=== PATIENT | female | born 1955 | race Caucasian/White ===

== ENCOUNTER 2021-04-04 10:57 | Outpatient (CLI) | payer OTHER, SELFPAY ==
--- NOTE | 2021-04-04 11:07 | XRR_ITS ---
PROCEDURE INFORMATION: Exam: XR Chest Exam date and time: 04/04/2021 11:07 AM Age: 65 years old Clinical indication: Cough and dyspnea; Additional info: Cough/dyspnea TECHNIQUE: Imaging protocol: XR of the chest. Views: Frontal and lateral upright, 2 views. COMPARISON: No relevant prior studies available. FINDINGS: Lungs: Severe profusion of nodular densities throughout the bilateral lungs, largest approximately 15 mm. The pulmonary vasculature is obscured by increased lung attenuation. Pleural spaces: No pleural effusion. No pneumothorax. Heart/Mediastinum: The heart is normal in size and contour. Bones/joints: No destructive bony process identified. XR/XR chest 2V* [id number] IMPRESSION: Extensive bilateral pulmonary nodules, consider metastatic neoplastic and infectious etiologies.
== END 2021-04-04 10:58 | disposition home or self-care (01) ==
PROVIDERS: PCP Nurse Practitioner Family; Visit Provider Nurse Practitioner Family
DX: Z00.00 Encounter for general adult medical examination without abnormal findings (principal); R05 Cough; R06.00 Dyspnea, unspecified
CPT/HCPCS: 71046; 80053; 80061; 82607; 83036; 84443

== ENCOUNTER 2021-04-21 09:51 | Outpatient (CLI) | payer OTHER, SELFPAY ==
[2021-04-21] MEDS: iohexol 300 mg/mL 50 mL Btl PO (10:05)
--- NOTE | 2021-04-21 11:30 | CT_ITS ---
WS: [id number] Exam: CT chest abd pel w con* Date/Time of Exam: 04/21/2021 10:00 AM Reason For Exam: R93.89 - Abnormal findings on diagnostic imaging of other... DLP: 2093.[address] scans at [facility] use at least one of these dose optimization techniques: automat ed exposure control; mA and/or kV adjustment per patient size (includes targeted exams where dose is matched to clinical indication); or iterative reconstruction. CT scan of the chest with IV contrast. There are multiple nodular densities and small masses identified throughout both lungs. The lungs are fully inflated. No pleural or pericardial effusion seen. The airway is patent. No mediastinal or hil ar lymphadenopathy. 2.5 cm low-attenuation lesion in the left thyroid lobe which may represent a adam oid cyst. No significant axillary or subpectoral lymphadenopathy. No destructive bone lesions are see n. The chest wall is intact. No destructive bone lesions. CT/CT chest abd pel w con* IMPRESSION: 1. Multiple soft tissue nodules and small masses identified throughout both dell gs. Lung metastasis or less likely infectious etiology might be considered. 2. No significant lymphadenopathy in the chest. CT scan of the abdomen and pelvis with IV contrast. The liver, spleen and gallbladder appear normal. The abdominal aorta is normal in caliber. Normal adrenal glands and kidneys. The portal vein and IVC are cuellar nt. The stomach is unremarkable. There is altered contour and attenuation in th e body the pancreas that may represent a pancreatic mass. There is mild retrope ritoneal lymphadenopathy. The largest left paracaval lymph node measures sligh tly over 1 cm at greatest short axis dimension. Small bowel loops are not dilat ed. There is sigmoid diverticulosis. No sign of acute diverticulitis. No sign o f acute appendix. No mass or adenopathy in the pelvis. No free air in the abdom en or pelvis. Intact urinary bladder. The uterus is unremarkable in appearance. No destructive bone lesions are seen. Tiny fat filled periumbilical hernia. IMPRESSION: 1. Altered contour and attenuation in the body the pancreas that may represent a pancreatic mass. 2. Mild retroperitoneal lymphadenopathy. The largest node measures slightly ove r a centimeter greatest short axis dimension and is seen along the left pericav al region. 3. Sigmoid diverticulosis. Other minor findings as above. IMPRESSION: 1. Abdominal MRI with and without contrast could be helpful for further workup if thought to be clinically indicated.
[2021-04-21] MEDS: iohexol 300 mg/mL 100 mL Btl IV (11:39)
== END 2021-04-21 09:52 | disposition home or self-care (01) ==
PROVIDERS: PCP Nurse Practitioner Family; Visit Provider Nurse Practitioner Family
DX: R93.89 Abnormal findings on diagnostic imaging of other specified body structures (principal); R06.02 Shortness of breath; R91.8 Other nonspecific abnormal finding of lung field; R59.1 Generalized enlarged lymph nodes; K57.30 Diverticulosis of large intestine without perforation or abscess without bleeding
CPT/HCPCS: 71260; 74177; Q9967

== ENCOUNTER 2021-04-26 09:01 | Day surgery (SDC) | payer OTHER, SELFPAY ==
[2021-04-25 07:53] VITALS: BMI 23.9
[2021-04-26] VITALS (8 sets, daily range): BP systolic 110–145; BP diastolic 66–96; PULSE 87–129; RESP 16–20; TEMP 36.6; O2SAT 92–100
[2021-04-26] MEDS: sodium chloride 0.9% 1,000 ML 30 ML IV (09:39)
[2021-04-26 09:59] LABS: INR 1.11 (0.8-1.2)
--- NOTE | 2021-04-26 10:00 | CT_ITS ---
WS: [id number] CT-GUIDED BIOPSY LEFT LUNG MASS. HISTORY: R91.8 - Other nonspecific abnormal finding of lung field, extensive bilateral pulmonary nodu les and masses of unknown etiology. DLP: 556.[address] scans at [facility] use at least one of these dose optimization techniques: automat ed exposure control; mA and/or kV adjustment per patient size (includes targeted exams where dose is matched to clinical indication); or iterative reconstruction. Prior imaging studies are reviewed. History and physical are reviewed. Procedure, risks and complicat ions were explained to the patient. Consent is obtained. Under fluoroscopy mass in the posterior RIGHT lower lobe is targeted. Skin is cleansed with ChloraPre p and anesthetized with 1% buffered lidocaine. Under conscious sedation 20-gauge Temno needle is inse rted into the mass. Coaxial needle is used for the biopsy. Multiple cores are obtained. Probably 6 co res are obtained. 4 cores are placed in formalin and 2 additional cores are sent for culture and sens itivity and for fungal evaluation. No complications are encountered. No pneumothorax or hemorrhage identified. Patient will be observed for 2 hours post procedure. Chest radiograph will be obtained in [address]/CT biopsy lung [id number] IMPRESSION: 1. Uncomplicated core needle biopsy of the LEFT lower lobe pulmonary mass. No complications are encountered. 2. Specimen is placed within formalin and also sent for culture and sensitivit y and gram stains.
[2021-04-26] MEDS: fentaNYL 50 mcg/mL INJ 2mL 25 MCG IVP ×2 (10:41→10:58)
[2021-04-26] MEDS: midazolam 1 mg/mL INJ 2 mL IVP (10:42)
--- NOTE | 2021-04-26 12:34 | XR_ITS ---
WS: [id number] PORTABLE CHEST HISTORY: post lung biopsy COMPARISON: 04/04/2021 No complications status post LEFT lung biopsy. No pneumothorax or pulmonary hematoma. Very slightly g reater density at the site of the biopsy may represent a small amount of bleeding at the site. The extensive pulmonary nodules are again identified. No pleural effusion or pneumothorax. Cardiac size: Normal. Mediastinum/Aorta: Normal mediastinum. No osseous abnormality seen. XR/XR chest 1V portable [id number] IMPRESSION: No complications status post LEFT lung biopsy.
== END 2021-04-26 13:12 | disposition home or self-care (01) ==
PROVIDERS: Radiology Diagnostic Radiology; PCP Nurse Practitioner Family; Visit Provider Nurse Practitioner Family
DX: C34.92 Malignant neoplasm of unspecified part of left bronchus or lung (principal)
CPT/HCPCS: 32408; 36415; 71045; 85610; 87070; 87102; 87176; 87205; 87206; 88307; 96361; 96374; 96375; J2250; J3010; J7030

== ENCOUNTER 2021-05-05 09:14 | Outpatient (CLI) | payer OTHER, SELFPAY ==
--- NOTE | 2021-05-05 17:44 | ONC CON_ITS ---
Dr. Luna New Patient Note Patient: Charlotte Mukherjee Unit #: [id number]: 1955 Dicatated By: Johnny Luna M.D.Date of Visit: May 05, 2021 Onc MED New Patient/Consult Referring Physician: DAGO WANG N.P. History of Present Illness: Ms. Charlotte Mukherjee, is a 65-year-old female who developed progressive dry cough since December 2020 and later on started having left posterior lateral chest wall pain as per patient he was sharp, sometimes stabbing so she started taking ibuprofen which helped some as per patient she also going through some grief as she lost her son in car accident in December 2020, patient was evaluated by her PMD on April 04, 2021 at that time patient was reassured as far as the cough is concerned, patient was scheduled for mammogram screening as well as colonoscopy and chest x-ray was ordered which showed multiple lung nodules no other abnormalities,, CT scan of chest abdomen pelvis was ordered and done on April 21, 2021 which showed multiple soft tissue nodules and small masses identified throughout both lungs. No significant lymphadenopathy in the chest. CT scan of abdomen shows altered contour and attenuation in the body of pancreas, that may represent pancreatic mass. Mild retroperitoneal lymphadenopathy. The largest node measures slightly over centimeter. Sigmoid diverticulosis., Patient was referred to interventional radiologist so on April 26, [address]-guided biopsy of left lung mass and pathology confirmed adenocarcinoma with mucinous features further immunohistochemistry is pending Patient came to clinic, complaining of progressive weakness and lightheadedness no double vision but sometimes blurred vision persistent nausea and dry heaving but no vomiting, as per patient she is having hard time keeping anything down and not drinking or eating enough, she has lost about 40 pounds in the last few months as per patient she used to weigh 296 pounds and now down to 155 also complaining of persistent bothersome dry cough. Denies any hemoptysis or hematemesis, denies any dysphagia, denies any hematemesis, denies any melena or hematochezia, denies any abdominal pain, denies any headaches, denies any sinus problem, denies any jaundice, patient is complaining of progressive left posterior lateral chest pain not being controlled with ibuprofen but sometimes with Ultram. Patient has history of right oophorectomy for cyst about 40 years ago Patient has history of chronic smoking for 15 to 20 years but quit about 30 years ago, patient denies any fever chills but dry oral mucosa due to dehydration due to poor hydration due to persistent dry heaves and nausea and off-and-on vomiting.Denies any new bony pains, denies any night sweats, denies any vaginal bleeding, denies any breast mass, as per patient she never had colonoscopy or mammogram but it was scheduled but canceled because of abnormal chest x-ray Past Medical History: Ms. Mukherjee's medical history consists of depression. Past Surgical History: There is no documented surgical history. Medications: Naprosyn 1 Tablet (of 500 mg) Oral b.i.d., Ondansetron HCl 1 Tablet (of 4 mg) Oral PRN, traMADol HCl 1 Tablet (of 50 mg) Oral t.i.d. PRN Allergies: Codeine Sulfate Social History: Ms. Mukherjee is . Family History: There is no documented family history. Review Of Symptoms: Review of Systems is not available for this patient. Vital Signs: Performed on May 05, 2021 09:45: 0, 23.49, 1.79 sq.m, 67 in, 94 % (LOW), 115 /min (HIGH), 18 /min, 125/81 mm(hg), 97.8 F (LOW), and 150 lbs (HIGH). Performance Status: 1 - No physically strenuous activity, but ambulatory and able to carry out light or sedentary work (e.g. office work, light house work). (ECOG) Physical Examination: ENMT - .No mouth sores, no thrush but dry oral mucosa no cervical lymphadenopathy, Respiratory - Lungs are clear to auscultation, Cardiovascular - Regular rate and rhythm of heart, Abdomen - Soft, bowel sounds present, Extremities - No visible edema. Lab/Imaging: Most recent lab results are not available for this patient. Impression: Adenocarcinoma with mucinous features per CT-guided left lung mass biopsy done on April 26, 2021 CT scan of chest abdomen pelvis done on April 21, 2021 shows multiple soft tissue nodules and small masses identified throughout both lungs,. No significant lymphadenopathy in the chest. Altered contour and attenuation in the body of pancreas may represent pancreatic mass. Mild retroperitoneal lymphadenopathy. Largest node measures slightly over centimeter in greatest short axis dimension and is seen along the left pericaval region. Sigmoid diverticulosis Left posterior lateral chest wall pain etiology unclear could be musculoskeletal or metastatic disease Dehydration/poor oral intake due to nausea/dry heaves/off and on vomiting etiology could be multifactorial including brain mets versus NSAID induced gastritis or peptic ulcer disease or gastric outlet obstruction due to pancreatic mass Dry cough, etiology unclear could be due to postnasal drip or bronchial irritation due to pulmonary pathology Plan: Discussed with patient regarding her abnormal CT scan of chest abdomen pelvis as well as CT-guided lung biopsy which confirmed adenocarcinoma with mucinous features but special immunohistochemistry is pending to identify the primary versus metastatic disease, Clinically, patient is in moderate to severe distress due to persistent nausea/dry heaves and off-and-on vomiting and dehydration/poor nutrition, at this point we will admit her to hospital, consider CT scan of the head to rule out brain mets and if negative, consider EGD to rule out peptic ulcer disease or NSAID induced gastritis, hydration, nutrition consult. Also consider pulmonary consult to evaluate persistent dry cough, may benefit from bronchoscopy,We will also consider CT PET scan to assess the disease status, we will also consider tumor markers CEA, CA 19???9, CA-125, CA 15.3/CA 27.29, if elevated may help identifying the primary, immunohistochemistry remained inconclusive, may consider cancer type ID and also consider molecular profiling to identify targetable therapeutic mutations and including PD-L1 status Patient return to clinic after being discharged from the hospital for further planning a discussion Signed By: Johnny Luna M.D. <<Signature on File>>
== END 2021-05-05 09:15 | disposition home or self-care (01) ==
LOC: ONCMED 09:17
PROVIDERS: PCP Nurse Practitioner Family; Visit Provider Internal Medicine Hematology & Oncology
DX: C34.92 Malignant neoplasm of unspecified part of left bronchus or lung (principal); E86.0 Dehydration; R05 Cough; Z79.899 Other long term (current) drug therapy; Z87.891 Personal history of nicotine dependence
CPT/HCPCS: 99205

== ENCOUNTER 2021-05-05 10:43 | Emergency (ER) | payer OTHER, MEDICARE, SELFPAY ==
[2021-05-05 11:01] VITALS: BP 115/76; PULSE 112; RESP 15; TEMP 36.6; O2SAT 91; BMI 23.5
--- NOTE | 2021-05-05 11:15 | CT_ITS ---
WS: [id number] CTA OF THE CHEST WITH PULMONARY EMBOLISM PROTOCOL TECHNIQUE: High-resolution contrast enhanced CTA of the chest with coronal and sagittal reformatted i kendal with pulmonary embolism protocol. MIP images are also reviewed. CLINICAL INFORMATION: rule out pe COMPARISON: None. DLP: 564.[address] scans at [facility] use at least one of these dose optimization techniques: automated e xposure control; mA and/or kV adjustment per patient size (includes targeted exams where dose is matc hed to clinical indication); or iterative reconstruction. FINDINGS: Proximal main pulmonary arteries are normal. Normal segmental and subsegmental pulmonary arteries. No evidence for pulmonary embolus. Innumerable bilateral pulmonary nodules throughout both lungs. This is similar in appearance to the p rior examination April 21, 2020. pulmonary lesions appear slightly progressed today with slightly mo re confluence peripherally in the lung bases. Some lesions demonstrate cavitation unchanged from pre vious. Differential considerations are unchanged and include metastatic disease versus atypical infec tious etiologies such as fungal disease Nodular left thyroid unchanged. No axillary lymphadenopathy. Slightly prominent hilar lymph nodes unc hanged from previous. Adrenal glands are normal. CT/CT angio chest PE protcl [id number] IMPRESSION: 1. No evidence of pulmonary embolus. 2. Innumerable bilateral diffuse pulmonary nodules some with cavitations suspi cious for metastatic disease. Less likely additional considerations include aty pical infections such as fungal disease. Overall disease is slightly progressed compared to April 21, 2021 3. Prominent bilateral hilar lymph nodes unchanged. 4. Nodular left thyroid gland is unchanged. 5. No other significant interval changes.
--- NOTE | 2021-05-05 11:15 | XR_ITS ---
WS: [id number] Portable AP upright chest, 05/05/2021 Clinical Data: dyspnea Comparison: Portable chest, 04/26/2021. Findings: There are innumerable nodules throughout both lungs unchanged. The heart size remains the same. The aortic arch is tortuous. No pneumothorax is seen. XR/XR chest 1V portable [id number] Impression: Innumerable nodules throughout both lungs unchanged and again this could repres ent infection, metastatic disease or even a primary tumor.
--- NOTE | 2021-05-05 11:15 | CT_ITS ---
WS: [id number] CT HEAD TECHNIQUE: Noncontrast CT of the head obtained from the skullbase to the vertex. CLINICAL INFORMATION: rule out mass per dr asher COMPARISON: None. DLP: 841.[address] scans at [facility] use at least one of these dose optimization techniques: automated e xposure control; mA and/or kV adjustment per patient size (includes targeted exams where dose is matc hed to clinical indication); or iterative reconstruction. FINDINGS: No evidence of intracranial hemorrhage. Calcified lesion left frontal lobe likely represents meningio ma measuring 10 mm. Small amount of surrounding low-attenuation change. No significant mass effect or midline shift. Small amount of underlying calvarial remodeling. Dystrophic calcification along the falx. No evidence of intracranial hemorrhage. Mild small vessel ch anges with mild parenchymal volume loss. Normal posterior fossa. Paranasal sinuses and mastoid air ce lls are well aerated. CT/CT head wo con* [id number] IMPRESSION: 1. Calcified left frontal lesion measuring 10 mm most likely represent small c alcified meningioma. Small amount of surrounding low attenuation change. No sig nificant mass effect or midline shift. This can be followed up with MRI on an e lective basis. 2. No evidence of intracranial hemorrhage. 3. Mild small vessel changes with mild parenchymal volume loss. 4. No other significant findings.
--- NOTE | 2021-05-05 11:15 | ECG_ITS ---
[facility] Test Date: 2021-05-05 Pat Name: Charlotte Mukherjee Department: Room: Gender: Female Chief Radiologic Technologist: : 1955 Requested By: Mushtaq Balderrama Order Number: [id number] Maranda MD: Nima Womack M.D. Measurements Intervals Chromo Rate: 86 P: 27 NJ: 122 QRS: 45 QRSD: 94 T: 42 QT: 374 QTc: 448 Interpretive Statements SINUS RHYTHM No previous ECG available for comparison Electronically Signed On 05-05-2021 20:09:17 CDT by Nima Womack M.D. [id number]
--- NOTE | 2021-05-05 11:18 | ED_ITS ---
HPI - General Adult General: Chief complaint: Nausea/Vomiting/Diarrhea Stated complaint: Nausea Time Seen by Provider: 05/05/21 11:06 History of Present Illness: HPI narrative: Patient is a 65-year-old female with recent diagnosis of lung CA who presents the emergency room with request of Dr. Luna for concerns of dehydration and hypoxemia. Patient tells me that she has had decreased p.o. intake since her diagnosis of cancer. Patient has had decreased appetite, nausea and vomiting. In addition, patient also reports an ongoing cough x2 weeks. In addition, patient was noted to be hypoxemic to the 90% in the oncology office. Denies any fever/chills, chest pain, shortness of breath. Patient has no exertional shortness breath or pleuritic chest pain. Patient denies diarrhea, melena/hematochezia, complaints. Or other issues. Patient is awaiting further testing before chemotherapy/radiation treatment. Onset: chronic Duration: ongoing Location:home Severity:moderate Review of Systems Narrative: Constitutional: No fever, no chills. HEENT: No vision changes CV: No chest pain, no palpitations PULM: +cough, no dyspnea. GI: +abdominal pain, +N/+V/-D. +decreased PO intake : No dysuria MSKEL: No muscle pain SKIN: No new rashes, no lesions. NEURO: No headache, no focal weakness. HEME: No visible bruises PSYCH: Normal mood [facility] Female Reproductive History: Date of last menstrual period: 11/18/20 Physical Exam Narrative: EXAM NARRATIVE: Head: Atraumatic Eyes: PERRL, conjunctiva without injection ENT: Mucous mebrane moist NECK: Supple, ROM intact LUNGS: LCTAB CV: Sinus tachycardia, 2+ radial pulses b/; ABDOMEN: Soft, +mild midepigastric tenderness to palpation. NO guarding rebound, guarding, rigidity. No CVA tenderness to percussion. Neg Mobley/Neg McBurney's point tenderness, no suprabupic tenderness to palpation. EXTREMITY: Normal ROM, no calf tenderness to palpation SKIN: No rash or erythema NEURO: Awake and alert, no focal motor deficits PSYCH: Normal mood and affect Course Vital Signs: Vital signs: Vital Signs Temperature 97.8 F 05/05/21 11:01 Pulse Rate 91 05/05/21 16:11 Respiratory Rate 18 05/05/21 16:11 Blood Pressure 164/76 05/05/21 13:10 Pulse Oximetry 90 05/05/21 16:11 MDM - General Adult MDM Narrative: Medical decision making narrative: Patient is a 65-year-old female with history of lung carcinoma who presents the emergency room for concerns of dehydration, and hypoxemia. On arrival, patient is satting at 90% on room air and is noted to be tachycardic to 112. Patient appears to be dry on exam and has mild epigastric tenderness to palpation. Lungs exam within normal limit. Given concerns from Dr. Luna, will work patient up for dehydration, including imaging of the head and CTA chest for rule out PE/cancer delineation. Intervention: zofran, GI cocktail, IVF EKG showing regular sinus rhythm at HT of [96]. Normal axis. No ST elevations/depressions to suggest coronary occlusion. Normal DE, QRS, QT intervals. On reassessment at 12:30am Covid is negative. Tachycardia improved with IVF. Patient received IVF, GI cocktail with symptomatic improvement. CT brain and CTA chest showed no signs of PE, no metastatic spread. Patient is noted to have a calcified meningioma in the brain. She has diffuse pulmonary disease requiring oxygen. Patient is on 3 L nasal cannula with significant O2 improvement to greater than 95%. HR improved with IVF and obbservation. She has no signs of increased work of breathing. I have offered patient admission however, patient declined this time. Patient tolerated p.o. in the emergency room. I have discussed the risk of leaving today which include respiratory distress, dehydration, and possible . Patient verbalized understanding of these risk and/to leave today. Patient electively return to follow-up with pulmonology and GI provider outpatient for further evaluation of nausea and vomiting. I have arranged these followup for patient. In addition, I have arranged oxygen tanks for patient at home. Patient tolerated p.o. in the emergency room. Patient is able to ambulate without difficulty. No signs of dehydration current time. No suspicion for acute sepsis. Disposition: Discharge. Given patient follow-up with pulmonology and GI for further evaluation of her symptoms. Patient is can go home today with oxygen. Patient will need O2 eval at home. Given is given strict return precautions for any signs of respiratory distress, dehydration, abdominal pain, and or any new or concerning complaints. Lab Data: Labs: Lab Results 05/05/21 05/05/21 05/05/21 Range/Units 11:31 11:31 11:31 WBC 11.2 H (4.0-10.0) 10^3/ uL RBC 4.74 (4.1-5.3) 10^6/u L Hgb 14.1 (11.5-15.3) g/dL Hct 42.8 (37.0-47.0) % MCV 90.3 (81-99) fl MCH 29.7 (28.0-34.0) pg MCHC 32.9 (30.0-36.0) g/dL RDW 12.6 (12.1-15.1) % Plt Count 437 H (130-400) 10^3/c mm MPV 10.4 (7.4-10.4) fL Neut % (Auto) 76.9 % Lymph % (Auto) 14.2 % Mccreary % (Auto) 6.6 % Eos % (Auto) 1.1 % Baso % (Auto) 0.6 % Neut # (Auto) 8.64 H (1.8-7.7) 10^3/u L Lymph # (Auto) 1.6 (0.8-4.8) 10^3/u L Mccreary # (Auto) 0.7 (0.2-0.9) 10^3/u L Eos # (Auto) 0.1 (0.0-0.8) 10^3/u L Baso # (Auto) 0.1 (0.0-0.1) 10^3/u L Nucleated RBC % (a uto) 0 % Nucleated RBCs # 0.0 /100WBC PT 14.40 (12.1-14.9) SECO NDS INR 1.09 (0.8-1.2) APTT 33.0 (23.9-36.7) SECO NDS Sodium 139 (136-145) mmol/L Potassium 4.1 (3.5-5.1) mmol/L Chloride 96 L (98-107) mmol/L Carbon Dioxide 30 H (22-29) mmol/L Anion Gap 17.1 (5-19) BUN 9 (8-23) mg/dL Creatinine 0.5 (0.5-0.9) mg/dL GFR Calculation 123.1 (90-130) mL/min Glucose 108 (65-115) mg/dL Calculated Osmolal ity 287 (285-295) mOsm/k g Lactate (0.5-2.2) mmol/L Calcium 9.4 (8.5-10.5) mg/dL Total Bilirubin 0.3 (0.15-1.2) mg/dL AST 17 (0-32) U/L ALT 14 (0-33) U/L Alkaline Phosphata se 91 (35-105) IU/L Troponin T Gen 5 n g/L (0-10) ng/L Total Protein 7.5 (6.6-8.7) g/dL Albumin 4.3 (3.5-5.2) g/dL Globulin 3.2 (1.3-4.6) g/dL Lipase 42 (13-60) U/L Nasal/Oral COVID-1 9 PCR SARS-CoV-2 Ag (Rap id) (Negative) 05/05/21 05/05/21 05/05/21 Range/Units 11:31 11:31 11:31 WBC (4.0-10.0) 10^3/ uL RBC (4.1-5.3) 10^6/u L Hgb (11.5-15.3) g/dL Hct (37.0-47.0) % MCV (81-99) fl MCH (28.0-34.0) pg MCHC (30.0-36.0) g/dL RDW (12.1-15.1) % Plt Count (130-400) 10^3/c mm MPV (7.4-10.4) fL Neut % (Auto) % Lymph % (Auto) % Mccreary % (Auto) % Eos % (Auto) % Baso % (Auto) % Neut # (Auto) (1.8-7.7) 10^3/u L Lymph # (Auto) (0.8-4.8) 10^3/u L Mccreary # (Auto) (0.2-0.9) 10^3/u L Eos # (Auto) (0.0-0.8) 10^3/u L Baso # (Auto) (0.0-0.1) 10^3/u L Nucleated RBC % (a uto) % Nucleated RBCs # /100WBC PT (12.1-14.9) SECO NDS INR (0.8-1.2) APTT (23.9-36.7) SECO NDS Sodium (136-145) mmol/L Potassium (3.5-5.1) mmol/L Chloride (98-107) mmol/L Carbon Dioxide (22-29) mmol/L Anion Gap (5-19) BUN (8-23) mg/dL Creatinine (0.5-0.9) mg/dL GFR Calculation (90-130) mL/min Glucose (65-115) mg/dL Calculated Osmolal ity (285-295) mOsm/k g Lactate 1.5 (0.5-2.2) mmol/L Calcium (8.5-10.5) mg/dL Total Bilirubin (0.15-1.2) mg/dL AST (0-32) U/L ALT (0-33) U/L Alkaline Phosphata se (35-105) IU/L Troponin T Gen 5 n g/L 6 (0-10) ng/L Total Protein (6.6-8.7) g/dL Albumin (3.5-5.2) g/dL Globulin (1.3-4.6) g/dL Lipase (13-60) U/L Nasal/Oral COVID-1 9 PCR Not detected SARS-CoV-2 Ag (Rap id) (Negative) 05/05/21 Range/Units 11:31 WBC (4.0-10.0) 10^3/ uL RBC (4.1-5.3) 10^6/u L Hgb (11.5-15.3) g/dL Hct (37.0-47.0) % MCV (81-99) fl MCH (28.0-34.0) pg MCHC (30.0-36.0) g/dL RDW (12.1-15.1) % Plt Count (130-400) 10^3/c mm MPV (7.4-10.4) fL Neut % (Auto) % Lymph % (Auto) % Mccreary % (Auto) % Eos % (Auto) % Baso % (Auto) % Neut # (Auto) (1.8-7.7) 10^3/u L Lymph # (Auto) (0.8-4.8) 10^3/u L Mccreary # (Auto) (0.2-0.9) 10^3/u L Eos # (Auto) (0.0-0.8) 10^3/u L Baso # (Auto) (0.0-0.1) 10^3/u L Nucleated RBC % (a uto) % Nucleated RBCs # /100WBC PT (12.1-14.9) SECO NDS INR (0.8-1.2) APTT (23.9-36.7) SECO NDS Sodium (136-145) mmol/L Potassium (3.5-5.1) mmol/L Chloride (98-107) mmol/L Carbon Dioxide (22-29) mmol/L Anion Gap (5-19) BUN (8-23) mg/dL Creatinine (0.5-0.9) mg/dL GFR Calculation (90-130) mL/min Glucose (65-115) mg/dL Calculated Osmolal ity (285-295) mOsm/k g Lactate (0.5-2.2) mmol/L Calcium (8.5-10.5) mg/dL Total Bilirubin (0.15-1.2) mg/dL AST (0-32) U/L ALT (0-33) U/L Alkaline Phosphata se (35-105) IU/L Troponin T Gen 5 n g/L (0-10) ng/L Total Protein (6.6-8.7) g/dL Albumin (3.5-5.2) g/dL Globulin (1.3-4.6) g/dL Lipase (13-60) U/L Nasal/Oral COVID-1 9 PCR SARS-CoV-2 Ag (Rap id) Negative (Negative) Imaging Data^: Other Imaging: Radiologist's impression: [address] [address]WApj ReportSigned Patient: Charlotte Mukherjee #: [id number]: 3Acct#:[id number]/Sex: 65 / FADM Date: 05/05/21Loc: ERRoom/Bed:Attending Dr: Ordering Provider/Ordering MD: Mushtaq Balderrama MD Date of Service: 05/05/21 Procedure(s): XR chest 1V portable [id number] Accession Number(s): [id number] Report Number: [id number] WS: [id number] Portable AP upright chest, 05/05/2021 Clinical Data: dyspnea Comparison: Portable chest, 04/26/2021. Findings: There are innumerable nodules throughout both lungs unchanged. The he art size remains the same. The aortic arch is tortuous. No pneumothorax is seen. XR/XR chest 1V portable [id number] Impression: Innumerable nodules throughout both lungs unchanged and again this could represent infection, metastatic disease or even a primary tumor. Dictated By:Karley Raymundo MDSigned By:Karley Raymundo MDSigned Date/Time:05/05/21 1210DD/ [address] [address]VP Scan ReportSigned Patient: Charlotte Mukherjee #: [id number]: 1955cct#:[id number]/Sex: 65 / FADM Date: 05/05/21Loc: [facility] m/Bed:Attending Dr: Ordering Provider/Ordering MD: Mushtaq Balderrama MD Date of Service: 05/05/21 Procedure(s): CT head wo con* [id number] Accession Number(s): [id number] Report Number: [id number] WS: [id number] CT HEAD TECHNIQUE: Noncontrast CT of the head obtained from the skullbase to the vertex. CLINICAL INFORMATION: rule out mass per dr luna COMPARISON: None. DLP: 841.[address] scans at [facility] use at least one of these dose optimization techniques: automated exposure control; mA and/or kV adjustment per patient size (includes targeted exams where dose is matched to clinical indication); or iterative reconstruction. FINDINGS: No evidence of intracranial hemorrhage. Calcified lesion left frontal lobe likely represents meningioma measuring 10 mm. Small amount of surrounding low- attenuation change. No significant mass effect or midline shift. Small amount of underlying calvarial remodeling. Dystrophic calcification along the falx. No evidence of intracranial hemorrhage. Mild small vessel changes with mild parenchymal volume loss. Normal posterior fossa. Paranasal sinuses and mastoid air cells are well aerated. CT/CT head wo con* 12723 IMPRESSION: 1. Calcified left frontal lesion measuring 10 mm most likely represent small calcified meningioma. Small amount of surrounding low attenuation change. No significant mass effect or midline shift. This can be followed up with MRI on an elective basis. 2. No evidence of intracranial hemorrhage. 3. Mild small vessel changes with mild parenchymal volume loss. 4. No other significant findings. Dictated By:Reed Daugherty MDSigned By:Reed Daugherty MDSigned Date/Time:05/05/21 1319DD/ 1308 [facility] [place], [place] [address]EB Scan ReportSigned Patient: Charlotte Mukherjee #: [id number]: 1955cct#:[id number]/Sex: 65 / FADM Date: 05/05/21Loc: ERRoom/Bed:Attending Dr: Ordering Provider/Ordering MD: Mushtaq Balderrama MD Date of Service: 05/05/21 Procedure(s): CT angio chest PE protcl [id number] Accession Number(s): [id number] Report Number: [id number] WS: [id number] CTA OF THE CHEST WITH PULMONARY EMBOLISM PROTOCOL TECHNIQUE: High-resolution contrast enhanced CTA of the chest with coronal and sagittal reformatted images with pulmonary embolism protocol. MIP images are also reviewed. CLINICAL INFORMATION: rule out pe COMPARISON: None. DLP: 564.[address] [facility] use at least one of these dose optimization techniques: automated exposure control; mA and/or kV adjustment per patient size (includes targeted exams where dose is matched to clinical indication); or iterative reconstruction. FINDINGS: Proximal main pulmonary arteries are normal. Normal segmental and subsegmental pulmonary arteries. No evidence for pulmonary embolus. Innumerable bilateral pulmonary nodules throughout both lungs. This is similar in appearance to the prior examination April 21, 2020. pulmonary lesions appear slightly progressed today with slightly more confluence peripherally in the lung bases. Some lesions demonstrate cavitation unchanged from previous. Differential considerations are unchanged and include metastatic disease versus atypical infectious etiologies such as fungal disease Nodular left thyroid unchanged. No axillary lymphadenopathy. Slightly prominent hilar lymph nodes unchanged from previous. Adrenal glands are normal. CT/CT angio chest PE protcl [id number] IMPRESSION: 1. No evidence of pulmonary embolus. 2. Innumerable bilateral diffuse pulmonary nodules some with cavitations suspicious for metastatic disease. Less likely additional considerations include atypical infections such as fungal disease. Overall disease is slightly progressed compared to April 21, 2021 3. Prominent bilateral hilar lymph nodes unchanged. 4. Nodular left thyroid gland is unchanged. 5. No other significant interval changes. Dictated By:Reed Daugherty MDSigned By:Reed Daugherty MDSigned Date/Time:05/05/21 1333DD/ 1319 Discharge Plan Discharge Patient Disposition: Home Clinical Impression: Abdominal pain, Hypoxemia, Decrease in appetite, Nausea & vomiting Condition: Stable Prescriptions: New Maalox Advanced 1,000-60 mg tablet,chewable 1 tab PO TID PRN (Reason: dyspepsia) 30 Days Qty: 90 RF: 0 Pepcid 20 mg tablet 20 mg PO BID PRN (Reason: dyspepsia) 42 Days Qty: 84 RF: 0 Zofran 4 mg tablet 4 mg PO Q8H PRN (Reason: nausea and vomiting) 5 Days Qty: 15 RF: 0 No Action budesonide-formoterol [Symbicort] 80-4.5 mcg/actuation HFA aerosol inhaler 2 puff inhalation BID Qty: 10.2 RF: 0 Discharge Orders: Discharge ED (Routine); Ordered 05/05/21 Ordered By: Mushtaq Balderrama Other Ambulatory Orders: DME: Oxygen (Order) Location: None Selected Ordered By: Mushtaq Balderrama Referrals: Shirlene Ryder APRN [Primary Care Provider] - Discharge Diet: Advance as tolerated Discharge Activity: Resume usual activity Patient Instructions: Nausea and Vomiting - Oncology, Abdominal Pain (ED) Activity Restrictions/Additional Instructions: Please follow-up with Dr. Luna for further evaluation of your symptoms. Or tenderness managed will call you in the next few days for follow-up with pulmonology and GI. Come back to the emergency room if your symptom worsens, or if you have any new or concerning complaints. We will send you home with home oxygen. Coding Level of Care Code ED Machine Icer for Erick Pierre
[2021-05-05 11:34] VITALS: O2SAT 97
[2021-05-05] MEDS: sodium chloride 0.9% 1,000 ML 999 ML IV (11:45)
[2021-05-05] MEDS: ondansetron 2 mg/ML SDV 2 mL 4 MG IVP (11:45)
[2021-05-05] MEDS: famotidine 20 mg/2 mL INJ IVP (11:45)
[2021-05-05 11:46] LABS: Basophils # 0.1 10^3/uL (0.0-0.1); Basophils % 0.6 %; Eosinophils # 0.1 10^3/uL (0.0-0.8); Eosinophils % 1.1 %; Hematocrit 42.8 % (37.0-47.0); Hemoglobin 14.1 g/dL (11.5-15.3); Lymphocytes # 1.6 10^3/uL (0.8-4.8); Lymphocytes % 14.2 %; Mean Corpuscular HGB Conc 32.9 g/dL (30.0-36.0); Mean Corpuscular Hemoglobin 29.7 pg (28.0-34.0); Mean Corpuscular Volume 90.3 fl (81-99); Mean Platelet Volume 10.4 fL (7.4-10.4); Monocytes # 0.7 10^3/uL (0.2-0.9); Monocytes % 6.6 %; Neutrophils # 8.64 10^3/uL (1.8-7.7); Neutrophils % 76.9 %; Nucleated Red Blood Cells % 0 %; Platelet Count 437 10^3/cmm (130-400); Red Blood Count 4.74 10^6/uL (4.1-5.3); Red Cell Distribution Width 12.6 % (12.1-15.1); White Blood Count 11.2 10^3/uL (4.0-10.0)
[2021-05-05 11:59] LABS: INR 1.09 (0.8-1.2)
[2021-05-05 12:04] LABS: Lactate (Lactic Acid level) 1.5 mmol/L (0.5-2.2)
[2021-05-05 12:05] LABS: Alanine Aminotransferase 14 U/L (0-33); Albumin Level 4.3 g/dL (3.5-5.2); Alkaline Phosphatase 91 IU/L (35-105); Anion Gap 17.1 (5-19); Aspartate Amino Transferase 17 U/L (0-32); Blood Urea Nitrogen 9 mg/dL (8-23); Calcium 9.4 mg/dL (8.5-10.5); Carbon Dioxide 30 mmol/L (22-29); Chloride 96 mmol/L (98-107); Globulin 3.2 g/dL (1.3-4.6); Glomerular Filtration Rate 123.1 mL/min (90-130); Glucose 108 mg/dL (65-115); Lipase 42 U/L (13-60); Osmolality Calculated 287 mOsm/kg (285-295); Potassium 4.1 mmol/L (3.5-5.1); Sodium 139 mmol/L (136-145); Total Bilirubin 0.3 mg/dL (0.15-1.2); Total Protein 7.5 g/dL (6.6-8.7)
[2021-05-05 12:06] LABS: Troponin T (5th) Once 6 ng/L (0-10)
[2021-05-05 12:08] LABS: SARS Covid-2 Antigen Negative (Negative)
[2021-05-05] MEDS: lidocaine 2% viscous 15 ML, aluminum-mag hydrox-simethicon 30 ML, sucralfate oral liq 1 GM PO (12:32)
[2021-05-05] MEDS: iohexol 350 mg/mL 100 mL Btl IV (12:49)
[2021-05-05 13:10] VITALS: BP 164/76; PULSE 88; RESP 20; O2SAT 100
[2021-05-05 15:02] VITALS: O2SAT 88; O2SAT 94
[2021-05-05 16:11] VITALS: PULSE 91; RESP 18; O2SAT 90
--- NOTE | 2021-05-06 10:11 | DCPLANNER ---
Addendum entered by Eliane Barnes 09/15/21 16:40: Patient had a follow up appointment scheduled with Jennifer Ryder - this appointment was cancelled. Patient had a follow up appointment scheduled with heart care with Dr. Solitario - patient did attend appointment. Addendum entered by Eliane Barnes 05/06/21 12:10: manager data center also had message to schedule a follow up appointment for patient with pulmology. manager data center called [facility], spoke with Toyin, gave clinic patients information. manager data center called patient and gave patient the appointment information. Original Note: manager data center had message to schedule a follow up appointment for patient with GI provider. manager data center called the office of Dr. Krause. manager data center spoke with Tasha, gave clinic patients information. A follow up appointment was scheduled for Sunday, May 09, 2021 at 10:00 with Gia Ryder. Clinic will call patient with appointment information.
[2021-05-06 14:57] LABS: Coronavirus Test Green County Not Detected
--- NOTE | 2021-05-06 16:38 | PC.NURSE ---
pt already aware of negative covid results
== END 2021-05-05 16:13 | disposition home or self-care (01) ==
PROVIDERS: Emergency Provider Emergency Medicine; PCP Nurse Practitioner Family
DX: R11.2 Nausea with vomiting, unspecified (principal); R10.9 Unspecified abdominal pain; R09.02 Hypoxemia; R63.0 Anorexia; Z20.822 Contact with and (suspected) exposure to COVID-19
CPT/HCPCS: 70450; 71045; 71275; 80053; 83605; 83690; 84484; 85025; 85610; 85730; 87426; 87635; 93005; 96361; 96374; 96375; 99284; J2405; J3490; J7030; Q9967

== ENCOUNTER 2021-05-11 05:59 | Outpatient (CLI) | payer OTHER, SELFPAY ==
[2021-05-11] MEDS: sodium chloride 0.9% 500 ML 999 ML IV (11:15)
[2021-05-11] MEDS: ondansetron 2 mg/ML SDV 2 mL 8 MG IV (11:15)
[2021-05-11 11:29] LABS: Basophils # 0.1 10^3/uL (0.0-0.1); Basophils % 0.4 %; Eosinophils # 0.2 10^3/uL (0.0-0.8); Eosinophils % 1.1 %; Hematocrit 42.3 % (37.0-47.0); Lymphocytes # 2.1 10^3/uL (0.8-4.8); Lymphocytes % 15.6 %; Mean Corpuscular HGB Conc 33.1 g/dL (30.0-36.0); Mean Corpuscular Hemoglobin 30.1 pg (28.0-34.0); Mean Platelet Volume 11.4 fL (7.4-10.4); Monocytes % 7.7 %; Neutrophils # 10.12 10^3/uL (1.8-7.7); Neutrophils % 74.6 %; Nucleated Red Blood Cells % 0 %; Platelet Count 310 10^3/cmm (130-400); Red Blood Count 4.65 10^6/uL (4.1-5.3); Red Cell Distribution Width 12.9 % (12.1-15.1); White Blood Count 13.6 10^3/uL (4.0-10.0)
[2021-05-11 11:57] LABS: Slide Review Slide Review Perform
[2021-05-11 13:32] LABS: Carcinoembryonic Antigen 1.4 ng/mL (0.0-4.7)
[2021-05-11 13:42] LABS: Amylase 37 U/L (28-100); Lipase 33 U/L (13-60)
[2021-05-11 16:04] LABS: Alanine Aminotransferase 13 U/L (0-33); Albumin Level 3.9 g/dL (3.5-5.2); Alkaline Phosphatase 82 IU/L (35-105); Anion Gap 16.4 (5-19); Aspartate Amino Transferase 17 U/L (0-32); Blood Urea Nitrogen 15 mg/dL (8-23); CA 125 56.1 U/mL (0-35); CA 15-3 28.4 U/mL (0-25); Cancer Antigen 19 9 379.1 U/mL (0-35); Carbon Dioxide 28 mmol/L (22-29); Chloride 96 mmol/L (98-107); Globulin 3.3 g/dL (1.3-4.6); Glomerular Filtration Rate 99.7 mL/min (90-130); Glucose 94 mg/dL (65-115); Osmolality Calculated 283 mOsm/kg (285-295); Potassium 4.4 mmol/L (3.5-5.1); Sodium 136 mmol/L (136-145); Total Bilirubin 0.3 mg/dL (0.15-1.2); Total Protein 7.2 g/dL (6.6-8.7)
--- NOTE | 2021-05-12 16:04 | ONC FU_ITS ---
Dr. Luna follow up note Patient: Charlotte Mukherjee Unit #: [id number]: [id number] Dicatated By: Johnny Luna M.D.Date of Visit:May 11, 2021 Onc Med Follow-up/Prog Note History of Present Illness: Ms. Charlotte Mukherjee, is a 65-year-old female who developed progressive dry cough since December 2020 and later on started having left posterior lateral chest wall pain as per patient he was sharp, sometimes stabbing so she started taking ibuprofen which helped some as per patient she also going through some grief as she lost her son in car accident in December 2020, patient was evaluated by her PMD on April 04, 2021 at that time patient was reassured as far as the cough is concerned, patient was scheduled for mammogram screening as well as colonoscopy and chest x-ray was ordered which showed multiple lung nodules no other abnormalities,, CT scan of chest abdomen pelvis was ordered and done on April 21, 2021 which showed multiple soft tissue nodules and small masses identified throughout both lungs. No significant lymphadenopathy in the chest. CT scan of abdomen shows altered contour and attenuation in the body of pancreas, that may represent pancreatic mass. Mild retroperitoneal lymphadenopathy. The largest node measures slightly over centimeter. Sigmoid diverticulosis., Patient was referred to interventional radiologist so on April 26, [address]-guided biopsy of left lung mass and pathology confirmed adenocarcinoma with mucinous features further immunohistochemistry is pending Patient came to clinic, complaining of progressive weakness and lightheadedness no double vision but sometimes blurred vision persistent nausea and dry heaving but no vomiting, as per patient she is having hard time keeping anything down and not drinking or eating enough, she has lost about 40 pounds in the last few months as per patient she used to weigh 296 pounds and now down to 155 also complaining of persistent bothersome dry cough. Denies any hemoptysis or hematemesis, denies any dysphagia, denies any hematemesis, denies any melena or hematochezia, denies any abdominal pain, denies any headaches, denies any sinus problem, denies any jaundice, patient is complaining of progressive left posterior lateral chest pain not being controlled with ibuprofen but sometimes with Ultram. Patient has history of right oophorectomy for cyst about 40 years ago Patient has history of chronic smoking for 15 to 20 years but quit about 30 years ago, patient denies any fever chills but dry oral mucosa due to dehydration due to poor hydration due to persistent dry heaves and nausea and off-and-on vomiting.Denies any new bony pains, denies any night sweats, denies any vaginal bleeding, denies any breast mass, as per patient she never had colonoscopy or mammogram but it was scheduled but canceled because of abnormal chest x-ray CT scan of the head done on 05/05/2021 showed calcified left frontal lesion measuring 10 mm most likely represent small calcified meningioma no other abnormality seen Came for follow-up, denies any specific complaint except persistent off and on epigastric pain associated with nausea and sometimes vomiting but no hemoptysis or hematemesis, no heartburn or indigestion, as per patient Phenergan will make her sleepy and Zofran 4 mg is not adequate also complaining of dehydration as she has not been able to keep anything down., During recent hospitalization, her CT scan of head shows no evidence of brain mets, patient responded very well to IV hydration and antiemetics but no EGD or bronchoscopy was considered during recent hospitalization as patient symptom improved as well as her cough also improved, patient was scheduled to see pulmonology as an outpatient but patient not aware of gastroenterology appointment.. Otherwise denies any fever chills denies any headaches or blurred vision denies any jaundice denies any dysuria or hematuria Medications: Naprosyn 1 Tablet (of 500 mg) Oral b.i.d., Ondansetron HCl 1 Tablet (of 4 mg) Oral PRN, traMADol HCl 1 Tablet (of 50 mg) Oral t.i.d. PRN Allergies: Codeine Sulfate Review of Systems: Review of Systems is not available for this patient. Vital Signs: Performed on May 11, 2021 13:20 Height - 67.00 in Weight - 152.4 lbs (HIGH) BSA - 1.80 sq.m BMI - 23.87 Temperature - 98.2 F (LOW) Pulse - 126 /min (HIGH) Respiration - 20 /min BP - 103/70 mm(hg) O2 Sat - 93 % (LOW) Pain - 0 Fatigue - 8 Performance Status: 2 - Ambulatory/capable of all self-care, unable to perform any work activities. Up and about more than 50% of waking hours. (ECOG) Physical Examination: ENMT - No mouth sores, no thrush but dry oral mucosa, no jaundice, Respiratory - Lungs are clear to auscultation, Cardiovascular - Regular rate and rhythm of heart, Abdomen - Soft, bowel sounds present,Mild discomfort on deep palpation in epigastric area but no rebound tenderness no mass palpable Extremities - no Visible edema. Lab/Imaging: Most recent lab results are not available for this patient. Impression: Adenocarcinoma with mucinous features per CT-guided left lung mass biopsy done on April 26, 2021 CT scan of chest abdomen pelvis done on April 21, 2021 shows multiple soft tissue nodules and small masses identified throughout both lungs,. No significant lymphadenopathy in the chest. Altered contour and attenuation in the body of pancreas may represent pancreatic mass. Mild retroperitoneal lymphadenopathy. Largest node measures slightly over centimeter in greatest short axis dimension and is seen along the left pericaval region. Sigmoid diverticulosis Left posterior lateral chest wall pain etiology unclear could be musculoskeletal or metastatic disease Dehydration/poor oral intake due to nausea/dry heaves/off and on vomiting etiology could be multifactorial including brain mets versus NSAID induced gastritis or peptic ulcer disease or gastric outlet obstruction due to pancreatic mass Dry cough, etiology unclear could be due to postnasal drip or bronchial irritation due to pulmonary pathology Plan: Discussed with patient regarding her disease status, case was discussed with pathology and immunohistochemical studies confirmed metastatic adenocarcinoma most likely pancreatic/biliary is the primary, at this point we will proceed with tumor marker CA 19???9 somewhat specific for pancreatic, CEA, CA-125, CA 15.3, CA 27-29 and also request molecular profiling, PD-L1, cancer type ID tissue As far as epigastric pain is concerned, etiology unclear could be due to peptic ulcer disease or pancreatic malignancy or gallbladder pathology, will consider referring her to surgery for evaluationAnd Port-A-Cath placement in the meantime ,will obtain ultrasound right upper quadrant., Amylase lipase to rule out pancreatitis Because of persistent nausea and poor oral intake, consider normal saline 500 cc now and then as needed basis and also try Compazine and Zofran 8 mg every 8 hours as needed, patient was advised to avoid Phenergan and she will return to clinic in 1 week with CBC CMP Signed By: Johnny Luna M.D. <<Signature on File>>
[2021-05-14 01:47] LABS: CA 27.29 42 U/mL (<38)
== END 2021-05-11 06:00 | disposition home or self-care (01) ==
LOC: ONCMED 06:00
PROVIDERS: PCP Nurse Practitioner Family; Visit Provider Internal Medicine Hematology & Oncology
DX: C34.92 Malignant neoplasm of unspecified part of left bronchus or lung (principal); E86.0 Dehydration; K86.9 Disease of pancreas, unspecified; R07.89 Other chest pain; R05 Cough; R11.0 Nausea; Z79.899 Other long term (current) drug therapy
CPT/HCPCS: 80053; 82150; 82378; 83690; 85025; 86300; 86301; 86304; 96361; 96374; 96375; 99215; J1100; J2405; J7040

== ENCOUNTER 2021-05-12 09:25 | Outpatient (CLI) | payer OTHER, SELFPAY ==
[2021-05-12] MEDS: sodium chloride 0.9% 500 ML 999 ML IV (11:30)
[2021-05-12] MEDS: ondansetron 2 mg/ML SDV 2 mL 8 MG IV (12:00)
== END 2021-05-12 09:26 | disposition home or self-care (01) ==
LOC: ONCMED 09:26
PROVIDERS: PCP Nurse Practitioner Family; Visit Provider Internal Medicine Hematology & Oncology
DX: C25.0 Malignant neoplasm of head of pancreas (principal); C78.02 Secondary malignant neoplasm of left lung; C77.8 Secondary and unspecified malignant neoplasm of lymph nodes of multiple regions; E86.0 Dehydration; Z79.899 Other long term (current) drug therapy
CPT/HCPCS: 96360; 96374; 96375; J1100; J2405; J7040

== ENCOUNTER 2021-05-16 10:56 | Outpatient (CLI) | payer OTHER, MEDICARE, SELFPAY ==
--- NOTE | 2021-05-16 10:59 | US_ITS ---
WS: [id number] ULTRASOUND ABDOMEN CLINICAL INFORMATION: RUQ PAIN COMPARISON: None. FINDINGS: Liver Size: Normal. Craniocaudal length: 14.6 cm. Echogenicity: Normal. Surface nodularity: None. Mass (size and location): None. Bile ducts Intrahepatic ducts: Normal. Common bile duct diameter: 0.7 cm. Gallbladder Cholelithiasis Gallstones: Present Gallbladder sludge: None. Gallbladder wall thickening: None. Pericholecystic fluid: None. Sonographic Mobley sign: Absent. Pancreas Hypoechoic enlarged pancreatic body and tail corresponds to the findings on the April 21, 2021 CT ab domen pelvis. Differential considerations include pancreatitis versus neoplasm. Recommend interval fo llow-up with CT abdomen pelvis. Spleen Splenomegaly: None. Craniocaudal length: 10.5 cm. Right kidney: Normal. Hydronephrosis: None. Size: 10.3 cm x 5.8 cm x 3.9 cm Left kidney: Normal. Hydronephrosis: None. Size: 11.1 cm x 5.4 cm x 5.5 cm. Abdominal aorta and IVC Visualized portions are normal. Ascites: None. US/US abdomen complete* [id number] IMPRESSION: 1. Normal liver. 2. Cholelithiasis. No gallbladder wall thickening or pericholecystic fluid. 3. Common bile duct 6.6 mm upper limits of normal. 4. Both kidneys are normal. 5. Hypoechoic enlarged pancreatic body and tail corresponds to the findings on the April 21, 2021 CT abdomen pelvis. Differential considerations include cazares creatitis versus neoplasm. Recommend interval follow-up with CT abdomen pelvis.
== END 2021-05-16 10:57 | disposition home or self-care (01) ==
LOC: RAD 10:58
PROVIDERS: PCP Nurse Practitioner Family; Visit Provider Internal Medicine Hematology & Oncology
DX: R10.11 Right upper quadrant pain (principal); K80.20 Calculus of gallbladder without cholecystitis without obstruction
CPT/HCPCS: 76700

== ENCOUNTER 2021-05-24 12:21 | Outpatient (CLI) | payer OTHER, MEDICARE, SELFPAY ==
[2021-05-24] MEDS: sodium chloride 0.9% 500 ML 999 ML IV (13:30)
[2021-05-24] MEDS: ondansetron 2 mg/ML SDV 2 mL 8 MG IV (13:30)
== END 2021-05-24 12:22 | disposition home or self-care (01) ==
LOC: ONCMED 12:25
PROVIDERS: PCP Nurse Practitioner Family; Visit Provider Internal Medicine Hematology & Oncology
DX: C25.8 Malignant neoplasm of overlapping sites of pancreas (principal); C77.8 Secondary and unspecified malignant neoplasm of lymph nodes of multiple regions
CPT/HCPCS: 96361; 96365; 96375; J1100; J2405; J7040

== ENCOUNTER 2021-06-06 06:19 | Outpatient (RCR) | payer MEDICARE, SELFPAY ==
[2021-05-27] MEDS: sodium chloride 0.9% 500 ML 999 ML IV (08:45)
[2021-05-27] MEDS: ondansetron 2 mg/ML SDV 2 mL 8 MG IV (09:00)
[2021-05-27 10:14] LABS: Basophils % 0.3 %; Eosinophils # 0.3 10^3/uL (0.0-0.8); Eosinophils % 2.2 %; Hematocrit 37.2 % (37.0-47.0); Hemoglobin 12.1 g/dL (11.5-15.3); Lymphocytes # 1.5 10^3/uL (0.8-4.8); Lymphocytes % 12.7 %; Mean Corpuscular HGB Conc 32.5 g/dL (30.0-36.0); Mean Corpuscular Hemoglobin 29.7 pg (28.0-34.0); Mean Corpuscular Volume 91.4 fl (81-99); Mean Platelet Volume 10.8 fL (7.4-10.4); Monocytes % 8.4 %; Neutrophils # 9.16 10^3/uL (1.8-7.7); Neutrophils % 75.9 %; Nucleated Red Blood Cells % 0 %; Platelet Count 220 10^3/cmm (130-400); Red Blood Count 4.07 10^6/uL (4.1-5.3); Red Cell Distribution Width 12.8 % (12.1-15.1); White Blood Count 12.1 10^3/uL (4.0-10.0)
[2021-05-30] MEDS: sodium chloride 0.9% 250 ML 75 ML IV (14:21)
[2021-05-30] MEDS: famotidine 20 mg/2 mL INJ IVP (14:21)
[2021-05-30] MEDS: sodium chloride 0.9% 250 ML IV (14:21)
[2021-05-30] MEDS: diphenhydrAMINE 50 mg/mL SDV 1mL 25 MG IV (14:23)
[2021-05-30] MEDS: palonosetron 0.25 mg/5 mL SDV IV (14:28)
[2021-05-30 15:06] LABS: Alanine Aminotransferase 14 U/L (0-33); Albumin Level 3.6 g/dL (3.5-5.2); Alkaline Phosphatase 74 IU/L (35-105); Anion Gap 10.7 (5-19); Aspartate Amino Transferase 16 U/L (0-32); Blood Urea Nitrogen 16 mg/dL (8-23); Calcium 9.4 mg/dL (8.5-10.5); Carbon Dioxide 33 mmol/L (22-29); Chloride 95 mmol/L (98-107); Globulin 3.3 g/dL (1.3-4.6); Glomerular Filtration Rate 159.2 mL/min (90-130); Glucose 103 mg/dL (65-115); Osmolality Calculated 281 mOsm/kg (285-295); Potassium 3.7 mmol/L (3.5-5.1); Sodium 135 mmol/L (136-145); Total Bilirubin 0.3 mg/dL (0.15-1.2); Total Protein 6.9 g/dL (6.6-8.7)
--- NOTE | 2021-05-30 17:07 | ONC FU_ITS ---
Dr. Luna follow up note Patient: Charlotte Wynn Unit #: [id number]: [id number] Dicatated By: Johnny Luna M.D.Date of Visit:May 30, 2021 Onc Med Follow-up/Prog Note History of Present Illness: Ms. Charlotte Mukherjee, is a 65-year-old female who developed progressive dry cough since December 2020 and later on started having left posterior lateral chest wall pain as per patient he was sharp, sometimes stabbing so she started taking ibuprofen which helped some as per patient she also going through some grief as she lost her son in car accident in December 2020, patient was evaluated by her PMD on April 04, 2021 at that time patient was reassured as far as the cough is concerned, patient was scheduled for mammogram screening as well as colonoscopy and chest x-ray was ordered which showed multiple lung nodules no other abnormalities,, CT scan of chest abdomen pelvis was ordered and done on April 21, 2021 which showed multiple soft tissue nodules and small masses identified throughout both lungs. No significant lymphadenopathy in the chest. CT scan of abdomen shows altered contour and attenuation in the body of pancreas, that may represent pancreatic mass. Mild retroperitoneal lymphadenopathy. The largest node measures slightly over centimeter. Sigmoid diverticulosis., Patient was referred to interventional radiologist so on April 26, [address]-guided biopsy of left lung mass and pathology confirmed adenocarcinoma with mucinous features further immunohistochemistry is pending Patient came to clinic, complaining of progressive weakness and lightheadedness no double vision but sometimes blurred vision persistent nausea and dry heaving but no vomiting, as per patient she is having hard time keeping anything down and not drinking or eating enough, she has lost about 40 pounds in the last few months as per patient she used to weigh 296 pounds and now down to 155 also complaining of persistent bothersome dry cough. Denies any hemoptysis or hematemesis, denies any dysphagia, denies any hematemesis, denies any melena or hematochezia, denies any abdominal pain, denies any headaches, denies any sinus problem, denies any jaundice, patient is complaining of progressive left posterior lateral chest pain not being controlled with ibuprofen but sometimes with Ultram. Patient has history of right oophorectomy for cyst about 40 years ago Patient has history of chronic smoking for 15 to 20 years but quit about 30 years ago, patient denies any fever chills but dry oral mucosa due to dehydration due to poor hydration due to persistent dry heaves and nausea and off-and-on vomiting.Denies any new bony pains, denies any night sweats, denies any vaginal bleeding, denies any breast mass, as per patient she never had colonoscopy or mammogram but it was scheduled but canceled because of abnormal chest x-ray CT scan of the head done on 05/05/2021 showed calcified left frontal lesion measuring 10 mm most likely represent small calcified meningioma no other abnormality seen CT PET scan showed 3.2 x 5.3 cm pancreatic body mass with SUV of 6.9, subcentimeter peripancreatic lymph node, are FDG positive, gastric hepatic lymph node is FDG positive, bilateral retroperitoneal lymphadenopathy with mild FDG uptake, left cervical level 4 lymph node with SUV of 3.4, innumerable FDG positive bilateral pulmonary nodules consistent with metastatic disease, Came for follow-up, denies any specific complaint except persistent epigastric/mid back pain not being controlled with tramadol, requesting stronger pain medication now. Mild nausea but no vomiting, no jaundice, no diarrhea or constipation, no melena or hematochezia, no hemoptysis hematemesis but generalized weakness and fatigue her tumor marker CA 19???9 was 379, Medications: Naprosyn 1 Tablet (of 500 mg) Oral b.i.d., Ondansetron HCl 1 Tablet (of 4 mg) Oral PRN, traMADol HCl 1 Tablet (of 50 mg) Oral t.i.d. PRN Allergies: Codeine Sulfate Review of Systems: Review of Systems is not available for this patient. Vital Signs: Vitals are not available for this patient. Performance Status: 1 - No physically strenuous activity, but ambulatory and able to carry out light or sedentary work (e.g. office work, light house work). (ECOG) Physical Examination: ENMT - No mouth sores, no thrush, no jaundice, Respiratory - Lungs are clear to auscultation, Cardiovascular - Regular rate and rhythm of heart, Abdomen - Soft, bowel sounds present, Extremities - No visible edema. Lab/Imaging: Test performed on May 27, 2021 09:55 BUN 12 mg/dL Glucose 113 mg/dL Calcium 8.8 mg/dL Globulin 2.9 g/dL Bilirubin, Total 0.2 mg/dL Alkaline Phosphatase 66 IU/L WBC 12.1 10 3/uL RBC 4.07 10 6/uL HGB 12.1 g/dL HCT 37.2 % MCV 91.4 fl MCH 29.7 pg MCHC 32.5 g/dL RDW 12.8 % Platelet Count 220 10 3/cmm MPV 10.8 fL Neutrophils 9.16 10 3/uL Lymphocytes 1.5 10 3/uL Monocytes 1.0 10 3/uL Eosinophils 0.3 10 3/uL Basophils 0.0 10 3/uL Neutrophil % 75.9 % Lymphocyte % 12.7 % Monocyte % 8.4 % Eosinophil % 2.2 % Basophils % 0.3 % NRBC % 0 % Impression: Metastatic Adenocarcinoma with mucinous features per CT-guided left lung mass biopsy done on April 26, 2021, Most likely pancreatic as CT PET scan showed 3.2 x 5.3 cm pancreatic body mass with extensive intra-abdominal lymphadenopathy and left cervical level 4 lymphadenopathy and innumerable bilateral pulmonary nodules FDG positive and tumor marker CA 19???9 was 379, Clinically stage IV pancreatic cancer CT scan of chest abdomen pelvis done on April 21, 2021 shows multiple soft tissue nodules and small masses identified throughout both lungs,. No significant lymphadenopathy in the chest. Altered contour and attenuation in the body of pancreas may represent pancreatic mass. Mild retroperitoneal lymphadenopathy. Largest node measures slightly over centimeter in greatest short axis dimension and is seen along the left pericaval region. Sigmoid diverticulosis Left posterior lateral chest wall pain etiology unclear could be musculoskeletal or metastatic disease Dehydration/poor oral intake due to nausea/dry heaves/off and on vomiting etiology could be multifactorial including brain mets versus NSAID induced gastritis or peptic ulcer disease or gastric outlet obstruction due to pancreatic mass Dry cough, etiology unclear could be due to postnasal drip or bronchial irritation due to pulmonary pathology Plan: Discussed with patient and her regarding her labs white blood count 12 hemoglobin 12.1 hematocrit 37.2 platelets 220,000 and CMP within normal limits and CT PET scan finding along with her tumor marker CA 19???9 which is elevated at 379 Clinically, patient is mild to moderate distress due to epigastric/mid back pain probably due to pancreatic cancer, earlier pain was controlled with the tramadol but now patient requesting stronger pain medication, will prescribe her Percocet she will take 1 to 2 tablets 4 to 6-hour as needed in the meantime, Based on her CT PET scan finding which shows FDG positive pancreatic body mass with extensive intra-abdominal lymphadenopathy and bilateral FDG positive pulmonary nodules and left cervical lymphadenopathy, her tumor marker CA 19???9 which is somewhat specific of pancreatic is also elevated, as per discussion with pathology diagnosis with metastatic pancreatic cancer was concluded so we will start her on palliative chemotherapy with weekly gemcitabine/Abraxane, day 1, 8 and if tolerated day 15 and repeat every 28 days, all the side effect possible benefits associated with chemotherapy including but not limited to nausea vomiting, hair loss, bone marrow suppression, peripheral neuropathy, were mentioned again, patient already undergone chemo teaching, now ready to proceed with her first cycle of palliative chemotherapy with Abraxane/gemcitabine. And then she will return to clinic in 1 week with CBC CMP Signed By: Johnny Luna M.D. <<Signature on File>>
[2021-06-03] MEDS: sodium chloride 0.9% 500 ML 999 ML IV (10:15)
[2021-06-03] MEDS: ondansetron 2 mg/ML SDV 2 mL 8 MG IV (10:20)
[2021-06-03 10:39] LABS: Basophils # 0.1 10^3/uL (0.0-0.1); Basophils % 0.5 %; Eosinophils # 0.8 10^3/uL (0.0-0.8); Eosinophils % 7.4 %; Hematocrit 37.8 % (37.0-47.0); Hemoglobin 12.5 g/dL (11.5-15.3); Lymphocytes # 1.5 10^3/uL (0.8-4.8); Lymphocytes % 15.1 %; Mean Corpuscular HGB Conc 33.1 g/dL (30.0-36.0); Mean Corpuscular Hemoglobin 29.6 pg (28.0-34.0); Mean Corpuscular Volume 89.4 fl (81-99); Mean Platelet Volume 10.6 fL (7.4-10.4); Monocytes # 0.1 10^3/uL (0.2-0.9); Monocytes % 0.9 %; Neutrophils # 7.73 10^3/uL (1.8-7.7); Neutrophils % 75.7 %; Nucleated Red Blood Cells % 0 %; Platelet Count 238 10^3/cmm (130-400); Red Blood Count 4.23 10^6/uL (4.1-5.3); Red Cell Distribution Width 12.8 % (12.1-15.1); White Blood Count 10.2 10^3/uL (4.0-10.0)
[2021-06-03 11:10] LABS: Alanine Aminotransferase 36 U/L (0-33); Albumin Level 3.4 g/dL (3.5-5.2); Alkaline Phosphatase 69 IU/L (35-105); Anion Gap 12.3 (5-19); Aspartate Amino Transferase 34 U/L (0-32); Blood Urea Nitrogen 12 mg/dL (8-23); Calcium 8.8 mg/dL (8.5-10.5); Carbon Dioxide 29 mmol/L (22-29); Chloride 96 mmol/L (98-107); Globulin 2.8 g/dL (1.3-4.6); Glomerular Filtration Rate 221.9 mL/min (90-130); Glucose 111 mg/dL (65-115); Osmolality Calculated 278 mOsm/kg (285-295); Potassium 3.3 mmol/L (3.5-5.1); Sodium 134 mmol/L (136-145); Total Bilirubin 0.7 mg/dL (0.15-1.2); Total Protein 6.2 g/dL (6.6-8.7)
[2021-06-03 11:42] LABS: Magnesium 1.7 mg/dL (1.7-2.3)
[2021-06-06] MEDS: sodium chloride 0.9% 500 ML 999 ML IV (10:10)
[2021-06-06 10:40] LABS: Basophils % 0.5 %; Eosinophils # 0.6 10^3/uL (0.0-0.8); Eosinophils % 6.6 %; Hematocrit 38.9 % (37.0-47.0); Hemoglobin 12.8 g/dL (11.5-15.3); Lymphocytes # 1.7 10^3/uL (0.8-4.8); Lymphocytes % 20.1 %; Mean Corpuscular HGB Conc 32.9 g/dL (30.0-36.0); Mean Corpuscular Hemoglobin 29.9 pg (28.0-34.0); Mean Corpuscular Volume 90.9 fl (81-99); Monocytes # 0.4 10^3/uL (0.2-0.9); Monocytes % 4.4 %; Neutrophils # 5.86 10^3/uL (1.8-7.7); Neutrophils % 68.1 %; Nucleated Red Blood Cells % 0 %; Platelet Count 189 10^3/cmm (130-400); Red Blood Count 4.28 10^6/uL (4.1-5.3); White Blood Count 8.6 10^3/uL (4.0-10.0)
[2021-06-06 11:15] LABS: Alanine Aminotransferase 39 U/L (0-33); Albumin Level 3.6 g/dL (3.5-5.2); Alkaline Phosphatase 74 IU/L (35-105); Anion Gap 14.4 (5-19); Aspartate Amino Transferase 31 U/L (0-32); Blood Urea Nitrogen 15 mg/dL (8-23); Calcium 9.2 mg/dL (8.5-10.5); Carbon Dioxide 30 mmol/L (22-29); Chloride 92 mmol/L (98-107); Glomerular Filtration Rate 159.2 mL/min (90-130); Glucose 97 mg/dL (65-115); Osmolality Calculated 277 mOsm/kg (285-295); Potassium 3.4 mmol/L (3.5-5.1); Sodium 133 mmol/L (136-145); Total Bilirubin 0.6 mg/dL (0.15-1.2); Total Protein 6.6 g/dL (6.6-8.7)
[2021-06-06] MEDS: sodium chloride 0.9% 250 ML 75 ML IV (12:00)
[2021-06-06] MEDS: famotidine 20 mg/2 mL INJ IVP (12:00)
[2021-06-06] MEDS: palonosetron 0.25 mg/5 mL SDV IV (12:02)
--- NOTE | 2021-06-08 18:39 | ONC FU_ITS ---
Dr. Luna follow up note Patient: Charlotte Wynn Unit #: [id number]: 1955 Dicatated By: Johnny Luna M.D.Date of Visit:Jun 06, 2021 Onc Med Follow-up/Prog Note History of Present Illness: Ms. Charlotte Mukherjee, is a 65-year-old female who developed progressive dry cough since December 2020 and later on started having left posterior lateral chest wall pain as per patient he was sharp, sometimes stabbing so she started taking ibuprofen which helped some as per patient she also going through some grief as she lost her son in car accident in December 2020, patient was evaluated by her PMD on April 04, 2021 at that time patient was reassured as far as the cough is concerned, patient was scheduled for mammogram screening as well as colonoscopy and chest x-ray was ordered which showed multiple lung nodules no other abnormalities,, CT scan of chest abdomen pelvis was ordered and done on April 21, 2021 which showed multiple soft tissue nodules and small masses identified throughout both lungs. No significant lymphadenopathy in the chest. CT scan of abdomen shows altered contour and attenuation in the body of pancreas, that may represent pancreatic mass. Mild retroperitoneal lymphadenopathy. The largest node measures slightly over centimeter. Sigmoid diverticulosis., Patient was referred to interventional radiologist so on April 26, [address]-guided biopsy of left lung mass and pathology confirmed adenocarcinoma with mucinous features further immunohistochemistry is pending Patient came to clinic, complaining of progressive weakness and lightheadedness no double vision but sometimes blurred vision persistent nausea and dry heaving but no vomiting, as per patient she is having hard time keeping anything down and not drinking or eating enough, she has lost about 40 pounds in the last few months as per patient she used to weigh 296 pounds and now down to 155 also complaining of persistent bothersome dry cough. Denies any hemoptysis or hematemesis, denies any dysphagia, denies any hematemesis, denies any melena or hematochezia, denies any abdominal pain, denies any headaches, denies any sinus problem, denies any jaundice, patient is complaining of progressive left posterior lateral chest pain not being controlled with ibuprofen but sometimes with Ultram. Patient has history of right oophorectomy for cyst about 40 years ago Patient has history of chronic smoking for 15 to 20 years but quit about 30 years ago, patient denies any fever chills but dry oral mucosa due to dehydration due to poor hydration due to persistent dry heaves and nausea and off-and-on vomiting.Denies any new bony pains, denies any night sweats, denies any vaginal bleeding, denies any breast mass, as per patient she never had colonoscopy or mammogram but it was scheduled but canceled because of abnormal chest x-ray CT scan of the head done on 05/05/2021 showed calcified left frontal lesion measuring 10 mm most likely represent small calcified meningioma no other abnormality seen CT PET scan showed 3.2 x 5.3 cm pancreatic body mass with SUV of 6.9, subcentimeter peripancreatic lymph node, are FDG positive, gastric hepatic lymph node is FDG positive, bilateral retroperitoneal lymphadenopathy with mild FDG uptake, left cervical level 4 lymph node with SUV of 3.4, innumerable FDG positive bilateral pulmonary nodules consistent with metastatic disease, Started on palliative chemotherapy with weekly Abraxane/gemcitabine on 05/30/2021 Came for follow-up, still complaining of persistent nausea, off and on vomiting and off and on epigastric pain, patient had abdominal sonogram done on 05/16/2021 which showed gallstones, and a mass in body and tail of pancreas, no other acute findings. Patient was referred to gastroenterology, has seen Dr. Mcmahon, EGD/colonoscopy was scheduled but as per patient could not tolerate bowel prep so they canceled the procedure. Patient was started on palliative chemotherapy with Abraxane/gemcitabine on 05/30/2021, tolerated reasonably well Medications: LORazepam 0.5 - 1 Tablet (of 1 mg) Oral t.i.d. PRN, Metoclopramide HCl 1 Tablet (of 5 mg) Oral q 6 hours PRN, Naprosyn 1 Tablet (of 500 mg) Oral b.i.d., Ondansetron HCl 1 Tablet (of 4 mg) Oral PRN, oxyCODONE-Acetaminophen 1 - 2 Tablet (of 5-325 mg) Oral q 4 to 6 hours PRN, Potassium Chloride Brigitte ER 1 Tablet (of 20 meq) Tablet, controlled release Oral b.i.d., Prochlorperazine Maleate 1 Tablet (of 10 mg) Oral t.i.d. PRN, traMADol HCl 1 Tablet (of 50 mg) Oral t.i.d. PRN Allergies: Codeine Sulfate Review of Systems: Review of Systems is not available for this patient. Vital Signs: Performed on Jun 06, 2021 08:48 Height - 67.00 in Weight - 145.8 lbs (LOW) BSA - 1.77 sq.m BMI - 22.84 Temperature - 97.7 F (LOW) Pulse - 116 /min (HIGH) Respiration - 18 /min BP - 102/70 mm(hg) O2 Sat - 94 % (LOW) Pain - 3 Fatigue - 5 Performance Status: 2 - Ambulatory/capable of all self-care, unable to perform any work activities. Up and about more than 50% of waking hours. (ECOG) Physical Examination: ENMT - Sinuses are nontender. No oral exudates, ulcers, masses, thrush or mucositis. Oropharynx clear. Tongue normal, Respiratory - Poor air entry otherwise clear, Cardiovascular - Regular rate and rhythm of heart, Abdomen - Soft, bowel sounds present, Extremities - No visible edema. Lab/Imaging: Test performed on May 27, 2021 09:55 BUN 12 mg/dL Glucose 113 mg/dL Calcium 8.8 mg/dL Globulin 2.9 g/dL Bilirubin, Total 0.2 mg/dL Alkaline Phosphatase 66 IU/L WBC 12.1 10 3/uL RBC 4.07 10 6/uL HGB 12.1 g/dL HCT 37.2 % MCV 91.4 fl MCH 29.7 pg MCHC 32.5 g/dL RDW 12.8 % Platelet Count 220 10 3/cmm MPV 10.8 fL Neutrophils 9.16 10 3/uL Lymphocytes 1.5 10 3/uL Monocytes 1.0 10 3/uL Eosinophils 0.3 10 3/uL Basophils 0.0 10 3/uL Neutrophil % 75.9 % Lymphocyte % 12.7 % Monocyte % 8.4 % Eosinophil % 2.2 % Basophils % 0.3 % NRBC % 0 % Impression: Metastatic Adenocarcinoma with mucinous features per CT-guided left lung mass biopsy done on April 26, 2021, Most likely pancreatic as CT PET scan showed 3.2 x 5.3 cm pancreatic body mass with extensive intra-abdominal lymphadenopathy and left cervical level 4 lymphadenopathy and innumerable bilateral pulmonary nodules FDG positive and tumor marker CA 19???9 was 379, Clinically stage IV pancreatic cancer CT scan of chest abdomen pelvis done on April 21, 2021 shows multiple soft tissue nodules and small masses identified throughout both lungs,. No significant lymphadenopathy in the chest. Altered contour and attenuation in the body of pancreas may represent pancreatic mass. Mild retroperitoneal lymphadenopathy. Largest node measures slightly over centimeter in greatest short axis dimension and is seen along the left pericaval region. Sigmoid diverticulosis Left posterior lateral chest wall pain etiology unclear could be musculoskeletal or metastatic disease Dehydration/poor oral intake due to nausea/dry heaves/off and on vomiting etiology could be multifactorial including brain mets versus NSAID induced gastritis or peptic ulcer disease or gastric outlet obstruction due to pancreatic mass Dry cough, etiology unclear could be due to postnasal drip or bronchial irritation due to pulmonary pathology Plan: Discussed with patient regarding her labs from 06/03/2021 showed white blood count 10.2 hemoglobin 12.5 hematocrit 37.8 platelets 238 CMP within normal limit except potassium 3.3 and ALT 36, AST 34 compared to previously Clinically, patient is doing reasonably well but with persistent nausea and off-and-on abdominal pain and vomiting etiology remains unclear could be due to gastritis or peptic ulcer disease, or gallbladder pathology as recently done abdominal sonogram shows gallstones. Or gallbladder hypokinesia. Other possibility could be gastric outlet obstruction but less likely as tumor is in the body and tail area. We will request Dr. Mcmahon to evaluate her with a EGD and regarding gallbladder etiology. In the meantime we will proceed with hydration and repeat her CBC CMP today and supplement potassium and if repeat CBC CMP is reasonable, will proceed with day 8 chemotherapy with Abraxane and gemcitabine and then she will return to clinic in 1 week with CBC CMP if blood counts reasonable and then will consider day 15, Abraxane/gemcitabine otherwise have her come back following week with CBC CMP if reasonable to start cycle number 2-day 1 with Abraxane/gemcitabine. Signed By: Johnny Luna M.D. <<Signature on File>>
== END 2021-06-07 07:30 | disposition home or self-care (01) ==
LOC: ONCMED 06:19
PROVIDERS: Internal Medicine Medical Oncology; PCP Nurse Practitioner Family; Visit Provider Internal Medicine Hematology & Oncology
DX: Z51.11 Encounter for antineoplastic chemotherapy (principal); C25.0 Malignant neoplasm of head of pancreas; C77.8 Secondary and unspecified malignant neoplasm of lymph nodes of multiple regions; C78.01 Secondary malignant neoplasm of right lung; C78.02 Secondary malignant neoplasm of left lung; C79.31 Secondary malignant neoplasm of brain; E86.0 Dehydration; K31.1 Adult hypertrophic pyloric stenosis; Z87.11 Personal history of peptic ulcer disease; Z79.1 Long term (current) use of non-steroidal anti-inflammatories (NSAID); Z79.899 Other long term (current) drug therapy
CPT/HCPCS: 80053; 83735; 85025; 96360; 96361; 96365; 96366; 96367; 96374; 96375; 96376; 96413; 96417; 99215; J1100; J1200; J2405; J2469; J3480; J3490; J7040; J7050; J9201; J9264

== ENCOUNTER 2021-06-07 07:58 | Day surgery (SDC) | payer MEDICARE, SELFPAY ==
[2021-06-06 15:44] VITALS: BMI 22.7
[2021-06-07 08:22] VITALS: BP 100/58; PULSE 95; RESP 20; TEMP 36.5; O2SAT 95
[2021-06-07] MEDS: sodium chloride 0.9% 1,000 ML 30 ML IV (08:33)
--- NOTE | 2021-06-07 08:47 | ANES.PREANE2 ---
Pre-Anesthetic Assessment Pre-Anesthetic Assessment: Height/Weight: Height 1.7 m Weight 65.771 kg Temp Pulse Resp BP Pulse Ox 97.7 F 95 20 H 100/58 95 06/07/21 08:22 06/07/21 08:22 06/07/21 08:22 06/07/21 08:22 06/07/21 08:22 Preop Diagnosis: Abdominal pain Proposed Procedure: Operation Date: 06/07/21 09:30 Proposed Procedures p EGD 32145 R10.13(Not Applicable) - Michael Mcmahon MD Familial anesthetic complications: None Was Beta Arie taken within 24 hours: N/A Was Clonidine taken within 24 hours: N/A Last intake: > 8 hrs Social: Social History: No alcohol and No tobacco Exam: Pre-Anes Outpt Exam: alert, oriented x 3, clear to auscultation bilaterally and regular rate & rhythm Airway: Cervical ROM: WNL MP: 2 Dentition: Full Pulmonary: Pulmonary: Cough (nonproductive) Comments: LUng mets (3 L NC) GI: Comments: pancreatic cancer stage IV Anesthetic Plan: ASA status: 4 Anesthesia: MAC Risk of > 500 ml blood loss (7ml/kg in children): No Meds/Allergies Current Medications: Current Medications Generic Name Dose Route Start Last Admin Trade Name Freq PRN Reason Stop Dose Admin Sodium Chloride 1,000 mls @ 30 ml s/hr 06/07/21 08:15 06/07/21 08:33 Sodium Chloride 0.9% IV 30 mls/hr .Q24H DUSTIN Administration PFSH Anesthesia PFSH: Social History Smoking and tobacco status: former smoker Quit status (tobacco): has quit using tobacco Year quit tobacco: 1990 Former quit date comment: 0.5ppd x 10 years Female Reproductive History: Date of last menstrual period: 11/18/20 Data Anesthesia Cardiac Studies: No Data to Display
--- NOTE | 2021-06-07 09:34 | W.PM.OPSUD ---
Surgery/Procedure H&P Update DATE OF PROCEDURE: June 07, 2021 DATE H&P PERFORMED: 05/12/21 H&P UPDATE INFORMATION: I have reviewed H&P completed within last 30 days, I have examined patient prior to procedure and Changes to prior documentation as noted here CHANGES TO PREVIOUS DOCUMENTATION: Patient could not tolerate colon prep. As I was approached yesterday by Dr. Luna to go ahead with the EGD and likely the patient would benefit as well from port placement at some point. PREOP DIAGNOSIS: Abdominal pain PRIMARY INDICATION FOR PROCEDURE: The same PLANNED PROCEDURE: Operation Date: 06/07/21 09:30 Proposed Procedures p EGD 06899 R10.13(Not Applicable) - Michael Mcmahon MD
[2021-06-07 10:01] VITALS: BP 107/59; PULSE 77; RESP 16; TEMP 36.4; O2SAT 91
[2021-06-07 10:12] VITALS: BP 129/65; PULSE 82; RESP 18; O2SAT 92
[2021-06-08 06:29] LABS: H. Pylori / CLO Test Negative
== END 2021-06-07 10:55 | disposition home or self-care (01) ==
PROVIDERS: PCP Internal Medicine Hematology & Oncology; Visit Provider Surgery
PROC: 0DJ08ZZ Inspection of Upper Intestinal Tract, Via Natural or Artificial Opening Endoscopic (ICD-10-PCS; CPT 43235; principal; 2021-06-07 09:30)
DX: R10.13 Epigastric pain (principal); K21.00 Gastro-esophageal reflux disease with esophagitis, without bleeding; K29.70 Gastritis, unspecified, without bleeding; Z85.07 Personal history of malignant neoplasm of pancreas; Z87.891 Personal history of nicotine dependence
CPT/HCPCS: 43239; 87077; 96360; 96361; J2704; J7030

== ENCOUNTER 2021-06-24 06:13 | Outpatient (RCR) | payer MEDICARE, SELFPAY ==
[2021-06-13 09:52] LABS: Eosinophils # 0.2 10^3/uL (0.0-0.8); Eosinophils % 3.6 %; Hematocrit 34.9 % (37.0-47.0); Hemoglobin 11.5 g/dL (11.5-15.3); Lymphocytes # 0.8 10^3/uL (0.8-4.8); Lymphocytes % 19.8 %; Mean Corpuscular Hemoglobin 29.1 pg (28.0-34.0); Mean Corpuscular Volume 88.4 fl (81-99); Mean Platelet Volume 10.3 fL (7.4-10.4); Monocytes # 0.2 10^3/uL (0.2-0.9); Monocytes % 5.3 %; Neutrophils # 2.93 10^3/uL (1.8-7.7); Neutrophils % 70.8 %; Nucleated Red Blood Cells % 0 %; Platelet Count 127 10^3/cmm (130-400); Red Blood Count 3.95 10^6/uL (4.1-5.3); Red Cell Distribution Width 12.6 % (12.1-15.1); White Blood Count 4.1 10^3/uL (4.0-10.0)
[2021-06-13 10:16] LABS: Alanine Aminotransferase 47 U/L (0-33); Albumin Level 3.2 g/dL (3.5-5.2); Alkaline Phosphatase 72 IU/L (35-105); Anion Gap 15.4 (5-19); Aspartate Amino Transferase 36 U/L (0-32); Blood Urea Nitrogen 12 mg/dL (8-23); Carbon Dioxide 28 mmol/L (22-29); Chloride 91 mmol/L (98-107); Globulin 3.5 g/dL (1.3-4.6); Glomerular Filtration Rate 123.1 mL/min (90-130); Glucose 94 mg/dL (65-115); Osmolality Calculated 272 mOsm/kg (285-295); Potassium 3.4 mmol/L (3.5-5.1); Sodium 131 mmol/L (136-145); Total Bilirubin 0.6 mg/dL (0.15-1.2); Total Protein 6.7 g/dL (6.6-8.7)
[2021-06-13] MEDS: famotidine 20 mg/2 mL INJ IVP (10:45)
[2021-06-13] MEDS: sodium chloride 0.9% 250 ML 75 ML IV (10:45)
[2021-06-13] MEDS: palonosetron 0.25 mg/5 mL SDV IV (10:50)
[2021-06-20] MEDS: sodium chloride 0.9% 500 ML 999 ML IV (11:04)
[2021-06-20 11:13] LABS: Basophils % 0.4 %; Eosinophils % 0.2 %; Hematocrit 34.6 % (37.0-47.0); Hemoglobin 11.6 g/dL (11.5-15.3); Lymphocytes # 0.6 10^3/uL (0.8-4.8); Lymphocytes % 10.5 %; Mean Corpuscular HGB Conc 33.5 g/dL (30.0-36.0); Mean Corpuscular Hemoglobin 29.5 pg (28.0-34.0); Mean Platelet Volume 10.5 fL (7.4-10.4); Monocytes # 0.4 10^3/uL (0.2-0.9); Monocytes % 7.4 %; Neutrophils # 4.39 10^3/uL (1.8-7.7); Neutrophils % 79.2 %; Nucleated Red Blood Cells % 0 %; Platelet Count 171 10^3/cmm (130-400); Red Blood Count 3.93 10^6/uL (4.1-5.3); Red Cell Distribution Width 12.8 % (12.1-15.1); White Blood Count 5.5 10^3/uL (4.0-10.0)
[2021-06-20 11:45] LABS: Alanine Aminotransferase 46 U/L (0-33); Albumin Level 3.2 g/dL (3.5-5.2); Alkaline Phosphatase 126 IU/L (35-105); Anion Gap 17.6 (5-19); Aspartate Amino Transferase 31 U/L (0-32); Blood Urea Nitrogen 10 mg/dL (8-23); CA 125 80.8 U/mL (0-35); CA 15-3 45.4 U/mL (0-25); Calcium 8.6 mg/dL (8.5-10.5); Cancer Antigen 19 9 450.2 U/mL (0-35); Carbon Dioxide 30 mmol/L (22-29); Chloride 86 mmol/L (98-107); Globulin 3.2 g/dL (1.3-4.6); Glomerular Filtration Rate 159.2 mL/min (90-130); Glucose 115 mg/dL (65-115); Osmolality Calculated 270 mOsm/kg (285-295); Potassium 3.6 mmol/L (3.5-5.1); Sodium 130 mmol/L (136-145); Total Bilirubin 0.8 mg/dL (0.15-1.2); Total Protein 6.4 g/dL (6.6-8.7)
[2021-06-20] MEDS: sodium chloride 0.9% 1,000 ML 999 ML IV (13:05)
[2021-06-20] MEDS: ondansetron 2 mg/ML SDV 2 mL 8 MG IV (13:05)
[2021-06-20] MEDS: pantoprazole 40 mg SDV IV (13:07)
[2021-06-21] MEDS: sodium chloride 0.9% 500 ML 999 ML IV (10:10)
[2021-06-21] MEDS: ondansetron 2 mg/ML SDV 2 mL 8 MG IV (10:30)
[2021-06-21] MEDS: pantoprazole 40 mg SDV IV (10:40)
[2021-06-22] MEDS: ondansetron 2 mg/ML SDV 2 mL 8 MG IV (08:26)
[2021-06-22] MEDS: sodium chloride 0.9% 500 ML 999 ML IV (08:36)
[2021-06-22 22:33] LABS: CA 27.29 94 U/mL (<38)
[2021-06-24] MEDS: ondansetron 2 mg/ML SDV 2 mL 8 MG IV (08:20)
[2021-06-24] MEDS: sodium chloride 0.9% 500 ML 999 ML IV (08:43)
--- NOTE | 2021-07-02 12:00 | ONC FU_ITS ---
[facility] Patient Note Patient: Charlotte Wynn Unit #: [id number]: 1955 Dictated By: Triny CrnaeDate of Visit: Jun 20, 2021 Onc MED Follow-Up/Prog Note Chief Complaint: Lung cancer History of Present Illness: Ms. Mukherjee is a 65-year-old female who developed progressive dry cough since December 2020. She also started having sharp, intermittent stabbing, left posterior lateral chest wall pain. She states at that time the ibuprofen did help with the pain. She did not seek further evaluation she was going through significant grieving as she had lost her son in a car accident in December 2020. She fell I did see her PCP on April 04, 2021. She was having persistent cough for which a chest x-ray was ordered. She also was due for screening mammography and colonoscopy. Her chest x-ray did show multiple lung nodules but no other abnormalities. A CT of the chest abdomen pelvis was then obtained on April 21, 2021 which showed multiple soft tissue nodules and small masses identified throughout both lungs. There was no significant lymphadenopathy in the chest. The CT of the abdomen shows altered contour and attenuation in the body of the pancreas, that may represent pancreatic mass . There was mild retroperitoneal lymphadenopathy with the largest node measuring slightly over 1 cm. Sigmoid diverticulosis was noted. Ms. Carlos then had CT-guided biopsy of the left lung on April 26, 2021 and this pathology confirmed adenocarcinoma with mucinous features. CT scan of the head done on 05/05/2021 showed calcified left frontal lesion measuring 10 mm most likely represent small calcified with no other abnormality seen. PET/CT scan on 05/21/2021 showed 3.2 x 5.3 cm pancreatic body mass with SUV of 6.9, subcentimeter peripancreatic lymph node, are FDG positive, gastric hepatic lymph node is FDG positive, bilateral retroperitoneal lymphadenopathy with mild FDG uptake, left cervical level 4 lymph node with SUV of 3.4, innumerable FDG positive bilateral pulmonary nodules consistent with metastatic disease. Ms Carlos came in to see Dr Luna and was still having problems with persistent nausea, intermittent vomiting and epigastric pain. She was sent for abdominal sonogram on 05/16/2021 which showed gallstones, and a mass in body and tail of pancreas but no other acute findings. She was referred to gastroenterology- Dr. Mcmahon. An EGD/colonoscopy was scheduled but as per , she could not tolerate bowel prep so they canceled the procedure. Did undergo EGD per Dr. Mcmahon on 06/07/2021 and in the lower 3rd esophagus reflux esophagitis was present there was no bleeding associated with esophagitis and at the gastroesophageal junction in the free lower area moderate's stripped gastritis was also seen. Is found to be erythematous and erosive but no mucosal bleeding. The duodenum was examined with no abnormalities reported. She has not yet had colonoscopy as she could not tolerate the prep. Ms Carlos was started on palliative chemotherapy with Abraxane/gemcitabine on 05/30/2021. She was able to complete cycle 1 with day 1, 8 and 15 treatment. She tolerated her first cycle reasonably well. Ms Carlos is hre today for followup. She is due for cyce 2 day 1. Overall she reports she is tolerating it relatively well. She states that she has had Marinol for about 3 days and thinks maybe is helping some but has not noticed a dramatic effect yet. She will also utilizing Ativan 0.5 mg as needed as needed anxiety or severe nausea. She denies any other concerns today. She states overall the nausea is better and the epigastric pain has subsided as well. Her acute vomiting has also improved. She denies any neuropathy type symptoms. She completed cycle 1 day 15 on Jun 13, 2021. She may continue continue to have supportive care weekly as needed for antiemetics, hydration she has no other concerns. She does have a rash her upper body, arms and back. She describes it as itchy and it presented after her treatment last week. She does have a scattered, flat red rash on her arms slightly on her upper chest and neck a few scattered lesions on her face. These are nondraining nonvesicular. She states her not particularly itchy but they did develop after her last treatment. She does recall that she took her steroid premedication today. Her ECOG is 1. Past Medical History: Past Surgical History: Covid vaccine #2 moderna in 2020 Covid vaccine #1 moderna in 2020 Allergies: Codeine Sulfate Medications: LORazepam 0.5 - 1 Tablet (of 1 mg) Oral t.i.d. PRN Metoclopramide HCl 1 Tablet (of 5 mg) Oral q 6 hours PRN Naprosyn 1 Tablet (of 500 mg) Oral b.i.d. Ondansetron HCl 1 Tablet (of 4 mg) Oral PRN oxyCODONE-Acetaminophen 1 - 2 Tablet (of 5-325 mg) Oral q 4 to 6 hours PRN Potassium Chloride Brigitte ER 1 Tablet (of 20 meq) Tablet, controlled release Oral b.i.d. Prochlorperazine Maleate 1 Tablet (of 10 mg) Oral t.i.d. PRN traMADol HCl 1 Tablet (of 50 mg) Oral t.i.d. PRN Family History: Social History: Ms. Pura Mukherjee is . Ms. Pura Mukherjee has never smoked. She has no history of drinking. Review Of Symptoms: <See Above> Vital Signs: Performed on Jun 20, 2021 12:11 Height - 67.00 in Weight - 135.4 lbs (LOW) BSA - 1.71 sq.m BMI - 21.21 Temperature - 96.6 F (LOW) Pulse - 132 /min (HIGH) Respiration - 20 /min BP - 96/64 mm(hg) O2 Sat - 91 % (LOW) Pain - 6 Fatigue - 9,1 - No physically strenuous activity, but ambulatory and able to carry out light or sedentary work (e.g. office work, light house work). (ECOG) Physical Examination: Constitutional Alert, oriented, no acute distress. Skin pink, warm and dry. Head Normocephalic; atraumatic. Eyes Conjunctivae and sclerae are clear and without icterus. Pupils are reactive and equal. ENMT No oral exudates, ulcers, masses, thrush or mucositis. Oropharynx clear. Tongue normal. Neck Supple without masses or thyromegaly. No jugular venous distension. Hematologic/Lymphatic No petechiae or purpura. No tender or palpable lymph nodes in the cervical or supraclavicular areas. Respiratory Lungs are clear to auscultation without rhonchi or wheezing. Cardiovascular Regular rate and rhythm of heart without murmurs,clicks, gallops or rubs. Abdomen Non-tender, non-distended, no masses or ascites. Good bowel sounds noted in all quads. No guarding or rebound tenderness. No pulsatile masses. Back/Spine Non-tender to palpation. Extremities No visible deformities, no cyanosis, clubbing or edema. Musculoskeletal No tenderness or swelling, normal range of motion without obvious weakness. Integumentary No rashes or lesions. Neurologic No sensory or motor deficits, normal cerebellar function, normal gait. Psychiatric Alert and oriented times three. Coherent speech. Verbalizes understanding of our discussions today. Laboratory:Test performed on Jun 20, 2021 10:25 Sodium 130 mmol/L Potassium 3.6 mmol/L Chloride 86 mmol/L CO2 30 mmol/L Anion Gap 17.6 BUN 10 mg/dL Creatinine 0.4 mg/dL Cr Clearance (Est) 132.32 mL/min eGFR 159.2 mL/min Glucose 115 mg/dL Osmolality - Calculated 270 mOsm/kg Calcium 8.6 mg/dL Protein, Total 6.4 g/dL Albumin 3.2 g/dL Globulin 3.2 g/dL Bilirubin, Total 0.8 mg/dL ALT (SGPT) 46 U/L AST (SGOT) 31 U/L Alkaline Phosphatase 126 IU/L WBC 5.5 10 3/uL RBC 3.93 10 6/uL HGB 11.6 g/dL HCT 34.6 % MCV 88.0 fl MCH 29.5 pg MCHC 33.5 g/dL RDW 12.8 % Platelet Count 171 10 3/cmm MPV 10.5 fL Neutrophils 4.39 10 3/uL Lymphocytes 0.6 10 3/uL Monocytes 0.4 10 3/uL Eosinophils 0.0 10 3/uL Basophils 0.0 10 3/uL Neutrophil % 79.2 % Lymphocyte % 10.5 % Monocyte % 7.4 % Eosinophil % 0.2 % Basophils % 0.4 % NRBC % 0 % CA 15-3 45.4 U/mL CA 19-9 450.2 U/mL CA 27.29 94 U/mL CA-125 80.8 U/mL Impression: Metastatic Adenocarcinoma with mucinous features per CT-guided left lung mass biopsy done on April 26, 2021, Most likely pancreatic as CT PET scan showed 3.2 x 5.3 cm pancreatic body mass with extensive intra-abdominal lymphadenopathy and left cervical level 4 lymphadenopathy and innumerable bilateral pulmonary nodules FDG positive and tumor marker CA 19???9 was 379, Clinically stage IV pancreatic cancer CT scan of chest abdomen pelvis done on April 21, 2021 shows multiple soft tissue nodules and small masses identified throughout both lungs,. No significant lymphadenopathy in the chest. Altered contour and attenuation in the body of pancreas may represent pancreatic mass. Mild retroperitoneal lymphadenopathy. Largest node measures slightly over centimeter in greatest short axis dimension and is seen along the left pericaval region. Sigmoid diverticulosis Left posterior lateral chest wall pain etiology unclear could be musculoskeletal or metastatic disease Dehydration/poor oral intake due to nausea/dry heaves/off and on vomiting etiology could be multifactorial including brain mets versus NSAID induced gastritis or peptic ulcer disease or gastric outlet obstruction due to pancreatic mass Dry cough, etiology unclear could be due to postnasal drip or bronchial irritation due to pulmonary pathology Plan/Problems Addressed at this Visit: 1. Metastatic adenocarcinoma with mucinous features for CT-guided left lung biopsy on April 16, 2021. So this is most likely pancreatic primary she does have a 3.2 x 5.3 cm pancreatic body mass with extensive intra-abdominal lymphadenopathy, left cervical level 4 and innumerable bilateral pulmonary nodules FDG positive and abnormal CA 19-9. She is currently undergoing palliative chemotherapy with Abraxane and gemcitabine. She is completed 1 full cycle today. A. HOLD PLANNED cycle 2 Abraxane gemcitabine today due to development of a rash on her arms and upper chest area. B. MEDROLDOSE Pack for rash and supportive care with antiemetics and hydration today. C. Today's labs reviewed in detail and discussed with the patient and a copy was given to her. WBC 5.5, hemoglobin 11.6, platelets 271,000 ANC is 4400. Potassium 3.6 creatinine 0.4 random glucose is 115 and her ALT is improved at 46 AST is 31 alk phos is improved at 126. Her CA 15-3 is 45.4, CA 19-9 is 450.2 and her CA-125 is 80.8. D. We will refill her lorazepam at 0.5 mg 1 or 2 tablets every 6-8 hours as needed severe nausea or anxiety. She request this refill go to [facility]. E. She will proceed with Marinol and was reinstructed/encouraged that it may take a week or so for her to see a big difference with the Marinol as far as appetite however nausea is already seems to be improved. F. We will plan to see her back in 1 week with repeat CBC CMP. G. Mrs. Pura Mukherjee has been instructed to contact us in interim should questions or problems arise. Signed By: Triny Crane-, AOCNP Johnny Luna MD <<Signature on File>>
== END 2021-06-26 23:59 | disposition home or self-care (01) ==
LOC: ONCMED 06:13
PROVIDERS: PCP Internal Medicine Hematology & Oncology; Visit Provider Nurse Practitioner
DX: Z51.11 Encounter for antineoplastic chemotherapy (principal); C34.02 Malignant neoplasm of left main bronchus; C78.89 Secondary malignant neoplasm of other digestive organs; C77.8 Secondary and unspecified malignant neoplasm of lymph nodes of multiple regions; C78.01 Secondary malignant neoplasm of right lung; K57.30 Diverticulosis of large intestine without perforation or abscess without bleeding; E86.0 Dehydration; R05.1 Acute cough; R97.8 Other abnormal tumor markers; Z79.899 Other long term (current) drug therapy
CPT/HCPCS: 80053; 85025; 86300; 86301; 86304; 96361; 96365; 96367; 96375; 96413; 96417; 99214; C9113; J1100; J2405; J2469; J3490; J7030; J7040; J7050; J9201; J9264

== ENCOUNTER 2021-07-04 06:12 | Outpatient (RCR) | payer MEDICARE, SELFPAY ==
[2021-06-27] MEDS: ondansetron 2 mg/ML SDV 2 mL 8 MG IV (09:07)
[2021-06-27] MEDS: sodium chloride 0.9% 250 ML 999 ML IV (09:10)
[2021-06-27] MEDS: sodium chloride 0.9% 500 ML 999 ML IV (09:10)
[2021-06-27 09:24] LABS: Alanine Aminotransferase 47 U/L (0-33); Albumin Level 3.1 g/dL (3.5-5.2); Alkaline Phosphatase 85 IU/L (35-105); Blood Urea Nitrogen 15 mg/dL (8-23); Calcium 8.6 mg/dL (8.5-10.5); Carbon Dioxide 30 mmol/L (22-29); Chloride 95 mmol/L (98-107); Globulin 2.8 g/dL (1.3-4.6); Glomerular Filtration Rate 158.7 mL/min (90-130); Glucose 100 mg/dL (65-115); Osmolality Calculated 281 mOsm/kg (285-295); Sodium 135 mmol/L (136-145); Total Bilirubin 0.4 mg/dL (0.15-1.2); Total Protein 5.9 g/dL (6.6-8.7)
[2021-06-27 09:30] LABS: Anion Gap 13.9 (5-19); Aspartate Amino Transferase 27 U/L (0-32); Potassium 3.9 mmol/L (3.5-5.1)
[2021-06-27 10:00] LABS: Basophils % 0.3 %; Eosinophils # 0.1 10^3/uL (0.0-0.8); Eosinophils % 0.3 %; Hematocrit 37.8 % (37.0-47.0); Hemoglobin 12.3 g/dL (11.5-15.3); Lymphocytes # 1.6 10^3/uL (0.8-4.8); Lymphocytes % 10.3 %; Mean Corpuscular HGB Conc 32.5 g/dL (30.0-36.0); Mean Corpuscular Hemoglobin 30.1 pg (28.0-34.0); Mean Corpuscular Volume 92.4 fl (81-99); Mean Platelet Volume 9.7 fL (7.4-10.4); Monocytes # 2.4 10^3/uL (0.2-0.9); Monocytes % 15.7 %; Neutrophils # 8.83 10^3/uL (1.8-7.7); Neutrophils % 56.8 %; Nucleated Red Blood Cells % 0 %; Platelet Count 607 10^3/cmm (130-400); Red Blood Count 4.09 10^6/uL (4.1-5.3); Red Cell Distribution Width 15.8 % (12.1-15.1); Slide Review Slide Review Perform; White Blood Count 15.5 10^3/uL (4.0-10.0)
[2021-06-27] MEDS: famotidine 20 mg/2 mL INJ IVP (10:40)
[2021-06-27] MEDS: palonosetron 0.25 mg/5 mL SDV IV (10:42)
[2021-06-28] MEDS: ondansetron 2 mg/ML SDV 2 mL 8 MG IV (11:15)
[2021-06-28] MEDS: sodium chloride 0.9% 500 ML 999 ML IV (11:15)
[2021-06-29] MEDS: sodium chloride 0.9% 500 ML 999 ML IV (10:35)
[2021-06-29] MEDS: ondansetron 2 mg/ML SDV 2 mL 8 MG IV (10:45)
[2021-06-29 14:16] LABS: Coronavirus Test Green County Not Detected
[2021-07-04] MEDS: sodium chloride 0.9% 500 ML 999 ML IV (08:38)
[2021-07-04] MEDS: ondansetron 2 mg/ML SDV 2 mL 8 MG IVP (08:39)
[2021-07-04 08:44] LABS: Basophils # 0.1 10^3/uL (0.0-0.1); Basophils % 0.5 %; Eosinophils % 0.1 %; Hematocrit 33.4 % (37.0-47.0); Hemoglobin 10.9 g/dL (11.5-15.3); Lymphocytes % 7.1 %; Mean Corpuscular HGB Conc 32.6 g/dL (30.0-36.0); Mean Corpuscular Hemoglobin 29.7 pg (28.0-34.0); Mean Platelet Volume 10.9 fL (7.4-10.4); Monocytes # 0.8 10^3/uL (0.2-0.9); Monocytes % 5.9 %; Neutrophils # 11.51 10^3/uL (1.8-7.7); Nucleated Red Blood Cells % 0 %; Platelet Count 290 10^3/cmm (130-400); Red Blood Count 3.67 10^6/uL (4.1-5.3); Red Cell Distribution Width 15.2 % (12.1-15.1); White Blood Count 14.2 10^3/uL (4.0-10.0)
[2021-07-04 08:50] LABS: Neutrophils % 86.3 %
[2021-07-04 09:03] LABS: Alanine Aminotransferase 44 U/L (0-33); Alkaline Phosphatase 114 IU/L (35-105); Anion Gap 17.4 (5-19); Aspartate Amino Transferase 30 U/L (0-32); Blood Urea Nitrogen 10 mg/dL (8-23); Calcium 8.6 mg/dL (8.5-10.5); Carbon Dioxide 28 mmol/L (22-29); Chloride 90 mmol/L (98-107); Globulin 3.2 g/dL (1.3-4.6); Glomerular Filtration Rate 353.2 mL/min (90-130); Glucose 82 mg/dL (65-115); Osmolality Calculated 272 mOsm/kg (285-295); Potassium 3.4 mmol/L (3.5-5.1); Sodium 132 mmol/L (136-145); Total Bilirubin 0.6 mg/dL (0.15-1.2); Total Protein 6.2 g/dL (6.6-8.7)
--- NOTE | 2021-07-04 10:27 | ONC FU_ITS ---
Dr. Luna follow up note Patient: Charlotte Wynn Unit #: [id number]: 1955 Dicatated By: Johnny Luna M.D.Date of Visit:Jul 04, 2021 Onc Med Follow-up/Prog Note History of Present Illness: Ms. Mukherjee is a 66-year-old female who developed progressive dry cough since December 2020. She also started having sharp, intermittent stabbing, left posterior lateral chest wall pain. She states at that time the ibuprofen did help with the pain. She did not seek further evaluation she was going through significant grieving as she had lost her son in a car accident in December 2020. She fell I did see her PCP on April 04, 2021. She was having persistent cough for which a chest x-ray was ordered. She also was due for screening mammography and colonoscopy. Her chest x-ray did show multiple lung nodules but no other abnormalities. A CT of the chest abdomen pelvis was then obtained on April 21, 2021 which showed multiple soft tissue nodules and small masses identified throughout both lungs. There was no significant lymphadenopathy in the chest. The CT of the abdomen shows altered contour and attenuation in the body of the pancreas, that may represent pancreatic mass . There was mild retroperitoneal lymphadenopathy with the largest node measuring slightly over 1 cm. Sigmoid diverticulosis was noted. Ms. Carlos then had CT-guided biopsy of the left lung on April 26, 2021 and this pathology confirmed adenocarcinoma with mucinous features. CT scan of the head done on 05/05/2021 showed calcified left frontal lesion measuring 10 mm most likely represent small calcified with no other abnormality seen. PET/CT scan on 05/21/2021 showed 3.2 x 5.3 cm pancreatic body mass with SUV of 6.9, subcentimeter peripancreatic lymph node, are FDG positive, gastric hepatic lymph node is FDG positive, bilateral retroperitoneal lymphadenopathy with mild FDG uptake, left cervical level 4 lymph node with SUV of 3.4, innumerable FDG positive bilateral pulmonary nodules consistent with metastatic disease. Ms Carlos came in to see Dr Luna and was still having problems with persistent nausea, intermittent vomiting and epigastric pain. She was sent for abdominal sonogram on 05/16/2021 which showed gallstones, and a mass in body and tail of pancreas but no other acute findings. She was referred to gastroenterology- Dr. Mcmahon. An EGD/colonoscopy was scheduled but as per , she could not tolerate bowel prep so they canceled the procedure. Did undergo EGD per Dr. Mcmahon on 06/07/2021 and in the lower 3rd esophagus reflux esophagitis was present there was no bleeding associated with esophagitis and at the gastroesophageal junction in the free lower area moderate's stripped gastritis was also seen. Is found to be erythematous and erosive but no mucosal bleeding. The duodenum was examined with no abnormalities reported. She has not yet had colonoscopy as she could not tolerate the prep. Ms Carlos was started on palliative chemotherapy with Abraxane/gemcitabine on 05/30/2021. She was able to complete cycle 1 with day 1, 8 and 15 treatment. Came for follow-up, complaining of poor appetite, patient tried Marinol but did not like it and does not want to continue. Denies any fever chills denies any vomiting and nausea is better now denies any abdominal pain, mild diarrhea which is under control with Imodium. Patient is also on potassium supplements. Complaining of generalized weakness and fatigue, as per patient hydration on as needed works well for her. Tolerating palliative therapy with Abraxane/gemcitabine reasonably well Medications: LORazepam 0.5 - 1 Tablet (of 1 mg) Oral t.i.d. PRN, Metoclopramide HCl 1 Tablet (of 5 mg) Oral q 6 hours PRN, Naprosyn 1 Tablet (of 500 mg) Oral b.i.d., Ondansetron HCl 1 Tablet (of 4 mg) Oral PRN, oxyCODONE-Acetaminophen 1 - 2 Tablet (of 5-325 mg) Oral q 4 to 6 hours PRN, Potassium Chloride Brigitte ER 1 Tablet (of 20 meq) Tablet, controlled release Oral b.i.d., Prochlorperazine Maleate 1 Tablet (of 10 mg) Oral t.i.d. PRN, traMADol HCl 1 Tablet (of 50 mg) Oral t.i.d. PRN Allergies: Codeine Sulfate Review of Systems: Review of Systems is not available for this patient. Vital Signs: Vitals are not available for this patient. Performance Status: 2 - Ambulatory/capable of all self-care, unable to perform any work activities. Up and about more than 50% of waking hours. (ECOG) Physical Examination: ENMT - No mouth sores, no thrush, no jaundice, Respiratory - Lungs are clear to auscultation, Cardiovascular - Regular rate and rhythm of heart, Abdomen - Soft, bowel sounds present, Extremities - No visible edema. Lab/Imaging: Test performed on Jun 20, 2021 10:25 Sodium 130 mmol/L Potassium 3.6 mmol/L Chloride 86 mmol/L CO2 30 mmol/L Anion Gap 17.6 BUN 10 mg/dL Creatinine 0.4 mg/dL Cr Clearance (Est) 132.32 mL/min eGFR 159.2 mL/min Glucose 115 mg/dL Osmolality - Calculated 270 mOsm/kg Calcium 8.6 mg/dL Protein, Total 6.4 g/dL Albumin 3.2 g/dL Globulin 3.2 g/dL Bilirubin, Total 0.8 mg/dL ALT (SGPT) 46 U/L AST (SGOT) 31 U/L Alkaline Phosphatase 126 IU/L WBC 5.5 10 3/uL RBC 3.93 10 6/uL HGB 11.6 g/dL HCT 34.6 % MCV 88.0 fl MCH 29.5 pg MCHC 33.5 g/dL RDW 12.8 % Platelet Count 171 10 3/cmm MPV 10.5 fL Neutrophils 4.39 10 3/uL Lymphocytes 0.6 10 3/uL Monocytes 0.4 10 3/uL Eosinophils 0.0 10 3/uL Basophils 0.0 10 3/uL Neutrophil % 79.2 % Lymphocyte % 10.5 % Monocyte % 7.4 % Eosinophil % 0.2 % Basophils % 0.4 % NRBC % 0 % CA 15-3 45.4 U/mL CA 19-9 450.2 U/mL CA 27.29 94 U/mL CA-125 80.8 U/mL Impression: Metastatic Adenocarcinoma with mucinous features per CT-guided left lung mass biopsy done on April 26, 2021, Most likely pancreatic as CT PET scan showed 3.2 x 5.3 cm pancreatic body mass with extensive intra-abdominal lymphadenopathy and left cervical level 4 lymphadenopathy and innumerable bilateral pulmonary nodules FDG positive and tumor marker CA 19???9 was 379, Clinically stage IV pancreatic cancer CT scan of chest abdomen pelvis done on April 21, 2021 shows multiple soft tissue nodules and small masses identified throughout both lungs,. No significant lymphadenopathy in the chest. Altered contour and attenuation in the body of pancreas may represent pancreatic mass. Mild retroperitoneal lymphadenopathy. Largest node measures slightly over centimeter in greatest short axis dimension and is seen along the left pericaval region. Sigmoid diverticulosis Left posterior lateral chest wall pain etiology unclear could be musculoskeletal or metastatic disease Dehydration/poor oral intake due to nausea/dry heaves/off and on vomiting etiology could be multifactorial including brain mets versus NSAID induced gastritis or peptic ulcer disease or gastric outlet obstruction due to pancreatic mass Dry cough, etiology unclear could be due to postnasal drip or bronchial irritation due to pulmonary pathology Plan: Discussed with patient regarding her labs white blood count 14.2 hemoglobin 10.9 compared to 12.3 previously hematocrit 33.4 platelets 290,000 CMP within normal limit except potassium 3.4, sodium 132 and ALT 44 compared to 47 previously, alk phos 114 compared to 85 previously Clinically, patient is doing reasonably well, tolerating palliative therapy with Abraxane/gemcitabine well, will proceed with day 8 Abraxane/gemcitabine today and then she will return to clinic in 2 weeks with CBC CMP and if reasonable, for next cycle As far as poor appetite is concerned, could be multifactorial, patient did not like Marinol, so we will try low-dose steroids prednisone 5 mg p.o. daily, and monitor. As far as mild hypokalemia is concerned, probably due to off-and-on diarrhea, patient on potassium supplement we will asked her to take additional dose tonight and tomorrow and then continue with same and will monitor her potassium level Patient return to clinic in 2 weeks with CBC CMP and if reasonable to resume cycle #3. As patient is tolerating day 1 and 8 schedule better Signed By: Johnny Luna M.D. <<Signature on File>>
[2021-07-04] MEDS: sodium chloride 0.9% 250 ML 75 ML IV (10:46)
[2021-07-04] MEDS: famotidine 20 mg/2 mL INJ IVP (10:46)
[2021-07-04] MEDS: palonosetron 0.25 mg/5 mL SDV IV (10:48)
[2021-07-04] MEDS: cyanocobalamin 1,000 mcg/mL SDV 1000 MCG SUBCUT (11:04)
== END 2021-07-05 06:00 | disposition home or self-care (01) ==
LOC: ONCMED 06:12
PROVIDERS: PCP Nurse Practitioner Family; Visit Provider Internal Medicine Hematology & Oncology
DX: Z51.11 Encounter for antineoplastic chemotherapy (principal); C34.02 Malignant neoplasm of left main bronchus; C77.0 Secondary and unspecified malignant neoplasm of lymph nodes of head, face and neck; C78.01 Secondary malignant neoplasm of right lung; C78.02 Secondary malignant neoplasm of left lung; K57.30 Diverticulosis of large intestine without perforation or abscess without bleeding; E86.0 Dehydration; R05.1 Acute cough; Z79.899 Other long term (current) drug therapy
CPT/HCPCS: 80053; 85025; 87635; 96361; 96367; 96372; 96374; 96375; 96413; 96417; 99215; J1100; J2405; J2469; J3420; J3490; J7040; J7050; J9201; J9264

== ENCOUNTER 2021-07-05 11:13 | Day surgery (SDC) | payer MEDICARE, SELFPAY ==
--- NOTE | 2021-06-20 08:47 | SUR.PREOP ---
0837 spoke with pt's and stated that pt is not going to have surgery tomorrow and pt is too sick and did not get covid test,call placed to dr cody's office and spoke with bernarda and informed her of this and verbalized understanding,stated she would call pt and ask if they wanted to reschedule for another day
[2021-07-04 13:55] VITALS: BMI 20.8
[2021-07-05] VITALS (8 sets, daily range): BP systolic 90–105; BP diastolic 50–62; PULSE 77–89; RESP 16–18; TEMP 36.1–36.9; O2SAT 92–100
--- NOTE | 2021-07-05 | SCC_ITS ---
Procedure Done: 1. Placement of right subclavian vein PowerPort 14.6 seconds of fluoroscopic guidance, for a cumulative dose of 2.17 mGy, was provided to Dr. Mcmahon by the radiology department. C-arm images of the chest were saved for the patient's permanent record. [facility]
--- NOTE | 2021-07-05 11:42 | W.PM.OPSFHP ---
Same Day Surgery H&P Indication for Procedure/HPI DATE OF PROCEDURE: July 05, 2021 CHIEF COMPLAINT/INDICATIONFOR SURGICAL PROCEDURE: Epigastric pain PREOP DIAGNOSIS: Abdominal pain PLANNED PROCEDRUE: Operation Date: 06/21/21 16:15 Proposed Procedures p Portacath Placement 99955 c78.00(Not Applicable) - Michael Mcmahon MD Operation Date: 07/05/21 12:35 Proposed Procedures p Portacath Placement 08855 C25.9 C78.00(Not Applicable) - Michael Mcmahon MD 05/11/2021 This is a pleasant 65 years old female patient has been diagnosed with adenocarcinoma based on lung biopsy pending work-up to identify primary versus metastatic disease. Also there is a concern of a pancreatic mass concerning for malignancy. Patient complains of epigastric abdominal pain whenever she eats which is associated with nausea but no vomiting. Still have her gallbladder and the concern that the patient may have an underlying peptic ulcer disease or otherwise. CT scan chest abdomen and pelvis shows below 1. Multiple soft tissue nodules and small masses identified throughout both lungs. Lung metastasis or less likely infectious etiology might be considered. 2. No significant lymphadenopathy in the chest. CT scan of the abdomen and pelvis with IV contrast. The liver, spleen and gallbladder appear normal. The abdominal aorta is normal in caliber. Normal adrenal glands and kidneys. The portal vein and IVC are patent. The stomach is unremarkable. There is altered contour and attenuation in the body the pancreas that may represent a pancreatic mass. There is mild retroperitoneal lymphadenopathy. The largest left paracaval lymph node measures slightly over 1 cm at greatest short axis dimension. Small bowel loops are not dilated. There is sigmoid diverticulosis. No sign of acute diverticulitis. No sign of acute appendix. No mass or adenopathy in the pelvis. No free air in the abdomen or pelvis. Intact urinary bladder. The uterus is unremarkable in appearance. No destructive bone lesions are seen. Tiny fat filled periumbilical hernia. IMPRESSION: 1. Altered contour and attenuation in the body the pancreas that may represent a pancreatic mass. 2. Mild retroperitoneal lymphadenopathy. The largest node measures slightly over a centimeter greatest short axis dimension and is seen along the left pericaval region. 3. Sigmoid diverticulosis. Other minor findings as above. IMPRESSION: 1. Abdominal MRI with and without contrast could be helpful for further workup if thought to be clinically indicated. Patient reports that the pain is not referred to the back. Interim history 07/05/2021. Patient is coming today for Port-A-Cath placement ROS All systems have been reviewed negative except as all systems or per problem list Medications/Allergies* Home Medications Medication Instructions Recorded Confirmed Type lorazepam 0.5 mg tablet 0.5 mg PO BID PRN 05/24/21 07/04/21 History metoclopramide HCl 5 mg tablet 5 mg PO DAILY 05/24/21 07/04/21 History prednisolone 5 mg tablet 5 mg PO QAM 05/24/21 07/04/21 History oxycodone-acetaminophen 2 tab PO TID PRN 06/07/21 07/04/21 History Allergies/Adverse Reactions Allergy/AdvReac Type Severity Reaction Status Date / Time codeine Allergy Mild rash Verified 07/05/21 11:47 Pertinent History/Comorbid Conditions* Social History Smoking and tobacco status: former smoker Quit status (tobacco): has quit using tobacco Year quit tobacco: 1990 Former quit date comment: 0.5ppd x 10 years Pertinent Exam Findings alert, oriented x 3, clear to auscultation bilaterally, regular rate & rhythm and procedure specific exam findings (Palpable epigastric mass) Recommendations Surgery/Procedure today (Port-A-Cath placement) Other Plans: Plan of care; After thorough history physical examination and reviewing the chart and reviweing the images iwth my personal intrepretation.I counseled the patient for Port-A-Cath placement, indications, risks including pneumothorax that may require Chest tube(s) placement and potential injury of major vascular structures that may require Thoractomy, benefits,indications and alternatives were all discussed with the patient, patient understands and is interested to proceed. Rationale was carefully and clearly discussed with the patient.Appropriate informed consent have been reviewed and signed. Coding Level of Care Code Acute Control Room Operator for Erick Pierre
--- NOTE | 2021-07-05 12:15 | SC_ITS ---
WS: [id number] C-ARM RADIOGRAPHS CHEST; 2 IMAGES HISTORY: Powerport Placement COMPARISON: None available. Intraoperative imaging during power port placement. Tip of the distal catheter is in the mid SVC. SC/C-arm FL for CVA [id number] IMPRESSION: Intraoperative imaging during power port placement.
[2021-07-05] MEDS: sodium chloride 0.9% 1,000 ML 30 ML IV (12:18)
--- NOTE | 2021-07-05 12:21 | ANES.PREANE2 ---
Pre-Anesthetic Assessment Pre-Anesthetic Assessment: Height/Weight: Height 1.7 m Weight 60.328 kg Temp Pulse Resp BP Pulse Ox 98.5 F 89 16 105/62 96 07/05/21 11:20 07/05/21 11:20 07/05/21 11:20 07/05/21 11:20 07/05/21 11:20 Preop Diagnosis: Lung cancer Proposed Procedure: Operation Date: 06/21/21 16:15 Proposed Procedures p Portacath Placement 22446 c78.00(Not Applicable) - Michael Mcmahon MD Operation Date: 07/05/21 12:35 Proposed Procedures p Portacath Placement 79204 C25.9 C78.00(Not Applicable) - Michael Mcmahon MD Was Beta Arie taken within 24 hours: N/A Was Clonidine taken within 24 hours: N/A Last intake: Intake Last Liquid Date 07/04/21 Last Liquid Time 19:00 Last Solid Date 07/04/21 Last Solid Time 18:00 Social: Social History: No alcohol and No tobacco Exam: Pre-Anes Outpt Exam: alert, oriented x 3, clear to auscultation bilaterally and regular rate & rhythm Airway: Submandibular: WNL Cervical ROM: WNL MP: 2 History/ROS: No significant complaints Pulmonary: Comments: Lung CA mets from pancreatic CA GI: GI: GERD Neuropsych: Neuropsych: Depression Anesthetic Plan: ASA status: 3 Anesthesia: Anesthesia Evaluation, General and MAC Risk of > 500 ml blood loss (7ml/kg in children): No PFSH Anesthesia PFSH: Social History Smoking and tobacco status: former smoker Quit status (tobacco): has quit using tobacco Year quit tobacco: 1990 Former quit date comment: 0.5ppd x 10 years Female Reproductive History: Date of last menstrual period: 11/18/20 Data Anesthesia Cardiac Studies: No Data to Display
[2021-07-05] MEDS: lidocaine 2% INJ 20 mL INJECTION (13:16)
[2021-07-05] MEDS: heparin, porcine 1,000 unit/mL INJ 10 mL 10000 UNIT INJECTION (13:16)
--- NOTE | 2021-07-05 13:26 | P.OP_ITS ---
Operative Report Date of procedure: July 05, 2021 Pre-op Diagnosis: Lung cancer Post-op diagnosis: same Procedure Done: 1. Placement of right subclavian vein PowerPort 2. Fluoroscopic guidance and interpretation for placement of catheter Implants: Right subclavian vein PowerPort Surgeon: Michael Mcmahon Bone Char Kiln Operator: mold maintenance technicianalberta Salazar Circulating nurse Myesha Anesthesia: MAC (Jose Chatterjee) Estimated blood loss (mL): 5 Condition: stable Disposition: same day Procedure: Patient was identified in the holding area and taken to the operative room and placed in supine position IV propofol was given by the anesthesia provider ,both arms were tucked,Time-out was done verifying the patient's name/date of /planned procedure and destination after the procedure, all were in agreement. SCDs confirmed to be functioning, preoperative antibiotics administered per protocol, and beta jose protocol was confirmed, appropriate positioning of the patient was done by me. Medications were reviewed to assess for anticoagulant usage. Risks and benefits and prevention of central line associated blood stream infection (CLABSI) were discussed with the patient/CPOA, and a consent was obtained. Monitors were in place and monitored throughout the procedure. All necessary supplies were available prior to start. Hand hygiene was completed prior to starting. Maximum barrier technique was utilized including a sterile gown, sterile gloves with a hat and mask. Site was was prepped with [chlorhexidine] and a full body drape was placed. 5 mL of 2% lidocaine was injected into the skin with a 25 gauge needle. Prep& drape was done under the usual sterile technique,lidocaine 2% was injected at the site of the stick,started by right subclavian stick that retrieved veno us blood was obtained from the first stick, a guidewire was then threaded and under the guidance of fluoroscopy position was confirmed to be in the IVC and my interpretation, there was no PVC changes, at that point the guidewire was secured to the drapes with a hemostat and the needle was taken out, attention was then deviated towards creation of a pocket for the port were lidocaine 2% was injected using an 15 blade knife skin incision was created dissection using the Bovie to create a pocket for the Port-A-Cath to be accommodated, hemostasis was secured, after the port being appropriately flushed it was inserted into the pocket and a tunneler was used to accommodate the catheter of the PowerPort to be delivered through the incision first created at the site of the stick, at that point under fluoroscopy an estimated length was measured for the catheter and was cut at the designed level, followed by that a dilator with the sheath introduced onto the guidewire the dilator and the wire were retrieved and the catheter of the port was introduced via the sheath where it was peeled off and the catheter maintained to be in the SVC that was confirmed with fluoroscopy, and the fluoroscopy interpretation was done by me throughout the entire procedure. The port was kept in place, 3-0 Vicryl deep subdermal interrupted sutures, skin was then closed by 4-0 Monocryl as subcuticular closure. The port was appropriately flushed with heparin and venous blood was withdrawn without difficulty The stick site was closed by 4-0 Monocryl and Dermabond was used followed by dressing. Patient tolerated the procedure well was taken to the recovery area Count was correct at the end of the procedure I was present for the whole entire procedure Position of the catheter was checked with a postoperative chest x-ray and it was in good position without evidence of pneumothorax
--- NOTE | 2021-07-05 13:29 | XRR_ITS ---
PROCEDURE INFORMATION: Exam: XR Chest Exam date and time: 07/05/2021 1:29 PM Age: 66 years old Clinical indication: Condition or disease; Other: Post op power port placement; Patient HX: Post op right subclavian vein power port placed; Additional info: Status post right subclavian vein powerport placed TECHNIQUE: Imaging protocol: XR of the chest. Views: 1 view. COMPARISON: CR XR chest 1V portable [id number] 05/05/2021 11:59 AM FINDINGS: Tubes, catheters and devices: A right central line extends into the SVC. Lungs: There is diffuse bilateral interstitial densities which appear to be honeycomb and reticular. Left lower lobe parenchymal densities seen which may reflect pneumonia. Comparison to prior examination prior examination showed diffuse nodular densities with a different appearance than the current findings. Pleural spaces: Unremarkable. No pleural effusion. No pneumothorax. Heart/Mediastinum: Unremarkable. No cardiomegaly. Bones/joints: Unremarkable. XR/XR chest 1V portable [id number] IMPRESSION: 1. Diffuse interstitial densities are present in both lungs. 2. Left lower lobe parenchymal density possible pneumonia 3. Right central line is in the SVC Radiation Dose CTDIVOL = (mGy): DLP = (mGy-cm)
--- NOTE | 2021-07-05 14:04 | ANE.PACU2 ---
Inpatient post-anesthesia follow up: Airway intact: Yes Vital signs: Temperature 97.4 F Pulse Rate 77 Respiratory Rate 18 Blood Pressure 101/54 Pulse Oximetry 98 Oxygen Delivery Me thod Nasal Cannula Oxygen Flow Rate 3 Fraction of Inspir ed Oxygen Hydration adequate: Yes Nausea and vomiting: No Pain level: 1 Mental status: Baseline
== END 2021-07-05 14:40 | disposition home or self-care (01) ==
PROVIDERS: PCP Nurse Practitioner Family; Visit Provider Surgery
PROC: (CPT 36571; principal; 2021-07-05 12:35)
DX: R10.13 Epigastric pain (principal); C34.92 Malignant neoplasm of unspecified part of left bronchus or lung; C34.91 Malignant neoplasm of unspecified part of right bronchus or lung; Z88.5 Allergy status to narcotic agent; Z87.891 Personal history of nicotine dependence
CPT/HCPCS: 36571; 71045; 76000; 77001; C1788; J0690; J1644; J2704; J7030

== ENCOUNTER 2021-07-20 06:34 | Outpatient (RCR) | payer MEDICARE, SELFPAY ==
[2021-07-08] MEDS: sodium chloride 0.9% 500 ML 999 ML IV (09:34)
[2021-07-08] MEDS: ondansetron 2 mg/ML SDV 2 mL 8 MG IVP (09:36)
[2021-07-12] MEDS: ondansetron 2 mg/ML SDV 2 mL 8 MG IVP (13:10)
[2021-07-12] MEDS: sodium chloride 0.9% 500 ML 900 ML IV (13:15)
[2021-07-14] MEDS: ondansetron 2 mg/ML SDV 2 mL 8 MG IVP (12:55)
[2021-07-14] MEDS: sodium chloride 0.9% 500 ML 999 ML IV ×2 (12:55→13:55)
[2021-07-18 09:27] LABS: Hematocrit 31.5 % (37.0-47.0); Hemoglobin 10.4 g/dL (11.5-15.3); Mean Corpuscular Hemoglobin 29.8 pg (28.0-34.0); Mean Corpuscular Volume 90.3 fl (81-99); Mean Platelet Volume 9.7 fL (7.4-10.4); Platelet Count 517 10^3/cmm (130-400); Red Blood Count 3.49 10^6/uL (4.1-5.3); Red Cell Distribution Width 16.8 % (12.1-15.1); White Blood Count 8.7 10^3/uL (4.0-10.0)
[2021-07-18 10:01] LABS: Alanine Aminotransferase 38 U/L (0-33); Albumin Level 2.6 g/dL (3.5-5.2); Alkaline Phosphatase 111 IU/L (35-105); Anion Gap 12.3 (5-19); Aspartate Amino Transferase 26 U/L (0-32); Blood Urea Nitrogen 9 mg/dL (8-23); Calcium 7.8 mg/dL (8.5-10.5); Carbon Dioxide 33 mmol/L (22-29); Chloride 92 mmol/L (98-107); Globulin 2.9 g/dL (1.3-4.6); Glomerular Filtration Rate 353.2 mL/min (90-130); Glucose 97 mg/dL (65-115); Osmolality Calculated 277 mOsm/kg (285-295); Potassium 3.3 mmol/L (3.5-5.1); Sodium 134 mmol/L (136-145); Total Bilirubin 0.7 mg/dL (0.15-1.2); Total Protein 5.5 g/dL (6.6-8.7)
[2021-07-18 10:40] LABS: Slide Review Slide Review Perform
[2021-07-18 10:42] LABS: Absolute Eosinophils 0.2 10^3/cmm (0.0-0.7); Absolute Segmented Neutrophil 5.1 10/cmm (1.6-7.1); Band Neutrophils Absolute 0.5 10^3/cmm (0.0-1.2); Eosinophils 3 %; Lymphocytes 18 %; Lymphocytes Absolute 1.6 10^3/cmm (1.2-3.4); Monocytes Absolute 0.5 10^3/cmm (0.1-0.6); Segmented Neutrophils 59 %; Total Cells Counted 100 (0-100)
[2021-07-18 10:43] LABS: Absolute Neutrophil 5.7 10^3/cmm (1.4-6.5); Anisocytosis 1+; Platelet Estimate Increased (Normal); Poikilocytosis 1+; Toxic Granulation 2+
[2021-07-18] MEDS: famotidine 20 mg/2 mL INJ IVP (11:10)
[2021-07-18] MEDS: sodium chloride 0.9% 250 ML 75 ML IV (11:10)
[2021-07-18] MEDS: sodium chloride 0.9% 500 ML 75 ML IV (11:10)
[2021-07-18] MEDS: palonosetron 0.25 mg/5 mL SDV IV (11:43)
[2021-07-20] MEDS: ondansetron 2 mg/ML SDV 2 mL 8 MG IVP (10:00)
[2021-07-20] MEDS: sodium chloride 0.9% 500 ML 999 ML IV (10:02)
--- NOTE | 2021-07-20 16:50 | ONC FU_ITS ---
Dr. Luna follow up note Patient: Charlotte Wynn Unit #: [id number]: 1955 Dicatated By: Johnny Luna M.D.Date of Visit:Jul 18, 2021 Onc Med Follow-up/Prog Note History of Present Illness: Ms. Mukherjee is a 66-year-old female who developed progressive dry cough since December 2020. She also started having sharp, intermittent stabbing, left posterior lateral chest wall pain. She states at that time the ibuprofen did help with the pain. She did not seek further evaluation she was going through significant grieving as she had lost her son in a car accident in December 2020. She fell I did see her PCP on April 04, 2021. She was having persistent cough for which a chest x-ray was ordered. She also was due for screening mammography and colonoscopy. Her chest x-ray did show multiple lung nodules but no other abnormalities. A CT of the chest abdomen pelvis was then obtained on April 21, 2021 which showed multiple soft tissue nodules and small masses identified throughout both lungs. There was no significant lymphadenopathy in the chest. The CT of the abdomen shows altered contour and attenuation in the body of the pancreas, that may represent pancreatic mass . There was mild retroperitoneal lymphadenopathy with the largest node measuring slightly over 1 cm. Sigmoid diverticulosis was noted. Ms. Carlos then had CT-guided biopsy of the left lung on April 26, 2021 and this pathology confirmed adenocarcinoma with mucinous features. CT scan of the head done on 05/05/2021 showed calcified left frontal lesion measuring 10 mm most likely represent small calcified with no other abnormality seen. PET/CT scan on 05/21/2021 showed 3.2 x 5.3 cm pancreatic body mass with SUV of 6.9, subcentimeter peripancreatic lymph node, are FDG positive, gastric hepatic lymph node is FDG positive, bilateral retroperitoneal lymphadenopathy with mild FDG uptake, left cervical level 4 lymph node with SUV of 3.4, innumerable FDG positive bilateral pulmonary nodules consistent with metastatic disease. Ms Carlos came in to see Dr Luna and was still having problems with persistent nausea, intermittent vomiting and epigastric pain. She was sent for abdominal sonogram on 05/16/2021 which showed gallstones, and a mass in body and tail of pancreas but no other acute findings. She was referred to gastroenterology- Dr. Mcmahon. An EGD/colonoscopy was scheduled but as per , she could not tolerate bowel prep so they canceled the procedure. Did undergo EGD per Dr. Mcmahon on 06/07/2021 and in the lower 3rd esophagus reflux esophagitis was present there was no bleeding associated with esophagitis and at the gastroesophageal junction in the free lower area moderate's stripped gastritis was also seen. Is found to be erythematous and erosive but no mucosal bleeding. The duodenum was examined with no abnormalities reported. She has not yet had colonoscopy as she could not tolerate the prep. Ms Carlos was started on palliative chemotherapy with Abraxane/gemcitabine on 05/30/2021. She was able to complete cycle 1 with day 1, 8 and 15 treatment. , Later on switched to day 1 and day 8 only as patient could not tolerate day 15 schedule. Came for follow-up, denies any specific complaints, no fever chills, no nausea or vomiting, no diarrhea or constipation, abdominal pain has improved significantly since she is on chemotherapy, overall patient is feeling well tolerating orally well, nausea has improved in fact resolved. Tolerating systemic therapy with Abraxane/gemcitabine well otherwise Medications: LORazepam 0.5 - 1 Tablet (of 1 mg) Oral t.i.d. PRN, Metoclopramide HCl 1 Tablet (of 5 mg) Oral q 6 hours PRN, Naprosyn 1 Tablet (of 500 mg) Oral b.i.d., Ondansetron HCl 1 Tablet (of 4 mg) Oral PRN, oxyCODONE-Acetaminophen 1 - 2 Tablet (of 5-325 mg) Oral q 4 to 6 hours PRN, Potassium Chloride Brigitte ER 1 Tablet (of 20 meq) Tablet, controlled release Oral b.i.d., Prochlorperazine Maleate 1 Tablet (of 10 mg) Oral t.i.d. PRN, traMADol HCl 1 Tablet (of 50 mg) Oral t.i.d. PRN Allergies: Codeine Sulfate Review of Systems: Review of Systems is not available for this patient. Vital Signs: Performed on Jul 18, 2021 13:45 Height - 67.00 in Temperature - 97.8 F (LOW) Pulse - 88 /min Respiration - 18 /min BP - 107/45 mm(hg) O2 Sat - 92 % (LOW) Pain - 0 Fatigue - 5 Performed on Jul 18, 2021 13:13 Height - 67.00 in Weight - 127.6 lbs (LOW) BSA - 1.67 sq.m BMI - 19.99 Temperature - 99.0 F (HIGH) Pulse - 109 /min (HIGH) Respiration - 20 /min BP - 94/58 mm(hg) O2 Sat - 92 % (LOW) Pain - 0 Fatigue - 5 Performance Status: 1 - No physically strenuous activity, but ambulatory and able to carry out light or sedentary work (e.g. office work, light house work). (ECOG) Physical Examination: ENMT - No mouth sores, no thrush, no jaundice, Respiratory - Lungs are clear to auscultation, Cardiovascular - Regular rate and rhythm of heart, Abdomen - Soft, bowel sounds present, Extremities - Trace edema bilaterally. Lab/Imaging: Test performed on Jun 20, 2021 10:25 Sodium 130 mmol/L Potassium 3.6 mmol/L Chloride 86 mmol/L CO2 30 mmol/L Anion Gap 17.6 BUN 10 mg/dL Creatinine 0.4 mg/dL Cr Clearance (Est) 132.32 mL/min eGFR 159.2 mL/min Glucose 115 mg/dL Osmolality - Calculated 270 mOsm/kg Calcium 8.6 mg/dL Protein, Total 6.4 g/dL Albumin 3.2 g/dL Globulin 3.2 g/dL Bilirubin, Total 0.8 mg/dL ALT (SGPT) 46 U/L AST (SGOT) 31 U/L Alkaline Phosphatase 126 IU/L WBC 5.5 10 3/uL RBC 3.93 10 6/uL HGB 11.6 g/dL HCT 34.6 % MCV 88.0 fl MCH 29.5 pg MCHC 33.5 g/dL RDW 12.8 % Platelet Count 171 10 3/cmm MPV 10.5 fL Neutrophils 4.39 10 3/uL Lymphocytes 0.6 10 3/uL Monocytes 0.4 10 3/uL Eosinophils 0.0 10 3/uL Basophils 0.0 10 3/uL Neutrophil % 79.2 % Lymphocyte % 10.5 % Monocyte % 7.4 % Eosinophil % 0.2 % Basophils % 0.4 % NRBC % 0 % CA 15-3 45.4 U/mL CA 19-9 450.2 U/mL CA 27.29 94 U/mL CA-125 80.8 U/mL Impression: Metastatic Adenocarcinoma with mucinous features per CT-guided left lung mass biopsy done on April 26, 2021, Most likely pancreatic as CT PET scan showed 3.2 x 5.3 cm pancreatic body mass with extensive intra-abdominal lymphadenopathy and left cervical level 4 lymphadenopathy and innumerable bilateral pulmonary nodules FDG positive and tumor marker CA 19???9 was 379, Clinically stage IV pancreatic cancer CT scan of chest abdomen pelvis done on April 21, 2021 shows multiple soft tissue nodules and small masses identified throughout both lungs,. No significant lymphadenopathy in the chest. Altered contour and attenuation in the body of pancreas may represent pancreatic mass. Mild retroperitoneal lymphadenopathy. Largest node measures slightly over centimeter in greatest short axis dimension and is seen along the left pericaval region. Sigmoid diverticulosis Left posterior lateral chest wall pain etiology unclear could be musculoskeletal or metastatic disease Dehydration/poor oral intake due to nausea/dry heaves/off and on vomiting etiology could be multifactorial including brain mets versus NSAID induced gastritis or peptic ulcer disease or gastric outlet obstruction due to pancreatic mass Dry cough, etiology unclear could be due to postnasal drip or bronchial irritation due to pulmonary pathology Plan: Discussed with patient regarding her labs white blood count 8.7 hemoglobin 10.4 hematocrit 31.5 platelets 517,000 CMP within normal limit except potassium 3.3 and ALT 38 compared to 44 previously Clinically, patient is doing reasonably well, overall palliative care is improving her quality of life, tolerating palliative chemotherapy with Abraxane/gemcitabine well, will proceed with next cycle #3 day 1 today and then she will return to clinic in 1 week with CBC CMP if blood count looks reasonable for day 8 therapy with Abraxane/gemcitabine. As far as mild hypokalemia is concerned, patient is on potassium supplement on daily basis, will ask her to take KCl 20 mEq p.o. twice daily for 1 week and then over follow her potassium levels. And plan is to do CT PET scan after 4 cycles to assess disease response but overall patient is feeling better her quality of life is improving. Signed By: Johnny Luna M.D. <<Signature on File>>
== END 2021-07-26 23:59 | disposition home or self-care (01) ==
LOC: ONCMED 06:34
PROVIDERS: PCP Nurse Practitioner Family; Visit Provider Internal Medicine Hematology & Oncology
DX: Z51.11 Encounter for antineoplastic chemotherapy (principal); C34.02 Malignant neoplasm of left main bronchus; R59.0 Localized enlarged lymph nodes; R91.1 Solitary pulmonary nodule; K57.30 Diverticulosis of large intestine without perforation or abscess without bleeding; E86.0 Dehydration; R05.9 Cough, unspecified; Z79.899 Other long term (current) drug therapy
CPT/HCPCS: 80053; 85007; 85025; 96361; 96367; 96374; 96375; 96413; 96417; 99215; J1100; J2405; J2469; J3490; J7040; J7050; J9201; J9264

== ENCOUNTER 2021-08-17 06:24 | Outpatient (RCR) | payer MEDICARE, SELFPAY ==
[2021-07-27 11:32] LABS: Basophils % 0.6 %; Eosinophils # 0.2 10^3/uL (0.0-0.8); Eosinophils % 2.1 %; Hematocrit 27.9 % (37.0-47.0); Hemoglobin 9.1 g/dL (11.5-15.3); Lymphocytes % 28.3 %; Mean Corpuscular HGB Conc 32.6 g/dL (30.0-36.0); Mean Corpuscular Hemoglobin 29.5 pg (28.0-34.0); Mean Corpuscular Volume 90.6 fl (81-99); Mean Platelet Volume 9.9 fL (7.4-10.4); Monocytes # 0.5 10^3/uL (0.2-0.9); Monocytes % 7.6 %; Nucleated Red Blood Cells % 0 %; Platelet Count 165 10^3/cmm (130-400); Red Blood Count 3.08 10^6/uL (4.1-5.3); Red Cell Distribution Width 17.4 % (12.1-15.1)
[2021-07-27 11:56] LABS: Alanine Aminotransferase 45 U/L (0-33); Albumin Level 3.1 g/dL (3.5-5.2); Alkaline Phosphatase 77 IU/L (35-105); Anion Gap 14.2 (5-19); Aspartate Amino Transferase 31 U/L (0-32); Blood Urea Nitrogen 12 mg/dL (8-23); Calcium 7.7 mg/dL (8.5-10.5); Carbon Dioxide 26 mmol/L (22-29); Chloride 99 mmol/L (98-107); Globulin 1.7 g/dL (1.3-4.6); Glomerular Filtration Rate 353.2 mL/min (90-130); Glucose 91 mg/dL (65-115); Osmolality Calculated 279 mOsm/kg (285-295); Potassium 4.2 mmol/L (3.5-5.1); Sodium 135 mmol/L (136-145); Total Bilirubin 0.4 mg/dL (0.15-1.2); Total Protein 4.8 g/dL (6.6-8.7)
--- NOTE | 2021-08-01 17:28 | ONC FU_ITS ---
Dr. Luna follow up note Patient: Charlotte Wynn Unit #: [id number]: 1955 Dicatated By: Johnny Luna M.D.Date of Visit:Jul 27, 2021 Onc Med Follow-up/Prog Note History of Present Illness: Ms. Mukherjee is a 66-year-old female who developed progressive dry cough since December 2020. She also started having sharp, intermittent stabbing, left posterior lateral chest wall pain. She states at that time the ibuprofen did help with the pain. She did not seek further evaluation she was going through significant grieving as she had lost her son in a car accident in December 2020. She fell I did see her PCP on April 04, 2021. She was having persistent cough for which a chest x-ray was ordered. She also was due for screening mammography and colonoscopy. Her chest x-ray did show multiple lung nodules but no other abnormalities. A CT of the chest abdomen pelvis was then obtained on April 21, 2021 which showed multiple soft tissue nodules and small masses identified throughout both lungs. There was no significant lymphadenopathy in the chest. The CT of the abdomen shows altered contour and attenuation in the body of the pancreas, that may represent pancreatic mass . There was mild retroperitoneal lymphadenopathy with the largest node measuring slightly over 1 cm. Sigmoid diverticulosis was noted. Ms. Carlos then had CT-guided biopsy of the left lung on April 26, 2021 and this pathology confirmed adenocarcinoma with mucinous features. CT scan of the head done on 05/05/2021 showed calcified left frontal lesion measuring 10 mm most likely represent small calcified with no other abnormality seen. PET/CT scan on 05/21/2021 showed 3.2 x 5.3 cm pancreatic body mass with SUV of 6.9, subcentimeter peripancreatic lymph node, are FDG positive, gastric hepatic lymph node is FDG positive, bilateral retroperitoneal lymphadenopathy with mild FDG uptake, left cervical level 4 lymph node with SUV of 3.4, innumerable FDG positive bilateral pulmonary nodules consistent with metastatic disease. Ms Carlos came in to see Dr Luna and was still having problems with persistent nausea, intermittent vomiting and epigastric pain. She was sent for abdominal sonogram on 05/16/2021 which showed gallstones, and a mass in body and tail of pancreas but no other acute findings. She was referred to gastroenterology- Dr. Mcmahon. An EGD/colonoscopy was scheduled but as per , she could not tolerate bowel prep so they canceled the procedure. Did undergo EGD per Dr. Mcmahon on 06/07/2021 and in the lower 3rd esophagus reflux esophagitis was present there was no bleeding associated with esophagitis and at the gastroesophageal junction in the free lower area moderate's stripped gastritis was also seen. Is found to be erythematous and erosive but no mucosal bleeding. The duodenum was examined with no abnormalities reported. She has not yet had colonoscopy as she could not tolerate the prep. Ms Carlos was started on palliative chemotherapy with Abraxane/gemcitabine on 05/30/2021. She was able to complete cycle 1 with day 1, 8 and 15 treatment. , Later on switched to day 1 and day 8 only as patient could not tolerate day 15 schedule. Came for follow-up, denies any specific complaints, except mild anxiety otherwise no fever chills, no nausea or vomiting, no diarrhea constipation, no mouth sores, no peripheral neuropathy, no abdominal pain, no jaundice, tolerating palliative therapy with Abraxane/gemcitabine well Medications: LORazepam 0.5 - 1 Tablet (of 1 mg) Oral t.i.d. PRN, Metoclopramide HCl 1 Tablet (of 5 mg) Oral q 6 hours PRN, Naprosyn 1 Tablet (of 500 mg) Oral b.i.d., Ondansetron HCl 1 Tablet (of 4 mg) Oral PRN, oxyCODONE-Acetaminophen 1 - 2 Tablet (of 5-325 mg) Oral q 4 to 6 hours PRN, Potassium Chloride Brigitte ER 1 Tablet (of 20 meq) Tablet, controlled release Oral b.i.d., Prochlorperazine Maleate 1 Tablet (of 10 mg) Oral t.i.d. PRN, traMADol HCl 1 Tablet (of 50 mg) Oral t.i.d. PRN Allergies: Codeine Sulfate Review of Systems: Review of Systems is not available for this patient. Vital Signs: Performed on Jul 27, 2021 13:02 Height - 67.00 in Weight - 125.6 lbs (LOW) BSA - 1.66 sq.m BMI - 19.67 Temperature - 99.9 F (HIGH) Pulse - 108 /min (HIGH) Respiration - 20 /min BP - 87/56 mm(hg) (LOW) O2 Sat - 95 % (LOW) Pain - 0 Fatigue - 4 Performance Status: 1 - No physically strenuous activity, but ambulatory and able to carry out light or sedentary work (e.g. office work, light house work). (ECOG) Physical Examination: ENMT - No mouth sores, no thrush, no jaundice, Respiratory - Lungs are clear to auscultation, Cardiovascular - Regular rate and rhythm of heart, Abdomen - Soft, bowel sounds present, Extremities - No visible edema. Lab/Imaging: Test performed on Jun 20, 2021 10:25 Sodium 130 mmol/L Potassium 3.6 mmol/L Chloride 86 mmol/L CO2 30 mmol/L Anion Gap 17.6 BUN 10 mg/dL Creatinine 0.4 mg/dL Cr Clearance (Est) 132.32 mL/min eGFR 159.2 mL/min Glucose 115 mg/dL Osmolality - Calculated 270 mOsm/kg Calcium 8.6 mg/dL Protein, Total 6.4 g/dL Albumin 3.2 g/dL Globulin 3.2 g/dL Bilirubin, Total 0.8 mg/dL ALT (SGPT) 46 U/L AST (SGOT) 31 U/L Alkaline Phosphatase 126 IU/L WBC 5.5 10 3/uL RBC 3.93 10 6/uL HGB 11.6 g/dL HCT 34.6 % MCV 88.0 fl MCH 29.5 pg MCHC 33.5 g/dL RDW 12.8 % Platelet Count 171 10 3/cmm MPV 10.5 fL Neutrophils 4.39 10 3/uL Lymphocytes 0.6 10 3/uL Monocytes 0.4 10 3/uL Eosinophils 0.0 10 3/uL Basophils 0.0 10 3/uL Neutrophil % 79.2 % Lymphocyte % 10.5 % Monocyte % 7.4 % Eosinophil % 0.2 % Basophils % 0.4 % NRBC % 0 % CA 15-3 45.4 U/mL CA 19-9 450.2 U/mL CA 27.29 94 U/mL CA-125 80.8 U/mL Impression: Metastatic Adenocarcinoma with mucinous features per CT-guided left lung mass biopsy done on April 26, 2021, Most likely pancreatic as CT PET scan showed 3.2 x 5.3 cm pancreatic body mass with extensive intra-abdominal lymphadenopathy and left cervical level 4 lymphadenopathy and innumerable bilateral pulmonary nodules FDG positive and tumor marker CA 19???9 was 379, Clinically stage IV pancreatic cancer CT scan of chest abdomen pelvis done on April 21, 2021 shows multiple soft tissue nodules and small masses identified throughout both lungs,. No significant lymphadenopathy in the chest. Altered contour and attenuation in the body of pancreas may represent pancreatic mass. Mild retroperitoneal lymphadenopathy. Largest node measures slightly over centimeter in greatest short axis dimension and is seen along the left pericaval region. Sigmoid diverticulosis Left posterior lateral chest wall pain etiology unclear could be musculoskeletal or metastatic disease Dehydration/poor oral intake due to nausea/dry heaves/off and on vomiting etiology could be multifactorial including brain mets versus NSAID induced gastritis or peptic ulcer disease or gastric outlet obstruction due to pancreatic mass Dry cough, etiology unclear could be due to postnasal drip or bronchial irritation due to pulmonary pathology Plan: Discussed with patient regarding her labs white blood count 7 hemoglobin 9.1 hematocrit 27.9 platelets 165,000 CMP within normal limits except sodium 135 Clinically, patient doing well with excellent palliation with Abraxane/gemcitabine, at this point we will proceed with cycle #3 day 8 and then she will return to clinic in 2 weeks with CBC CMP if reasonable to start next cycle with Abraxane/gemcitabine As far as mild anxiety is concerned, will try Ativan 0.5 mg every 8 hour on as-needed basis. Signed By: Johnny Luna M.D. <<Signature on File>>
[2021-08-10 08:43] LABS: Basophils % 0.3 %; Eosinophils # 0.2 10^3/uL (0.0-0.8); Eosinophils % 2.2 %; Hematocrit 29.1 % (37.0-47.0); Lymphocytes # 2.1 10^3/uL (0.8-4.8); Lymphocytes % 26.2 %; Mean Corpuscular HGB Conc 30.9 g/dL (30.0-36.0); Mean Corpuscular Hemoglobin 29.1 pg (28.0-34.0); Mean Corpuscular Volume 94.2 fl (81-99); Monocytes # 0.8 10^3/uL (0.2-0.9); Monocytes % 10.5 %; Neutrophils # 4.68 10^3/uL (1.8-7.7); Neutrophils % 59.2 %; Nucleated Red Blood Cells % 0 %; Platelet Count 483 10^3/cmm (130-400); Red Blood Count 3.09 10^6/uL (4.1-5.3); Red Cell Distribution Width 18.5 % (12.1-15.1); White Blood Count 7.9 10^3/uL (4.0-10.0)
[2021-08-10 08:58] LABS: Alanine Aminotransferase 25 U/L (0-33); Albumin Level 3.3 g/dL (3.5-5.2); Alkaline Phosphatase 76 IU/L (35-105); Anion Gap 18.5 (5-19); Aspartate Amino Transferase 24 U/L (0-32); Blood Urea Nitrogen 13 mg/dL (8-23); Calcium 8.4 mg/dL (8.5-10.5); Carbon Dioxide 24 mmol/L (22-29); Chloride 101 mmol/L (98-107); Globulin 2.4 g/dL (1.3-4.6); Glomerular Filtration Rate 353.2 mL/min (90-130); Glucose 122 mg/dL (65-115); Osmolality Calculated 289 mOsm/kg (285-295); Potassium 4.5 mmol/L (3.5-5.1); Sodium 139 mmol/L (136-145); Total Bilirubin 0.4 mg/dL (0.15-1.2); Total Protein 5.7 g/dL (6.6-8.7)
--- NOTE | 2021-08-10 11:04 | ONC FU_ITS ---
Dr. Luna follow up note Patient: Charlotte Wynn Unit #: [id number]: 1955 Dicatated By: Johnny Luna M.D.Date of Visit:Aug 10, 2021 Onc Med Follow-up/Prog Note History of Present Illness: Ms. Mukherjee is a 66-year-old female who developed progressive dry cough since December 2020. She also started having sharp, intermittent stabbing, left posterior lateral chest wall pain. She states at that time the ibuprofen did help with the pain. She did not seek further evaluation she was going through significant grieving as she had lost her son in a car accident in December 2020. She fell I did see her PCP on April 04, 2021. She was having persistent cough for which a chest x-ray was ordered. She also was due for screening mammography and colonoscopy. Her chest x-ray did show multiple lung nodules but no other abnormalities. A CT of the chest abdomen pelvis was then obtained on April 21, 2021 which showed multiple soft tissue nodules and small masses identified throughout both lungs. There was no significant lymphadenopathy in the chest. The CT of the abdomen shows altered contour and attenuation in the body of the pancreas, that may represent pancreatic mass . There was mild retroperitoneal lymphadenopathy with the largest node measuring slightly over 1 cm. Sigmoid diverticulosis was noted. Ms. Carlos then had CT-guided biopsy of the left lung on April 26, 2021 and this pathology confirmed adenocarcinoma with mucinous features. CT scan of the head done on 05/05/2021 showed calcified left frontal lesion measuring 10 mm most likely represent small calcified with no other abnormality seen. PET/CT scan on 05/21/2021 showed 3.2 x 5.3 cm pancreatic body mass with SUV of 6.9, subcentimeter peripancreatic lymph node, are FDG positive, gastric hepatic lymph node is FDG positive, bilateral retroperitoneal lymphadenopathy with mild FDG uptake, left cervical level 4 lymph node with SUV of 3.4, innumerable FDG positive bilateral pulmonary nodules consistent with metastatic disease. Ms Carlos came in to see Dr Luna and was still having problems with persistent nausea, intermittent vomiting and epigastric pain. She was sent for abdominal sonogram on 05/16/2021 which showed gallstones, and a mass in body and tail of pancreas but no other acute findings. She was referred to gastroenterology- Dr. Mcmahon. An EGD/colonoscopy was scheduled but as per , she could not tolerate bowel prep so they canceled the procedure. Did undergo EGD per Dr. Mcmahon on 06/07/2021 and in the lower 3rd esophagus reflux esophagitis was present there was no bleeding associated with esophagitis and at the gastroesophageal junction in the free lower area moderate's stripped gastritis was also seen. Is found to be erythematous and erosive but no mucosal bleeding. The duodenum was examined with no abnormalities reported. She has not yet had colonoscopy as she could not tolerate the prep. Ms Carlos was started on palliative chemotherapy with Abraxane/gemcitabine on 05/30/2021. She was able to complete cycle 1 with day 1, 8 and 15 treatment. , Later on switched to day 1 and day 8 only as patient could not tolerate day 15 schedule. Came for follow-up, denies any specific complaint except off and on dysuria but no fever chills, no abdominal pain, no epigastric pain, no nausea or vomiting, no diarrhea or constipation, no mouth sores, no peripheral neuropathy, tolerating systemic therapy with Abraxane/gemcitabine well Medications: LORazepam 0.5 - 1 Tablet (of 1 mg) Oral t.i.d. PRN, Metoclopramide HCl 1 Tablet (of 5 mg) Oral q 6 hours PRN, Naprosyn 1 Tablet (of 500 mg) Oral b.i.d., Ondansetron HCl 1 Tablet (of 4 mg) Oral PRN, oxyCODONE-Acetaminophen 1 - 2 Tablet (of 5-325 mg) Oral q 4 to 6 hours PRN, Potassium Chloride Brigitte ER 1 Tablet (of 20 meq) Tablet, controlled release Oral b.i.d., Prochlorperazine Maleate 1 Tablet (of 10 mg) Oral t.i.d. PRN, traMADol HCl 1 Tablet (of 50 mg) Oral t.i.d. PRN Allergies: Codeine Sulfate Review of Systems: Review of Systems is not available for this patient. Vital Signs: Vitals are not available for this patient. Performance Status: 0 - Fully active, able to carry on all predisease activities without restrictions. (ECOG) Physical Examination: ENMT - No mouth sores, no thrush, no jaundice, Respiratory - Lungs are clear to auscultation, Cardiovascular - Regular rate and rhythm of heart, Abdomen - Soft, bowel sounds present, Extremities - Trace edema bilaterally. Lab/Imaging: Test performed on Jun 20, 2021 10:25 Sodium 130 mmol/L Potassium 3.6 mmol/L Chloride 86 mmol/L CO2 30 mmol/L Anion Gap 17.6 BUN 10 mg/dL Creatinine 0.4 mg/dL Cr Clearance (Est) 132.32 mL/min eGFR 159.2 mL/min Glucose 115 mg/dL Osmolality - Calculated 270 mOsm/kg Calcium 8.6 mg/dL Protein, Total 6.4 g/dL Albumin 3.2 g/dL Globulin 3.2 g/dL Bilirubin, Total 0.8 mg/dL ALT (SGPT) 46 U/L AST (SGOT) 31 U/L Alkaline Phosphatase 126 IU/L WBC 5.5 10 3/uL RBC 3.93 10 6/uL HGB 11.6 g/dL HCT 34.6 % MCV 88.0 fl MCH 29.5 pg MCHC 33.5 g/dL RDW 12.8 % Platelet Count 171 10 3/cmm MPV 10.5 fL Neutrophils 4.39 10 3/uL Lymphocytes 0.6 10 3/uL Monocytes 0.4 10 3/uL Eosinophils 0.0 10 3/uL Basophils 0.0 10 3/uL Neutrophil % 79.2 % Lymphocyte % 10.5 % Monocyte % 7.4 % Eosinophil % 0.2 % Basophils % 0.4 % NRBC % 0 % CA 15-3 45.4 U/mL CA 19-9 450.2 U/mL CA 27.29 94 U/mL CA-125 80.8 U/mL Impression: Metastatic Adenocarcinoma with mucinous features per CT-guided left lung mass biopsy done on April 26, 2021, Most likely pancreatic as CT PET scan showed 3.2 x 5.3 cm pancreatic body mass with extensive intra-abdominal lymphadenopathy and left cervical level 4 lymphadenopathy and innumerable bilateral pulmonary nodules FDG positive and tumor marker CA 19???9 was 379, Clinically stage IV pancreatic cancer CT scan of chest abdomen pelvis done on April 21, 2021 shows multiple soft tissue nodules and small masses identified throughout both lungs,. No significant lymphadenopathy in the chest. Altered contour and attenuation in the body of pancreas may represent pancreatic mass. Mild retroperitoneal lymphadenopathy. Largest node measures slightly over centimeter in greatest short axis dimension and is seen along the left pericaval region. Sigmoid diverticulosis Left posterior lateral chest wall pain etiology unclear could be musculoskeletal or metastatic disease Dehydration/poor oral intake due to nausea/dry heaves/off and on vomiting etiology could be multifactorial including brain mets versus NSAID induced gastritis or peptic ulcer disease or gastric outlet obstruction due to pancreatic mass Dry cough, etiology unclear could be due to postnasal drip or bronchial irritation due to pulmonary pathology Plan: Discussed with patient regarding her labs white blood count 7.9 hemoglobin 9 hematocrit 29.1 platelets 483,000 CMP within normal limit except glucose 122 Clinically, patient doing well with no new signs suggestive of disease progression, her epigastric pain has resolved with palliative therapy, will proceed with next dose of Abraxane/gemcitabine today and then she will return to clinic in 1 week with CBC CMP if reasonable, for day 8 and following that we will consider follow-up CT PET scan to assess disease status As far as dysuria is concerned, could be due to urine tract infection or concentrated urine, will check a urinalysis. Patient was advised to maintain hydration. Signed By: Johnny Luna M.D. <<Signature on File>>
[2021-08-10] MEDS: famotidine 20 mg/2 mL INJ IVP (11:10)
[2021-08-10] MEDS: palonosetron 0.25 mg/5 mL SDV IV (11:10)
[2021-08-10] MEDS: sodium chloride 0.9% 250 ML 75 ML IV (11:10)
[2021-08-10 11:45] LABS: Add Urine Microscopic? YES; Bilirubin Urine 1+ (Negative); Blood Urine 2+ (Negative); Glucose Urine UA Norm (Normal); Ketones Urine 1+ (Negative); Leukocyte Esterase Urine 1+ (Negative); Nitrate Urine Negative (Negative); Protein Urine Neg (Negative); Specific Gravity, Urine 1.025 (1.005-1.030); Urine Appearance Hazy (CLEAR); Urine Color Yellow (Yellow); Urobilinogen Urine 1 mg/dL (Negative); pH Urine 5 (5-7)
[2021-08-10 11:48] LABS: Add Urine Culture? No; Bacteria Urine TRACE /hpf; Mucus Urine 1+ /hpf; RBC Urine 0-4 /hpf (0-2)
[2021-08-17 09:26] LABS: Hematocrit 28.2 % (37.0-47.0); Mean Corpuscular HGB Conc 31.9 g/dL (30.0-36.0); Mean Corpuscular Hemoglobin 29.6 pg (28.0-34.0); Mean Corpuscular Volume 92.8 fl (81-99); Mean Platelet Volume 10.3 fL (7.4-10.4); Platelet Count 328 10^3/cmm (130-400); Red Blood Count 3.04 10^6/uL (4.1-5.3); Red Cell Distribution Width 17.5 % (12.1-15.1); White Blood Count 5.9 10^3/uL (4.0-10.0)
[2021-08-17 09:38] LABS: Alanine Aminotransferase 54 U/L (0-33); Albumin Level 3.5 g/dL (3.5-5.2); Alkaline Phosphatase 94 IU/L (35-105); Anion Gap 16.8 (5-19); Aspartate Amino Transferase 32 U/L (0-32); Blood Urea Nitrogen 10 mg/dL (8-23); Calcium 8.8 mg/dL (8.5-10.5); Carbon Dioxide 24 mmol/L (22-29); Chloride 100 mmol/L (98-107); Glomerular Filtration Rate 221.2 mL/min (90-130); Glucose 95 mg/dL (65-115); Osmolality Calculated 283 mOsm/kg (285-295); Potassium 3.8 mmol/L (3.5-5.1); Sodium 137 mmol/L (136-145); Total Bilirubin 0.3 mg/dL (0.15-1.2); Total Protein 6.5 g/dL (6.6-8.7)
[2021-08-17 09:45] LABS: Slide Review Slide Review Perform
[2021-08-17 09:47] LABS: Absolute Neutrophil 3.7 10^3/cmm (1.4-6.5); Absolute Segmented Neutrophil 3.7 10/cmm (1.6-7.1); Anisocytosis 1+; Band Neutrophils Absolute 0.1 10^3/cmm (0.0-1.2); Eosinophils 0 %; Lymphocytes 23 %; Lymphocytes Absolute 1.4 10^3/cmm (1.2-3.4); Monocytes Absolute 0.3 10^3/cmm (0.1-0.6); Platelet Estimate Normal (Normal); Segmented Neutrophils 62 %; Total Cells Counted 100 (0-100)
[2021-08-17] MEDS: sodium chloride 0.9% 250 ML 75 ML IV (10:48)
[2021-08-17] MEDS: famotidine 20 mg/2 mL INJ IVP (10:48)
[2021-08-17] MEDS: palonosetron 0.25 mg/5 mL SDV IV (10:50)
[2021-08-17 15:18] LABS: Cancer Antigen 19 9 131.8 U/mL (0-35)
--- NOTE | 2021-08-17 16:06 | ONC FU_ITS ---
Dr. Luna follow up note Patient: Charlotte Wynn Unit #: [id number]: 1955 Dicatated By: Johnny Luna M.D.Date of Visit:Aug 17, 2021 Onc Med Follow-up/Prog Note History of Present Illness: Ms. Mukherjee is a 66-year-old female who developed progressive dry cough since December 2020. She also started having sharp, intermittent stabbing, left posterior lateral chest wall pain. She states at that time the ibuprofen did help with the pain. She did not seek further evaluation she was going through significant grieving as she had lost her son in a car accident in December 2020. She fell I did see her PCP on April 04, 2021. She was having persistent cough for which a chest x-ray was ordered. She also was due for screening mammography and colonoscopy. Her chest x-ray did show multiple lung nodules but no other abnormalities. A CT of the chest abdomen pelvis was then obtained on April 21, 2021 which showed multiple soft tissue nodules and small masses identified throughout both lungs. There was no significant lymphadenopathy in the chest. The CT of the abdomen shows altered contour and attenuation in the body of the pancreas, that may represent pancreatic mass . There was mild retroperitoneal lymphadenopathy with the largest node measuring slightly over 1 cm. Sigmoid diverticulosis was noted. Ms. Carlos then had CT-guided biopsy of the left lung on April 26, 2021 and this pathology confirmed adenocarcinoma with mucinous features. CT scan of the head done on 05/05/2021 showed calcified left frontal lesion measuring 10 mm most likely represent small calcified with no other abnormality seen. PET/CT scan on 05/21/2021 showed 3.2 x 5.3 cm pancreatic body mass with SUV of 6.9, subcentimeter peripancreatic lymph node, are FDG positive, gastric hepatic lymph node is FDG positive, bilateral retroperitoneal lymphadenopathy with mild FDG uptake, left cervical level 4 lymph node with SUV of 3.4, innumerable FDG positive bilateral pulmonary nodules consistent with metastatic disease. Ms Carlos came in to see Dr Luna and was still having problems with persistent nausea, intermittent vomiting and epigastric pain. She was sent for abdominal sonogram on 05/16/2021 which showed gallstones, and a mass in body and tail of pancreas but no other acute findings. She was referred to gastroenterology- Dr. Mcmahon. An EGD/colonoscopy was scheduled but as per , she could not tolerate bowel prep so they canceled the procedure. Did undergo EGD per Dr. Mcmahon on 06/07/2021 and in the lower 3rd esophagus reflux esophagitis was present there was no bleeding associated with esophagitis and at the gastroesophageal junction in the free lower area moderate's stripped gastritis was also seen. Is found to be erythematous and erosive but no mucosal bleeding. The duodenum was examined with no abnormalities reported. She has not yet had colonoscopy as she could not tolerate the prep. Ms Carlos was started on palliative chemotherapy with Abraxane/gemcitabine on 05/30/2021. She was able to complete cycle 1 with day 1, 8 and 15 treatment. , Later on switched to day 1 and day 8 only as patient could not tolerate day 15 schedule. Came for follow-up, denies any specific complaints except generalized weakness and fatigue, her dysuria has resolved with oral antibiotics, no fever chills, no nausea or vomiting, no diarrhea or constipation, no abdominal pain, tolerating palliative therapy with Abraxane/gemcitabine well. Denies any melena or hematochezia, denies any jaundice. Medications: LORazepam 0.5 - 1 Tablet (of 1 mg) Oral t.i.d. PRN, Metoclopramide HCl 1 Tablet (of 5 mg) Oral q 6 hours PRN, Naprosyn 1 Tablet (of 500 mg) Oral b.i.d., Ondansetron HCl 1 Tablet (of 4 mg) Oral PRN, oxyCODONE-Acetaminophen 1 - 2 Tablet (of 5-325 mg) Oral q 4 to 6 hours PRN, Prochlorperazine Maleate 1 Tablet (of 10 mg) Oral t.i.d. PRN, traMADol HCl 1 Tablet (of 50 mg) Oral t.i.d. PRN Allergies: Codeine Sulfate Review of Systems: Review of Systems is not available for this patient. Vital Signs: Performed on Aug 17, 2021 11:48 Height - 67.00 in Weight - 119.6 lbs (LOW) BSA - 1.63 sq.m BMI - 18.73 Temperature - 98.8 F Pulse - 117 /min (HIGH) Respiration - 18 /min BP - 88/59 mm(hg) (LOW) O2 Sat - 96 % Pain - 0 Fatigue - 4 Performance Status: 1 - No physically strenuous activity, but ambulatory and able to carry out light or sedentary work (e.g. office work, light house work). (ECOG) Physical Examination: ENMT - No mouth sores, no thrush, no jaundice, Respiratory - Lungs are clear to auscultation, Cardiovascular - Regular rate and rhythm of heart, Abdomen - Soft, bowel sounds present, Extremities - No visible edema. Lab/Imaging: Test performed on Jun 20, 2021 10:25 Sodium 130 mmol/L Potassium 3.6 mmol/L Chloride 86 mmol/L CO2 30 mmol/L Anion Gap 17.6 BUN 10 mg/dL Creatinine 0.4 mg/dL Cr Clearance (Est) 132.32 mL/min eGFR 159.2 mL/min Glucose 115 mg/dL Osmolality - Calculated 270 mOsm/kg Calcium 8.6 mg/dL Protein, Total 6.4 g/dL Albumin 3.2 g/dL Globulin 3.2 g/dL Bilirubin, Total 0.8 mg/dL ALT (SGPT) 46 U/L AST (SGOT) 31 U/L Alkaline Phosphatase 126 IU/L WBC 5.5 10 3/uL RBC 3.93 10 6/uL HGB 11.6 g/dL HCT 34.6 % MCV 88.0 fl MCH 29.5 pg MCHC 33.5 g/dL RDW 12.8 % Platelet Count 171 10 3/cmm MPV 10.5 fL Neutrophils 4.39 10 3/uL Lymphocytes 0.6 10 3/uL Monocytes 0.4 10 3/uL Eosinophils 0.0 10 3/uL Basophils 0.0 10 3/uL Neutrophil % 79.2 % Lymphocyte % 10.5 % Monocyte % 7.4 % Eosinophil % 0.2 % Basophils % 0.4 % NRBC % 0 % CA 15-3 45.4 U/mL CA 19-9 450.2 U/mL CA 27.29 94 U/mL CA-125 80.8 U/mL Impression: Metastatic Adenocarcinoma with mucinous features per CT-guided left lung mass biopsy done on April 26, 2021, Most likely pancreatic as CT PET scan showed 3.2 x 5.3 cm pancreatic body mass with extensive intra-abdominal lymphadenopathy and left cervical level 4 lymphadenopathy and innumerable bilateral pulmonary nodules FDG positive and tumor marker CA 19???9 was 379, Clinically stage IV pancreatic cancer CT scan of chest abdomen pelvis done on April 21, 2021 shows multiple soft tissue nodules and small masses identified throughout both lungs,. No significant lymphadenopathy in the chest. Altered contour and attenuation in the body of pancreas may represent pancreatic mass. Mild retroperitoneal lymphadenopathy. Largest node measures slightly over centimeter in greatest short axis dimension and is seen along the left pericaval region. Sigmoid diverticulosis Left posterior lateral chest wall pain etiology unclear could be musculoskeletal or metastatic disease Dehydration/poor oral intake due to nausea/dry heaves/off and on vomiting etiology could be multifactorial including brain mets versus NSAID induced gastritis or peptic ulcer disease or gastric outlet obstruction due to pancreatic mass Dry cough, etiology unclear could be due to postnasal drip or bronchial irritation due to pulmonary pathology Plan: Discussed with patient regarding her labs white blood count 5.9 hemoglobin 9 g, hematocrit 28.2 platelets 328,000 CMP within normal limits except ALT 54 compared to 25 previously Clinically, patient doing well with no new signs symptom suggestive of disease progression, tolerating palliative therapy with Abraxane/gemcitabine well, will proceed with next dose today and then she will return to clinic in 2 weeks with CBC CMP and follow-up CT PET scan to assess disease status As far as mild/moderate anemia is concerned, her hemoglobin is stable, if there is a worsening, will consider repeating anemia work-up as etiology of her anemia appears multifactorial. Mildly elevated ALT, etiology unclear, will monitor. Signed By: Johnny Luna M.D. <<Signature on File>>
== END 2021-08-26 23:59 | disposition home or self-care (01) ==
LOC: ONCMED 06:24
PROVIDERS: PCP Nurse Practitioner Family; Visit Provider Internal Medicine Hematology & Oncology
DX: Z51.11 Encounter for antineoplastic chemotherapy (principal); C25.1 Malignant neoplasm of body of pancreas; C77.8 Secondary and unspecified malignant neoplasm of lymph nodes of multiple regions; C78.01 Secondary malignant neoplasm of right lung; C78.02 Secondary malignant neoplasm of left lung; K57.30 Diverticulosis of large intestine without perforation or abscess without bleeding; E86.0 Dehydration; R05.8 Other specified cough; R79.89 Other specified abnormal findings of blood chemistry; D64.9 Anemia, unspecified; Z79.899 Other long term (current) drug therapy
CPT/HCPCS: 80053; 81001; 85007; 85025; 86301; 96367; 96372; 96375; 96413; 96417; 99215; J1100; J2469; J3490; J7050; J9201; J9264

== ENCOUNTER 2021-09-20 06:26 | Outpatient (RCR) | payer MEDICARE, SELFPAY ==
[2021-09-06 09:43] LABS: Basophils # 0.1 10^3/uL (0.0-0.1); Basophils % 0.9 %; Eosinophils # 0.3 10^3/uL (0.0-0.8); Eosinophils % 2.7 %; Hematocrit 32.1 % (37.0-47.0); Hemoglobin 9.7 g/dL (11.5-15.3); Lymphocytes # 2.6 10^3/uL (0.8-4.8); Lymphocytes % 28.5 %; Mean Corpuscular HGB Conc 30.2 g/dL (30.0-36.0); Mean Corpuscular Volume 99.4 fl (81-99); Mean Platelet Volume 10.8 fL (7.4-10.4); Monocytes % 10.7 %; Neutrophils # 4.86 10^3/uL (1.8-7.7); Neutrophils % 53.1 %; Nucleated Red Blood Cells % 0 %; Platelet Count 485 10^3/cmm (130-400); Red Blood Count 3.23 10^6/uL (4.1-5.3); Red Cell Distribution Width 18.6 % (12.1-15.1); White Blood Count 9.2 10^3/uL (4.0-10.0)
[2021-09-06 09:49] LABS: Alanine Aminotransferase 14 U/L (0-33); Albumin Level 3.5 g/dL (3.5-5.2); Alkaline Phosphatase 62 IU/L (35-105); Anion Gap 16.2 (5-19); Aspartate Amino Transferase 19 U/L (0-32); Blood Urea Nitrogen 12 mg/dL (8-23); Calcium 9.6 mg/dL (8.5-10.5); Carbon Dioxide 24 mmol/L (22-29); Chloride 103 mmol/L (98-107); Globulin 2.3 g/dL (1.3-4.6); Glomerular Filtration Rate 221.2 mL/min (90-130); Glucose 90 mg/dL (65-115); Osmolality Calculated 287 mOsm/kg (285-295); Potassium 4.2 mmol/L (3.5-5.1); Sodium 139 mmol/L (136-145); Total Bilirubin 0.2 mg/dL (0.15-1.2); Total Protein 5.8 g/dL (6.6-8.7)
--- NOTE | 2021-09-06 17:01 | ONC FU_ITS ---
Dr. Luna follow up note Patient: Charlotte Wynn Unit #: [id number]: 1955 Dicatated By: Johnny Luna M.D.Date of Visit:Sep 06, 2021 Onc Med Follow-up/Prog Note History of Present Illness: Ms. Mukherjee is a 66-year-old female who developed progressive dry cough since December 2020. She also started having sharp, intermittent stabbing, left posterior lateral chest wall pain. She states at that time the ibuprofen did help with the pain. She did not seek further evaluation she was going through significant grieving as she had lost her son in a car accident in December 2020. She fell I did see her PCP on April 04, 2021. She was having persistent cough for which a chest x-ray was ordered. She also was due for screening mammography and colonoscopy. Her chest x-ray did show multiple lung nodules but no other abnormalities. A CT of the chest abdomen pelvis was then obtained on April 21, 2021 which showed multiple soft tissue nodules and small masses identified throughout both lungs. There was no significant lymphadenopathy in the chest. The CT of the abdomen shows altered contour and attenuation in the body of the pancreas, that may represent pancreatic mass . There was mild retroperitoneal lymphadenopathy with the largest node measuring slightly over 1 cm. Sigmoid diverticulosis was noted. Ms. Carlos then had CT-guided biopsy of the left lung on April 26, 2021 and this pathology confirmed adenocarcinoma with mucinous features. CT scan of the head done on 05/05/2021 showed calcified left frontal lesion measuring 10 mm most likely represent small calcified with no other abnormality seen. PET/CT scan on 05/21/2021 showed 3.2 x 5.3 cm pancreatic body mass with SUV of 6.9, subcentimeter peripancreatic lymph node, are FDG positive, gastric hepatic lymph node is FDG positive, bilateral retroperitoneal lymphadenopathy with mild FDG uptake, left cervical level 4 lymph node with SUV of 3.4, innumerable FDG positive bilateral pulmonary nodules consistent with metastatic disease. Ms Carlos came in to see us and was still having problems with persistent nausea, intermittent vomiting and epigastric pain. She was sent for abdominal sonogram on 05/16/2021 which showed gallstones, and a mass in body and tail of pancreas but no other acute findings. She was referred to gastroenterology- Dr. Mcmahon. An EGD/colonoscopy was scheduled but as per , she could not tolerate bowel prep so they canceled the procedure. Did undergo EGD per Dr. Mcmahon on 06/07/2021 and in the lower 3rd esophagus reflux esophagitis was present there was no bleeding associated with esophagitis and at the gastroesophageal junction in the free lower area moderate's stripped gastritis was also seen. Is found to be erythematous and erosive but no mucosal bleeding. The duodenum was examined with no abnormalities reported. She has not yet had colonoscopy as she could not tolerate the prep. Ms Carlos was started on palliative chemotherapy with Abraxane/gemcitabine on 05/30/2021. She was able to complete cycle 1 with day 1, 8 and 15 treatment. , Later on switched to day 1 and day 8 only as patient could not tolerate day 15 schedule. Follow-up CT PET scan done after 4 cycles on August 24, 2021 shows bilateral pleural-based disease, with a nodular soft tissue changes most of these are below 2 cm in diameter with SUV of 4-5 range. Patient has severe interstitial lung disease throughout both lungs. No mediastinal lymphadenopathy, no active disease below diaphragm, thickening of distal esophagus may represent esophagitis. No bony lesion. Came for follow-up, denies any specific complaints, no fever chills, no nausea or vomiting, no diarrhea constipation, no melena or hematochezia, no hemoptysis or hematemesis, no jaundice, no abdominal pain, tolerating systemic therapy with Abraxane/gemcitabine well, appetite is better Medications: LORazepam 0.5 - 1 Tablet (of 1 mg) Oral t.i.d. PRN, Metoclopramide HCl 1 Tablet (of 5 mg) Oral q 6 hours PRN, Naprosyn 1 Tablet (of 500 mg) Oral b.i.d., Ondansetron HCl 1 Tablet (of 4 mg) Oral PRN, oxyCODONE-Acetaminophen 1 - 2 Tablet (of 5-325 mg) Oral q 4 to 6 hours PRN, Prochlorperazine Maleate 1 Tablet (of 10 mg) Oral t.i.d. PRN, traMADol HCl 1 Tablet (of 50 mg) Oral t.i.d. PRN Allergies: Codeine Sulfate Review of Systems: Review of Systems is not available for this patient. Vital Signs: Performed on Sep 06, 2021 12:59 Height - 67.00 in Weight - 125 lbs (HIGH) BSA - 1.66 sq.m BMI - 19.58 Temperature - 98.2 F (LOW) Pulse - 96 /min Respiration - 22 /min BP - 98/63 mm(hg) O2 Sat - 98 % Pain - 0 Fatigue - 4 Performance Status: 1 - No physically strenuous activity, but ambulatory and able to carry out light or sedentary work (e.g. office work, light house work). (ECOG) Physical Examination: ENMT - No mouth sores, no thrush, no jaundice, Respiratory - Lungs are clear to auscultation, Cardiovascular - Regular rate and rhythm of heart, Abdomen - Soft, bowel sounds present, Extremities - No visible edema. Lab/Imaging: Test performed on Jun 20, 2021 10:25 Sodium 130 mmol/L Potassium 3.6 mmol/L Chloride 86 mmol/L CO2 30 mmol/L Anion Gap 17.6 BUN 10 mg/dL Creatinine 0.4 mg/dL Cr Clearance (Est) 132.32 mL/min eGFR 159.2 mL/min Glucose 115 mg/dL Osmolality - Calculated 270 mOsm/kg Calcium 8.6 mg/dL Protein, Total 6.4 g/dL Albumin 3.2 g/dL Globulin 3.2 g/dL Bilirubin, Total 0.8 mg/dL ALT (SGPT) 46 U/L AST (SGOT) 31 U/L Alkaline Phosphatase 126 IU/L WBC 5.5 10 3/uL RBC 3.93 10 6/uL HGB 11.6 g/dL HCT 34.6 % MCV 88.0 fl MCH 29.5 pg MCHC 33.5 g/dL RDW 12.8 % Platelet Count 171 10 3/cmm MPV 10.5 fL Neutrophils 4.39 10 3/uL Lymphocytes 0.6 10 3/uL Monocytes 0.4 10 3/uL Eosinophils 0.0 10 3/uL Basophils 0.0 10 3/uL Neutrophil % 79.2 % Lymphocyte % 10.5 % Monocyte % 7.4 % Eosinophil % 0.2 % Basophils % 0.4 % NRBC % 0 % CA 15-3 45.4 U/mL CA 19-9 450.2 U/mL CA 27.29 94 U/mL CA-125 80.8 U/mL Impression: Metastatic Adenocarcinoma with mucinous features per CT-guided left lung mass biopsy done on April 26, 2021, Most likely pancreatic as CT PET scan showed 3.2 x 5.3 cm pancreatic body mass with extensive intra-abdominal lymphadenopathy and left cervical level 4 lymphadenopathy and innumerable bilateral pulmonary nodules FDG positive and tumor marker CA 19???9 was 379, Clinically stage IV pancreatic cancer CT scan of chest abdomen pelvis done on April 21, 2021 shows multiple soft tissue nodules and small masses identified throughout both lungs,. No significant lymphadenopathy in the chest. Altered contour and attenuation in the body of pancreas may represent pancreatic mass. Mild retroperitoneal lymphadenopathy. Largest node measures slightly over centimeter in greatest short axis dimension and is seen along the left pericaval region. Sigmoid diverticulosis Left posterior lateral chest wall pain etiology unclear could be musculoskeletal or metastatic disease Dehydration/poor oral intake due to nausea/dry heaves/off and on vomiting etiology could be multifactorial including brain mets versus NSAID induced gastritis or peptic ulcer disease or gastric outlet obstruction due to pancreatic mass Dry cough, etiology unclear could be due to postnasal drip or bronchial irritation due to pulmonary pathology Plan: Discussed with patient regarding her labs white blood count 9.2 hemoglobin 9.7 g compared to 9 g previously hematocrit 32.1 platelets 485,000 CMP within normal limits CA 19???9 131.8 compared to 379 at the time of diagnosis Follow-up CT PET scan done on August 24, 2021 showed excellent response, resolution of below diaphragm disease and good response in intrathoracic metastatic disease, Clinically, patient doing well with no new signs symptoms just of disease progression, her follow-up CT PET scan showed excellent response, follow-up tumor marker CA 19???9 continue to go down, overall patient feeling well with excellent quality of life, will continue with current chemo regimen with Abraxane/gemcitabine and repeat CT PET scan after 3-4 cycles to assess the further response. Will proceed with next dose of gemcitabine/Abraxane, if Abraxane available today otherwise gemcitabine alone and then return to clinic in 1 week with CBC CMP if reasonable for next dose of chemotherapy. Signed By: Johnny Luna M.D. <<Signature on File>>
[2021-09-07] MEDS: famotidine 20 mg/2 mL INJ IVP (12:20)
[2021-09-07] MEDS: sodium chloride 0.9% 250 ML 75 ML IV (12:20)
[2021-09-07] MEDS: palonosetron 0.25 mg/5 mL SDV IV (12:23)
[2021-09-13 09:02] LABS: Basophils # 0.1 10^3/uL (0.0-0.1); Basophils % 1.6 %; Eosinophils % 0.8 %; Hematocrit 31.1 % (37.0-47.0); Hemoglobin 9.4 g/dL (11.5-15.3); Lymphocytes # 1.7 10^3/uL (0.8-4.8); Lymphocytes % 33.5 %; Mean Corpuscular HGB Conc 30.2 g/dL (30.0-36.0); Mean Corpuscular Hemoglobin 29.7 pg (28.0-34.0); Mean Corpuscular Volume 98.1 fl (81-99); Mean Platelet Volume 11.1 fL (7.4-10.4); Monocytes # 0.4 10^3/uL (0.2-0.9); Monocytes % 7.1 %; Neutrophils # 2.59 10^3/uL (1.8-7.7); Neutrophils % 51.1 %; Nucleated Red Blood Cells % 0 %; Platelet Count 216 10^3/cmm (130-400); Red Blood Count 3.17 10^6/uL (4.1-5.3); Red Cell Distribution Width 16.9 % (12.1-15.1); White Blood Count 5.1 10^3/uL (4.0-10.0)
[2021-09-13 09:31] LABS: Alanine Aminotransferase 49 U/L (0-33); Albumin Level 3.4 g/dL (3.5-5.2); Alkaline Phosphatase 68 IU/L (35-105); Aspartate Amino Transferase 30 U/L (0-32); Blood Urea Nitrogen 11 mg/dL (8-23); Calcium 8.5 mg/dL (8.5-10.5); Carbon Dioxide 23 mmol/L (22-29); Chloride 103 mmol/L (98-107); Globulin 2.5 g/dL (1.3-4.6); Glomerular Filtration Rate 221.2 mL/min (90-130); Glucose 85 mg/dL (65-115); Osmolality Calculated 283 mOsm/kg (285-295); Sodium 137 mmol/L (136-145); Total Bilirubin 0.3 mg/dL (0.15-1.2); Total Protein 5.9 g/dL (6.6-8.7)
[2021-09-13 09:37] LABS: Slide Review Slide Review Perform
[2021-09-13] MEDS: sodium chloride 0.9% 250 ML 75 ML IV (10:55)
[2021-09-13] MEDS: famotidine 20 mg/2 mL INJ IVP (10:57)
[2021-09-13] MEDS: palonosetron 0.25 mg/5 mL SDV IV (11:00)
--- NOTE | 2021-09-14 14:03 | ONC FU_ITS ---
Dr. Luna follow up note Patient: Charlotte Wynn Unit #: [id number]: 1955 Dicatated By: Johnny Luna M.D.Date of Visit:Sep 13, 2021 Onc Med Follow-up/Prog Note History of Present Illness: Ms. Mukherjee is a 66-year-old female who developed progressive dry cough since December 2020. She also started having sharp, intermittent stabbing, left posterior lateral chest wall pain. She states at that time the ibuprofen did help with the pain. She did not seek further evaluation she was going through significant grieving as she had lost her son in a car accident in December 2020. She fell I did see her PCP on April 04, 2021. She was having persistent cough for which a chest x-ray was ordered. She also was due for screening mammography and colonoscopy. Her chest x-ray did show multiple lung nodules but no other abnormalities. A CT of the chest abdomen pelvis was then obtained on April 21, 2021 which showed multiple soft tissue nodules and small masses identified throughout both lungs. There was no significant lymphadenopathy in the chest. The CT of the abdomen shows altered contour and attenuation in the body of the pancreas, that may represent pancreatic mass . There was mild retroperitoneal lymphadenopathy with the largest node measuring slightly over 1 cm. Sigmoid diverticulosis was noted. Ms. Carlos then had CT-guided biopsy of the left lung on April 26, 2021 and this pathology confirmed adenocarcinoma with mucinous features. CT scan of the head done on 05/05/2021 showed calcified left frontal lesion measuring 10 mm most likely represent small calcified with no other abnormality seen. PET/CT scan on 05/21/2021 showed 3.2 x 5.3 cm pancreatic body mass with SUV of 6.9, subcentimeter peripancreatic lymph node, are FDG positive, gastric hepatic lymph node is FDG positive, bilateral retroperitoneal lymphadenopathy with mild FDG uptake, left cervical level 4 lymph node with SUV of 3.4, innumerable FDG positive bilateral pulmonary nodules consistent with metastatic disease. Ms Carlos came in to see us and was still having problems with persistent nausea, intermittent vomiting and epigastric pain. She was sent for abdominal sonogram on 05/16/2021 which showed gallstones, and a mass in body and tail of pancreas but no other acute findings. She was referred to gastroenterology- Dr. Mcmahon. An EGD/colonoscopy was scheduled but as per , she could not tolerate bowel prep so they canceled the procedure. Did undergo EGD per Dr. Mcmahon on 06/07/2021 and in the lower 3rd esophagus reflux esophagitis was present there was no bleeding associated with esophagitis and at the gastroesophageal junction in the free lower area moderate's stripped gastritis was also seen. Is found to be erythematous and erosive but no mucosal bleeding. The duodenum was examined with no abnormalities reported. She has not yet had colonoscopy as she could not tolerate the prep. Ms Carlos was started on palliative chemotherapy with Abraxane/gemcitabine on 05/30/2021. She was able to complete cycle 1 with day 1, 8 and 15 treatment. , Later on switched to day 1 and day 8 only as patient could not tolerate day 15 schedule. Follow-up CT PET scan done after 4 cycles on August 24, 2021 shows bilateral pleural-based disease, with a nodular soft tissue changes most of these are below 2 cm in diameter with SUV of 4-5 range. Patient has severe interstitial lung disease throughout both lungs. No mediastinal lymphadenopathy, no active disease below diaphragm, thickening of distal esophagus may represent esophagitis. No bony lesion. Came for follow-up, denies any specific complaints, no fever chills, no nausea or vomiting, no diarrhea or constipation, no abdominal pain, no jaundice, no peripheral neuropathy, tolerating palliative therapy with Abraxane/gemcitabine well Medications: LORazepam 0.5 - 1 Tablet (of 1 mg) Oral t.i.d. PRN, Metoclopramide HCl 1 Tablet (of 5 mg) Oral q 6 hours PRN, Naprosyn 1 Tablet (of 500 mg) Oral b.i.d., Ondansetron HCl 1 Tablet (of 4 mg) Oral PRN, oxyCODONE-Acetaminophen 1 - 2 Tablet (of 5-325 mg) Oral q 4 to 6 hours PRN, Prochlorperazine Maleate 1 Tablet (of 10 mg) Oral t.i.d. PRN, traMADol HCl 1 Tablet (of 50 mg) Oral t.i.d. PRN Allergies: Codeine Sulfate Review of Systems: Review of Systems is not available for this patient. Vital Signs: Performed on Sep 13, 2021 09:49 Height - 67.00 in Weight - 126.6 lbs (HIGH) BSA - 1.66 sq.m BMI - 19.83 Temperature - 98.2 F (LOW) Pulse - 100 /min Respiration - 18 /min BP - 107/63 mm(hg) O2 Sat - 96 % Pain - 0 Fatigue - 0 Performance Status: 1 - No physically strenuous activity, but ambulatory and able to carry out light or sedentary work (e.g. office work, light house work). (ECOG) Physical Examination: ENMT - No mouth sores, no thrush, no jaundice, Respiratory - Lungs are clear to auscultation, Cardiovascular - Regular rate and rhythm of heart, Abdomen - Soft, bowel sounds present, Extremities - No visible edema. Lab/Imaging: Test performed on Jun 20, 2021 10:25 Sodium 130 mmol/L Potassium 3.6 mmol/L Chloride 86 mmol/L CO2 30 mmol/L Anion Gap 17.6 BUN 10 mg/dL Creatinine 0.4 mg/dL Cr Clearance (Est) 132.32 mL/min eGFR 159.2 mL/min Glucose 115 mg/dL Osmolality - Calculated 270 mOsm/kg Calcium 8.6 mg/dL Protein, Total 6.4 g/dL Albumin 3.2 g/dL Globulin 3.2 g/dL Bilirubin, Total 0.8 mg/dL ALT (SGPT) 46 U/L AST (SGOT) 31 U/L Alkaline Phosphatase 126 IU/L WBC 5.5 10 3/uL RBC 3.93 10 6/uL HGB 11.6 g/dL HCT 34.6 % MCV 88.0 fl MCH 29.5 pg MCHC 33.5 g/dL RDW 12.8 % Platelet Count 171 10 3/cmm MPV 10.5 fL Neutrophils 4.39 10 3/uL Lymphocytes 0.6 10 3/uL Monocytes 0.4 10 3/uL Eosinophils 0.0 10 3/uL Basophils 0.0 10 3/uL Neutrophil % 79.2 % Lymphocyte % 10.5 % Monocyte % 7.4 % Eosinophil % 0.2 % Basophils % 0.4 % NRBC % 0 % CA 15-3 45.4 U/mL CA 19-9 450.2 U/mL CA 27.29 94 U/mL CA-125 80.8 U/mL Impression: Metastatic Adenocarcinoma with mucinous features per CT-guided left lung mass biopsy done on April 26, 2021, Most likely pancreatic as CT PET scan showed 3.2 x 5.3 cm pancreatic body mass with extensive intra-abdominal lymphadenopathy and left cervical level 4 lymphadenopathy and innumerable bilateral pulmonary nodules FDG positive and tumor marker CA 19???9 was 379, Clinically stage IV pancreatic cancer CT scan of chest abdomen pelvis done on April 21, 2021 shows multiple soft tissue nodules and small masses identified throughout both lungs,. No significant lymphadenopathy in the chest. Altered contour and attenuation in the body of pancreas may represent pancreatic mass. Mild retroperitoneal lymphadenopathy. Largest node measures slightly over centimeter in greatest short axis dimension and is seen along the left pericaval region. Sigmoid diverticulosis Left posterior lateral chest wall pain etiology unclear could be musculoskeletal or metastatic disease Dehydration/poor oral intake due to nausea/dry heaves/off and on vomiting etiology could be multifactorial including brain mets versus NSAID induced gastritis or peptic ulcer disease or gastric outlet obstruction due to pancreatic mass Dry cough, etiology unclear could be due to postnasal drip or bronchial irritation due to pulmonary pathology Plan: Discussed with patient regarding her labs white blood count 5.1 hemoglobin 9.4 hematocrit 31.1 platelets 216,000 ANC 1700 CMP within normal limits except ALT 49 compared to 14 before and 54 prior to that Clinically, patient is doing well with no new signs suggestive of disease progression, tolerating palliative therapy with Abraxane/gemcitabine well, will proceed with next dose today and then she will return to clinic in 1 week with CBC CMP if reasonable, next dose of chemotherapy with Abraxane/gemcitabine Signed By: Jonhny Luna M.D. <<Signature on File>>
[2021-09-20 09:38] LABS: Basophils % 0.7 %; Eosinophils # 0.1 10^3/uL (0.0-0.8); Eosinophils % 1.7 %; Hemoglobin 9.3 g/dL (11.5-15.3); Lymphocytes # 1.3 10^3/uL (0.8-4.8); Lymphocytes % 43.6 %; Mean Corpuscular Hemoglobin 30.1 pg (28.0-34.0); Mean Corpuscular Volume 97.1 fl (81-99); Mean Platelet Volume 9.6 fL (7.4-10.4); Monocytes # 0.1 10^3/uL (0.2-0.9); Monocytes % 4.5 %; Neutrophils # 1.31 10^3/uL (1.8-7.7); Neutrophils % 45.7 %; Nucleated Red Blood Cells % 0 %; Platelet Count 101 10^3/cmm (130-400); Red Blood Count 3.09 10^6/uL (4.1-5.3); Red Cell Distribution Width 17.4 % (12.1-15.1); White Blood Count 2.9 10^3/uL (4.0-10.0)
[2021-09-20 09:57] LABS: Alanine Aminotransferase 97 U/L (0-33); Albumin Level 3.8 g/dL (3.5-5.2); Alkaline Phosphatase 64 IU/L (35-105); Anion Gap 18.1 (5-19); Aspartate Amino Transferase 49 U/L (0-32); Blood Urea Nitrogen 18 mg/dL (8-23); Calcium 9.4 mg/dL (8.5-10.5); Carbon Dioxide 23 mmol/L (22-29); Chloride 101 mmol/L (98-107); Globulin 2.2 g/dL (1.3-4.6); Glomerular Filtration Rate 158.7 mL/min (90-130); Glucose 88 mg/dL (65-115); Osmolality Calculated 287 mOsm/kg (285-295); Potassium 4.1 mmol/L (3.5-5.1); Sodium 138 mmol/L (136-145); Total Bilirubin 0.2 mg/dL (0.15-1.2)
[2021-09-20] MEDS: famotidine 20 mg/2 mL INJ IVP (11:58)
[2021-09-20] MEDS: sodium chloride 0.9% 250 ML 75 ML IV (11:58)
[2021-09-20] MEDS: cyanocobalamin 1,000 mcg/mL SDV 1000 MCG SUBCUT (11:59)
[2021-09-20] MEDS: palonosetron 0.25 mg/5 mL SDV IV (12:00)
== END 2021-09-26 23:59 | disposition home or self-care (01) ==
LOC: ONCMED 06:26
PROVIDERS: Internal Medicine Hematology & Oncology; PCP Nurse Practitioner Family; Visit Provider Nurse Practitioner Family
DX: Z51.11 Encounter for antineoplastic chemotherapy (principal); C25.1 Malignant neoplasm of body of pancreas; C78.02 Secondary malignant neoplasm of left lung; C78.01 Secondary malignant neoplasm of right lung; C77.8 Secondary and unspecified malignant neoplasm of lymph nodes of multiple regions; K57.30 Diverticulosis of large intestine without perforation or abscess without bleeding; E86.0 Dehydration; R05.8 Other specified cough; Z79.899 Other long term (current) drug therapy
CPT/HCPCS: 80053; 85025; 96367; 96372; 96375; 96413; 96417; 99215; J1100; J2469; J3420; J3490; J7050; J9201; J9264

== ENCOUNTER 2021-10-11 06:47 | Outpatient (RCR) | payer MEDICARE, SELFPAY ==
[2021-09-27 10:35] LABS: Basophils % 0.3 %; Eosinophils % 0.6 %; Hemoglobin 9.4 g/dL (11.5-15.3); Lymphocytes # 1.4 10^3/uL (0.8-4.8); Lymphocytes % 43.6 %; Mean Corpuscular HGB Conc 31.3 g/dL (30.0-36.0); Mean Corpuscular Hemoglobin 30.4 pg (28.0-34.0); Mean Corpuscular Volume 97.1 fl (81-99); Mean Platelet Volume 9.3 fL (7.4-10.4); Monocytes # 0.2 10^3/uL (0.2-0.9); Monocytes % 5.4 %; Neutrophils % 47.9 %; Nucleated Red Blood Cells % 0 %; Platelet Count 100 10^3/cmm (130-400); Red Blood Count 3.09 10^6/uL (4.1-5.3); Red Cell Distribution Width 18.4 % (12.1-15.1); White Blood Count 3.1 10^3/uL (4.0-10.0)
[2021-09-27 11:05] LABS: Alanine Aminotransferase 68 U/L (0-33); Albumin Level 3.7 g/dL (3.5-5.2); Alkaline Phosphatase 68 IU/L (35-105); Aspartate Amino Transferase 31 U/L (0-32); Blood Urea Nitrogen 12 mg/dL (8-23); Calcium 9.5 mg/dL (8.5-10.5); Carbon Dioxide 25 mmol/L (22-29); Chloride 102 mmol/L (98-107); Globulin 2.3 g/dL (1.3-4.6); Glomerular Filtration Rate 221.2 mL/min (90-130); Glucose 91 mg/dL (65-115); Osmolality Calculated 285 mOsm/kg (285-295); Sodium 138 mmol/L (136-145); Total Bilirubin 0.3 mg/dL (0.15-1.2)
[2021-10-04 08:35] LABS: Basophils % 0.5 %; Eosinophils # 0.1 10^3/uL (0.0-0.8); Hematocrit 32.1 % (37.0-47.0); Hemoglobin 9.9 g/dL (11.5-15.3); Lymphocytes # 1.2 10^3/uL (0.8-4.8); Mean Corpuscular HGB Conc 30.8 g/dL (30.0-36.0); Mean Corpuscular Hemoglobin 30.2 pg (28.0-34.0); Mean Corpuscular Volume 97.9 fl (81-99); Mean Platelet Volume 10.8 fL (7.4-10.4); Monocytes # 0.6 10^3/uL (0.2-0.9); Monocytes % 13.2 %; Neutrophils # 2.45 10^3/uL (1.8-7.7); Neutrophils % 55.7 %; Nucleated Red Blood Cells % 0 %; Platelet Count 426 10^3/cmm (130-400); Red Blood Count 3.28 10^6/uL (4.1-5.3); White Blood Count 4.4 10^3/uL (4.0-10.0)
[2021-10-04 09:03] LABS: Alanine Aminotransferase 24 U/L (0-33); Albumin Level 3.7 g/dL (3.5-5.2); Alkaline Phosphatase 60 IU/L (35-105); Anion Gap 17.1 (5-19); Aspartate Amino Transferase 25 U/L (0-32); Blood Urea Nitrogen 10 mg/dL (8-23); Calcium 9.3 mg/dL (8.5-10.5); Cancer Antigen 19 9 76.01 U/mL (0-35); Carbon Dioxide 24 mmol/L (22-29); Chloride 103 mmol/L (98-107); Globulin 2.3 g/dL (1.3-4.6); Glomerular Filtration Rate 221.2 mL/min (90-130); Glucose 93 mg/dL (65-115); Osmolality Calculated 289 mOsm/kg (285-295); Potassium 4.1 mmol/L (3.5-5.1); Sodium 140 mmol/L (136-145); Total Bilirubin 0.3 mg/dL (0.15-1.2)
[2021-10-04] MEDS: famotidine 20 mg/2 mL INJ IVP (12:42)
[2021-10-04] MEDS: palonosetron 0.25 mg/5 mL SDV IV (12:45)
[2021-10-04] MEDS: sodium chloride 0.9% 250 ML 75 ML IV (12:45)
[2021-10-11 11:52] LABS: Hematocrit 31.6 % (37.0-47.0); Hemoglobin 9.8 g/dL (11.5-15.3); Mean Corpuscular Volume 96.6 fl (81-99); Mean Platelet Volume 10.8 fL (7.4-10.4); Platelet Count 247 10^3/cmm (130-400); Red Blood Count 3.27 10^6/uL (4.1-5.3); Red Cell Distribution Width 18.6 % (12.1-15.1); White Blood Count 7.1 10^3/uL (4.0-10.0)
[2021-10-11 12:06] LABS: Alanine Aminotransferase 53 U/L (0-33); Albumin Level 3.8 g/dL (3.5-5.2); Alkaline Phosphatase 58 IU/L (35-105); Anion Gap 12.7 (5-19); Aspartate Amino Transferase 34 U/L (0-32); Blood Urea Nitrogen 10 mg/dL (8-23); Calcium 9.2 mg/dL (8.5-10.5); Carbon Dioxide 27 mmol/L (22-29); Chloride 102 mmol/L (98-107); Ferritin 701 ng/mL (15-150); Globulin 2.4 g/dL (1.3-4.6); Glomerular Filtration Rate 221.2 mL/min (90-130); Glucose 82 mg/dL (65-115); Iron 28 ug/dL (37-145); Osmolality Calculated 284 mOsm/kg (285-295); Potassium 3.7 mmol/L (3.5-5.1); Sodium 138 mmol/L (136-145); Total Bilirubin 0.3 mg/dL (0.15-1.2); Total Iron Binding Capacity 199 mcg/dl; Total Protein 6.2 g/dL (6.6-8.7); Unsaturated Iron Binding 171 ug/dL (112-347)
[2021-10-11 13:02] LABS: Slide Review Slide Review Perform
[2021-10-11 13:03] LABS: Absolute Neutrophil 3.3 10^3/cmm (1.4-6.5); Absolute Segmented Neutrophil 3.1 10/cmm (1.6-7.1); Anisocytosis 1+; Band Neutrophils Absolute 0.1 10^3/cmm (0.0-1.2); Eosinophils 0 %; Lymphocytes 32 %; Lymphocytes Absolute 2.3 10^3/cmm (1.2-3.4); Monocytes Absolute 0.4 10^3/cmm (0.1-0.6); Platelet Estimate Normal (Normal); Segmented Neutrophils 44 %; Total Cells Counted 100 (0-100)
[2021-10-11] MEDS: sodium chloride 0.9% 250 ML 75 ML IV (14:00)
[2021-10-11] MEDS: famotidine 20 mg/2 mL INJ IVP (14:00)
[2021-10-11] MEDS: cyanocobalamin 1,000 mcg/mL SDV 1000 MCG SUBCUT (14:00)
[2021-10-11] MEDS: palonosetron 0.25 mg/5 mL SDV IV (14:08)
--- NOTE | 2021-10-12 08:13 | ONC FU_ITS ---
Rneee Naylor Progress Note Patient: Charlotte Wynn Unit #: [id number]: [id number] Dicatated By: Renee Naylor N.P.Date of Visit:Oct 11, 2021 Onc MED Follow-up/Prog Note Chief Complaint: Lung cancer History of Present Illness: Ms. Mukherjee is a 66-year-old female who developed progressive dry cough since December 2020. She also started having sharp, intermittent stabbing, left posterior lateral chest wall pain. She states at that time the ibuprofen did help with the pain. She did not seek further evaluation she was going through significant grieving as she had lost her son in a car accident in December 2020. She fell I did see her PCP on April 04, 2021. She was having persistent cough for which a chest x-ray was ordered. She also was due for screening mammography and colonoscopy. Her chest x-ray did show multiple lung nodules but no other abnormalities. A CT of the chest abdomen pelvis was then obtained on April 21, 2021 which showed multiple soft tissue nodules and small masses identified throughout both lungs. There was no significant lymphadenopathy in the chest. The CT of the abdomen shows altered contour and attenuation in the body of the pancreas, that may represent pancreatic mass . There was mild retroperitoneal lymphadenopathy with the largest node measuring slightly over 1 cm. Sigmoid diverticulosis was noted. Ms. Carlos then had CT-guided biopsy of the left lung on April 26, 2021 and this pathology confirmed adenocarcinoma with mucinous features. CT scan of the head done on 05/05/2021 showed calcified left frontal lesion measuring 10 mm most likely represent small calcified with no other abnormality seen. PET/CT scan on 05/21/2021 showed 3.2 x 5.3 cm pancreatic body mass with SUV of 6.9, subcentimeter peripancreatic lymph node, are FDG positive, gastric hepatic lymph node is FDG positive, bilateral retroperitoneal lymphadenopathy with mild FDG uptake, left cervical level 4 lymph node with SUV of 3.4, innumerable FDG positive bilateral pulmonary nodules consistent with metastatic disease. Ms Carlos came in to see us and was still having problems with persistent nausea, intermittent vomiting and epigastric pain. She was sent for abdominal sonogram on 05/16/2021 which showed gallstones, and a mass in body and tail of pancreas but no other acute findings. She was referred to gastroenterology- Dr. Mcmahon. An EGD/colonoscopy was scheduled but as per , she could not tolerate bowel prep so they canceled the procedure. Did undergo EGD per Dr. Mcmahon on 06/07/2021 and in the lower 3rd esophagus reflux esophagitis was present there was no bleeding associated with esophagitis and at the gastroesophageal junction in the free lower area moderate's stripped gastritis was also seen. Is found to be erythematous and erosive but no mucosal bleeding. The duodenum was examined with no abnormalities reported. She has not yet had colonoscopy as she could not tolerate the prep. Ms Carlos was started on palliative chemotherapy with Abraxane/gemcitabine on 05/30/2021. She was able to complete cycle 1 with day 1, 8 and 15 treatment. , Later on switched to day 1 and day 8 only as patient could not tolerate day 15 schedule. Follow-up CT PET scan done after 4 cycles on August 24, 2021 shows bilateral pleural-based disease, with a nodular soft tissue changes most of these are below 2 cm in diameter with SUV of 4-5 range. Patient has severe interstitial lung disease throughout both lungs. No mediastinal lymphadenopathy, no active disease below diaphragm, thickening of distal esophagus may represent esophagitis. No bony lesion. Patient presents today for follow-up. She states she has been feeling very good. Her energy level continues to increase. Her appetite is good. She denies nausea vomiting, diarrhea, or constipation. She has some shortness of breath with activity but she denies cough or chest pain. No headaches or dizziness. She has been seeing pulmonology for COPD and it was recommended that she start pulmonary rehab. Review Of Symptoms:See above. Past Medical History: There is no documented medical history. Past Surgical History: Covid vaccine #2 moderna in 2020 Covid vaccine #1 moderna in 2020 Allergies: Codeine Sulfate Medications: LORazepam 0.5 - 1 Tablet (of 1 mg) Oral t.i.d. PRN Metoclopramide HCl 1 Tablet (of 5 mg) Oral q 6 hours PRN Naprosyn 1 Tablet (of 500 mg) Oral b.i.d. Ondansetron HCl 1 Tablet (of 4 mg) Oral PRN oxyCODONE-Acetaminophen 1 - 2 Tablet (of 5-325 mg) Oral q 4 to 6 hours PRN Prochlorperazine Maleate 1 Tablet (of 10 mg) Oral t.i.d. PRN traMADol HCl 1 Tablet (of 50 mg) Oral t.i.d. PRN Family History: There is no documented family history. Social History: Ms. Pura Mukherjee is . Ms. Pura Mukherjee has never smoked. She has no history of drinking. Physical Examination: Performed on Oct 11, 2021 13:09: Height - 67.00 in, Weight - 134.4 lbs (HIGH), BSA - 1.71 sq.m, BMI - 21.05, Temperature - 99.2 F (HIGH), Pulse - 104 /min (HIGH), Respiration - 16 /min, BP - 122/74 mm(hg), O2 Sat - 93 % (LOW), Pain - 0, and Fatigue - 3. Performance Status: 1 - No physically strenuous activity, but ambulatory and able to carry out light or sedentary work (e.g. office work, light house work). (ECOG) Constitutional Alert, cooperative, oriented. Mood and affect appropriate. Appears close to chronological age. Well nourished. Well developed. Head Normocephalic; no scars. Hematologic/Lymphatic No petechiae or purpura. No tender or palpable lymph nodes in the cervical, supraclavicular, axillary or inguinal area. Respiratory Lungs are clear to auscultation without rhonchi or wheezing. Cardiovascular Regular rate and rhythm of heart without murmurs, gallops or rubs. Abdomen Non-tender, non-distended, no masses, ascites or hepatosplenomegaly. Good bowel sounds. No guarding or rebound tenderness. Extremities No visible deformities, no cyanosis, clubbing or edema. Pulses 3+ and equal bilaterally. Musculoskeletal No tenderness or swelling, normal range of motion without obvious weakness. Psychiatric Alert and oriented times three. Coherent speech. Verbalizes understanding of our discussions today. Laboratory: Test performed on Oct 11, 2021 11:14 Ferritin 701 ng/mL Iron 28 mcg/dL Sodium 138 mmol/L Iron Binding Capacity (TIBC) 199 mcg/dl Potassium 3.7 mmol/L % Iron Saturation 14.0 % Chloride 102 mmol/L CO2 27 mmol/L UIBC 171 mcg/dL Anion Gap 12.7 BUN 10 mg/dL Creatinine 0.3 mg/dL Cr Clearance (Est) 172.73 mL/min eGFR 221.2 mL/min Glucose 82 mg/dL Osmolality - Calculated 284 mOsm/kg Calcium 9.2 mg/dL Protein, Total 6.2 g/dL Albumin 3.8 g/dL Globulin 2.4 g/dL Bilirubin, Total 0.3 mg/dL ALT (SGPT) 53 U/L AST (SGOT) 34 U/L Alkaline Phosphatase 58 IU/L WBC 7.1 10 3/uL Manual Segs % 44 % Manual Bands % 2.0 % RBC 3.27 10 6/uL HGB 9.8 g/dL Manual Lymphs % 32 % Atypical Lymphs % 0.0 % HCT 31.6 % MCV 96.6 fl Total Cells Counted 100 Manual Monos % 6.0 % MCH 30.0 pg Manual Eos % 0 % MCHC 31.0 g/dL Manual Basos % 0.0 % RDW 18.6 % Metamyelocytes % 3.0 % Platelet Count 247 10 3/cmm MPV 10.8 fL Myelocytes % 13.0 % CBC Slide Review Slide Review Perform Anisocytosis 1+ Platelet Estimate Normal Manual Segs Abs 3.1 10/cmm Manual Bands Abs 0.1 10 3/cmm Manual Neutrophils Abs 3.3 10 3/cmm Manual Lymphocytes Abs 2.3 10 3/cmm Manual Monocytes Abs 0.4 10 3/cmm Manual Eosinophils Abs 0.0 10 3/cmm Manual Basophils Abs 0.0 10 3/cmm Test performed on Oct 04, 2021 08:23 Neutrophils 2.45 10 3/uL Lymphocytes 1.2 10 3/uL Monocytes 0.6 10 3/uL Eosinophils 0.1 10 3/uL Basophils 0.0 10 3/uL Neutrophil % 55.7 % Lymphocyte % 27.0 % Monocyte % 13.2 % Eosinophil % 2.0 % Basophils % 0.5 % NRBC % 0 % CA 19-9 76.01 U/mL Test performed on Jun 20, 2021 10:25 CA 15-3 45.4 U/mL CA 27.29 94 U/mL CA-125 80.8 U/mL Impression: Metastatic Adenocarcinoma with mucinous features per CT-guided left lung mass biopsy done on April 26, 2021, Most likely pancreatic as CT PET scan showed 3.2 x 5.3 cm pancreatic body mass with extensive intra-abdominal lymphadenopathy and left cervical level 4 lymphadenopathy and innumerable bilateral pulmonary nodules FDG positive and tumor marker CA 19???9 was 379, Clinically stage IV pancreatic cancer CT scan of chest abdomen pelvis done on April 21, 2021 shows multiple soft tissue nodules and small masses identified throughout both lungs,. No significant lymphadenopathy in the chest. Altered contour and attenuation in the body of pancreas may represent pancreatic mass. Mild retroperitoneal lymphadenopathy. Largest node measures slightly over centimeter in greatest short axis dimension and is seen along the left pericaval region. Sigmoid diverticulosis Left posterior lateral chest wall pain etiology unclear could be musculoskeletal or metastatic disease Dehydration/poor oral intake due to nausea/dry heaves/off and on vomiting etiology could be multifactorial including brain mets versus NSAID induced gastritis or peptic ulcer disease or gastric outlet obstruction due to pancreatic mass Dry cough, etiology unclear could be due to postnasal drip or bronchial irritation due to pulmonary pathology Plan: Labs were reviewed with patient with WBC is 7.1, hemoglobin 9.8 hematocrit 31.6 platelets 247,000. Iron studies were performed iron saturation 14 ferritin 701, iron 28 and TIBC 199. Patient is feeling well today. We will continue with Abraxane and gemcitabine cycle 6-day 15. Labs indicated that patient has mild iron deficiency anemia. Instructed patient to start oral iron supplements and will recheck iron studies in 1 month. She will return to clinic in 2 week with CBC and CMP. Signed By: Renee Naylor N.P. <<Signature on File>>
== END 2021-10-24 23:59 | disposition home or self-care (01) ==
LOC: ONCMED 06:47
PROVIDERS: PCP Nurse Practitioner Family; Visit Provider Nurse Practitioner Family
DX: Z51.11 Encounter for antineoplastic chemotherapy (principal); C34.02 Malignant neoplasm of left main bronchus; C77.8 Secondary and unspecified malignant neoplasm of lymph nodes of multiple regions; C78.01 Secondary malignant neoplasm of right lung; C79.31 Secondary malignant neoplasm of brain; R97.8 Other abnormal tumor markers; C25.0 Malignant neoplasm of head of pancreas; K57.30 Diverticulosis of large intestine without perforation or abscess without bleeding; E86.0 Dehydration; R05.9 Cough, unspecified; Z79.899 Other long term (current) drug therapy
CPT/HCPCS: 36591; 80053; 82728; 83540; 83550; 85007; 85025; 86301; 96367; 96372; 96375; 96413; 96417; 99214; 99215; J1100; J2469; J3420; J3490; J7050; J9201; J9264

== ENCOUNTER 2021-11-22 06:41 | Outpatient (RCR) | payer MEDICARE, SELFPAY ==
[2021-10-25 09:41] LABS: Basophils % 0.4 %; Eosinophils # 0.2 10^3/uL (0.0-0.8); Eosinophils % 3.3 %; Hematocrit 34.7 % (37.0-47.0); Hemoglobin 10.7 g/dL (11.5-15.3); Lymphocytes # 1.4 10^3/uL (0.8-4.8); Lymphocytes % 26.7 %; Mean Corpuscular HGB Conc 30.8 g/dL (30.0-36.0); Mean Corpuscular Hemoglobin 29.7 pg (28.0-34.0); Mean Corpuscular Volume 96.4 fl (81-99); Mean Platelet Volume 10.9 fL (7.4-10.4); Monocytes # 0.7 10^3/uL (0.2-0.9); Monocytes % 13.8 %; Neutrophils # 2.79 10^3/uL (1.8-7.7); Neutrophils % 54.4 %; Nucleated Red Blood Cells % 0 %; Platelet Count 298 10^3/cmm (130-400); Red Cell Distribution Width 19.9 % (12.1-15.1); White Blood Count 5.1 10^3/uL (4.0-10.0)
[2021-10-25 10:05] LABS: Alanine Aminotransferase 23 U/L (0-33); Albumin Level 3.8 g/dL (3.5-5.2); Alkaline Phosphatase 63 IU/L (35-105); Aspartate Amino Transferase 19 U/L (0-32); Blood Urea Nitrogen 10 mg/dL (8-23); Calcium 9.2 mg/dL (8.5-10.5); Carbon Dioxide 25 mmol/L (22-29); Chloride 106 mmol/L (98-107); Globulin 2.5 g/dL (1.3-4.6); Glomerular Filtration Rate 221.2 mL/min (90-130); Glucose 108 mg/dL (65-115); Osmolality Calculated 290 mOsm/kg (285-295); Sodium 140 mmol/L (136-145); Total Bilirubin 0.3 mg/dL (0.15-1.2); Total Protein 6.3 g/dL (6.6-8.7)
[2021-10-25] MEDS: sodium chloride 0.9% 250 ML 75 ML IV (11:50)
[2021-10-25] MEDS: famotidine 20 mg/2 mL INJ IVP (12:10)
[2021-10-25] MEDS: palonosetron 0.25 mg/5 mL SDV IV (12:12)
--- NOTE | 2021-10-26 17:02 | ONC FU_ITS ---
Dr. Luna follow up note Patient: Charlotte Wynn Unit #: [id number]: [id number] Dicatated By: Johnny Luna M.D.Date of Visit:Oct 25, 2021 Onc Med Follow-up/Prog Note History of Present Illness: Ms. Mukherjee is a 66-year-old female who developed progressive dry cough since December 2020. She also started having sharp, intermittent stabbing, left posterior lateral chest wall pain. She states at that time the ibuprofen did help with the pain. She did not seek further evaluation she was going through significant grieving as she had lost her son in a car accident in December 2020. She fell I did see her PCP on April 04, 2021. She was having persistent cough for which a chest x-ray was ordered. She also was due for screening mammography and colonoscopy. Her chest x-ray did show multiple lung nodules but no other abnormalities. A CT of the chest abdomen pelvis was then obtained on April 21, 2021 which showed multiple soft tissue nodules and small masses identified throughout both lungs. There was no significant lymphadenopathy in the chest. The CT of the abdomen shows altered contour and attenuation in the body of the pancreas, that may represent pancreatic mass . There was mild retroperitoneal lymphadenopathy with the largest node measuring slightly over 1 cm. Sigmoid diverticulosis was noted. Ms. Carlos then had CT-guided biopsy of the left lung on April 26, 2021 and this pathology confirmed adenocarcinoma with mucinous features. CT scan of the head done on 05/05/2021 showed calcified left frontal lesion measuring 10 mm most likely represent small calcified with no other abnormality seen. PET/CT scan on 05/21/2021 showed 3.2 x 5.3 cm pancreatic body mass with SUV of 6.9, subcentimeter peripancreatic lymph node, are FDG positive, gastric hepatic lymph node is FDG positive, bilateral retroperitoneal lymphadenopathy with mild FDG uptake, left cervical level 4 lymph node with SUV of 3.4, innumerable FDG positive bilateral pulmonary nodules consistent with metastatic disease. Ms Carlos came in to see us and was still having problems with persistent nausea, intermittent vomiting and epigastric pain. She was sent for abdominal sonogram on 05/16/2021 which showed gallstones, and a mass in body and tail of pancreas but no other acute findings. She was referred to gastroenterology- Dr. Mcmahon. An EGD/colonoscopy was scheduled but as per , she could not tolerate bowel prep so they canceled the procedure. Did undergo EGD per Dr. Mcmahon on 06/07/2021 and in the lower 3rd esophagus reflux esophagitis was present there was no bleeding associated with esophagitis and at the gastroesophageal junction in the free lower area moderate's stripped gastritis was also seen. Is found to be erythematous and erosive but no mucosal bleeding. The duodenum was examined with no abnormalities reported. She has not yet had colonoscopy as she could not tolerate the prep. Ms Carlos was started on palliative chemotherapy with Abraxane/gemcitabine on 05/30/2021. She was able to complete cycle 1 with day 1, 8 and 15 treatment. , Later on switched to day 1 and day 8 only as patient could not tolerate day 15 schedule. Follow-up CT PET scan done after 4 cycles on August 24, 2021 shows bilateral pleural-based disease, with a nodular soft tissue changes most of these are below 2 cm in diameter with SUV of 4-5 range. Patient has severe interstitial lung disease throughout both lungs. No mediastinal lymphadenopathy, no active disease below diaphragm, thickening of distal esophagus may represent esophagitis. No bony lesion. Came for follow-up, denies any specific complaints, no fever chills, no nausea or vomiting, no diarrhea or constipation, no jaundice, no hemoptysis hematemesis, no abdominal pain or fullness, no back pain,, tolerating oral iron, well, no peripheral numbness, tolerating Abraxane/gemcitabine well otherwise Medications: LORazepam 0.5 - 1 Tablet (of 1 mg) Oral t.i.d. PRN, Metoclopramide HCl 1 Tablet (of 5 mg) Oral q 6 hours PRN, Naprosyn 1 Tablet (of 500 mg) Oral b.i.d., Ondansetron HCl 1 Tablet (of 4 mg) Oral PRN, oxyCODONE-Acetaminophen 1 - 2 Tablet (of 5-325 mg) Oral q 4 to 6 hours PRN, Prochlorperazine Maleate 1 Tablet (of 10 mg) Oral t.i.d. PRN, traMADol HCl 1 Tablet (of 50 mg) Oral t.i.d. PRN Allergies: Codeine Sulfate Review of Systems: Review of Systems is not available for this patient. Vital Signs: Performed on Oct 25, 2021 11:15 Height - 67.00 in Weight - 138.0 lbs (HIGH) BSA - 1.73 sq.m BMI - 21.61 Temperature - 98.7 F Pulse - 99 /min Respiration - 16 /min BP - 106/66 mm(hg) O2 Sat - 95 % (LOW) Pain - 0 Fatigue - 3 Performance Status: 1 - No physically strenuous activity, but ambulatory and able to carry out light or sedentary work (e.g. office work, light house work). (ECOG) Physical Examination: ENMT - No mouth sores, no thrush, no jaundice, Respiratory - Lungs are clear to auscultation, Cardiovascular - Regular rate and rhythm of heart, Abdomen - Soft, bowel sounds present, Extremities - No visible edema. Lab/Imaging: Test performed on Oct 11, 2021 11:14 Ferritin 701 ng/mL Iron 28 mcg/dL Sodium 138 mmol/L Iron Binding Capacity (TIBC) 199 mcg/dl Potassium 3.7 mmol/L % Iron Saturation 14.0 % Chloride 102 mmol/L CO2 27 mmol/L UIBC 171 mcg/dL Anion Gap 12.7 BUN 10 mg/dL Creatinine 0.3 mg/dL Cr Clearance (Est) 172.73 mL/min eGFR 221.2 mL/min Glucose 82 mg/dL Osmolality - Calculated 284 mOsm/kg Calcium 9.2 mg/dL Protein, Total 6.2 g/dL Albumin 3.8 g/dL Globulin 2.4 g/dL Bilirubin, Total 0.3 mg/dL ALT (SGPT) 53 U/L AST (SGOT) 34 U/L Alkaline Phosphatase 58 IU/L WBC 7.1 10 3/uL Manual Segs % 44 % Manual Bands % 2.0 % RBC 3.27 10 6/uL HGB 9.8 g/dL Manual Lymphs % 32 % Atypical Lymphs % 0.0 % HCT 31.6 % MCV 96.6 fl Total Cells Counted 100 Manual Monos % 6.0 % MCH 30.0 pg Manual Eos % 0 % MCHC 31.0 g/dL Manual Basos % 0.0 % RDW 18.6 % Metamyelocytes % 3.0 % Platelet Count 247 10 3/cmm MPV 10.8 fL Myelocytes % 13.0 % CBC Slide Review Slide Review Perform Anisocytosis 1+ Platelet Estimate Normal Manual Segs Abs 3.1 10/cmm Manual Bands Abs 0.1 10 3/cmm Manual Neutrophils Abs 3.3 10 3/cmm Manual Lymphocytes Abs 2.3 10 3/cmm Manual Monocytes Abs 0.4 10 3/cmm Manual Eosinophils Abs 0.0 10 3/cmm Manual Basophils Abs 0.0 10 3/cmm Test performed on Oct 04, 2021 08:23 Neutrophils 2.45 10 3/uL Lymphocytes 1.2 10 3/uL Monocytes 0.6 10 3/uL Eosinophils 0.1 10 3/uL Basophils 0.0 10 3/uL Neutrophil % 55.7 % Lymphocyte % 27.0 % Monocyte % 13.2 % Eosinophil % 2.0 % Basophils % 0.5 % NRBC % 0 % CA 19-9 76.01 U/mL Test performed on Jun 20, 2021 10:25 CA 15-3 45.4 U/mL CA 27.29 94 U/mL CA-125 80.8 U/mL Impression: Metastatic Adenocarcinoma with mucinous features per CT-guided left lung mass biopsy done on April 26, 2021, Most likely pancreatic as CT PET scan showed 3.2 x 5.3 cm pancreatic body mass with extensive intra-abdominal lymphadenopathy and left cervical level 4 lymphadenopathy and innumerable bilateral pulmonary nodules FDG positive and tumor marker CA 19???9 was 379, Clinically stage IV pancreatic cancer CT scan of chest abdomen pelvis done on April 21, 2021 shows multiple soft tissue nodules and small masses identified throughout both lungs,. No significant lymphadenopathy in the chest. Altered contour and attenuation in the body of pancreas may represent pancreatic mass. Mild retroperitoneal lymphadenopathy. Largest node measures slightly over centimeter in greatest short axis dimension and is seen along the left pericaval region. Sigmoid diverticulosis Left posterior lateral chest wall pain etiology unclear could be musculoskeletal or metastatic disease Dehydration/poor oral intake due to nausea/dry heaves/off and on vomiting etiology could be multifactorial including brain mets versus NSAID induced gastritis or peptic ulcer disease or gastric outlet obstruction due to pancreatic mass Dry cough, etiology unclear could be due to postnasal drip or bronchial irritation due to pulmonary pathology Plan: Discussed with patient regarding her labs white blood count 5.1 hemoglobin 10.7 g compared to 9.8 g previously hematocrit 34.7 platelets 298,000 CMP within normal limits Clinically, patient is doing well with no new signs symptoms history of disease progression, tolerating palliative therapy with Abraxane/gemcitabine well, will proceed with next cycle day one with Abraxane/gemcitabine return to clinic in 1 week with CBC CMP, if reasonable, for day eight chemo. As far as anemia is concerned probably multifactorial including iron deficiency, now on oral iron, follow-up CBC shows improvement in her hemoglobin and she is tolerating oral iron well. Signed By: Johnny Luna M.D. <<Signature on File>>
[2021-11-01 11:45] LABS: Basophils # 0.1 10^3/uL (0.0-0.1); Basophils % 1.7 %; Eosinophils # 0.1 10^3/uL (0.0-0.8); Eosinophils % 1.5 %; Hematocrit 33.6 % (37.0-47.0); Hemoglobin 10.5 g/dL (11.5-15.3); Lymphocytes # 1.4 10^3/uL (0.8-4.8); Lymphocytes % 25.8 %; Mean Corpuscular HGB Conc 31.3 g/dL (30.0-36.0); Mean Corpuscular Hemoglobin 30.1 pg (28.0-34.0); Mean Corpuscular Volume 96.3 fl (81-99); Mean Platelet Volume 10.9 fL (7.4-10.4); Monocytes # 0.4 10^3/uL (0.2-0.9); Monocytes % 7.9 %; Neutrophils # 2.73 10^3/uL (1.8-7.7); Nucleated Red Blood Cells % 0 %; Platelet Count 243 10^3/cmm (130-400); Red Blood Count 3.49 10^6/uL (4.1-5.3); Red Cell Distribution Width 19.3 % (12.1-15.1); White Blood Count 5.4 10^3/uL (4.0-10.0)
[2021-11-01 11:55] LABS: Alanine Aminotransferase 29 U/L (0-33); Albumin Level 3.8 g/dL (3.5-5.2); Alkaline Phosphatase 58 IU/L (35-105); Anion Gap 15.6 (5-19); Aspartate Amino Transferase 21 U/L (0-32); Blood Urea Nitrogen 11 mg/dL (8-23); Calcium 9.3 mg/dL (8.5-10.5); Carbon Dioxide 26 mmol/L (22-29); Chloride 100 mmol/L (98-107); Globulin 2.1 g/dL (1.3-4.6); Glomerular Filtration Rate 221.2 mL/min (90-130); Glucose 162 mg/dL (65-115); Osmolality Calculated 289 mOsm/kg (285-295); Potassium 3.6 mmol/L (3.5-5.1); Sodium 138 mmol/L (136-145); Total Bilirubin 0.2 mg/dL (0.15-1.2); Total Protein 5.9 g/dL (6.6-8.7)
[2021-11-01 12:26] LABS: Slide Review Slide Review Perform
[2021-11-01] MEDS: sodium chloride 0.9% 250 ML 75 ML IV (13:30)
[2021-11-01] MEDS: famotidine 20 mg/2 mL INJ IVP (13:33)
[2021-11-01] MEDS: palonosetron 0.25 mg/5 mL SDV IV (13:34)
--- NOTE | 2021-11-02 09:41 | ONC FU_ITS ---
Renee Naylor Progress Note Patient: Charlotte Wynn Unit #: [id number]: 1955 Dicatated By: Renee Naylor N.P.Date of Visit:Nov 01, 2021 Onc MED Follow-up/Prog Note Chief Complaint: Lung cancer History of Present Illness: Ms. Mukherjee is a 66-year-old female who developed progressive dry cough since December 2020. She also started having sharp, intermittent stabbing, left posterior lateral chest wall pain. She states at that time the ibuprofen did help with the pain. She did not seek further evaluation she was going through significant grieving as she had lost her son in a car accident in December 2020. She fell I did see her PCP on April 04, 2021. She was having persistent cough for which a chest x-ray was ordered. She also was due for screening mammography and colonoscopy. Her chest x-ray did show multiple lung nodules but no other abnormalities. A CT of the chest abdomen pelvis was then obtained on April 21, 2021 which showed multiple soft tissue nodules and small masses identified throughout both lungs. There was no significant lymphadenopathy in the chest. The CT of the abdomen shows altered contour and attenuation in the body of the pancreas, that may represent pancreatic mass . There was mild retroperitoneal lymphadenopathy with the largest node measuring slightly over 1 cm. Sigmoid diverticulosis was noted. Ms. Carlos then had CT-guided biopsy of the left lung on April 26, 2021 and this pathology confirmed adenocarcinoma with mucinous features. CT scan of the head done on 05/05/2021 showed calcified left frontal lesion measuring 10 mm most likely represent small calcified with no other abnormality seen. PET/CT scan on 05/21/2021 showed 3.2 x 5.3 cm pancreatic body mass with SUV of 6.9, subcentimeter peripancreatic lymph node, are FDG positive, gastric hepatic lymph node is FDG positive, bilateral retroperitoneal lymphadenopathy with mild FDG uptake, left cervical level 4 lymph node with SUV of 3.4, innumerable FDG positive bilateral pulmonary nodules consistent with metastatic disease. Ms Carlos came in to see us and was still having problems with persistent nausea, intermittent vomiting and epigastric pain. She was sent for abdominal sonogram on 05/16/2021 which showed gallstones, and a mass in body and tail of pancreas but no other acute findings. She was referred to gastroenterology- Dr. Mcmahon. An EGD/colonoscopy was scheduled but as per , she could not tolerate bowel prep so they canceled the procedure. Did undergo EGD per Dr. Mcmahon on 06/07/2021 and in the lower 3rd esophagus reflux esophagitis was present there was no bleeding associated with esophagitis and at the gastroesophageal junction in the free lower area moderate's stripped gastritis was also seen. Is found to be erythematous and erosive but no mucosal bleeding. The duodenum was examined with no abnormalities reported. She has not yet had colonoscopy as she could not tolerate the prep. Ms Carlos was started on palliative chemotherapy with Abraxane/gemcitabine on 05/30/2021. She was able to complete cycle 1 with day 1, 8 and 15 treatment. , Later on switched to day 1 and day 8 only as patient could not tolerate day 15 schedule. Follow-up CT PET scan done after 4 cycles on August 24, 2021 shows bilateral pleural-based disease, with a nodular soft tissue changes most of these are below 2 cm in diameter with SUV of 4-5 range. Patient has severe interstitial lung disease throughout both lungs. No mediastinal lymphadenopathy, no active disease below diaphragm, thickening of distal esophagus may represent esophagitis. No bony lesion. Patient presents today for follow-up. She continues to have fatigue but is able to do a few activities around the house. She does not feel as well today she normally does. Her appetite has been fair. No fever, chills, night sweats. Shortness of breath with activity although that has been improving over the past several weeks. No cough, no chest pain. She denies any GI or problems. No joint or muscle pain. Headaches or dizziness. Review Of Symptoms: see above. Past Medical History: There is no documented medical history. Past Surgical History: Covid vaccine #2 moderna in 2020 Covid vaccine #1 moderna in 2020 Allergies: Codeine Sulfate Medications: LORazepam 0.5 - 1 Tablet (of 1 mg) Oral t.i.d. PRN Metoclopramide HCl 1 Tablet (of 5 mg) Oral q 6 hours PRN Naprosyn 1 Tablet (of 500 mg) Oral b.i.d. Ondansetron HCl 1 Tablet (of 4 mg) Oral PRN oxyCODONE-Acetaminophen 1 - 2 Tablet (of 5-325 mg) Oral q 4 to 6 hours PRN Prochlorperazine Maleate 1 Tablet (of 10 mg) Oral t.i.d. PRN traMADol HCl 1 Tablet (of 50 mg) Oral t.i.d. PRN Family History: There is no documented family history. Social History: Ms. Pura uMkherjee is . Ms. Pura Mukherjee has never smoked. She has no history of drinking. Physical Examination: Performed on Nov 01, 2021 13:11: Height - 67.00 in, Weight - 134.0 lbs (LOW), BSA - 1.71 sq.m, BMI - 20.99, Temperature - 98.8 F, Pulse - 108 /min (HIGH), Respiration - 18 /min, BP - 95/63 mm(hg), O2 Sat - 96 %, Pain - 0, and Fatigue - 5. Performance Status: 1 - No physically strenuous activity, but ambulatory and able to carry out light or sedentary work (e.g. office work, light house work). (ECOG) Constitutional Alert, cooperative, oriented. Mood and affect appropriate. Appears close to chronological age. Well nourished. Well developed. Head Normocephalic; no scars. Eyes Conjunctivae and sclerae are clear and without icterus. Pupils are reactive and equal. Respiratory Lungs are clear to auscultation without rhonchi or wheezing. Cardiovascular Regular rate and rhythm of heart without murmurs, gallops or rubs. Abdomen Non-tender, non-distended, no masses, ascites or hepatosplenomegaly. Good bowel sounds. No guarding or rebound tenderness. Musculoskeletal No tenderness or swelling, normal range of motion without obvious weakness. Psychiatric Alert and oriented times three. Coherent speech. Verbalizes understanding of our discussions today. Laboratory: Test performed on Nov 01, 2021 11:21 Sodium 138 mmol/L Potassium 3.6 mmol/L Chloride 100 mmol/L CO2 26 mmol/L Anion Gap 15.6 BUN 11 mg/dL Creatinine 0.3 mg/dL Cr Clearance (Est) 177.3600 mL/min eGFR 221.2 mL/min Glucose 162 mg/dL Osmolality - Calculated 289 mOsm/kg Calcium 9.3 mg/dL Protein, Total 5.9 g/dL Albumin 3.8 g/dL Globulin 2.1 g/dL Bilirubin, Total 0.2 mg/dL ALT (SGPT) 29 U/L AST (SGOT) 21 U/L Alkaline Phosphatase 58 IU/L WBC 5.4 10 3/uL RBC 3.49 10 6/uL HGB 10.5 g/dL HCT 33.6 % MCV 96.3 fl MCH 30.1 pg MCHC 31.3 g/dL RDW 19.3 % Platelet Count 243 10 3/cmm MPV 10.9 fL Neutrophils 2.73 10 3/uL Lymphocytes 1.4 10 3/uL Monocytes 0.4 10 3/uL Eosinophils 0.1 10 3/uL Basophils 0.1 10 3/uL Neutrophil % 51.0 % Lymphocyte % 25.8 % Monocyte % 7.9 % Eosinophil % 1.5 % Basophils % 1.7 % NRBC % 0 % CBC Slide Review Slide Review Perform SLIDE REVIEW AGREES WITH AUTOMATED RESULTS Test performed on Oct 11, 2021 11:14 Ferritin 701 ng/mL Iron 28 mcg/dL Iron Binding Capacity (TIBC) 199 mcg/dl % Iron Saturation 14.0 % UIBC 171 mcg/dL Manual Segs % 44 % Manual Bands % 2.0 % Manual Lymphs % 32 % Atypical Lymphs % 0.0 % Total Cells Counted 100 Manual Monos % 6.0 % Manual Eos % 0 % Manual Basos % 0.0 % Metamyelocytes % 3.0 % Myelocytes % 13.0 % Anisocytosis 1+ Platelet Estimate Normal Manual Segs Abs 3.1 10/cmm Manual Bands Abs 0.1 10 3/cmm Manual Neutrophils Abs 3.3 10 3/cmm Manual Lymphocytes Abs 2.3 10 3/cmm Manual Monocytes Abs 0.4 10 3/cmm Manual Eosinophils Abs 0.0 10 3/cmm Manual Basophils Abs 0.0 10 3/cmm Test performed on Oct 04, 2021 08:23 CA 19-9 76.01 U/mL Test performed on Jun 20, 2021 10:25 CA 15-3 45.4 U/mL CA 27.29 94 U/mL CA-125 80.8 U/mL Impression: Metastatic Adenocarcinoma with mucinous features per CT-guided left lung mass biopsy done on April 26, 2021, Most likely pancreatic as CT PET scan showed 3.2 x 5.3 cm pancreatic body mass with extensive intra-abdominal lymphadenopathy and left cervical level 4 lymphadenopathy and innumerable bilateral pulmonary nodules FDG positive and tumor marker CA 19???9 was 379, Clinically stage IV pancreatic cancer CT scan of chest abdomen pelvis done on April 21, 2021 shows multiple soft tissue nodules and small masses identified throughout both lungs,. No significant lymphadenopathy in the chest. Altered contour and attenuation in the body of pancreas may represent pancreatic mass. Mild retroperitoneal lymphadenopathy. Largest node measures slightly over centimeter in greatest short axis dimension and is seen along the left pericaval region. Sigmoid diverticulosis Left posterior lateral chest wall pain etiology unclear could be musculoskeletal or metastatic disease Dehydration/poor oral intake due to nausea/dry heaves/off and on vomiting etiology could be multifactorial including brain mets versus NSAID induced gastritis or peptic ulcer disease or gastric outlet obstruction due to pancreatic mass Dry cough, etiology unclear could be due to postnasal drip or bronchial irritation due to pulmonary pathology Plan: Labs were discussed with patient with WBC at 5.4, hemoglobin 10.5, hematocrit 33.6, and platelet count 243,000. Patient is tolerating Abraxane and gemcitabine well. Cycle 7-day 8 today. She will return to clinic in 1 week with CBC and CMP. As far as anemia is concerned probably multifactorial including iron deficiency, now on oral iron. She is tolerating the oral iron well. We will continue to monitor. Signed By: Renee Naylor N.P. <<Signature on File>>
[2021-11-08 10:35] LABS: Basophils % 0.9 %; Eosinophils # 0.1 10^3/uL (0.0-0.8); Eosinophils % 2.2 %; Hematocrit 31.6 % (37.0-47.0); Hemoglobin 9.8 g/dL (11.5-15.3); Lymphocytes # 1.1 10^3/uL (0.8-4.8); Lymphocytes % 48.5 %; Mean Corpuscular Hemoglobin 29.6 pg (28.0-34.0); Mean Corpuscular Volume 95.5 fl (81-99); Monocytes # 0.1 10^3/uL (0.2-0.9); Monocytes % 5.2 %; Neutrophils % 41.9 %; Nucleated Red Blood Cells % 0 %; Platelet Count 102 10^3/cmm (130-400); Red Blood Count 3.31 10^6/uL (4.1-5.3); White Blood Count 2.3 10^3/uL (4.0-10.0)
[2021-11-08 10:51] LABS: Alanine Aminotransferase 29 U/L (0-33); Albumin Level 3.5 g/dL (3.5-5.2); Alkaline Phosphatase 51 IU/L (35-105); Anion Gap 12.9 (5-19); Aspartate Amino Transferase 24 U/L (0-32); Blood Urea Nitrogen 16 mg/dL (8-23); Calcium 8.9 mg/dL (8.5-10.5); Carbon Dioxide 27 mmol/L (22-29); Chloride 103 mmol/L (98-107); Globulin 2.6 g/dL (1.3-4.6); Glomerular Filtration Rate 221.2 mL/min (90-130); Glucose 104 mg/dL (65-115); Osmolality Calculated 289 mOsm/kg (285-295); Potassium 3.9 mmol/L (3.5-5.1); Sodium 139 mmol/L (136-145); Total Bilirubin 0.3 mg/dL (0.15-1.2); Total Protein 6.1 g/dL (6.6-8.7)
[2021-11-08 11:02] LABS: Ferritin 483 ng/mL (15-150); Iron 35 ug/dL (37-145); Percent Saturation 16.6 % (20-50); Total Iron Binding Capacity 210 mcg/dl; Unsaturated Iron Binding 175 ug/dL (112-347)
[2021-11-08 11:25] LABS: Mean Platelet Volume 9.9 fL (7.4-10.4)
[2021-11-08 11:26] LABS: Neutrophils # 0.96 10^3/uL (1.8-7.7)
--- NOTE | 2021-11-08 17:31 | ONC FU_ITS ---
Dr. Luna follow up note Patient: Charlotte Wynn Unit #: [id number]: 1955 Dicatated By: Johnny Luna M.D.Date of Visit:Nov 08, 2021 Onc Med Follow-up/Prog Note History of Present Illness: Ms. Mukherjee is a 66-year-old female who developed progressive dry cough since December 2020. She also started having sharp, intermittent stabbing, left posterior lateral chest wall pain. She states at that time the ibuprofen did help with the pain. She did not seek further evaluation she was going through significant grieving as she had lost her son in a car accident in December 2020. She fell I did see her PCP on April 04, 2021. She was having persistent cough for which a chest x-ray was ordered. She also was due for screening mammography and colonoscopy. Her chest x-ray did show multiple lung nodules but no other abnormalities. A CT of the chest abdomen pelvis was then obtained on April 21, 2021 which showed multiple soft tissue nodules and small masses identified throughout both lungs. There was no significant lymphadenopathy in the chest. The CT of the abdomen shows altered contour and attenuation in the body of the pancreas, that may represent pancreatic mass . There was mild retroperitoneal lymphadenopathy with the largest node measuring slightly over 1 cm. Sigmoid diverticulosis was noted. Ms. Carlos then had CT-guided biopsy of the left lung on April 26, 2021 and this pathology confirmed adenocarcinoma with mucinous features. CT scan of the head done on 05/05/2021 showed calcified left frontal lesion measuring 10 mm most likely represent small calcified with no other abnormality seen. PET/CT scan on 05/21/2021 showed 3.2 x 5.3 cm pancreatic body mass with SUV of 6.9, subcentimeter peripancreatic lymph node, are FDG positive, gastric hepatic lymph node is FDG positive, bilateral retroperitoneal lymphadenopathy with mild FDG uptake, left cervical level 4 lymph node with SUV of 3.4, innumerable FDG positive bilateral pulmonary nodules consistent with metastatic disease. Ms Carlos came in to see us and was still having problems with persistent nausea, intermittent vomiting and epigastric pain. She was sent for abdominal sonogram on 05/16/2021 which showed gallstones, and a mass in body and tail of pancreas but no other acute findings. She was referred to gastroenterology- Dr. Mcmahon. An EGD/colonoscopy was scheduled but as per , she could not tolerate bowel prep so they canceled the procedure. Did undergo EGD per Dr. Mcmahon on 06/07/2021 and in the lower 3rd esophagus reflux esophagitis was present there was no bleeding associated with esophagitis and at the gastroesophageal junction in the free lower area moderate's stripped gastritis was also seen. Is found to be erythematous and erosive but no mucosal bleeding. The duodenum was examined with no abnormalities reported. She has not yet had colonoscopy as she could not tolerate the prep. Ms Carlos was started on palliative chemotherapy with Abraxane/gemcitabine on 05/30/2021. She was able to complete cycle 1 with day 1, 8 and 15 treatment. , Later on switched to day 1 and day 8 only as patient could not tolerate day 15 schedule. Follow-up CT PET scan done after 4 cycles on August 24, 2021 shows bilateral pleural-based disease, with a nodular soft tissue changes most of these are below 2 cm in diameter with SUV of 4-5 range. Patient has severe interstitial lung disease throughout both lungs. No mediastinal lymphadenopathy, no active disease below diaphragm, thickening of distal esophagus may represent esophagitis. No bony lesion. Came for follow-up, history of complaint except progressive peripheral neuropathy involving both hands and feet, no fever chills, no nausea or vomiting, no diarrhea constipation, no jaundice, no abdominal pain, appetite is good tolerating palliative therapy with Abraxane/gemcitabine well otherwise Medications: Combivent Respimat 1 Inhalation (of 20-100 mcg/act) Aerosol, solution Inhalation b.i.d., LORazepam 0.5 - 1 Tablet (of 1 mg) Oral t.i.d. PRN, Metoclopramide HCl 1 Tablet (of 5 mg) Oral q 6 hours PRN, Ondansetron HCl 1 Tablet (of 4 mg) Oral PRN, oxyCODONE-Acetaminophen 1 - 2 Tablet (of 5-325 mg) Oral q 4 to 6 hours PRN, Prochlorperazine Maleate 1 Tablet (of 10 mg) Oral t.i.d. PRN, traMADol HCl 1 Tablet (of 50 mg) Oral t.i.d. PRN Allergies: Codeine Sulfate Review of Systems: Review of Systems is not available for this patient. Vital Signs: Performed on Nov 08, 2021 12:10 Height - 67.00 in Weight - 140.8 lbs (HIGH) BSA - 1.74 sq.m BMI - 22.05 Temperature - 98.6 F Pulse - 90 /min Respiration - 16 /min BP - 103/67 mm(hg) O2 Sat - 95 % (LOW) Pain - 0 Fatigue - 4 Performance Status: 1 - No physically strenuous activity, but ambulatory and able to carry out light or sedentary work (e.g. office work, light house work). (ECOG) Physical Examination: ENMT - No mouth sores, no thrush, no jaundice, Respiratory - Lungs are clear to auscultation, Cardiovascular - Regular rate and rhythm of heart, Abdomen - Soft, bowel sounds present, Extremities - No visible edema. Lab/Imaging: Test performed on Nov 01, 2021 11:21 Sodium 138 mmol/L Potassium 3.6 mmol/L Chloride 100 mmol/L CO2 26 mmol/L Anion Gap 15.6 BUN 11 mg/dL Creatinine 0.3 mg/dL Cr Clearance (Est) 177.3600 mL/min eGFR 221.2 mL/min Glucose 162 mg/dL Osmolality - Calculated 289 mOsm/kg Calcium 9.3 mg/dL Protein, Total 5.9 g/dL Albumin 3.8 g/dL Globulin 2.1 g/dL Bilirubin, Total 0.2 mg/dL ALT (SGPT) 29 U/L AST (SGOT) 21 U/L Alkaline Phosphatase 58 IU/L WBC 5.4 10 3/uL RBC 3.49 10 6/uL HGB 10.5 g/dL HCT 33.6 % MCV 96.3 fl MCH 30.1 pg MCHC 31.3 g/dL RDW 19.3 % Platelet Count 243 10 3/cmm MPV 10.9 fL Neutrophils 2.73 10 3/uL Lymphocytes 1.4 10 3/uL Monocytes 0.4 10 3/uL Eosinophils 0.1 10 3/uL Basophils 0.1 10 3/uL Neutrophil % 51.0 % Lymphocyte % 25.8 % Monocyte % 7.9 % Eosinophil % 1.5 % Basophils % 1.7 % NRBC % 0 % CBC Slide Review Slide Review Perform SLIDE REVIEW AGREES WITH AUTOMATED RESULTS Test performed on Oct 11, 2021 11:14 Ferritin 701 ng/mL Iron 28 mcg/dL Iron Binding Capacity (TIBC) 199 mcg/dl % Iron Saturation 14.0 % UIBC 171 mcg/dL Manual Segs % 44 % Manual Bands % 2.0 % Manual Lymphs % 32 % Atypical Lymphs % 0.0 % Total Cells Counted 100 Manual Monos % 6.0 % Manual Eos % 0 % Manual Basos % 0.0 % Metamyelocytes % 3.0 % Myelocytes % 13.0 % Anisocytosis 1+ Platelet Estimate Normal Manual Segs Abs 3.1 10/cmm Manual Bands Abs 0.1 10 3/cmm Manual Neutrophils Abs 3.3 10 3/cmm Manual Lymphocytes Abs 2.3 10 3/cmm Manual Monocytes Abs 0.4 10 3/cmm Manual Eosinophils Abs 0.0 10 3/cmm Manual Basophils Abs 0.0 10 3/cmm Test performed on Oct 04, 2021 08:23 CA 19-9 76.01 U/mL Test performed on Jun 20, 2021 10:25 CA 15-3 45.4 U/mL CA 27.29 94 U/mL CA-125 80.8 U/mL Impression: Metastatic Adenocarcinoma with mucinous features per CT-guided left lung mass biopsy done on April 26, 2021, Most likely pancreatic as CT PET scan showed 3.2 x 5.3 cm pancreatic body mass with extensive intra-abdominal lymphadenopathy and left cervical level 4 lymphadenopathy and innumerable bilateral pulmonary nodules FDG positive and tumor marker CA 19???9 was 379, Clinically stage IV pancreatic cancer CT scan of chest abdomen pelvis done on April 21, 2021 shows multiple soft tissue nodules and small masses identified throughout both lungs,. No significant lymphadenopathy in the chest. Altered contour and attenuation in the body of pancreas may represent pancreatic mass. Mild retroperitoneal lymphadenopathy. Largest node measures slightly over centimeter in greatest short axis dimension and is seen along the left pericaval region. Sigmoid diverticulosis Left posterior lateral chest wall pain etiology unclear could be musculoskeletal or metastatic disease Dehydration/poor oral intake due to nausea/dry heaves/off and on vomiting etiology could be multifactorial including brain mets versus NSAID induced gastritis or peptic ulcer disease or gastric outlet obstruction due to pancreatic mass Dry cough, etiology unclear could be due to postnasal drip or bronchial irritation due to pulmonary pathology Plan: Discussed with patient regarding her labs white blood count 2.3 hemoglobin 9.8 hematocrit 31.6 platelets 102,000 ANC 960 CMP within normal limits iron studies shows persistently low iron saturation and iron and further drop in her ferritin although normal range, patient is on oral iron Clinically, patient is doing reasonably well, denies any signs symptom suggestive of disease progression her lab work-up shows improving tumor marker CA 19???9 today 39.70 compared to 76.01 on October 04, 2021 and 371 at the time of diagnosis Her follow-up CBC shows progressive pancytopenia probably due to palliative chemotherapy, she is also having progressive neuropathy but can still unbutton her button her shirt., Due to progressive leukopenia/neutropenia and thrombocytopenia, will hold her day 15 chemotherapy today and she will return to clinic in 1 week with CBC CMP, if it shows resolution, then will consider next cycle with a day 1 Abraxane/gemcitabine, it appears, she will be able to handle day 1 and day 8 and repeat every 21 days cycle. Patient has mildly progressive peripheral neuropathy, she was advised to try vitamin B6 and hand and feet massage, if there is any further worsening, we may consider discontinue Abraxane, in the meantime we will consider follow-up CT PET scan to assess disease status, if it shows localized disease, will discuss with radiation regarding role of SBRT, if possible. As far as iron deficiency anemia is concerned, she no oral iron, tolerating reasonably well but her follow-up CBC and iron studies shows no improvement in iron stores as well as hemoglobin, which could be due to malabsorption or chronic blood loss, at this point we will discontinue oral iron and try Injectafer 750 mg IV x1, and follow CBC. Signed By: Johnny Luna M.D. <<Signature on File>>
[2021-11-15] MEDS: ferric carboxy (IVPB) 750 MG in sodium chloride 0.9% (100 ml) 100 ML 460 MG IV (09:45)
[2021-11-15 10:06] LABS: Basophils % 0.5 %; Eosinophils # 0.2 10^3/uL (0.0-0.8); Eosinophils % 3.8 %; Hematocrit 33.6 % (37.0-47.0); Hemoglobin 10.6 g/dL (11.5-15.3); Lymphocytes # 1.4 10^3/uL (0.8-4.8); Lymphocytes % 30.4 %; Mean Corpuscular HGB Conc 31.5 g/dL (30.0-36.0); Mean Corpuscular Hemoglobin 30.1 pg (28.0-34.0); Mean Corpuscular Volume 95.5 fl (81-99); Mean Platelet Volume 11.7 fL (7.4-10.4); Monocytes # 0.7 10^3/uL (0.2-0.9); Monocytes % 14.9 %; Neutrophils # 2.18 10^3/uL (1.8-7.7); Nucleated Red Blood Cells % 0 %; Platelet Count 331 10^3/cmm (130-400); Red Blood Count 3.52 10^6/uL (4.1-5.3); Red Cell Distribution Width 19.3 % (12.1-15.1); White Blood Count 4.4 10^3/uL (4.0-10.0)
[2021-11-15 10:18] LABS: Alanine Aminotransferase 16 U/L (0-33); Albumin Level 3.5 g/dL (3.5-5.2); Alkaline Phosphatase 55 IU/L (35-105); Aspartate Amino Transferase 18 U/L (0-32); Blood Urea Nitrogen 12 mg/dL (8-23); Calcium 9.2 mg/dL (8.5-10.5); Carbon Dioxide 24 mmol/L (22-29); Chloride 104 mmol/L (98-107); Globulin 2.8 g/dL (1.3-4.6); Glomerular Filtration Rate 221.2 mL/min (90-130); Glucose 96 mg/dL (65-115); Osmolality Calculated 288 mOsm/kg (285-295); Sodium 139 mmol/L (136-145); Total Bilirubin 0.3 mg/dL (0.15-1.2); Total Protein 6.3 g/dL (6.6-8.7)
[2021-11-15] MEDS: famotidine 20 mg/2 mL INJ IVP (11:55)
[2021-11-15] MEDS: palonosetron 0.25 mg/5 mL SDV IV (11:55)
[2021-11-15] MEDS: sodium chloride 0.9% 250 ML 75 ML IV (11:55)
--- NOTE | 2021-11-15 20:31 | ONC FU_ITS ---
Renee Naylor Progress Note Patient: Charlotte Wynn Unit #: [id number]: 1955 Dicatated By: Renee Naylor N.P.Date of Visit:Nov 15, 2021 Onc MED Follow-up/Prog Note Chief Complaint: Lung cancer History of Present Illness: Ms. Mukherjee is a 66-year-old female who developed progressive dry cough since December 2020. She also started having sharp, intermittent stabbing, left posterior lateral chest wall pain. She states at that time the ibuprofen did help with the pain. She did not seek further evaluation she was going through significant grieving as she had lost her son in a car accident in December 2020. She fell I did see her PCP on April 04, 2021. She was having persistent cough for which a chest x-ray was ordered. She also was due for screening mammography and colonoscopy. Her chest x-ray did show multiple lung nodules but no other abnormalities. A CT of the chest abdomen pelvis was then obtained on April 21, 2021 which showed multiple soft tissue nodules and small masses identified throughout both lungs. There was no significant lymphadenopathy in the chest. The CT of the abdomen shows altered contour and attenuation in the body of the pancreas, that may represent pancreatic mass . There was mild retroperitoneal lymphadenopathy with the largest node measuring slightly over 1 cm. Sigmoid diverticulosis was noted. Ms. Carlos then had CT-guided biopsy of the left lung on April 26, 2021 and this pathology confirmed adenocarcinoma with mucinous features. CT scan of the head done on 05/05/2021 showed calcified left frontal lesion measuring 10 mm most likely represent small calcified with no other abnormality seen. PET/CT scan on 05/21/2021 showed 3.2 x 5.3 cm pancreatic body mass with SUV of 6.9, subcentimeter peripancreatic lymph node, are FDG positive, gastric hepatic lymph node is FDG positive, bilateral retroperitoneal lymphadenopathy with mild FDG uptake, left cervical level 4 lymph node with SUV of 3.4, innumerable FDG positive bilateral pulmonary nodules consistent with metastatic disease. Ms Carlos came in to see us and was still having problems with persistent nausea, intermittent vomiting and epigastric pain. She was sent for abdominal sonogram on 05/16/2021 which showed gallstones, and a mass in body and tail of pancreas but no other acute findings. She was referred to gastroenterology- Dr. Mcmahon. An EGD/colonoscopy was scheduled but as per , she could not tolerate bowel prep so they canceled the procedure. Did undergo EGD per Dr. Mcmahon on 06/07/2021 and in the lower 3rd esophagus reflux esophagitis was present there was no bleeding associated with esophagitis and at the gastroesophageal junction in the free lower area moderate's stripped gastritis was also seen. Is found to be erythematous and erosive but no mucosal bleeding. The duodenum was examined with no abnormalities reported. She has not yet had colonoscopy as she could not tolerate the prep. Ms Carlos was started on palliative chemotherapy with Abraxane/gemcitabine on 05/30/2021. She was able to complete cycle 1 with day 1, 8 and 15 treatment. , Later on switched to day 1 and day 8 only as patient could not tolerate day 15 schedule. Follow-up CT PET scan done after 4 cycles on August 24, 2021 shows bilateral pleural-based disease, with a nodular soft tissue changes most of these are below 2 cm in diameter with SUV of 4-5 range. Patient has severe interstitial lung disease throughout both lungs. No mediastinal lymphadenopathy, no active disease below diaphragm, thickening of distal esophagus may represent esophagitis. No bony lesion. Patient presents today for follow-up. She states that she is feeling good. She actually went shopping with her grandkids last weekend and did well. She denies fever, chills, night sweats. She has a good appetite. She still has mild shortness of breath with exertion. No cough or chest pain. No GI or problems. No joint pain. She continues to have peripheral neuropathy in her hands and feet. Review Of Symptoms: See above. Past Medical History: There is no documented medical history. Past Surgical History: Covid vaccine #2 moderna in 2020 Covid vaccine #1 moderna in 2020 Allergies: Codeine Sulfate Medications: Combivent Respimat 1 Inhalation (of 20-100 mcg/act) Aerosol, solution Inhalation b.i.d. LORazepam 0.5 - 1 Tablet (of 1 mg) Oral t.i.d. PRN Mucinex 1 Tablet Tablet SR 12 HR Oral daily PRN Vitamin B6 1 Tablet Oral daily Family History: There is no documented family history. Social History: Ms. Pura Mukherjee is . Ms. Pura Mukherjee has never smoked. She has no history of drinking. Physical Examination: Performed on Nov 15, 2021 10:58: Height - 67.00 in, Weight - 143.8 lbs (HIGH), BSA - 1.76 sq.m, BMI - 22.52, Temperature - 98.7 F, Pulse - 113 /min (HIGH), Respiration - 18 /min, BP - 139/72 mm(hg), O2 Sat - 92 % (LOW), Pain - 0, and Fatigue - 3. Performance Status: 1 - No physically strenuous activity, but ambulatory and able to carry out light or sedentary work (e.g. office work, light house work). (ECOG) Constitutional Alert, cooperative, oriented. Mood and affect appropriate. Appears close to chronological age. Well nourished. Well developed. Head Normocephalic; no scars. Eyes Conjunctivae and sclerae are clear and without icterus. Pupils are reactive and equal. Respiratory Lungs are clear to auscultation without rhonchi or wheezing. Cardiovascular Regular rate and rhythm of heart without murmurs, gallops or rubs. Abdomen Non-tender, non-distended, no masses, ascites or hepatosplenomegaly. Good bowel sounds. No guarding or rebound tenderness. Extremities No visible deformities, no cyanosis, clubbing or edema. Pulses 3+ and equal bilaterally. Musculoskeletal No tenderness or swelling, normal range of motion without obvious weakness. Psychiatric Alert and oriented times three. Coherent speech. Verbalizes understanding of our discussions today. Laboratory: Test performed on Nov 15, 2021 09:50 Sodium 139 mmol/L Potassium 4.0 mmol/L Chloride 104 mmol/L CO2 24 mmol/L Anion Gap 15.0 BUN 12 mg/dL Creatinine 0.3 mg/dL Cr Clearance (Est) 177.3600 mL/min eGFR 221.2 mL/min Glucose 96 mg/dL Osmolality - Calculated 288 mOsm/kg Calcium 9.2 mg/dL Protein, Total 6.3 g/dL Albumin 3.5 g/dL Globulin 2.8 g/dL Bilirubin, Total 0.3 mg/dL ALT (SGPT) 16 U/L AST (SGOT) 18 U/L Alkaline Phosphatase 55 IU/L WBC 4.4 10 3/uL RBC 3.52 10 6/uL HGB 10.6 g/dL HCT 33.6 % MCV 95.5 fl MCH 30.1 pg MCHC 31.5 g/dL RDW 19.3 % Platelet Count 331 10 3/cmm MPV 11.7 fL Neutrophils 2.18 10 3/uL Lymphocytes 1.4 10 3/uL Monocytes 0.7 10 3/uL Eosinophils 0.2 10 3/uL Basophils 0.0 10 3/uL Neutrophil % 49.0 % Lymphocyte % 30.4 % Monocyte % 14.9 % Eosinophil % 3.8 % Basophils % 0.5 % NRBC % 0 % Test performed on Nov 01, 2021 11:21 CBC Slide Review Slide Review Perform SLIDE REVIEW AGREES WITH AUTOMATED RESULTS Test performed on Oct 11, 2021 11:14 Ferritin 701 ng/mL Iron 28 mcg/dL Iron Binding Capacity (TIBC) 199 mcg/dl % Iron Saturation 14.0 % UIBC 171 mcg/dL Manual Segs % 44 % Manual Bands % 2.0 % Manual Lymphs % 32 % Atypical Lymphs % 0.0 % Total Cells Counted 100 Manual Monos % 6.0 % Manual Eos % 0 % Manual Basos % 0.0 % Metamyelocytes % 3.0 % Myelocytes % 13.0 % Anisocytosis 1+ Platelet Estimate Normal Manual Segs Abs 3.1 10/cmm Manual Bands Abs 0.1 10 3/cmm Manual Neutrophils Abs 3.3 10 3/cmm Manual Lymphocytes Abs 2.3 10 3/cmm Manual Monocytes Abs 0.4 10 3/cmm Manual Eosinophils Abs 0.0 10 3/cmm Manual Basophils Abs 0.0 10 3/cmm Test performed on Oct 04, 2021 08:23 CA 19-9 76.01 U/mL Test performed on Jun 20, 2021 10:25 CA 15-3 45.4 U/mL CA 27.29 94 U/mL CA-125 80.8 U/mL Impression: Metastatic Adenocarcinoma with mucinous features per CT-guided left lung mass biopsy done on April 26, 2021, Most likely pancreatic as CT PET scan showed 3.2 x 5.3 cm pancreatic body mass with extensive intra-abdominal lymphadenopathy and left cervical level 4 lymphadenopathy and innumerable bilateral pulmonary nodules FDG positive and tumor marker CA 19???9 was 379, Clinically stage IV pancreatic cancer CT scan of chest abdomen pelvis done on April 21, 2021 shows multiple soft tissue nodules and small masses identified throughout both lungs,. No significant lymphadenopathy in the chest. Altered contour and attenuation in the body of pancreas may represent pancreatic mass. Mild retroperitoneal lymphadenopathy. Largest node measures slightly over centimeter in greatest short axis dimension and is seen along the left pericaval region. Sigmoid diverticulosis Left posterior lateral chest wall pain etiology unclear could be musculoskeletal or metastatic disease Dehydration/poor oral intake due to nausea/dry heaves/off and on vomiting etiology could be multifactorial including brain mets versus NSAID induced gastritis or peptic ulcer disease or gastric outlet obstruction due to pancreatic mass Dry cough, etiology unclear could be due to postnasal drip or bronchial irritation due to pulmonary pathology Plan: Labs were discussed with patient. WBC 4.4, hemoglobin 10.6, hematocrit 33.6, platelets 331,000. CMP is stable. Patient is doing well on current treatment with Abraxane and gemcitabine. She continues to have some peripheral neuropathy but it is stable. And not becoming any worse. We will continue with day 1 and day 8 on a 21-day cycle. She is scheduled for PET scan. It was delayed last week but hopefully will be performed this week. If it shows localized disease, will discuss with radiation regarding role of SBRT, if possible. As far as iron deficiency anemia is concerned, she no oral iron, tolerating reasonably well but her follow-up CBC and iron studies shows no improvement in iron stores as well as hemoglobin, which could be due to malabsorption or chronic blood loss, at this point we will discontinue oral iron and try Injectafer 750 mg IV x1, which she will be getting today and follow CBC. She will receive cycle 8-day 1 today and return to the clinic in 1 week with CBC, CMP. Signed By: Renee Naylor N.P. <<Signature on File>>
[2021-11-22 08:28] LABS: Hematocrit 34.9 % (37.0-47.0); Hemoglobin 10.9 g/dL (11.5-15.3); Mean Corpuscular HGB Conc 31.2 g/dL (30.0-36.0); Mean Corpuscular Hemoglobin 29.5 pg (28.0-34.0); Mean Corpuscular Volume 94.6 fl (81-99); Mean Platelet Volume 10.3 fL (7.4-10.4); Platelet Count 243 10^3/cmm (130-400); Red Blood Count 3.69 10^6/uL (4.1-5.3); Red Cell Distribution Width 18.8 % (12.1-15.1); White Blood Count 6.5 10^3/uL (4.0-10.0)
[2021-11-22 08:44] LABS: Slide Review Slide Review Perform
[2021-11-22 08:45] LABS: Alanine Aminotransferase 34 U/L (0-33); Albumin Level 3.7 g/dL (3.5-5.2); Alkaline Phosphatase 65 IU/L (35-105); Anion Gap 14.6 (5-19); Aspartate Amino Transferase 26 U/L (0-32); Blood Urea Nitrogen 13 mg/dL (8-23); Calcium 9.3 mg/dL (8.5-10.5); Carbon Dioxide 24 mmol/L (22-29); Chloride 103 mmol/L (98-107); Globulin 2.8 g/dL (1.3-4.6); Glomerular Filtration Rate 158.7 mL/min (90-130); Glucose 122 mg/dL (65-115); Osmolality Calculated 287 mOsm/kg (285-295); Potassium 3.6 mmol/L (3.5-5.1); Sodium 138 mmol/L (136-145); Total Bilirubin 0.2 mg/dL (0.15-1.2); Total Protein 6.5 g/dL (6.6-8.7)
[2021-11-22 08:49] LABS: Absolute Neutrophil 2.9 10^3/cmm (1.4-6.5); Absolute Segmented Neutrophil 2.7 10/cmm (1.6-7.1); Anisocytosis 2+; Band Neutrophils Absolute 0.2 10^3/cmm (0.0-1.2); Basophils Absolute 0.1 10^3/cmm (0.0-0.2); Eosinophils 1 %; Lymphocytes 34 %; Lymphocytes Absolute 2.5 10^3/cmm (1.2-3.4); Monocytes Absolute 0.5 10^3/cmm (0.1-0.6); Ovalocytes 1+; Platelet Estimate Normal (Normal); Poikilocytosis 1+; Segmented Neutrophils 41 %; Total Cells Counted 100 (0-100)
--- NOTE | 2021-11-22 09:13 | ONC FU_ITS ---
Renee Naylor Progress Note Patient: Charlotte Wynn Unit #: [id number]: 1955 Dicatated By: Renee Naylor N.P.Date of Visit:Nov 22, 2021 Onc MED Follow-up/Prog Note Chief Complaint: Lung cancer History of Present Illness: Ms. Mukherjee is a 66-year-old female who developed progressive dry cough since December 2020. She also started having sharp, intermittent stabbing, left posterior lateral chest wall pain. She states at that time the ibuprofen did help with the pain. She did not seek further evaluation she was going through significant grieving as she had lost her son in a car accident in December 2020. She fell I did see her PCP on April 04, 2021. She was having persistent cough for which a chest x-ray was ordered. She also was due for screening mammography and colonoscopy. Her chest x-ray did show multiple lung nodules but no other abnormalities. A CT of the chest abdomen pelvis was then obtained on April 21, 2021 which showed multiple soft tissue nodules and small masses identified throughout both lungs. There was no significant lymphadenopathy in the chest. The CT of the abdomen shows altered contour and attenuation in the body of the pancreas, that may represent pancreatic mass . There was mild retroperitoneal lymphadenopathy with the largest node measuring slightly over 1 cm. Sigmoid diverticulosis was noted. Ms. Carlos then had CT-guided biopsy of the left lung on April 26, 2021 and this pathology confirmed adenocarcinoma with mucinous features. CT scan of the head done on 05/05/2021 showed calcified left frontal lesion measuring 10 mm most likely represent small calcified with no other abnormality seen. PET/CT scan on 05/21/2021 showed 3.2 x 5.3 cm pancreatic body mass with SUV of 6.9, subcentimeter peripancreatic lymph node, are FDG positive, gastric hepatic lymph node is FDG positive, bilateral retroperitoneal lymphadenopathy with mild FDG uptake, left cervical level 4 lymph node with SUV of 3.4, innumerable FDG positive bilateral pulmonary nodules consistent with metastatic disease. Ms Carlos came in to see us and was still having problems with persistent nausea, intermittent vomiting and epigastric pain. She was sent for abdominal sonogram on 05/16/2021 which showed gallstones, and a mass in body and tail of pancreas but no other acute findings. She was referred to gastroenterology- Dr. Mcmahon. An EGD/colonoscopy was scheduled but as per , she could not tolerate bowel prep so they canceled the procedure. Did undergo EGD per Dr. Mcmahon on 06/07/2021 and in the lower 3rd esophagus reflux esophagitis was present there was no bleeding associated with esophagitis and at the gastroesophageal junction in the free lower area moderate's stripped gastritis was also seen. Is found to be erythematous and erosive but no mucosal bleeding. The duodenum was examined with no abnormalities reported. She has not yet had colonoscopy as she could not tolerate the prep. Ms Carlos was started on palliative chemotherapy with Abraxane/gemcitabine on 05/30/2021. She was able to complete cycle 1 with day 1, 8 and 15 treatment. , Later on switched to day 1 and day 8 only as patient could not tolerate day 15 schedule. Follow-up CT PET scan done after 4 cycles on August 24, 2021 shows bilateral pleural-based disease, with a nodular soft tissue changes most of these are below 2 cm in diameter with SUV of 4-5 range. Patient has severe interstitial lung disease throughout both lungs. No mediastinal lymphadenopathy, no active disease below diaphragm, thickening of distal esophagus may represent esophagitis. No bony lesion. She here from patient presents today for follow-up. She states she is feeling really good. Her appetite has been good. She denies fever, chills, night sweats. No sinus drainage or sore throat. Her shortness of breath on exertion has improved. She denies any GI or problems. No joint pain or muscle pain. No headaches or dizziness. She does have a maculopapular rash on her left upper arm and forearm that itches. It started after her last treatment of Abraxane gemcitabine but she had also received Injectafer that day. Review Of Symptoms:see above. Past Medical History: There is no documented medical history. Past Surgical History: Covid vaccine #2 moderna in 2020 Covid vaccine #1 moderna in 2020 Allergies: Codeine Sulfate Medications: Combivent Respimat 1 Inhalation (of 20-100 mcg/act) Aerosol, solution Inhalation b.i.d. LORazepam 0.5 - 1 Tablet (of 1 mg) Oral t.i.d. PRN Mucinex 1 Tablet Tablet SR 12 HR Oral daily PRN Vitamin B6 1 Tablet Oral daily Family History: There is no documented family history. Social History: Ms. Pura Mukherjee is . Ms. Pura Mukherjee has never smoked. She has no history of drinking. Physical Examination: Performed on Nov 22, 2021 08:37: Height - 67.00 in, Weight - 142.6 lbs (LOW), BSA - 1.75 sq.m, BMI - 22.33, Temperature - 98.0 F (LOW), Pulse - 109 /min (HIGH), Respiration - 17 /min, BP - 104/64 mm(hg), O2 Sat - 96 %, Pain - 0, and Fatigue - 0. Performance Status: 1 - No physically strenuous activity, but ambulatory and able to carry out light or sedentary work (e.g. office work, light house work). (ECOG) Constitutional Alert, cooperative, oriented. Mood and affect appropriate. Appears close to chronological age. Well nourished. Well developed. Head Normocephalic; no scars. Eyes Conjunctivae and sclerae are clear and without icterus. Pupils are reactive and equal. Respiratory Lungs are clear to auscultation without rhonchi or wheezing. Cardiovascular Regular rate and rhythm of heart without murmurs, gallops or rubs. Abdomen Non-tender, non-distended, no masses, ascites or hepatosplenomegaly. Good bowel sounds. No guarding or rebound tenderness. Musculoskeletal No tenderness or swelling, normal range of motion without obvious weakness. Psychiatric Alert and oriented times three. Coherent speech. Verbalizes understanding of our discussions today. Laboratory: Test performed on Nov 22, 2021 08:15 Sodium 138 mmol/L Potassium 3.6 mmol/L Chloride 103 mmol/L CO2 24 mmol/L Anion Gap 14.6 BUN 13 mg/dL Creatinine 0.4 mg/dL Cr Clearance (Est) 133.0200 mL/min eGFR 158.7 mL/min Glucose 122 mg/dL Osmolality - Calculated 287 mOsm/kg Calcium 9.3 mg/dL Protein, Total 6.5 g/dL Albumin 3.7 g/dL Globulin 2.8 g/dL Bilirubin, Total 0.2 mg/dL ALT (SGPT) 34 U/L AST (SGOT) 26 U/L Alkaline Phosphatase 65 IU/L WBC 6.5 10 3/uL Manual Segs % 41 % Manual Bands % 3.0 % RBC 3.69 10 6/uL HGB 10.9 g/dL Manual Lymphs % 34 % Atypical Lymphs % 5.0 % HCT 34.9 % MCV 94.6 fl Total Cells Counted 100 Manual Monos % 8.0 % MCH 29.5 pg Manual Eos % 1 % MCHC 31.2 g/dL Manual Basos % 1.0 % RDW 18.8 % Metamyelocytes % 4.0 % Platelet Count 243 10 3/cmm MPV 10.3 fL Myelocytes % 3.0 % CBC Slide Review Slide Review Perform Anisocytosis 2+ Poikilocytosis 1+ Ovalocytes 1+ Platelet Estimate Normal Manual Segs Abs 2.7 10/cmm Manual Bands Abs 0.2 10 3/cmm Manual Neutrophils Abs 2.9 10 3/cmm Manual Lymphocytes Abs 2.5 10 3/cmm Manual Monocytes Abs 0.5 10 3/cmm Manual Eosinophils Abs 0.0 10 3/cmm Manual Basophils Abs 0.1 10 3/cmm Test performed on Nov 15, 2021 09:50 Neutrophils 2.18 10 3/uL Lymphocytes 1.4 10 3/uL Monocytes 0.7 10 3/uL Eosinophils 0.2 10 3/uL Basophils 0.0 10 3/uL Neutrophil % 49.0 % Lymphocyte % 30.4 % Monocyte % 14.9 % Eosinophil % 3.8 % Basophils % 0.5 % NRBC % 0 % Test performed on Oct 11, 2021 11:14 Ferritin 701 ng/mL Iron 28 mcg/dL Iron Binding Capacity (TIBC) 199 mcg/dl % Iron Saturation 14.0 % UIBC 171 mcg/dL Test performed on Oct 04, 2021 08:23 CA 19-9 76.01 U/mL Test performed on Jun 20, 2021 10:25 CA 15-3 45.4 U/mL CA 27.29 94 U/mL CA-125 80.8 U/mL Impression: Metastatic Adenocarcinoma with mucinous features per CT-guided left lung mass biopsy done on April 26, 2021, Most likely pancreatic as CT PET scan showed 3.2 x 5.3 cm pancreatic body mass with extensive intra-abdominal lymphadenopathy and left cervical level 4 lymphadenopathy and innumerable bilateral pulmonary nodules FDG positive and tumor marker CA 19???9 was 379, Clinically stage IV pancreatic cancer CT scan of chest abdomen pelvis done on April 21, 2021 shows multiple soft tissue nodules and small masses identified throughout both lungs,. No significant lymphadenopathy in the chest. Altered contour and attenuation in the body of pancreas may represent pancreatic mass. Mild retroperitoneal lymphadenopathy. Largest node measures slightly over centimeter in greatest short axis dimension and is seen along the left pericaval region. Sigmoid diverticulosis Left posterior lateral chest wall pain etiology unclear could be musculoskeletal or metastatic disease Dehydration/poor oral intake due to nausea/dry heaves/off and on vomiting etiology could be multifactorial including brain mets versus NSAID induced gastritis or peptic ulcer disease or gastric outlet obstruction due to pancreatic mass Dry cough, etiology unclear could be due to postnasal drip or bronchial irritation due to pulmonary pathology Plan: Labs were reviewed with patient with WBC 6.5, hemoglobin 10.9, hematocrit 34.9, and platelet count 243,000. CMP is stable. Patient is doing well on current treatment with Abraxane and gemcitabine. She continues to have some peripheral neuropathy but it is stable. She has a rash to the left upper arm and forearm. Recommended hydrocortisone cream and we will monitor for now. Patient had PET scan on 11/19/2021, results are pending. If it shows localized disease, will discuss with radiation regarding role of SBRT, if possible. She will receive cycle 8-day 8 today and return to the clinic in 1 week with CBC, CMP. Signed By: Renee Naylor NDorene <<Signature on File>>
[2021-11-22] MEDS: sodium chloride 0.9% 250 ML 75 ML IV (09:20)
[2021-11-22] MEDS: famotidine 20 mg/2 mL INJ IVP (09:22)
[2021-11-22] MEDS: palonosetron 0.25 mg/5 mL SDV IV (09:23)
== END 2021-11-24 23:59 | disposition home or self-care (01) ==
LOC: ONCMED 06:41
PROVIDERS: Internal Medicine Hematology & Oncology; PCP Nurse Practitioner Family; Visit Provider Nurse Practitioner Family
DX: Z51.11 Encounter for antineoplastic chemotherapy (principal); C34.02 Malignant neoplasm of left main bronchus; C25.1 Malignant neoplasm of body of pancreas; C77.8 Secondary and unspecified malignant neoplasm of lymph nodes of multiple regions; E86.0 Dehydration; R05.9 Cough, unspecified; Z79.899 Other long term (current) drug therapy
CPT/HCPCS: 36591; 80053; 82728; 83540; 83550; 85007; 85025; 86301; 96367; 96375; 96413; 96417; 99214; 99215; J1100; J1439; J2469; J3490; J7050; J9201; J9264

== ENCOUNTER 2021-11-28 15:28 | Outpatient (CLI) | payer MEDICARE, SELFPAY ==
[2021-11-28 16:15] LABS: Basophils % 0.7 %; Eosinophils # 0.1 10^3/uL (0.0-0.8); Eosinophils % 2.5 %; Hemoglobin 10.1 g/dL (11.5-15.3); Lymphocytes # 1.1 10^3/uL (0.8-4.8); Lymphocytes % 39.8 %; Mean Corpuscular HGB Conc 31.6 g/dL (30.0-36.0); Mean Corpuscular Hemoglobin 29.9 pg (28.0-34.0); Mean Corpuscular Volume 94.7 fl (81-99); Monocytes # 0.1 10^3/uL (0.2-0.9); Monocytes % 3.9 %; Neutrophils # 1.44 10^3/uL (1.8-7.7); Neutrophils % 51.7 %; Nucleated Red Blood Cells % 0 %; Platelet Count 111 10^3/cmm (130-400); Red Blood Count 3.38 10^6/uL (4.1-5.3); Red Cell Distribution Width 19.1 % (12.1-15.1); White Blood Count 2.8 10^3/uL (4.0-10.0)
[2021-11-28 16:34] LABS: Alanine Aminotransferase 34 U/L (0-33); Albumin Level 3.6 g/dL (3.5-5.2); Alkaline Phosphatase 56 IU/L (35-105); Anion Gap 11.9 (5-19); Aspartate Amino Transferase 26 U/L (0-32); Blood Urea Nitrogen 16 mg/dL (8-23); Carbon Dioxide 27 mmol/L (22-29); Chloride 101 mmol/L (98-107); Globulin 2.6 g/dL (1.3-4.6); Glomerular Filtration Rate 158.7 mL/min (90-130); Glucose 109 mg/dL (65-115); Osmolality Calculated 284 mOsm/kg (285-295); Potassium 3.9 mmol/L (3.5-5.1); Sodium 136 mmol/L (136-145); Total Bilirubin 0.2 mg/dL (0.15-1.2); Total Protein 6.2 g/dL (6.6-8.7)
[2021-11-28 17:27] LABS: Slide Review Slide Review Perform
== END 2021-11-28 15:29 | disposition home or self-care (01) ==
LOC: ONCMED 15:36
PROVIDERS: Nurse Practitioner Family; PCP Nurse Practitioner Family; Visit Provider Internal Medicine Hematology & Oncology
DX: C34.02 Malignant neoplasm of left main bronchus (principal)
CPT/HCPCS: 36591; 80053; 85025

== ENCOUNTER 2021-12-13 06:40 | Outpatient (RCR) | payer MEDICARE, SELFPAY ==
--- NOTE | 2021-12-01 17:58 | ONC FU_ITS ---
Dr. Luna follow up note Patient: Charlotte Wynn Unit #: [id number]: 1955 Dicatated By: Johnny Luna M.D.Date of Visit:Nov 29, 2021 Onc Med Follow-up/Prog Note History of Present Illness: Ms. Mukherjee is a 66-year-old female who developed progressive dry cough since December 2020. She also started having sharp, intermittent stabbing, left posterior lateral chest wall pain. She states at that time the ibuprofen did help with the pain. She did not seek further evaluation she was going through significant grieving as she had lost her son in a car accident in December 2020. She fell I did see her PCP on April 04, 2021. She was having persistent cough for which a chest x-ray was ordered. She also was due for screening mammography and colonoscopy. Her chest x-ray did show multiple lung nodules but no other abnormalities. A CT of the chest abdomen pelvis was then obtained on April 21, 2021 which showed multiple soft tissue nodules and small masses identified throughout both lungs. There was no significant lymphadenopathy in the chest. The CT of the abdomen shows altered contour and attenuation in the body of the pancreas, that may represent pancreatic mass . There was mild retroperitoneal lymphadenopathy with the largest node measuring slightly over 1 cm. Sigmoid diverticulosis was noted. Ms. Carlos then had CT-guided biopsy of the left lung on April 26, 2021 and this pathology confirmed adenocarcinoma with mucinous features. CT scan of the head done on 05/05/2021 showed calcified left frontal lesion measuring 10 mm most likely represent small calcified with no other abnormality seen. PET/CT scan on 05/21/2021 showed 3.2 x 5.3 cm pancreatic body mass with SUV of 6.9, subcentimeter peripancreatic lymph node, are FDG positive, gastric hepatic lymph node is FDG positive, bilateral retroperitoneal lymphadenopathy with mild FDG uptake, left cervical level 4 lymph node with SUV of 3.4, innumerable FDG positive bilateral pulmonary nodules consistent with metastatic disease. Ms Carlos came in to see us and was still having problems with persistent nausea, intermittent vomiting and epigastric pain. She was sent for abdominal sonogram on 05/16/2021 which showed gallstones, and a mass in body and tail of pancreas but no other acute findings. She was referred to gastroenterology- Dr. Mcmahon. An EGD/colonoscopy was scheduled but as per , she could not tolerate bowel prep so they canceled the procedure. Did undergo EGD per Dr. Mcmahon on 06/07/2021 and in the lower 3rd esophagus reflux esophagitis was present there was no bleeding associated with esophagitis and at the gastroesophageal junction in the free lower area moderate's stripped gastritis was also seen. Is found to be erythematous and erosive but no mucosal bleeding. The duodenum was examined with no abnormalities reported. She has not yet had colonoscopy as she could not tolerate the prep. Ms Carlos was started on palliative chemotherapy with Abraxane/gemcitabine on 05/30/2021. She was able to complete cycle 1 with day 1, 8 and 15 treatment. , Later on switched to day 1 and day 8 only as patient could not tolerate day 15 schedule. Follow-up CT PET scan done after 4 cycles on August 24, 2021 shows bilateral pleural-based disease, with a nodular soft tissue changes most of these are below 2 cm in diameter with SUV of 4-5 range. Patient has severe interstitial lung disease throughout both lungs. No mediastinal lymphadenopathy, no active disease below diaphragm, thickening of distal esophagus may represent esophagitis. No bony lesion. CT PET scan done on November 19, 2021 showed there are no findings for an active primary pancreatic adenocarcinoma, hepatic uptake is physiologic with no finding for metastatic disease. Scattered mesenteric lymph nodes are subcentimeter in size and FDG negative. Multiple pleural-based bilateral solid nodules are minimally FDG positive, suggestive of treated malignancy. Bilateral cervical lymph nodes are subcentimeter in size and FDG negative. Sclerotic lesion in L5 vertebral body is FDG negative likely treated osseous metastatic disease severe bilateral lung fibrosis and cyst formation is present Came for follow-up, denies any specific complaints, no fever chills, no nausea or vomiting, no diarrhea or constipation, no abdominal pain, no jaundice, no peripheral neuropathy, tolerating Abraxane/gemcitabine well Medications: Combivent Respimat 1 Inhalation (of 20-100 mcg/act) Aerosol, solution Inhalation b.i.d., Mucinex 1 Tablet Tablet SR 12 HR Oral daily PRN, Vitamin B6 1 Tablet Oral daily Allergies: Codeine Sulfate Review of Systems: Review of Systems is not available for this patient. Vital Signs: Performed on Nov 29, 2021 08:55 Height - 67.00 in Weight - 143.6 lbs (HIGH) BSA - 1.76 sq.m BMI - 22.49 Temperature - 99.1 F (HIGH) Pulse - 108 /min (HIGH) Respiration - 16 /min BP - 106/68 mm(hg) O2 Sat - 95 % (LOW) Pain - 0 Fatigue - 0 Performance Status: 0 - Fully active, able to carry on all predisease activities without restrictions. (ECOG) Physical Examination: ENMT - No mouth sores, no thrush, no jaundice, Respiratory - Lungs are clear to auscultation, Cardiovascular - Regular rate and rhythm of heart, Abdomen - Soft, bowel sounds present, Extremities - No visible edema. Lab/Imaging: Test performed on Nov 22, 2021 08:15 Sodium 138 mmol/L Potassium 3.6 mmol/L Chloride 103 mmol/L CO2 24 mmol/L Anion Gap 14.6 BUN 13 mg/dL Creatinine 0.4 mg/dL Cr Clearance (Est) 133.0200 mL/min eGFR 158.7 mL/min Glucose 122 mg/dL Osmolality - Calculated 287 mOsm/kg Calcium 9.3 mg/dL Protein, Total 6.5 g/dL Albumin 3.7 g/dL Globulin 2.8 g/dL Bilirubin, Total 0.2 mg/dL ALT (SGPT) 34 U/L AST (SGOT) 26 U/L Alkaline Phosphatase 65 IU/L WBC 6.5 10 3/uL Manual Segs % 41 % Manual Bands % 3.0 % RBC 3.69 10 6/uL HGB 10.9 g/dL Manual Lymphs % 34 % Atypical Lymphs % 5.0 % HCT 34.9 % MCV 94.6 fl Total Cells Counted 100 Manual Monos % 8.0 % MCH 29.5 pg Manual Eos % 1 % MCHC 31.2 g/dL Manual Basos % 1.0 % RDW 18.8 % Metamyelocytes % 4.0 % Platelet Count 243 10 3/cmm MPV 10.3 fL Myelocytes % 3.0 % CBC Slide Review Slide Review Perform Anisocytosis 2+ Poikilocytosis 1+ Ovalocytes 1+ Platelet Estimate Normal Manual Segs Abs 2.7 10/cmm Manual Bands Abs 0.2 10 3/cmm Manual Neutrophils Abs 2.9 10 3/cmm Manual Lymphocytes Abs 2.5 10 3/cmm Manual Monocytes Abs 0.5 10 3/cmm Manual Eosinophils Abs 0.0 10 3/cmm Manual Basophils Abs 0.1 10 3/cmm Test performed on Nov 15, 2021 09:50 Neutrophils 2.18 10 3/uL Lymphocytes 1.4 10 3/uL Monocytes 0.7 10 3/uL Eosinophils 0.2 10 3/uL Basophils 0.0 10 3/uL Neutrophil % 49.0 % Lymphocyte % 30.4 % Monocyte % 14.9 % Eosinophil % 3.8 % Basophils % 0.5 % NRBC % 0 % Test performed on Oct 11, 2021 11:14 Ferritin 701 ng/mL Iron 28 mcg/dL Iron Binding Capacity (TIBC) 199 mcg/dl % Iron Saturation 14.0 % UIBC 171 mcg/dL Test performed on Oct 04, 2021 08:23 CA 19-9 76.01 U/mL Test performed on Jun 20, 2021 10:25 CA 15-3 45.4 U/mL CA 27.29 94 U/mL CA-125 80.8 U/mL Impression: Metastatic Adenocarcinoma with mucinous features per CT-guided left lung mass biopsy done on April 26, 2021, Most likely pancreatic as CT PET scan showed 3.2 x 5.3 cm pancreatic body mass with extensive intra-abdominal lymphadenopathy and left cervical level 4 lymphadenopathy and innumerable bilateral pulmonary nodules FDG positive and tumor marker CA 19???9 was 379, Clinically stage IV pancreatic cancer CT scan of chest abdomen pelvis done on April 21, 2021 shows multiple soft tissue nodules and small masses identified throughout both lungs,. No significant lymphadenopathy in the chest. Altered contour and attenuation in the body of pancreas may represent pancreatic mass. Mild retroperitoneal lymphadenopathy. Largest node measures slightly over centimeter in greatest short axis dimension and is seen along the left pericaval region. Sigmoid diverticulosis Left posterior lateral chest wall pain etiology unclear could be musculoskeletal or metastatic disease, Started on Abraxane/gemcitabine on May 30, 2021, follow-up CT PET scan done on November 20, 2019 showed physiologic pancreatic and hepatic uptake without evidence of active disease. Subcentimeter mesenteric and upper abdominal lymph nodes without significant activity. Bilateral pulmonary fibrosis and cyst formation. Bilateral cervical lymph nodes are subcentimeter in size are FDG negative. Possible treated osseous metastatic disease at L5. h/o Dehydration/poor oral intake due to nausea/dry heaves/off and on vomiting etiology could be multifactorial including brain mets versus NSAID induced gastritis or peptic ulcer disease or gastric outlet obstruction due to pancreatic mass Dry cough, etiology unclear could be due to postnasal drip or bronchial irritation due to pulmonary pathology Plan: Discussed with patient regarding her labs white blood count 2.8 hemoglobin 10.1 hematocrit 32 platelets 111,000 ANC 1440 CMP within normal limits CA 19???9 on November 08, 2021 was 39.7 Follow-up CT PET scan done on November 19, 2021 showed excellent response to the treatment, no obvious evidence of active disease Clinically, patient doing well with no new signs symptom suggestive of disease progression, tolerating palliative therapy with Abraxane/gemcitabine well, her follow-up CT PET scan showed excellent response, now with no obvious active malignancy., Her lab work-up shows mild leukopenia/thrombocytopenia, probably due to chemotherapy, patient is off this week and she is here to discuss about her CT PET scan report and now very pleased to see the response. She will return to clinic in 1 week with CBC CMP and if reasonable for next cycle of chemotherapy with Abraxane/gemcitabine, plan to give her 3 more cycle followed by CT PET scan if it shows no active disease, may switch her to maintenance therapy with gemcitabine alone. Signed By: Johnny Luna M.D. <<Signature on File>>
[2021-12-06 09:19] LABS: Basophils % 0.5 %; Eosinophils # 0.2 10^3/uL (0.0-0.8); Eosinophils % 4.1 %; Hemoglobin 10.9 g/dL (11.5-15.3); Lymphocytes # 1.6 10^3/uL (0.8-4.8); Mean Corpuscular HGB Conc 32.1 g/dL (30.0-36.0); Mean Corpuscular Hemoglobin 30.6 pg (28.0-34.0); Mean Corpuscular Volume 95.5 fl (81-99); Mean Platelet Volume 11.1 fL (7.4-10.4); Monocytes # 0.8 10^3/uL (0.2-0.9); Monocytes % 13.3 %; Neutrophils # 2.95 10^3/uL (1.8-7.7); Neutrophils % 52.2 %; Nucleated Red Blood Cells % 0 %; Platelet Count 344 10^3/cmm (130-400); Red Blood Count 3.56 10^6/uL (4.1-5.3); Red Cell Distribution Width 19.2 % (12.1-15.1); White Blood Count 5.7 10^3/uL (4.0-10.0)
[2021-12-06 09:31] LABS: Alanine Aminotransferase 18 U/L (0-33); Albumin Level 3.8 g/dL (3.5-5.2); Alkaline Phosphatase 60 IU/L (35-105); Aspartate Amino Transferase 20 U/L (0-32); Blood Urea Nitrogen 16 mg/dL (8-23); Calcium 9.1 mg/dL (8.5-10.5); Carbon Dioxide 26 mmol/L (22-29); Chloride 105 mmol/L (98-107); Globulin 2.1 g/dL (1.3-4.6); Glomerular Filtration Rate 158.7 mL/min (90-130); Glucose 88 mg/dL (65-115); Osmolality Calculated 287 mOsm/kg (285-295); Sodium 138 mmol/L (136-145); Total Bilirubin 0.4 mg/dL (0.15-1.2); Total Protein 5.9 g/dL (6.6-8.7)
[2021-12-06] MEDS: sodium chloride 0.9% 250 ML 75 ML IV (11:00)
[2021-12-06] MEDS: palonosetron 0.25 mg/5 mL SDV IV (11:05)
[2021-12-06] MEDS: famotidine 20 mg/2 mL INJ IVP (11:06)
--- NOTE | 2021-12-07 17:24 | ONC FU_ITS ---
Dr. Luna follow up note Patient: Charlotte Wynn Unit #: [id number]: 1955 Dicatated By: Johnny Luna M.D.Date of Visit:Dec 06, 2021 Onc Med Follow-up/Prog Note History of Present Illness: Ms. Mukherjee is a 66-year-old female who developed progressive dry cough since December 2020. She also started having sharp, intermittent stabbing, left posterior lateral chest wall pain. She states at that time the ibuprofen did help with the pain. She did not seek further evaluation she was going through significant grieving as she had lost her son in a car accident in December 2020. She fell I did see her PCP on April 04, 2021. She was having persistent cough for which a chest x-ray was ordered. She also was due for screening mammography and colonoscopy. Her chest x-ray did show multiple lung nodules but no other abnormalities. A CT of the chest abdomen pelvis was then obtained on April 21, 2021 which showed multiple soft tissue nodules and small masses identified throughout both lungs. There was no significant lymphadenopathy in the chest. The CT of the abdomen shows altered contour and attenuation in the body of the pancreas, that may represent pancreatic mass . There was mild retroperitoneal lymphadenopathy with the largest node measuring slightly over 1 cm. Sigmoid diverticulosis was noted. Ms. Carlos then had CT-guided biopsy of the left lung on April 26, 2021 and this pathology confirmed adenocarcinoma with mucinous features. CT scan of the head done on 05/05/2021 showed calcified left frontal lesion measuring 10 mm most likely represent small calcified with no other abnormality seen. PET/CT scan on 05/21/2021 showed 3.2 x 5.3 cm pancreatic body mass with SUV of 6.9, subcentimeter peripancreatic lymph node, are FDG positive, gastric hepatic lymph node is FDG positive, bilateral retroperitoneal lymphadenopathy with mild FDG uptake, left cervical level 4 lymph node with SUV of 3.4, innumerable FDG positive bilateral pulmonary nodules consistent with metastatic disease. Ms Carlos came in to see us and was still having problems with persistent nausea, intermittent vomiting and epigastric pain. She was sent for abdominal sonogram on 05/16/2021 which showed gallstones, and a mass in body and tail of pancreas but no other acute findings. She was referred to gastroenterology- Dr. Mcmahon. An EGD/colonoscopy was scheduled but as per , she could not tolerate bowel prep so they canceled the procedure. Did undergo EGD per Dr. Mcmahon on 06/07/2021 and in the lower 3rd esophagus reflux esophagitis was present there was no bleeding associated with esophagitis and at the gastroesophageal junction in the free lower area moderate's stripped gastritis was also seen. Is found to be erythematous and erosive but no mucosal bleeding. The duodenum was examined with no abnormalities reported. She has not yet had colonoscopy as she could not tolerate the prep. Ms Carlos was started on palliative chemotherapy with Abraxane/gemcitabine on 05/30/2021. She was able to complete cycle 1 with day 1, 8 and 15 treatment. , Later on switched to day 1 and day 8 only as patient could not tolerate day 15 schedule. Follow-up CT PET scan done after 4 cycles on August 24, 2021 shows bilateral pleural-based disease, with a nodular soft tissue changes most of these are below 2 cm in diameter with SUV of 4-5 range. Patient has severe interstitial lung disease throughout both lungs. No mediastinal lymphadenopathy, no active disease below diaphragm, thickening of distal esophagus may represent esophagitis. No bony lesion. CT PET scan done on November 19, 2021 showed there are no findings for an active primary pancreatic adenocarcinoma, hepatic uptake is physiologic with no finding for metastatic disease. Scattered mesenteric lymph nodes are subcentimeter in size and FDG negative. Multiple pleural-based bilateral solid nodules are minimally FDG positive, suggestive of treated malignancy. Bilateral cervical lymph nodes are subcentimeter in size and FDG negative. Sclerotic lesion in L5 vertebral body is FDG negative likely treated osseous metastatic disease severe bilateral lung fibrosis and cyst formation is present Came for follow-up, denies any specific complaints, no fever chills, no nausea or vomiting, no diarrhea or constipation, no jaundice, no abdominal pain, no new bony pains, mild peripheral numbness, tolerating systemic therapy with Abraxane/gemcitabine well otherwise Medications: Combivent Respimat 1 Inhalation (of 20-100 mcg/act) Aerosol, solution Inhalation b.i.d., Mucinex 1 Tablet Tablet SR 12 HR Oral daily PRN, Vitamin B6 1 Tablet (of 100 mg) Oral daily Allergies: Codeine Sulfate Review of Systems: Review of Systems is not available for this patient. Vital Signs: Performed on Dec 06, 2021 10:12 Height - 67.00 in Weight - 144.8 lbs (HIGH) BSA - 1.76 sq.m BMI - 22.68 Temperature - 98.3 F (LOW) Pulse - 105 /min (HIGH) Respiration - 18 /min BP - 130/63 mm(hg) O2 Sat - 93 % (LOW) Pain - 0 Fatigue - 6 Performance Status: 0 - Fully active, able to carry on all predisease activities without restrictions. (ECOG) Physical Examination: ENMT - No mouth sores, no thrush, no jaundice, Respiratory - Lungs are clear to auscultation, Cardiovascular - Regular rate and rhythm of heart, Abdomen - Soft, bowel sounds present, Extremities - No visible edema. Lab/Imaging: Test performed on Nov 22, 2021 08:15 Sodium 138 mmol/L Potassium 3.6 mmol/L Chloride 103 mmol/L CO2 24 mmol/L Anion Gap 14.6 BUN 13 mg/dL Creatinine 0.4 mg/dL Cr Clearance (Est) 133.0200 mL/min eGFR 158.7 mL/min Glucose 122 mg/dL Osmolality - Calculated 287 mOsm/kg Calcium 9.3 mg/dL Protein, Total 6.5 g/dL Albumin 3.7 g/dL Globulin 2.8 g/dL Bilirubin, Total 0.2 mg/dL ALT (SGPT) 34 U/L AST (SGOT) 26 U/L Alkaline Phosphatase 65 IU/L WBC 6.5 10 3/uL Manual Segs % 41 % Manual Bands % 3.0 % RBC 3.69 10 6/uL HGB 10.9 g/dL Manual Lymphs % 34 % Atypical Lymphs % 5.0 % HCT 34.9 % MCV 94.6 fl Total Cells Counted 100 Manual Monos % 8.0 % MCH 29.5 pg Manual Eos % 1 % MCHC 31.2 g/dL Manual Basos % 1.0 % RDW 18.8 % Metamyelocytes % 4.0 % Platelet Count 243 10 3/cmm MPV 10.3 fL Myelocytes % 3.0 % CBC Slide Review Slide Review Perform Anisocytosis 2+ Poikilocytosis 1+ Ovalocytes 1+ Platelet Estimate Normal Manual Segs Abs 2.7 10/cmm Manual Bands Abs 0.2 10 3/cmm Manual Neutrophils Abs 2.9 10 3/cmm Manual Lymphocytes Abs 2.5 10 3/cmm Manual Monocytes Abs 0.5 10 3/cmm Manual Eosinophils Abs 0.0 10 3/cmm Manual Basophils Abs 0.1 10 3/cmm Test performed on Nov 15, 2021 09:50 Neutrophils 2.18 10 3/uL Lymphocytes 1.4 10 3/uL Monocytes 0.7 10 3/uL Eosinophils 0.2 10 3/uL Basophils 0.0 10 3/uL Neutrophil % 49.0 % Lymphocyte % 30.4 % Monocyte % 14.9 % Eosinophil % 3.8 % Basophils % 0.5 % NRBC % 0 % Test performed on Oct 11, 2021 11:14 Ferritin 701 ng/mL Iron 28 mcg/dL Iron Binding Capacity (TIBC) 199 mcg/dl % Iron Saturation 14.0 % UIBC 171 mcg/dL Test performed on Oct 04, 2021 08:23 CA 19-9 76.01 U/mL Test performed on Jun 20, 2021 10:25 CA 15-3 45.4 U/mL CA 27.29 94 U/mL CA-125 80.8 U/mL Impression: Metastatic Adenocarcinoma with mucinous features per CT-guided left lung mass biopsy done on April 26, 2021, Most likely pancreatic as CT PET scan showed 3.2 x 5.3 cm pancreatic body mass with extensive intra-abdominal lymphadenopathy and left cervical level 4 lymphadenopathy and innumerable bilateral pulmonary nodules FDG positive and tumor marker CA 19???9 was 379, Clinically stage IV pancreatic cancer CT scan of chest abdomen pelvis done on April 21, 2021 shows multiple soft tissue nodules and small masses identified throughout both lungs,. No significant lymphadenopathy in the chest. Altered contour and attenuation in the body of pancreas may represent pancreatic mass. Mild retroperitoneal lymphadenopathy. Largest node measures slightly over centimeter in greatest short axis dimension and is seen along the left pericaval region. Sigmoid diverticulosis Left posterior lateral chest wall pain etiology unclear could be musculoskeletal or metastatic disease, Started on Abraxane/gemcitabine on May 30, 2021, follow-up CT PET scan done on November 20, 2019 showed physiologic pancreatic and hepatic uptake without evidence of active disease. Subcentimeter mesenteric and upper abdominal lymph nodes without significant activity. Bilateral pulmonary fibrosis and cyst formation. Bilateral cervical lymph nodes are subcentimeter in size are FDG negative. Possible treated osseous metastatic disease at L5. h/o Dehydration/poor oral intake due to nausea/dry heaves/off and on vomiting etiology could be multifactorial including brain mets versus NSAID induced gastritis or peptic ulcer disease or gastric outlet obstruction due to pancreatic mass Dry cough, etiology unclear could be due to postnasal drip or bronchial irritation due to pulmonary pathology Plan: Discussed with patient regarding her labs white blood count 5.7 hemoglobin 10.9 g compared to 10.1 previously hematocrit 34 platelets 344,000 CMP within normal limits Clinically, patient doing well with no new signs symptoms suggestive of disease progression, tolerating palliative therapy with Abraxane/gemcitabine well, will proceed with cycle #9/day 1 of gemcitabine/Abraxane, today and then she will return to clinic in 1 week with CBC CMP if reasonable, day 8 chemotherapy with Abraxane/gemcitabine Signed By: Johnny Luna M.D. <<Signature on File>>
[2021-12-13 09:30] LABS: Hemoglobin 11.1 g/dL (11.5-15.3); Mean Corpuscular HGB Conc 31.7 g/dL (30.0-36.0); Mean Corpuscular Hemoglobin 29.8 pg (28.0-34.0); Mean Corpuscular Volume 93.8 fl (81-99); Mean Platelet Volume 9.9 fL (7.4-10.4); Platelet Count 273 10^3/cmm (130-400); Red Blood Count 3.73 10^6/uL (4.1-5.3); Red Cell Distribution Width 19.1 % (12.1-15.1); White Blood Count 6.5 10^3/uL (4.0-10.0)
[2021-12-13 09:37] LABS: Alanine Aminotransferase 34 U/L (0-33); Albumin Level 3.7 g/dL (3.5-5.2); Alkaline Phosphatase 59 IU/L (35-105); Aspartate Amino Transferase 29 U/L (0-32); Blood Urea Nitrogen 14 mg/dL (8-23); Calcium 9.5 mg/dL (8.5-10.5); Carbon Dioxide 25 mmol/L (22-29); Chloride 102 mmol/L (98-107); Globulin 2.8 g/dL (1.3-4.6); Glomerular Filtration Rate 122.7 mL/min (90-130); Glucose 131 mg/dL (65-115); Osmolality Calculated 288 mOsm/kg (285-295); Sodium 138 mmol/L (136-145); Total Bilirubin 0.3 mg/dL (0.15-1.2); Total Protein 6.5 g/dL (6.6-8.7)
[2021-12-13 09:56] LABS: Absolute Neutrophil 3.4 10^3/cmm (1.4-6.5); Band Neutrophils Absolute 0.5 10^3/cmm (0.0-1.2); Eosinophils 1 %; Lymphocytes 24 %; Lymphocytes Absolute 1.8 10^3/cmm (1.2-3.4); Monocytes Absolute 0.8 10^3/cmm (0.1-0.6); Platelet Estimate Normal (Normal); Segmented Neutrophils 46 %; Slide Review Slide Review Perform; Total Cells Counted 100 (0-100)
[2021-12-13] MEDS: sodium chloride 0.9% 250 ML 75 ML IV (11:00)
[2021-12-13] MEDS: palonosetron 0.25 mg/5 mL SDV IV (11:00)
[2021-12-13] MEDS: famotidine 20 mg/2 mL INJ IVP (11:01)
--- NOTE | 2021-12-14 09:38 | ONC FU_ITS ---
Dr. Luna follow up note Patient: Charlotte Wynn Unit #: [id number]: [id number] Dicatated By: Johnny Luna M.D.Date of Visit:Dec 13, 2021 Onc Med Follow-up/Prog Note History of Present Illness: Ms. Mukherjee is a 66-year-old female who developed progressive dry cough since December 2020. She also started having sharp, intermittent stabbing, left posterior lateral chest wall pain. She states at that time the ibuprofen did help with the pain. She did not seek further evaluation she was going through significant grieving as she had lost her son in a car accident in December 2020. She fell I did see her PCP on April 04, 2021. She was having persistent cough for which a chest x-ray was ordered. She also was due for screening mammography and colonoscopy. Her chest x-ray did show multiple lung nodules but no other abnormalities. A CT of the chest abdomen pelvis was then obtained on April 21, 2021 which showed multiple soft tissue nodules and small masses identified throughout both lungs. There was no significant lymphadenopathy in the chest. The CT of the abdomen shows altered contour and attenuation in the body of the pancreas, that may represent pancreatic mass . There was mild retroperitoneal lymphadenopathy with the largest node measuring slightly over 1 cm. Sigmoid diverticulosis was noted. Ms. Carlos then had CT-guided biopsy of the left lung on April 26, 2021 and this pathology confirmed adenocarcinoma with mucinous features. CT scan of the head done on 05/05/2021 showed calcified left frontal lesion measuring 10 mm most likely represent small calcified with no other abnormality seen. PET/CT scan on 05/21/2021 showed 3.2 x 5.3 cm pancreatic body mass with SUV of 6.9, subcentimeter peripancreatic lymph node, are FDG positive, gastric hepatic lymph node is FDG positive, bilateral retroperitoneal lymphadenopathy with mild FDG uptake, left cervical level 4 lymph node with SUV of 3.4, innumerable FDG positive bilateral pulmonary nodules consistent with metastatic disease. Ms Carlos came in to see us and was still having problems with persistent nausea, intermittent vomiting and epigastric pain. She was sent for abdominal sonogram on 05/16/2021 which showed gallstones, and a mass in body and tail of pancreas but no other acute findings. She was referred to gastroenterology- Dr. Mcmahon. An EGD/colonoscopy was scheduled but as per , she could not tolerate bowel prep so they canceled the procedure. Did undergo EGD per Dr. Mcmahon on 06/07/2021 and in the lower 3rd esophagus reflux esophagitis was present there was no bleeding associated with esophagitis and at the gastroesophageal junction in the free lower area moderate's stripped gastritis was also seen. Is found to be erythematous and erosive but no mucosal bleeding. The duodenum was examined with no abnormalities reported. She has not yet had colonoscopy as she could not tolerate the prep. Ms Carlos was started on palliative chemotherapy with Abraxane/gemcitabine on 05/30/2021. She was able to complete cycle 1 with day 1, 8 and 15 treatment. , Later on switched to day 1 and day 8 only as patient could not tolerate day 15 schedule. Follow-up CT PET scan done after 4 cycles on August 24, 2021 shows bilateral pleural-based disease, with a nodular soft tissue changes most of these are below 2 cm in diameter with SUV of 4-5 range. Patient has severe interstitial lung disease throughout both lungs. No mediastinal lymphadenopathy, no active disease below diaphragm, thickening of distal esophagus may represent esophagitis. No bony lesion. CT PET scan done on November 19, 2021 showed there are no findings for an active primary pancreatic adenocarcinoma, hepatic uptake is physiologic with no finding for metastatic disease. Scattered mesenteric lymph nodes are subcentimeter in size and FDG negative. Multiple pleural-based bilateral solid nodules are minimally FDG positive, suggestive of treated malignancy. Bilateral cervical lymph nodes are subcentimeter in size and FDG negative. Sclerotic lesion in L5 vertebral body is FDG negative likely treated osseous metastatic disease severe bilateral lung fibrosis and cyst formation is present Came for follow-up, denies any specific complaints, no fever chills, no nausea or vomiting, no diarrhea or constipation, no melena or hematochezia, no jaundice, mild peripheral numbness but stable otherwise tolerating Abraxane/gemcitabine well Medications: Combivent Respimat 1 Inhalation (of 20-100 mcg/act) Aerosol, solution Inhalation b.i.d., Mucinex 1 Tablet Tablet SR 12 HR Oral daily PRN, Vitamin B6 1 Tablet (of 100 mg) Oral daily Allergies: Codeine Sulfate Review of Systems: Review of Systems is not available for this patient. Vital Signs: Performed on Dec 13, 2021 10:29 Height - 67.00 in Weight - 145.6 lbs (HIGH) BSA - 1.77 sq.m BMI - 22.80 Temperature - 98.8 F Pulse - 109 /min (HIGH) Respiration - 18 /min BP - 110/68 mm(hg) O2 Sat - 92 % (LOW) Pain - 0 Fatigue - 5 Performance Status: 0 - Fully active, able to carry on all predisease activities without restrictions. (ECOG) Physical Examination: ENMT - No mouth sores, no thrush, no jaundice, Respiratory - Lungs are clear to auscultation, Cardiovascular - Regular rate and rhythm of heart, Abdomen - Soft, bowel sounds present, Extremities - No visible edema. Lab/Imaging: Test performed on Nov 22, 2021 08:15 Sodium 138 mmol/L Potassium 3.6 mmol/L Chloride 103 mmol/L CO2 24 mmol/L Anion Gap 14.6 BUN 13 mg/dL Creatinine 0.4 mg/dL Cr Clearance (Est) 133.0200 mL/min eGFR 158.7 mL/min Glucose 122 mg/dL Osmolality - Calculated 287 mOsm/kg Calcium 9.3 mg/dL Protein, Total 6.5 g/dL Albumin 3.7 g/dL Globulin 2.8 g/dL Bilirubin, Total 0.2 mg/dL ALT (SGPT) 34 U/L AST (SGOT) 26 U/L Alkaline Phosphatase 65 IU/L WBC 6.5 10 3/uL Manual Segs % 41 % Manual Bands % 3.0 % RBC 3.69 10 6/uL HGB 10.9 g/dL Manual Lymphs % 34 % Atypical Lymphs % 5.0 % HCT 34.9 % MCV 94.6 fl Total Cells Counted 100 Manual Monos % 8.0 % MCH 29.5 pg Manual Eos % 1 % MCHC 31.2 g/dL Manual Basos % 1.0 % RDW 18.8 % Metamyelocytes % 4.0 % Platelet Count 243 10 3/cmm MPV 10.3 fL Myelocytes % 3.0 % CBC Slide Review Slide Review Perform Anisocytosis 2+ Poikilocytosis 1+ Ovalocytes 1+ Platelet Estimate Normal Manual Segs Abs 2.7 10/cmm Manual Bands Abs 0.2 10 3/cmm Manual Neutrophils Abs 2.9 10 3/cmm Manual Lymphocytes Abs 2.5 10 3/cmm Manual Monocytes Abs 0.5 10 3/cmm Manual Eosinophils Abs 0.0 10 3/cmm Manual Basophils Abs 0.1 10 3/cmm Test performed on Nov 15, 2021 09:50 Neutrophils 2.18 10 3/uL Lymphocytes 1.4 10 3/uL Monocytes 0.7 10 3/uL Eosinophils 0.2 10 3/uL Basophils 0.0 10 3/uL Neutrophil % 49.0 % Lymphocyte % 30.4 % Monocyte % 14.9 % Eosinophil % 3.8 % Basophils % 0.5 % NRBC % 0 % Test performed on Oct 11, 2021 11:14 Ferritin 701 ng/mL Iron 28 mcg/dL Iron Binding Capacity (TIBC) 199 mcg/dl % Iron Saturation 14.0 % UIBC 171 mcg/dL Test performed on Oct 04, 2021 08:23 CA 19-9 76.01 U/mL Test performed on Jun 20, 2021 10:25 CA 15-3 45.4 U/mL CA 27.29 94 U/mL CA-125 80.8 U/mL Impression: Metastatic Adenocarcinoma with mucinous features per CT-guided left lung mass biopsy done on April 26, 2021, Most likely pancreatic as CT PET scan showed 3.2 x 5.3 cm pancreatic body mass with extensive intra-abdominal lymphadenopathy and left cervical level 4 lymphadenopathy and innumerable bilateral pulmonary nodules FDG positive and tumor marker CA 19???9 was 379, Clinically stage IV pancreatic cancer CT scan of chest abdomen pelvis done on April 21, 2021 shows multiple soft tissue nodules and small masses identified throughout both lungs,. No significant lymphadenopathy in the chest. Altered contour and attenuation in the body of pancreas may represent pancreatic mass. Mild retroperitoneal lymphadenopathy. Largest node measures slightly over centimeter in greatest short axis dimension and is seen along the left pericaval region. Sigmoid diverticulosis Left posterior lateral chest wall pain etiology unclear could be musculoskeletal or metastatic disease, Started on Abraxane/gemcitabine on May 30, 2021, follow-up CT PET scan done on November 20, 2019 showed physiologic pancreatic and hepatic uptake without evidence of active disease. Subcentimeter mesenteric and upper abdominal lymph nodes without significant activity. Bilateral pulmonary fibrosis and cyst formation. Bilateral cervical lymph nodes are subcentimeter in size are FDG negative. Possible treated osseous metastatic disease at L5. h/o Dehydration/poor oral intake due to nausea/dry heaves/off and on vomiting etiology could be multifactorial including brain mets versus NSAID induced gastritis or peptic ulcer disease or gastric outlet obstruction due to pancreatic mass Dry cough, etiology unclear could be due to postnasal drip or bronchial irritation due to pulmonary pathology Plan: Discussed with patient regarding her labs white blood count 6.5 hemoglobin 11.1 g hematocrit 35 platelets 273,000 CMP within normal limits Clinically, patient doing well with no new signs symptom suggestive of disease progression, tolerating systemic chemotherapy with Abraxane/gemcitabine well, will proceed with cycle number 9-day 8 today and then she will return to clinic in 2 weeks with CBC CMP, if reasonable, next for next cycle Signed By: Johnny Luna M.D. <<Signature on File>>
== END 2021-12-24 23:59 | disposition home or self-care (01) ==
LOC: ONCMED 06:40
PROVIDERS: PCP Nurse Practitioner Family; Visit Provider Internal Medicine Hematology & Oncology
DX: Z51.11 Encounter for antineoplastic chemotherapy (principal); C25.0 Malignant neoplasm of head of pancreas; C78.02 Secondary malignant neoplasm of left lung; C78.01 Secondary malignant neoplasm of right lung; C77.8 Secondary and unspecified malignant neoplasm of lymph nodes of multiple regions; K57.30 Diverticulosis of large intestine without perforation or abscess without bleeding; J84.10 Pulmonary fibrosis, unspecified; E86.0 Dehydration; R05.9 Cough, unspecified; Z79.899 Other long term (current) drug therapy
CPT/HCPCS: 80053; 85007; 85025; 96367; 96375; 96413; 96417; 99215; J1100; J2469; J3490; J7050; J9201; J9264

== ENCOUNTER 2022-01-05 07:05 | Outpatient (CLI) | payer MEDICARE, SELFPAY ==
--- NOTE | 2022-01-05 14:42 | PFTS_ITS ---
Date of Study:01/05/22 Date of Dictation: 01/09/2022 MECHANICS: Postbronchodilator forced vital capacity (FVC) is reduced 1.77 L 55% predicted Postbronchodilator forced expiratory volume in one second (FEV1) is severely reduced 1.19 L 47% predicted FEV1/FVC is reduced. There is no significant bronchodilator response. FLOW VOLUME LOOP: Slanting of expiratory limb suggestive of severe airflow obstruction . LUNG VOLUMES: Total lung capacity (TLC) is normal. Residual volume (RV) is increased suggestive of severe air trapping. DIFFUSING CAPACITY FOR CARBON MONOXIDE: Moderately reduced 29% INTERPRETATION: The pulmonary function tests are consistent with severe airflow obstruction on spirometry with no significant bronchodilator response. There is severe air trapping on lung volumes and moderate gas transfer defect consistent with severe COPD/emphysema. Correlate clinically. MTDD
== END 2022-01-05 07:06 | disposition home or self-care (01) ==
LOC: RT 07:06
PROVIDERS: PCP Nurse Practitioner Family; Visit Provider Nurse Practitioner Family
DX: R05.9 Cough, unspecified (principal); F17.210 Nicotine dependence, cigarettes, uncomplicated
CPT/HCPCS: 94060; 94726; 94729

== ENCOUNTER 2022-01-16 14:55 | Outpatient (RCR) | payer MEDICARE, SELFPAY | END 2022-01-24 23:59 | disposition home or self-care (01) | LOC: PULRHB 14:55 | PROVIDERS: PCP Nurse Practitioner Family; Visit Provider Internal Medicine Pulmonary Disease | DX: C34.90 Malignant neoplasm of unspecified part of unspecified bronchus or lung (principal) | CPT/HCPCS: G0237; G0238 ==

== ENCOUNTER 2022-01-17 09:30 | Oncology outpatient (recurring) (ONCR) | payer MEDICARE, SELFPAY ==
[2021-12-28 10:03] LABS: Basophils % 0.5 %; Eosinophils # 0.2 10^3/uL (0.0-0.8); Eosinophils % 3.4 %; Hematocrit 36.1 % (37.0-47.0); Hemoglobin 11.2 g/dL (11.5-15.3); Lymphocytes # 1.5 10^3/uL (0.8-4.8); Lymphocytes % 26.2 %; Mean Corpuscular Hemoglobin 29.6 pg (28.0-34.0); Mean Corpuscular Volume 95.3 fl (81-99); Mean Platelet Volume 11.4 fL (7.4-10.4); Monocytes % 17.9 %; Neutrophils # 2.81 10^3/uL (1.8-7.7); Neutrophils % 50.9 %; Nucleated Red Blood Cells % 0 %; Platelet Count 385 10^3/cmm (130-400); Red Blood Count 3.79 10^6/uL (4.1-5.3); Red Cell Distribution Width 18.9 % (12.1-15.1); White Blood Count 5.5 10^3/uL (4.0-10.0)
[2021-12-28 10:26] LABS: Alanine Aminotransferase 18 U/L (0-33); Albumin Level 3.9 g/dL (3.5-5.2); Alkaline Phosphatase 68 IU/L (35-105); Anion Gap 13.9 (5-19); Aspartate Amino Transferase 21 U/L (0-32); Blood Urea Nitrogen 10 mg/dL (8-23); Calcium 9.3 mg/dL (8.5-10.5); Carbon Dioxide 27 mmol/L (22-29); Chloride 104 mmol/L (98-107); Globulin 2.2 g/dL (1.3-4.6); Glomerular Filtration Rate 158.7 mL/min (90-130); Glucose 101 mg/dL (65-115); Osmolality Calculated 291 mOsm/kg (285-295); Potassium 3.9 mmol/L (3.5-5.1); Sodium 141 mmol/L (136-145); Total Bilirubin 0.5 mg/dL (0.15-1.2); Total Protein 6.1 g/dL (6.6-8.7)
[2021-12-28] MEDS: sodium chloride 0.9% 250 ML 75 ML IV (12:05)
[2021-12-28] MEDS: famotidine 20 mg/2 mL INJ IVP (12:06)
[2021-12-28] MEDS: palonosetron 0.25 mg/5 mL SDV IVP (12:06)
[2021-12-28] MEDS: cyanocobalamin 1,000 mcg/mL SDV 1000 MCG IM (12:07)
[2021-12-28] MEDS: gemcitabine 1,800 MG in sodium chloride 0.9% (100 ml) 100 ML 200 MG IV (13:32)
[2021-12-28 16:21] VITALS: BP 125/77; PULSE 66; RESP 20; TEMP 36.7; O2SAT 99
[2022-01-03 08:58] LABS: Hematocrit 34.1 % (37.0-47.0); Hemoglobin 10.8 g/dL (11.5-15.3); Mean Corpuscular HGB Conc 31.7 g/dL (30.0-36.0); Mean Corpuscular Hemoglobin 29.8 pg (28.0-34.0); Mean Corpuscular Volume 94.2 fl (81-99); Platelet Count 255 10^3/cmm (130-400); Red Blood Count 3.62 10^6/uL (4.1-5.3); White Blood Count 3.7 10^3/uL (4.0-10.0)
[2022-01-03 09:19] LABS: Alanine Aminotransferase 29 U/L (0-33); Albumin Level 3.6 g/dL (3.5-5.2); Alkaline Phosphatase 57 IU/L (35-105); Anion Gap 12.7 (5-19); Aspartate Amino Transferase 29 U/L (0-32); Blood Urea Nitrogen 14 mg/dL (8-23); Calcium 9.2 mg/dL (8.5-10.5); Carbon Dioxide 28 mmol/L (22-29); Chloride 101 mmol/L (98-107); Globulin 2.8 g/dL (1.3-4.6); Glomerular Filtration Rate 221.2 mL/min (90-130); Glucose 96 mg/dL (65-115); Osmolality Calculated 286 mOsm/kg (285-295); Potassium 3.7 mmol/L (3.5-5.1); Sodium 138 mmol/L (136-145); Total Bilirubin 0.4 mg/dL (0.15-1.2); Total Protein 6.4 g/dL (6.6-8.7)
[2022-01-03 09:36] LABS: Slide Review Slide Review Perform
[2022-01-03 09:39] LABS: Absolute Segmented Neutrophil 2.3 10/cmm (1.6-7.1); Band Neutrophils Absolute 0.3 10^3/cmm (0.0-1.2); Eosinophils 1 %; Lymphocytes 22 %; Monocytes Absolute 0.1 10^3/cmm (0.1-0.6); Segmented Neutrophils 61 %; Total Cells Counted 100 (0-100)
[2022-01-03 09:40] LABS: Absolute Neutrophil 2.6 10^3/cmm (1.4-6.5); Lymphocytes Absolute 0.8 10^3/cmm (1.2-3.4); Platelet Estimate Normal (Normal); Poikilocytosis 1+
[2022-01-03] MEDS: sodium chloride 0.9% 250 ML 75 ML IV (11:14)
[2022-01-03] MEDS: famotidine 20 mg/2 mL INJ IVP (11:16)
[2022-01-03] MEDS: palonosetron 0.25 mg/5 mL SDV IVP (11:19)
[2022-01-03] MEDS: gemcitabine 1,800 MG in sodium chloride 0.9% (100 ml) 100 ML 200 MG IV (12:39)
[2022-01-03 13:26] VITALS: BP 141/84; PULSE 93; TEMP 37.1; O2SAT 97
[2022-01-17 09:53] LABS: Basophils % 0.6 %; Eosinophils # 0.2 10^3/uL (0.0-0.8); Eosinophils % 3.9 %; Hematocrit 34.8 % (37.0-47.0); Hemoglobin 11.1 g/dL (11.5-15.3); Lymphocytes # 1.5 10^3/uL (0.8-4.8); Lymphocytes % 30.6 %; Mean Corpuscular HGB Conc 31.9 g/dL (30.0-36.0); Mean Corpuscular Hemoglobin 29.4 pg (28.0-34.0); Mean Corpuscular Volume 92.1 fl (81-99); Mean Platelet Volume 10.4 fL (7.4-10.4); Monocytes % 20.3 %; Neutrophils # 2.12 10^3/uL (1.8-7.7); Neutrophils % 43.6 %; Nucleated Red Blood Cells % 0 %; Platelet Count 379 10^3/cmm (130-400); Red Blood Count 3.78 10^6/uL (4.1-5.3); Red Cell Distribution Width 18.4 % (12.1-15.1); White Blood Count 4.9 10^3/uL (4.0-10.0)
[2022-01-17 10:44] LABS: Alanine Aminotransferase 17 U/L (0-33); Albumin Level 3.6 g/dL (3.5-5.2); Alkaline Phosphatase 61 IU/L (35-105); Anion Gap 12.9 (5-19); Aspartate Amino Transferase 22 U/L (0-32); Blood Urea Nitrogen 14 mg/dL (8-23); CA 125 52.6 U/mL (0-35); Calcium 8.8 mg/dL (8.5-10.5); Cancer Antigen 19 9 48.92 U/mL (0-35); Carbon Dioxide 27 mmol/L (22-29); Chloride 102 mmol/L (98-107); Ferritin 927 ng/mL (15-150); Globulin 2.8 g/dL (1.3-4.6); Glomerular Filtration Rate 158.7 mL/min (90-130); Glucose 94 mg/dL (65-115); Iron 38 ug/dL (37-145); Osmolality Calculated 286 mOsm/kg (285-295); Percent Saturation 20.1 % (20-50); Potassium 3.9 mmol/L (3.5-5.1); Sodium 138 mmol/L (136-145); Total Bilirubin 0.6 mg/dL (0.15-1.2); Total Iron Binding Capacity 189 mcg/dl; Total Protein 6.4 g/dL (6.6-8.7); Unsaturated Iron Binding 151 ug/dL (112-347); Vitamin B12 1201 pg/mL (232-1245)
[2022-01-17] MEDS: sodium chloride 0.9% 250 ML 75 ML IV (11:38)
[2022-01-17] MEDS: palonosetron 0.25 mg/5 mL SDV IVP (11:39)
[2022-01-17] MEDS: famotidine 20 mg/2 mL INJ IVP (11:40)
[2022-01-17] MEDS: gemcitabine 1,800 MG in sodium chloride 0.9% (100 ml) 100 ML 200 MG IV (12:53)
[2022-01-17 13:50] VITALS: BP 119/59; PULSE 90; RESP 16; TEMP 36.6; O2SAT 92
== END 2022-01-24 23:59 | disposition home or self-care (01) ==
PROVIDERS: Internal Medicine Hematology & Oncology; PCP Nurse Practitioner Family; Visit Provider Nurse Practitioner Family
DX: Z51.11 Encounter for antineoplastic chemotherapy (principal); C25.1 Malignant neoplasm of body of pancreas; C78.01 Secondary malignant neoplasm of right lung; C78.02 Secondary malignant neoplasm of left lung; C77.8 Secondary and unspecified malignant neoplasm of lymph nodes of multiple regions; K57.30 Diverticulosis of large intestine without perforation or abscess without bleeding; E86.0 Dehydration; R05.9 Cough, unspecified; D64.9 Anemia, unspecified; R97.8 Other abnormal tumor markers; Z79.899 Other long term (current) drug therapy
CPT/HCPCS: 36591; 80053; 82607; 82728; 83540; 83550; 85007; 85025; 86301; 86304; 96367; 96372; 96375; 96413; 96417; 99215; 99999; J1100; J2469; J3420; J3490; J7050; J9201; J9264

== ENCOUNTER → 2022-01-20 09:19 | Outpatient (BNVA) | payer MEDICARE, SELFPAY | PROVIDERS: PCP Nurse Practitioner Family; Visit Provider Internal Medicine Pulmonary Disease | DX: R05.8 Other specified cough (principal); K86.89 Other specified diseases of pancreas; J43.9 Emphysema, unspecified; J84.10 Pulmonary fibrosis, unspecified; J98.4 Other disorders of lung; Z87.891 Personal history of nicotine dependence; R07.89 Other chest pain | CPT/HCPCS: 99214 ==

== ENCOUNTER 2022-01-25 06:00 | Outpatient (RCR) | payer MEDICARE, SELFPAY | END 2022-02-23 23:59 | disposition home or self-care (01) | LOC: PULRHB 06:00 | PROVIDERS: PCP Nurse Practitioner Family; Visit Provider Internal Medicine Pulmonary Disease | DX: C34.90 Malignant neoplasm of unspecified part of unspecified bronchus or lung (principal) | CPT/HCPCS: G0237; G0238; G0239 ==

== ENCOUNTER 2022-02-01 09:10 | Emergency (ER) | payer MEDICARE, SELFPAY ==
--- NOTE | 2022-02-01 09:56 | XR_ITS ---
WS: [id number] Exam: XR chest 1V portable [id number] Date/Time of Exam: 02/01/2022 9:56 AM Reason For Exam: dyspnea/cough Comparison 07/05/2021. Extensive changes of fibrosis and honeycombing noted throughout both lungs. No areas of consolidation . No pneumothorax or pleural effusion. Cardiomediastinal silhouette is normal. A right-sided subclavi an port ends in the lower one third of the SVC in good position. Bony structures are intact. XR/XR chest 1V portable [id number] IMPRESSION: 1. Advanced changes of fibrosis and honeycombing. 2. No consolidated infiltrates or pneumothorax.
[2022-02-01 10:41] VITALS: BP 94/62; PULSE 109; RESP 18; TEMP 37; O2SAT 99; BMI 21.9
--- NOTE | 2022-02-01 12:19 | W.ED.GENADLT ---
HPI - General Adult General: Chief complaint: Weakness Stated complaint: sent to ER per Dr. Luna weakness/cough Time Seen by Provider: 02/01/22 09:12 History of Present Illness: Patient is a 58-year-old female with history of primary pancreatic adenocarcinoma currently on chemotherapy, last round chemotherapy was on 01/25/2022 presenting to the emergency room with complaints of generalized weakness, decreased p.o. intake, diarrhea, persistent cough since Sunday. Patient tells me that symptoms has not improved. Patient denies any fever or chills but require Cipro decreased appetite. Patient tells me that she has been having loose stools daily. Patient denies any blood in the stool, melena/hematochezia. No complaints currently. Patient denies any sick contacts around her. Denies any body aches or joint pain. Patient tells me that she has a whitish productive phlegm. Patient also tells me that at baseline she is on oxygen and has been found herself using oxygen at home since Sunday. Onset:5 days ago Duration:5 days Location:home Severity:mild/moderate Associated symptoms: Reports malaise; Deny chest pain, dyspnea, nausea, rash, palpitations or vomiting Review of Systems Const: Reports: fatigue, malaise and other (+generalized weakness); Denies: fever(s) or chills Eyes: Denies: change in vision ENMT: Denies: mouth pain Card: Denies: chest pain or palpitations Resp: Reports: non-productive cough; Denies: dyspnea GI: Reports: diarrhea (+loose stool) and other (+decreased appetite); Denies: nausea or vomiting : Denies: dysuria Musc: Denies: extremity pain Skin/Breast: Denies: rash Neuro: Denies: weakness in extremities Psych: Reports: other (Normal mood) Kane/Lymph: Denies: easy bruising PFSH ED PFSH: Family History Mother Diabetes Denies family history of CAD (coronary artery disease) Clotting disorder Dementia Hyperlipidemia Psychiatric illness Chronic kidney disease (CKD) Suicide Anesthesia complication Bleeding disorder Lung disease Cancer Hypertension Stroke Social History Smoking and tobacco status: former smoker Quit status (tobacco): has quit using tobacco Year quit tobacco: 1990 Former quit date comment: 0.5ppd x 10 years Alcohol intake: never Female Reproductive History: Date of last menstrual period: 11/18/20 Physical Exam Const: COMMON NORMALS: alert HENMT: COMMON NORMALS: atraumatic HEAD & SCALP: atraumatic MOUTH: moist mucous membranes not abnormal Eye: COMMON NORMALS: EOMs intact bilaterally and conjunctivae normal CONJUNCTIVA: Yes conjunctivae normal Neck/C-Spine: COMMON NORMALS: full ROM and supple Resp: COMMON NORMALS: normal respiratory effort and clear to auscultation bilaterally AUSCULTATION: clear to auscultation bilaterally OTHER: + No wheezes, crackles, rhonchi Cardio: COMMON NORMALS: regular rate RATE: regular rate GI: COMMON NORMALS: Soft to palpation and non-tender PALPATION: Yes Soft to palpation OTHER: No focal TTP. NO guarding rebound, guarding, rigidity. No CVA tenderness to percussion. Neg Mobley/Neg McBurney's point tenderness, no suprabupic tenderness to palpation. Extremity: COMMON NORMALS: full ROM Neuro: SENSORIUM/ORIENTATION: Yes alert MOTOR EXAM: No Abnormal motor strength present and Other motor observations present (no focal motor deficits) Psych: COMMON NORMALS: speech normal SPEECH: Yes normal speech MOOD & AFFECT: Yes euthymic mood Course Vital Signs: Vital signs: Vital Signs Temperature 98.6 F 02/01/22 10:41 Pulse Rate 91 02/01/22 13:40 Respiratory Rate 16 02/01/22 13:40 Blood Pressure 111/74 02/01/22 13:40 Pulse Oximetry 99 02/01/22 13:40 [facility] - General Adult Medical Decision Making 66-year-old female with a history of pancreatic adenocarcinoma on chemotherapy presenting to the emergency room for evaluation of generalized weakness, decreased p.o. intake, loose stool, and ongoing cough. On physical exam, patient is afebrile. No focal findings. X-ray chest negative for any acute pathology. Patient not neutropenic currently. White count of 2.1 with an ANC of 700. Creatinine within normal limit. Hemoglobin similar to baseline. UA showed ketones. Patient received IVF, GI cocktail and is able to tolerate p.o. in the emergency room. Patient has not had any fever at any point today. X-ray chest clear. Swabs have been sent. At the present time, given patient is afebrile, performed shared decision making for admission versus going home. I explained to the patient that she would benefit from IVF and hospitalization. The patient elects to go home with close follow-up PCP. Rx tylenol PRN abd pain, maalox/pepcid PRN dyspepsia, and zofran PRN nausea/vomiting Disposition: Discharge. Patient counseled regarding diagnostic impression, treatment plan. Patient given ED strict return precautions to return for continuation, worsening, or development of new symptoms. Instructed to f/u w/ PCP regarding symptoms today. Patient verbalized understanding. She was given strict return precaution for any signs of fever or any new or concerning complaints. At 2:57 PM I have discussed case with Dr. Luna who tells me that he prefer the patient go home with a prescription for ciprofloxacin since patient is neutropenic. We have called the patient and gave patient a prescription for 500 mg twice daily x10 days of ciprofloxacin. Patient instructed to continue taking antibiotics for concerns of diarrhea. Lab Data : 02/01/22 12:57 02/01/22 12:57 Radiology Impressions Chest X-Ray 02/01/22 09:56 IMPRESSION: 1. Advanced changes of fibrosis and honeycombing. 2. No consolidated infiltrates or pneumothorax. Laboratory Results WBC 2.1 10^3/uL (4.0-10.0) L 02/01/22 12:57 RBC 3.38 10^6/uL (4.1-5.3) L 02/01/22 12:57 Hgb 9.8 g/dL (11.5-15.3) L 02/01/22 12:57 Hct 31.3 % (37.0-47.0) L 02/01/22 12:57 MCV 92.6 fl (81-99) 02/01/22 12:57 MCH 29.0 pg (28.0-34.0) 02/01/22 12:57 MCHC 31.3 g/dL (30.0-36.0) 02/01/22 12:57 RDW 18.0 % (12.1-15.1) H 02/01/22 12:57 Plt Count 132 10^3/cmm (130-400) 02/01/22 12:57 MPV 10.0 fL (7.4-10.4) 02/01/22 12:57 Lymph % (Auto) Not Reportable 02/01/22 12:57 Phillips % (Auto) Not Reportable 02/01/22 12:57 Neut # (Auto) Merchandising Intern 02/01/22 12:57 Lymph # (Auto) Not Reportable 02/01/22 12:57 Phillips # (Auto) Not Reportable 02/01/22 12:57 Total Counted 100 (0-100) 02/01/22 12:57 Atypical Lymphs % 21.0 % (0-5) H 02/01/22 12:57 Absolute Neutrophils 0.7 10^3/cmm (1.4-6.5) L* 02/01/22 12:57 Segmented Neutrophils 35 % 02/01/22 12:57 Abs Segm Neuts (Man) 0.7 10/cmm (1.6-7.1) L 02/01/22 12:57 Band Neutrophils 0.0 % 02/01/22 12:57 Abs Band Neuts (Man) 0.0 10^3/cmm (0.0-1.2) 02/01/22 12:57 Absolute Lymphocytes 1.2 10^3/cmm (1.2-3.4) 02/01/22 12:57 Lymphocytes (Manual) 34 % 02/01/22 12:57 Monocytes (Manual) 3.0 % 02/01/22 12:57 Absolute Monocytes 0.1 10^3/cmm (0.1-0.6) 02/01/22 12:57 Eosinophils (Manual) 7 % 02/01/22 12:57 Absolute Eosinophils 0.1 10^3/cmm (0.0-0.7) 02/01/22 12:57 Basophils (Manual) 0.0 % 02/01/22 12:57 Absolute Basophils 0.0 10^3/cmm (0.0-0.2) 02/01/22 12:57 Platelet Estimate Normal (Normal) 02/01/22 12:57 Sodium 136 mmol/L (136-145) 02/01/22 12:57 Potassium 4.3 mmol/L (3.5-5.1) 02/01/22 12:57 Chloride 99 mmol/L (98-107) 02/01/22 12:57 Carbon Dioxide 26 mmol/L (22-29) 02/01/22 12:57 Anion Gap 15.3 (5-19) 02/01/22 12:57 BUN 19 mg/dL (8-23) 02/01/22 12:57 Creatinine 0.4 mg/dL (0.5-0.9) L 02/01/22 12:57 GFR Calculation 158.7 mL/min (90-130) H 02/01/22 12:57 Glucose 72 mg/dL (65-115) 02/01/22 12:57 Calculated Osmolality 283 mOsm/kg (285-295) L 02/01/22 12:57 Calcium 8.6 mg/dL (8.5-10.5) 02/01/22 12:57 Total Bilirubin 0.8 mg/dL (0.15-1.2) 02/01/22 12:57 AST 27 U/L (0-32) 02/01/22 12:57 ALT 28 U/L (0-33) 02/01/22 12:57 Alkaline Phosphatase 62 IU/L (35-105) 02/01/22 12:57 C-Reactive Protein 64.4 mg/L (0.0-4.9) H 02/01/22 12:57 Total Protein 6.1 g/dL (6.6-8.7) L 02/01/22 12:57 Albumin 3.5 g/dL (3.5-5.2) 02/01/22 12:57 Globulin 2.6 g/dL (1.3-4.6) 02/01/22 12:57 Lipase 16 U/L (13-60) 02/01/22 12:57 Procalcitonin 0.11 ng/mL (0-0.5) 02/01/22 12:57 Urine Color Dark yellow (Yellow) 02/01/22 13:55 Urine Appearance Clear (CLEAR) 02/01/22 13:55 Urine pH 5 (5-7) 02/01/22 13:55 Ur Specific [place] 1.025 (1.005-1.030) 02/01/22 13:55 Urine Protein Trace (Negative) 02/01/22 13:55 Urine Glucose (UA) Norm (Normal) 02/01/22 13:55 Urine Ketones 2+ (Negative) H 02/01/22 13:55 Urine Blood Neg (Negative) 02/01/22 13:55 Urine Nitrate Negative (Negative) 02/01/22 13:55 Urine Bilirubin 1+ (Negative) H 02/01/22 13:55 Urine Urobilinogen 4 mg/dL (Negative) H 02/01/22 13:55 Ur Leukocyte Esterase Trace (Negative) H 02/01/22 13:55 Nasal Influ A H1 2009 PCR Not detected (NOT DETECT) 02/01/22 12:44 Adenovirus (PCR) Not detected (NOT DETECT) 02/01/22 12:44 C. pneumoniae DNA (PCR) Not detected (NOT DETECT) 02/01/22 12:44 Coronavirus 229E (PCR) Cancelled 02/01/22 12:44 Coronavirus 229E (PCR) Not detected (NOT DETECT) 02/01/22 12:44 Human Metapneumovir PCR Not detected (NOT DETECT) 02/01/22 12:44 Influenza A (H1) PCR Not detected (NOT DETECT) 02/01/22 12:44 Influenza A (H3) PCR Not detected (NOT DETECT) 02/01/22 12:44 Influenza Type A Ag Cancelled 02/01/22 12:44 Influenza Type A (PCR) Not detected (NOT DETECT) 02/01/22 12:44 Influenza Type B Ag Cancelled 02/01/22 12:44 Influenza Type B (PCR) Not detected (NOT DETECT) 02/01/22 12:44 M. pneumoniae (PCR) Not detected (NOT DETECT) 02/01/22 12:44 Parainfluenza 1 (PCR) Not detected (NOT DETECT) 02/01/22 12:44 Parainfluenza 2 (PCR) Not detected (NOT DETECT) 02/01/22 12:44 Parainfluenza 3 (PCR) Not detected (NOT DETECT) 02/01/22 12:44 Parainfluenza 4 (PCR) Not detected (NOT DETECT) 02/01/22 12:44 RSV Type A (PCR) Not detected (NOT DETECT) 02/01/22 12:44 RSV Type B (PCR) Not detected (NOT DETECT) 02/01/22 12:44 Entero/Rhino (PCR) Not detected (NOT DETECT) 02/01/22 12:44 SARS-CoV-2 (PCR) Cancelled 02/01/22 12:44 SARS-CoV-2 (PCR) Not detected (NOT DETECT) 02/01/22 12:44 Imaging Data Other Imaging: Radiologist's impression: [address] [address] XRay Report Signed Patient: Charlotte Wynn Unit #: [id number] : [id number] Age/Sex: 66 / F ADM Date: 02/01/22 Loc: ER Room/Bed: Attending Dr: Ordering Provider/Ordering MD: Benito Weston DO Date of Service: 02/01/22 Procedure(s): XR chest 1V portable [id number] Accession Number(s): [id number] Report Number: [id number] WS: [id number] Exam: XR chest 1V portable [id number] Date/Time of Exam: 02/01/2022 9:56 AM Reason For Exam: dyspnea/cough Comparison 07/05/2021. Extensive changes of fibrosis and honeycombing noted throughout both lungs. No areas of consolidation. No pneumothorax or pleural effusion. Cardiomediastinal silhouette is normal. A right-sided subclavian port ends in the lower one third of the SVC in good position. Bony structures are intact. XR/XR chest 1V portable [id number] IMPRESSION: 1. Advanced changes of fibrosis and honeycombing. 2. No consolidated infiltrates or pneumothorax. ? Dictated By: Juventino Nguyen DO Signed By: Juventino Nguyen DO Signed Date/Time: 02/01/22 1033 DD/ 1031 Discharge Plan Discharge Clinical Impression: Generalized weakness, Diarrhea, Decrease in appetite Condition: Stable Prescriptions: New Pepcid 20 mg tablet 20 mg PO BID PRN (Reason: abdominal pain) 10 Days Qty: 20 0RF ondansetron 4 mg tablet,disintegrating 4 mg PO TID PRN (Reason: nausea and vomiting) 4 Days Qty: 12 0RF Maalox Advanced 1,000-60 mg tablet,chewable 1 tab PO TID PRN (Reason: abdominal pain) 7 Days Qty: 21 0RF Discharge Orders: Discharge ED (Routine); Ordered 02/01/22 Ordered By: Mushtaq Balderrama Referrals: Shirlene Feldman, CLAIMS MANAGER-C [Primary Care Provider] - Discharge Diet: Advance as tolerated Discharge Activity: Increase activity as tolerated Activity Restrictions/Additional Instructions: Please come back if you have any worsening abdominal pain, fever or chills, nausea or vomiting, diarrhea, blood in the stool, inability hold down liquid or solids, or any new concerning complaints. Coding Level of Care Code ED Supervisor Assembly Department for Chg Fwd Exam Comprehensive
[2022-02-01 12:25] VITALS: BP 105/65; PULSE 96; RESP 16; O2SAT 92
[2022-02-01 12:45] VITALS: BP 111/77; PULSE 97; RESP 16; O2SAT 98
[2022-02-01] MEDS: sodium chloride 0.9% 1,000 ML 999 ML IV (12:53)
[2022-02-01] MEDS: lidocaine 2% viscous 15 ML, aluminum-mag hydrox-simethicon 30 ML, sucralfate oral liq 1 GM PO (12:55)
[2022-02-01 13:05] LABS: Hematocrit 31.3 % (37.0-47.0); Hemoglobin 9.8 g/dL (11.5-15.3); Mean Corpuscular HGB Conc 31.3 g/dL (30.0-36.0); Mean Corpuscular Volume 92.6 fl (81-99); Platelet Count 132 10^3/cmm (130-400); Red Blood Count 3.38 10^6/uL (4.1-5.3); White Blood Count 2.1 10^3/uL (4.0-10.0)
[2022-02-01 13:40] VITALS: BP 111/74; PULSE 91; RESP 16; O2SAT 99
[2022-02-01 13:45] LABS: Alanine Aminotransferase 28 U/L (0-33); Albumin Level 3.5 g/dL (3.5-5.2); Alkaline Phosphatase 62 IU/L (35-105); Anion Gap 15.3 (5-19); Aspartate Amino Transferase 27 U/L (0-32); Blood Urea Nitrogen 19 mg/dL (8-23); C Reactive Protein 64.4 mg/L (0.0-4.9); Calcium 8.6 mg/dL (8.5-10.5); Carbon Dioxide 26 mmol/L (22-29); Chloride 99 mmol/L (98-107); Globulin 2.6 g/dL (1.3-4.6); Glomerular Filtration Rate 158.7 mL/min (90-130); Glucose 72 mg/dL (65-115); Lipase 16 U/L (13-60); Osmolality Calculated 283 mOsm/kg (285-295); Potassium 4.3 mmol/L (3.5-5.1); Sodium 136 mmol/L (136-145); Total Bilirubin 0.8 mg/dL (0.15-1.2); Total Protein 6.1 g/dL (6.6-8.7)
[2022-02-01 13:47] LABS: Procalcitonin 0.11 ng/mL (0-0.5)
[2022-02-01 14:02] LABS: Charge for UA Resulting for Rev
[2022-02-01 14:12] LABS: Slide Review Slide Review Perform
[2022-02-01 14:12] LABS: Blood Urine Neg (Negative); Glucose Urine UA Norm (Normal); Ketones Urine 2+ (Negative); Nitrate Urine Negative (Negative); Protein Urine Trace (Negative); Specific Gravity, Urine 1.025 (1.005-1.030); Urine Appearance Clear (CLEAR); pH Urine 5 (5-7)
[2022-02-01 14:13] LABS: Absolute Eosinophils 0.1 10^3/cmm (0.0-0.7); Absolute Segmented Neutrophil 0.7 10/cmm (1.6-7.1); Eosinophils 7 %; Lymphocytes 34 %; Lymphocytes Absolute 1.2 10^3/cmm (1.2-3.4); Monocytes Absolute 0.1 10^3/cmm (0.1-0.6); Platelet Estimate Normal (Normal); Segmented Neutrophils 35 %; Total Cells Counted 100 (0-100)
[2022-02-01 14:13] LABS: Bilirubin Urine 1+ (Negative); Urine Color Dark Yellow (Yellow); Urobilinogen Urine 4 mg/dL (Negative)
[2022-02-01 14:14] LABS: Add Urine Microscopic? NO; Leukocyte Esterase Urine Trace (Negative)
[2022-02-01 14:15] LABS: Absolute Neutrophil 0.7 10^3/cmm (1.4-6.5)
[2022-02-01 14:46] LABS: Adenovirus Not Detected (NOT DETECT); Chlamydia Pneumoniae Not Detected (NOT DETECT); Coronavirus 229E,HKU1,NL63,OC4 Not Detected (NOT DETECT); Human Metapneumovirus Not Detected (NOT DETECT); Human Rhinovirus/Enterovirus Not Detected (NOT DETECT); Influenza A Not Detected (NOT DETECT); Influenza A H1 Not Detected (NOT DETECT); Influenza A H1-2009 Not Detected (NOT DETECT); Influenza A H3 Not Detected (NOT DETECT); Influenza B Not Detected (NOT DETECT); Mycoplasma Pneumoniae Not Detected (NOT DETECT); Parainfluenza Virus Type 1 Not Detected (NOT DETECT); Parainfluenza Virus Type 2 Not Detected (NOT DETECT); Parainfluenza Virus Type 3 Not Detected (NOT DETECT); Parainfluenza Virus Type 4 Not Detected (NOT DETECT); Respiratory Syncytial Virus A Not Detected (NOT DETECT); Respiratory Syncytial Virus B Not Detected (NOT DETECT); SARS-COV-2 Not Detected (NOT DETECT)
== END 2022-02-01 14:47 ==
PROVIDERS: Emergency Provider Emergency Medicine; PCP Nurse Practitioner Family
DX: R53.1 Weakness (principal); R19.7 Diarrhea, unspecified; R63.0 Anorexia; Z68.21 Body mass index [BMI] 21.0-21.9, adult; C25.9 Malignant neoplasm of pancreas, unspecified; Z79.899 Other long term (current) drug therapy
CPT/HCPCS: 71045; 80053; 81003; 83690; 84145; 85007; 85025; 86140; 87486; 87581; 87633; 96360; 99284; J7030

== ENCOUNTER 2022-02-22 08:00 | Oncology outpatient (recurring) (ONCR) | payer MEDICARE, SELFPAY ==
[2022-01-25 10:26] LABS: Basophils # 0.1 10^3/uL (0.0-0.1); Eosinophils # 0.1 10^3/uL (0.0-0.8); Eosinophils % 1.9 %; Hematocrit 33.4 % (37.0-47.0); Hemoglobin 10.8 g/dL (11.5-15.3); Lymphocytes # 1.7 10^3/uL (0.8-4.8); Lymphocytes % 23.9 %; Mean Corpuscular HGB Conc 32.3 g/dL (30.0-36.0); Mean Corpuscular Hemoglobin 29.8 pg (28.0-34.0); Mean Platelet Volume 10.6 fL (7.4-10.4); Monocytes # 0.6 10^3/uL (0.2-0.9); Monocytes % 8.3 %; Neutrophils # 4.37 10^3/uL (1.8-7.7); Neutrophils % 62.2 %; Nucleated Red Blood Cells % 0 %; Platelet Count 225 10^3/cmm (130-400); Red Blood Count 3.63 10^6/uL (4.1-5.3); Red Cell Distribution Width 18.3 % (12.1-15.1)
[2022-01-25 10:45] LABS: Alanine Aminotransferase 28 U/L (0-33); Albumin Level 3.6 g/dL (3.5-5.2); Alkaline Phosphatase 67 IU/L (35-105); Anion Gap 14.5 (5-19); Aspartate Amino Transferase 29 U/L (0-32); Blood Urea Nitrogen 9 mg/dL (8-23); Calcium 8.9 mg/dL (8.5-10.5); Carbon Dioxide 27 mmol/L (22-29); Chloride 101 mmol/L (98-107); Globulin 2.8 g/dL (1.3-4.6); Glomerular Filtration Rate 158.7 mL/min (90-130); Glucose 95 mg/dL (65-115); Osmolality Calculated 286 mOsm/kg (285-295); Potassium 3.5 mmol/L (3.5-5.1); Sodium 139 mmol/L (136-145); Total Bilirubin 0.5 mg/dL (0.15-1.2); Total Protein 6.4 g/dL (6.6-8.7)
[2022-01-25] MEDS: palonosetron 0.25 mg/5 mL SDV IVP (11:33)
[2022-01-25] MEDS: sodium chloride 0.9% 250 ML 75 ML IV (11:33)
[2022-01-25] MEDS: famotidine 20 mg/2 mL INJ IVP (11:35)
[2022-01-25] MEDS: gemcitabine 1,800 MG in sodium chloride 0.9% (100 ml) 100 ML 200 MG IV (12:45)
[2022-01-25 13:21] VITALS: BP 132/74; PULSE 94; RESP 16; TEMP 36.3; O2SAT 93
[2022-02-01 08:59] LABS: Basophils % 0.9 %; Eosinophils # 0.1 10^3/uL (0.0-0.8); Eosinophils % 4.7 %; Hematocrit 32.5 % (37.0-47.0); Hemoglobin 10.3 g/dL (11.5-15.3); Lymphocytes # 0.8 10^3/uL (0.8-4.8); Lymphocytes % 38.8 %; Mean Corpuscular HGB Conc 31.7 g/dL (30.0-36.0); Mean Corpuscular Hemoglobin 28.9 pg (28.0-34.0); Mean Corpuscular Volume 91.3 fl (81-99); Monocytes # 0.3 10^3/uL (0.2-0.9); Monocytes % 12.6 %; Neutrophils % 41.1 %; Nucleated Red Blood Cells % 0 %; Platelet Count 151 10^3/cmm (130-400); Red Blood Count 3.56 10^6/uL (4.1-5.3); Red Cell Distribution Width 17.9 % (12.1-15.1); White Blood Count 2.1 10^3/uL (4.0-10.0)
[2022-02-01 09:10] LABS: Alanine Aminotransferase 28 U/L (0-33); Albumin Level 3.5 g/dL (3.5-5.2); Alkaline Phosphatase 61 IU/L (35-105); Anion Gap 14.2 (5-19); Aspartate Amino Transferase 26 U/L (0-32); Blood Urea Nitrogen 18 mg/dL (8-23); Calcium 8.6 mg/dL (8.5-10.5); Carbon Dioxide 26 mmol/L (22-29); Chloride 97 mmol/L (98-107); Globulin 2.7 g/dL (1.3-4.6); Glomerular Filtration Rate 158.7 mL/min (90-130); Glucose 94 mg/dL (65-115); Osmolality Calculated 278 mOsm/kg (285-295); Potassium 4.2 mmol/L (3.5-5.1); Sodium 133 mmol/L (136-145); Total Bilirubin 0.8 mg/dL (0.15-1.2); Total Protein 6.2 g/dL (6.6-8.7)
--- NOTE | 2022-02-01 09:22 | PC.NURSE ---
Pt was assessed by Dolores TORIBIOP due to having SOB, weakness, not eating/drinking and diarrhea since 01/27. Pt did not go to PCP, stated I thought I'd ride it out'. Pt was sent to E.R. for further evaluation./lc
[2022-02-01 09:38] LABS: Slide Review Slide Review Perform
[2022-02-01 09:40] LABS: Neutrophils # 0.88 10^3/uL (1.8-7.7)
--- NOTE | 2022-02-01 10:10 | PC.NURSE ---
860 ANC reported to Dolores SANDY. Attempted to let nursing in E.R. know since pt was sent there, but no one came to phone after being on hold x10 min. Dolores SANDY notified/lc
[2022-02-08 09:01] LABS: Basophils % 0.8 %; Eosinophils # 0.2 10^3/uL (0.0-0.8); Eosinophils % 3.6 %; Hematocrit 30.8 % (37.0-47.0); Hemoglobin 9.7 g/dL (11.5-15.3); Lymphocytes # 1.1 10^3/uL (0.8-4.8); Lymphocytes % 21.1 %; Mean Corpuscular HGB Conc 31.5 g/dL (30.0-36.0); Mean Corpuscular Volume 88.8 fl (81-99); Monocytes # 1.5 10^3/uL (0.2-0.9); Monocytes % 29.3 %; Neutrophils # 2.11 10^3/uL (1.8-7.7); Neutrophils % 40.4 %; Nucleated Red Blood Cells % 0 %; Platelet Count 431 10^3/cmm (130-400); Red Blood Count 3.47 10^6/uL (4.1-5.3); Red Cell Distribution Width 18.4 % (12.1-15.1); White Blood Count 5.2 10^3/uL (4.0-10.0)
[2022-02-08 09:28] LABS: Alanine Aminotransferase 14 U/L (0-33); Albumin Level 3.2 g/dL (3.5-5.2); Alkaline Phosphatase 57 IU/L (35-105); Anion Gap 11.7 (5-19); Blood Urea Nitrogen 10 mg/dL (8-23); Calcium 8.2 mg/dL (8.5-10.5); Carbon Dioxide 29 mmol/L (22-29); Chloride 99 mmol/L (98-107); Globulin 2.8 g/dL (1.3-4.6); Glomerular Filtration Rate 122.7 mL/min (90-130); Glucose 117 mg/dL (65-115); Osmolality Calculated 282 mOsm/kg (285-295); Potassium 3.7 mmol/L (3.5-5.1); Sodium 136 mmol/L (136-145); Total Bilirubin 0.6 mg/dL (0.15-1.2)
[2022-02-08 09:55] LABS: Cancer Antigen 19 9 63.59 U/mL (0-35)
[2022-02-08 09:56] LABS: Aspartate Amino Transferase 19 U/L (0-32)
[2022-02-08] MEDS: ondansetron 2 mg/ML SDV 2 mL 8 MG IVP (11:03)
[2022-02-08] MEDS: sodium chloride 0.9% 500 ML 999 ML IV (11:03)
--- NOTE | 2022-02-08 12:13 | PC.NURSE ---
500 ml NS and 8 mg Zofran adm as ordered. UA obtained and sent to lab. Pt taken to [facility] for chest xray/lc
[2022-02-08 12:56] LABS: Urine Color Yellow (Yellow)
[2022-02-08 12:57] LABS: Add Urine Microscopic? YES; Bilirubin Urine 1+ (Negative); Blood Urine Neg (Negative); Glucose Urine UA Norm (Normal); Ketones Urine 1+ (Negative); Leukocyte Esterase Urine Negative (Negative); Nitrate Urine Negative (Negative); Protein Urine Neg (Negative); Urine Appearance Clear (CLEAR); Urobilinogen Urine 4+ mg/dL (Negative); pH Urine 6 (5-7)
[2022-02-08 12:58] LABS: Add Urine Culture? No; Calcium Oxalate Crystals Urine 0-4 /hpf
[2022-02-15 08:47] LABS: Hematocrit 34.8 % (37.0-47.0); Hemoglobin 11.2 g/dL (11.5-15.3); Mean Corpuscular HGB Conc 32.2 g/dL (30.0-36.0); Mean Corpuscular Hemoglobin 28.9 pg (28.0-34.0); Mean Corpuscular Volume 89.7 fl (81-99); Platelet Count 352 10^3/cmm (130-400); Red Blood Count 3.88 10^6/uL (4.1-5.3); Red Cell Distribution Width 21.4 % (12.1-15.1)
[2022-02-15 09:25] LABS: Alanine Aminotransferase 25 U/L (0-33); Albumin Level 3.5 g/dL (3.5-5.2); Alkaline Phosphatase 59 IU/L (35-105); Anion Gap 9.9 (5-19); Aspartate Amino Transferase 23 U/L (0-32); Blood Urea Nitrogen 17 mg/dL (8-23); Calcium 8.9 mg/dL (8.5-10.5); Carbon Dioxide 32 mmol/L (22-29); Chloride 99 mmol/L (98-107); Globulin 2.5 g/dL (1.3-4.6); Glomerular Filtration Rate 158.7 mL/min (90-130); Glucose 73 mg/dL (65-115); Osmolality Calculated 284 mOsm/kg (285-295); Potassium 3.9 mmol/L (3.5-5.1); Sodium 137 mmol/L (136-145); Total Bilirubin 0.3 mg/dL (0.15-1.2)
[2022-02-15 09:54] LABS: Slide Review Slide Review Perform
[2022-02-15 09:55] LABS: White Blood Count 33.6 10^3/uL (4.0-10.0)
[2022-02-15 09:58] LABS: Absolute Eosinophils 0.6 10^3/cmm (0.0-0.7); Absolute Neutrophil 21.5 10^3/cmm (1.4-6.5); Absolute Segmented Neutrophil 19.2 10/cmm (1.6-7.1); Band Neutrophils Absolute 2.4 10^3/cmm (0.0-1.2); Eosinophils 2 %; Lymphocytes 12 %; Lymphocytes Absolute 7.4 10^3/cmm (1.2-3.4); Monocytes Absolute 2.7 10^3/cmm (0.1-0.6); Platelet Estimate Increased (Normal); Polychromasia 1+; Segmented Neutrophils 57 %; Total Cells Counted 100 (0-100)
[2022-02-15 10:41] LABS: LAB Peripheral Smear Sent for Review
[2022-02-15] MEDS: famotidine 20 mg/2 mL INJ IVP (10:46)
[2022-02-15] MEDS: palonosetron 0.25 mg/5 mL SDV IVP (10:47)
[2022-02-15] MEDS: sodium chloride 0.9% 250 ML 75 ML IV (10:47)
[2022-02-15] MEDS: gemcitabine 1,800 MG in sodium chloride 0.9% (100 ml) 100 ML 200 MG IV (11:59)
[2022-02-15 12:45] VITALS: BP 133/81; PULSE 68; RESP 20; TEMP 36.6; O2SAT 98
[2022-02-22 08:31] LABS: Basophils % 0.4 %; Eosinophils # 0.4 10^3/uL (0.0-0.8); Eosinophils % 5.2 %; Hematocrit 32.4 % (37.0-47.0); Hemoglobin 10.5 g/dL (11.5-15.3); Lymphocytes # 1.4 10^3/uL (0.8-4.8); Lymphocytes % 20.2 %; Mean Corpuscular HGB Conc 32.4 g/dL (30.0-36.0); Mean Corpuscular Hemoglobin 28.8 pg (28.0-34.0); Monocytes # 0.4 10^3/uL (0.2-0.9); Monocytes % 5.2 %; Neutrophils # 4.76 10^3/uL (1.8-7.7); Neutrophils % 66.6 %; Nucleated Red Blood Cells % 0 %; Platelet Count 203 10^3/cmm (130-400); Red Blood Count 3.64 10^6/uL (4.1-5.3); Red Cell Distribution Width 21.9 % (12.1-15.1); White Blood Count 7.1 10^3/uL (4.0-10.0)
[2022-02-22 08:50] LABS: Alanine Aminotransferase 19 U/L (0-33); Albumin Level 3.4 g/dL (3.5-5.2); Alkaline Phosphatase 55 IU/L (35-105); Aspartate Amino Transferase 18 U/L (0-32); Blood Urea Nitrogen 21 mg/dL (8-23); Calcium 8.4 mg/dL (8.5-10.5); Carbon Dioxide 26 mmol/L (22-29); Chloride 104 mmol/L (98-107); Globulin 2.5 g/dL (1.3-4.6); Glomerular Filtration Rate 158.7 mL/min (90-130); Glucose 91 mg/dL (65-115); Osmolality Calculated 291 mOsm/kg (285-295); Sodium 139 mmol/L (136-145); Total Bilirubin 0.5 mg/dL (0.15-1.2); Total Protein 5.9 g/dL (6.6-8.7)
[2022-02-22 08:54] LABS: Slide Review Slide Review Perform
[2022-02-22] MEDS: sodium chloride 0.9% 250 ML 75 ML IV (09:57)
[2022-02-22] MEDS: famotidine 20 mg/2 mL INJ IVP (09:58)
[2022-02-22] MEDS: palonosetron 0.25 mg/5 mL SDV IVP (10:02)
[2022-02-22] MEDS: gemcitabine 1,800 MG in sodium chloride 0.9% (100 ml) 100 ML 200 MG IV (11:42)
== END 2022-02-23 23:59 | disposition home or self-care (01) ==
PROVIDERS: Internal Medicine Hematology & Oncology; PCP Nurse Practitioner Family; Visit Provider Nurse Practitioner Family
DX: Z51.11 Encounter for antineoplastic chemotherapy (principal); C25.1 Malignant neoplasm of body of pancreas; C78.01 Secondary malignant neoplasm of right lung; C78.02 Secondary malignant neoplasm of left lung; C79.51 Secondary malignant neoplasm of bone; C77.8 Secondary and unspecified malignant neoplasm of lymph nodes of multiple regions; K21.00 Gastro-esophageal reflux disease with esophagitis, without bleeding; J84.10 Pulmonary fibrosis, unspecified; R05.3 Chronic cough; D64.9 Anemia, unspecified; Z79.52 Long term (current) use of systemic steroids; Z79.899 Other long term (current) drug therapy; Z87.891 Personal history of nicotine dependence
CPT/HCPCS: 36591; 71046; 80053; 80503; 81001; 85007; 85025; 86301; 96360; 96367; 96375; 96413; 96417; 99215; J1100; J2405; J2469; J3490; J7040; J7050; J9201; J9264

== ENCOUNTER 2022-02-24 06:00 | Outpatient (RCR) | payer MEDICARE, SELFPAY | END 2022-03-26 23:59 | disposition home or self-care (01) | LOC: PULRHB 06:00 | PROVIDERS: PCP Nurse Practitioner Family; Visit Provider Internal Medicine Pulmonary Disease | DX: C34.90 Malignant neoplasm of unspecified part of unspecified bronchus or lung (principal) | CPT/HCPCS: G0237; G0238 ==

== ENCOUNTER 2022-03-15 08:00 | Oncology outpatient (recurring) (ONCR) | payer MEDICARE, SELFPAY ==
[2022-03-08 09:03] LABS: Eosinophils # 0.3 10^3/uL (0.0-0.8); Hematocrit 32.6 % (37.0-47.0); Lymphocytes # 1.3 10^3/uL (0.8-4.8); Lymphocytes % 32.3 %; Mean Corpuscular HGB Conc 30.7 g/dL (30.0-36.0); Mean Corpuscular Hemoglobin 28.3 pg (28.0-34.0); Mean Corpuscular Volume 92.4 fl (81-99); Mean Platelet Volume 10.7 fL (7.4-10.4); Monocytes % 23.1 %; Neutrophils # 1.37 10^3/uL (1.8-7.7); Neutrophils % 33.2 %; Nucleated Red Blood Cells % 0 %; Platelet Count 479 10^3/cmm (130-400); Red Blood Count 3.53 10^6/uL (4.1-5.3); Red Cell Distribution Width 21.9 % (12.1-15.1); White Blood Count 4.1 10^3/uL (4.0-10.0)
[2022-03-08 09:30] LABS: Alanine Aminotransferase 11 U/L (0-33); Albumin Level 3.5 g/dL (3.5-5.2); Alkaline Phosphatase 65 IU/L (35-105); Anion Gap 12.3 (5-19); Aspartate Amino Transferase 21 U/L (0-32); Blood Urea Nitrogen 12 mg/dL (8-23); Calcium 8.9 mg/dL (8.5-10.5); Cancer Antigen 19 9 96.42 U/mL (0-35); Carbon Dioxide 29 mmol/L (22-29); Chloride 103 mmol/L (98-107); Globulin 2.8 g/dL (1.3-4.6); Glomerular Filtration Rate 158.7 mL/min (90-130); Glucose 102 mg/dL (65-115); Osmolality Calculated 290 mOsm/kg (285-295); Potassium 4.3 mmol/L (3.5-5.1); Sodium 140 mmol/L (136-145); Total Bilirubin 0.5 mg/dL (0.15-1.2); Total Protein 6.3 g/dL (6.6-8.7)
--- NOTE | 2022-03-08 11:28 | XR_ITS ---
WS: [id number] PA and lateral chest, 03/08/2022 Clinical Data: fever neutropenia Comparison: PA and lateral chest, 02/08/2022. Findings: Severe interstitial lung change with honeycombing and fibrosis remains the same. No nodules , masses or effusions are seen. The right Port-A-Cath remains the same. The heart is not enlarged. XR/XR chest 2V* [id number] Impression: Severe interstitial infiltrate of the lungs which remains the same.
[2022-03-15 08:48] LABS: Basophils # 0.1 10^3/uL (0.0-0.1); Eosinophils # 0.2 10^3/uL (0.0-0.8); Eosinophils % 1.7 %; Hemoglobin 10.8 g/dL (11.5-15.3); Lymphocytes # 2.3 10^3/uL (0.8-4.8); Lymphocytes % 16.2 %; Mean Corpuscular HGB Conc 30.9 g/dL (30.0-36.0); Mean Corpuscular Hemoglobin 28.3 pg (28.0-34.0); Mean Corpuscular Volume 91.9 fl (81-99); Mean Platelet Volume 11.5 fL (7.4-10.4); Monocytes # 1.4 10^3/uL (0.2-0.9); Monocytes % 9.8 %; Neutrophils # 8.92 10^3/uL (1.8-7.7); Neutrophils % 64.1 %; Nucleated Red Blood Cells % 0 %; Platelet Count 404 10^3/cmm (130-400); Red Blood Count 3.81 10^6/uL (4.1-5.3); White Blood Count 13.9 10^3/uL (4.0-10.0)
[2022-03-15 09:04] VITALS: BMI 20.8
[2022-03-15 09:41] LABS: Slide Review Slide Review Perform
[2022-03-15 10:04] LABS: Alanine Aminotransferase 10 U/L (0-33); Albumin Level 3.6 g/dL (3.5-5.2); Alkaline Phosphatase 72 IU/L (35-105); Anion Gap 14.1 (5-19); Aspartate Amino Transferase 21 U/L (0-32); Blood Urea Nitrogen 11 mg/dL (8-23); Carbon Dioxide 29 mmol/L (22-29); Chloride 98 mmol/L (98-107); Globulin 2.6 g/dL (1.3-4.6); Glomerular Filtration Rate 158.7 mL/min (90-130); Glucose 105 mg/dL (65-115); Osmolality Calculated 284 mOsm/kg (285-295); Potassium 4.1 mmol/L (3.5-5.1); Sodium 137 mmol/L (136-145); Total Bilirubin 0.3 mg/dL (0.15-1.2); Total Protein 6.2 g/dL (6.6-8.7)
[2022-03-15] MEDS: sodium chloride 0.9% 250 ML 100 ML IV (10:13)
[2022-03-15] MEDS: palonosetron 0.25 mg/5 mL SDV IVP (10:13)
[2022-03-15] MEDS: famotidine 20 mg/2 mL INJ IVP (10:16)
[2022-03-15] MEDS: gemcitabine 1,800 MG in sodium chloride 0.9% (100 ml) 100 ML 200 MG IV (12:00)
[2022-03-15 12:45] VITALS: BP 131/63; PULSE 89; RESP 16; TEMP 36.6; O2SAT 98
== END 2022-03-26 23:59 | disposition home or self-care (01) ==
PROVIDERS: PCP Nurse Practitioner Family; Visit Provider Nurse Practitioner Family
DX: Z51.11 Encounter for antineoplastic chemotherapy; C25.8 Malignant neoplasm of overlapping sites of pancreas; C77.8 Secondary and unspecified malignant neoplasm of lymph nodes of multiple regions; C78.01 Secondary malignant neoplasm of right lung; C78.02 Secondary malignant neoplasm of left lung; K57.30 Diverticulosis of large intestine without perforation or abscess without bleeding; Z79.899 Other long term (current) drug therapy
CPT/HCPCS: 36591; 71046; 80053; 85025; 86301; 96367; 96375; 96413; 96417; 99214; 99215; J1100; J2469; J3490; J7050; J9201; J9264

== ENCOUNTER 2022-03-27 06:00 | Outpatient (RCR) | payer MEDICARE, SELFPAY | END 2022-04-26 23:59 | disposition home or self-care (01) | LOC: PULRHB 06:00 | PROVIDERS: PCP Nurse Practitioner Family; Visit Provider Internal Medicine Pulmonary Disease | DX: C34.90 Malignant neoplasm of unspecified part of unspecified bronchus or lung (principal) | CPT/HCPCS: G0237; G0238 ==

== ENCOUNTER 2022-04-09 10:42 | Inpatient (IN) | payer MEDICARE, SELFPAY ==
[2022-04-09] VITALS (26 sets, daily range): BP systolic 116–151; BP diastolic 60–96; PULSE 79–137; RESP 16–48; TEMP 37.2; O2SAT 86–97; BMI 19.7
--- NOTE | 2022-04-09 10:46 | XRR_ITS ---
PROCEDURE INFORMATION: Exam: XR Chest Exam date and time: 04/09/2022 11:10 AM Age: 66 years old Clinical indication: Cough and dyspnea; Additional info: Dyspnea/cough TECHNIQUE: Imaging protocol: Radiologic exam of the chest. Views: 1 view. COMPARISON: CR XR chest 2V* [id number] 03/08/2022 11:30 AM FINDINGS: Lungs: Diffuse parenchymal densities are present throughout both lungs appearing increased in the bilateral lower lobes compared to prior examination. These findings suggest pneumonia and chronic interstitial lung disease. Pleural spaces: Unremarkable. No pleural effusion. No pneumothorax. Heart/Mediastinum: Unremarkable. No cardiomegaly. Bones/joints: Unremarkable. A right central line is present extending into the SVC. Comparison to prior examination similar findings seen XR/XR chest 1V portable [id number] IMPRESSION: 1. Diffuse bilateral pneumonia and chronic interstitial densities increased since prior. 2. Right central line is in the SVC
--- NOTE | 2022-04-09 10:50 | ED_ITS ---
HPI - Abdominal Pain General: Stated Complaint: SOB Time Seen by Provider: 04/09/22 10:46 Source: patient Mode of arrival: ambulatory History of Present Illness: MD elicited complaint: abdominal pain Pertinent past history: none Onset (ago): minute(s) Related Data: Date of Last Menstrual Period: 11/18/20 [facility] ED PFSH: Family History Mother Diabetes Denies family history of CAD (coronary artery disease) Clotting disorder Dementia Hyperlipidemia Psychiatric illness Chronic kidney disease (CKD) Suicide Anesthesia complication Bleeding disorder Lung disease Cancer Hypertension Stroke Social History Smoking and tobacco status: former smoker Quit status (tobacco): has quit using tobacco Year quit tobacco: 1990 Former quit date comment: 0.5ppd x 10 years Alcohol intake: never Female Reproductive History: Date of last menstrual period: 11/18/20 Discharge Plan Discharge Condition: Stable Prescriptions: No Action loratadine [Claritin] 10 mg tablet 10 mg PO DAILY pyridoxine (vitamin B6) 100 mg tablet 50 mg PO DAILY guaifenesin [Mucinex] 600 mg tablet extended release 12hr 600 mg PO BID Combivent Respimat 20-100 mcg/actuation mist 1 puff inhalation BID Referrals: Shirlene Feldman FNP-C [Primary Care Provider] - Coding Level of Care Code ED Manager Corporate for Erick Pierre
[2022-04-09] MEDS: ipratropium-albuterol 3 mL Neb INHALATION (10:57)
[2022-04-09 11:08] LABS: Basophils # 0.1 10^3/uL (0.0-0.1); Basophils % 0.4 %; Eosinophils # 0.1 10^3/uL (0.0-0.8); Eosinophils % 0.6 %; Hematocrit 38.1 % (37.0-47.0); Hemoglobin 11.7 g/dL (11.5-15.3); Lymphocytes # 1.1 10^3/uL (0.8-4.8); Lymphocytes % 6.7 %; Mean Corpuscular HGB Conc 30.7 g/dL (30.0-36.0); Mean Corpuscular Hemoglobin 27.5 pg (28.0-34.0); Mean Corpuscular Volume 89.6 fl (81-99); Mean Platelet Volume 11.8 fL (7.4-10.4); Monocytes % 6.1 %; Neutrophils # 13.78 10^3/uL (1.8-7.7); Neutrophils % 85.1 %; Nucleated Red Blood Cells % 0 %; Platelet Count 380 10^3/cmm (130-400); Red Blood Count 4.25 10^6/uL (4.1-5.3); Red Cell Distribution Width 20.4 % (12.1-15.1); White Blood Count 16.2 10^3/uL (4.0-10.0)
[2022-04-09 11:10] LABS: ABG PCO2 40.4 mmHg (35-45); ABG PH Result 7.49 (7.35-7.45); Alveolar-Arterial Oxygen Gradi 4.6 mmHg (5-10); Arterial Blood Gas Hematocrit 36.1 % (37-47); Base Excess ABG 6.7 mmol/L (-2.0-2.0); Blood Gas Allen Test Pos; Blood Gas Operator Identificat CAK; Blood Gas Sample Site Radial, left; Blood Gas Sample Type Arterial; Carboxyhemoglobin 1.6 %THgb (0.4-20.1); HCO3 ABG 30.7 mmol/L (22-26); HGB O2 Sat 92.4 % (95-100); Ionized Calcium Level - ABG 1.2 mmol/L (1.1-1.4); Methemoglobin 0.6 % (0.4-1.5); Oxygen Device NC; Oxygen Saturation ABG 94.5; PO2 ABG 64.1 mmHg (80.0-100.0); Potassium Level - ABG 3.9 mmol/L (3.5-5.0); Total Hemoglobin 11.8 g/dL (12-16)
--- NOTE | 2022-04-09 11:13 | W.ED.SOB ---
HPI - SOB/Dyspnea General: Chief Complaint: Shortness of Breath/Dyspnea Stated Complaint: SOB Time Seen by Provider: 04/09/22 10:46 Source: patient and family Mode of arrival: wheelchair History of Present Illness: HPI Narrative: 66-year-old female history of pancreatic CA comes in complaining of shortness of breath nonproductive cough. Progressively worsening over the last few days. She does not require 5 L of oxygen by nasal cannula. She is not had any fever sweats or chills. Her most recent PET scan pulmonary nodules that were present previously seem to have responded to therapy and there is no increased uptake. She does have a history of pretty significant pulmonary fibrosis. MD elicited complaint: shortness of breath Pertinent past history: other (pancratic CA) Onset (ago): day(s) Timing: constant Severity: severe Exacerbating factors: lying flat, exertion and coughing Relieving factors: nothing Known history of: other (pancreatic CA) Associated symptoms: Deny abdominal pain, chest congestion, chest pain, cough, diaphoresis, dizziness, extremity pain, fever(s), hemoptysis, lightheadedness, myalgias or nausea Review of Systems Const: Denies: fever(s) or diaphoresis ENMT: Denies: throat pain, ear or mastoid pain, nasal discharge or nasal congestion Card: Denies: chest pain or lightheadedness Resp: Reports: dyspnea and non-productive cough; Denies: hemoptysis or chest congestion GI: Denies: abdominal pain or nausea : Denies: flank pain, difficulty voiding, dysuria, urinary frequency or urinary urgency Musc: Denies: neck pain, back pain or extremity pain Skin/Breast: Denies: rash or pruritus Neuro: Denies: dizziness PFSH ED PFSH: Medical History 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 Depression Gastritis GERD (gastroesophageal reflux disease) Lung cancer Non-productive cough Pancreatic cancer metastasized to lung Pancreatic mass Port-A-Cath in place Surgical History History of ovarian resection History of right knee surgery Family History Mother Diabetes Denies family history of CAD (coronary artery disease) Clotting disorder Dementia Hyperlipidemia Psychiatric illness Chronic kidney disease (CKD) Suicide Anesthesia complication Bleeding disorder Lung disease Cancer Hypertension Stroke Social History Smoking and tobacco status: former smoker Quit status (tobacco): has quit using tobacco Year quit tobacco: 1990 Former quit date comment: 0.5ppd x 10 years Alcohol intake: never Female Reproductive History: Date of last menstrual period: 11/18/20 Physical Exam Const: COMMON NORMALS: no acute distress GENERAL APPEARANCE: cooperative and comfortable ORIENTATION/CONSCIOUSNESS: Yes awake, Yes oriented to person, Yes oriented to place and Yes oriented to time HENMT: COMMON NORMALS: normocephalic, atraumatic and hearing grossly normal bilaterally HEAD & SCALP: normocephalic and atraumatic Resp: COMMON NORMALS: normal respiratory effort and No retractions EFFORT & INSPECTION: Yes uses accessory muscles AUSCULTATION: rhonchi and wheezes Cardio: COMMON NORMALS: No murmurs present (Cardio) RATE: tachycardic GI: COMMON NORMALS: Soft to palpation and No hepatosplenomegaly present AUSCULTATION: Yes normoactive bowel sounds PALPATION: Yes Soft to palpation, No Tenderness to palpation present (GI), No Guarding due to palpation present (GI) and Yes No hepatosplenomegaly present : COMMON NORMALS: No no CVA tenderness BLADDER/KIDNEY EXAM: No no CVA tenderness Back/Pelvis: COMMON NORMALS: negative for no CVA tenderness Extremity: COMMON NORMALS: normal to inspection, capillary refill normal, no clubbing, cyanosis or edema, no calf tenderness and no pedal edema Neuro: SENSORIUM/ORIENTATION: Yes oriented to person, Yes oriented to place and Yes oriented to time Skin: COMMON NORMALS: no rashes or lesions noted GENERAL SKIN EXAM: no rashes or lesions noted Course Vital Signs: Vital signs: Vital Signs Temperature 98.9 F 04/09/22 10:52 Pulse Rate 103 H 04/09/22 14:18 Respiratory Rate 22 H 04/09/22 14:18 Blood Pressure 123/67 04/09/22 14:18 Pulse Oximetry 94 04/09/22 14:18 Oxygen Delivery Me thod 04/09/22 15:34 Oxygen Flow Rate 5 04/09/22 10:57 MDM - SOB/Dyspnea Medical Decision Making Patient significant interstitial fibrosis fibrosis her chest x-ray shows increased infiltrates particular the left base suggestive of pneumonia. EKGs and other labs reviewed as well as the imaging.. We will go ahead and admit. Concerned she may have recurrence or pancreatic cancer and previous work-up she had significant pulmonary nodule level in the most recent PET scan they seem to have responded to treatment. Started on antibiotics cultures done discussed the hospitalist orders written Medical Records I reviewed the patient's medical records. Lab Data I reviewed the patient's lab results. : 04/09/22 10:55 04/09/22 10:55 Labs/Radiology: Radiology Impressions Chest X-Ray 04/09/22 10:46 IMPRESSION: 1. Diffuse bilateral pneumonia and chronic interstitial densities increased since prior. 2. Right central line is in the SVC Laboratory Results WBC 16.2 10^3/uL (4.0-10.0) H 04/09/22 10:55 RBC 4.25 10^6/uL (4.1-5.3) 04/09/22 10:55 Hgb 11.7 g/dL (11.5-15.3) 04/09/22 10:55 Hct 38.1 % (37.0-47.0) 04/09/22 10:55 MCV 89.6 fl (81-99) 04/09/22 10:55 MCH 27.5 pg (28.0-34.0) L 04/09/22 10:55 MCHC 30.7 g/dL (30.0-36.0) 04/09/22 10:55 RDW 20.4 % (12.1-15.1) H 04/09/22 10:55 Plt Count 380 10^3/cmm (130-400) 04/09/22 10:55 MPV 11.8 fL (7.4-10.4) H 04/09/22 10:55 Neut % (Auto) 85.1 % 04/09/22 10:55 Lymph % (Auto) 6.7 % 04/09/22 10:55 [place] % (Auto) 6.1 % 04/09/22 10:55 Eos % (Auto) 0.6 % 04/09/22 10:55 Baso % (Auto) 0.4 % 04/09/22 10:55 Neut # (Auto) 13.78 10^3/uL (1.8-7.7) H 04/09/22 10:55 Lymph # (Auto) 1.1 10^3/uL (0.8-4.8) 04/09/22 10:55 [place] # (Auto) 1.0 10^3/uL (0.2-0.9) H 04/09/22 10:55 Eos # (Auto) 0.1 10^3/uL (0.0-0.8) 04/09/22 10:55 Baso # (Auto) 0.1 10^3/uL (0.0-0.1) 04/09/22 10:55 Nucleated RBC % (auto) 0 % 04/09/22 10:55 Nucleated RBCs # 0.0 /100WBC 04/09/22 10:55 D-Dimer 3.10 ug/mIFEU (0-0.59) H 04/09/22 10:55 Specimen Type Arterial 04/09/22 10:59 Sample Site Radial, left 04/09/22 10:59 ABG pH 7.49 (7.35-7.45) H 04/09/22 10:59 ABG pCO2 40.4 mmHg (35-45) 04/09/22 10:59 ABG pO2 64.1 mmHg (80.0-100.0) L 04/09/22 10:59 ABG HCO3 30.7 mmol/L (22-26) H 04/09/22 10:59 ABG O2 Saturation 94.5 04/09/22 10:59 ABG Base Excess 6.7 mmol/L (-2.0-2.0) H 04/09/22 10:59 Cirilo Test Pos 04/09/22 10:59 A-a O2 Gradient 4.6 mmHg (5-10) L 04/09/22 10:59 Hematocrit 36.1 % (37-47) L 04/09/22 10:59 Hgb O2 Saturation 92.4 % (95-100) L 04/09/22 10:59 Carboxyhemoglobin 1.6 %THgb (0.4-20.1) 04/09/22 10:59 Methemoglobin 0.6 % (0.4-1.5) 04/09/22 10:59 Total Hemoglobin 11.8 g/dL (12-16) L 04/09/22 10:59 Sodium 138.0 mmol/L (131-143) 04/09/22 10:59 Potassium 3.9 mmol/L (3.5-5.0) 04/09/22 10:59 Glucose 115.0 mg/dL (70-115) 04/09/22 10:59 Ionized Calcium 1.2 mmol/L (1.1-1.4) 04/09/22 10:59 O2 Delivery Device Nc 04/09/22 10:59 O2 Liters/Min 5.0 % 04/09/22 10:59 Hoist Worker ID Cak 04/09/22 10:59 Sodium 137 mmol/L (136-145) 04/09/22 10:55 Potassium 4.1 mmol/L (3.5-5.1) 04/09/22 10:55 Chloride 96 mmol/L (98-107) L 04/09/22 10:55 Carbon Dioxide 31 mmol/L (22-29) H 04/09/22 10:55 Anion Gap 14.1 (5-19) 04/09/22 10:55 BUN 12 mg/dL (8-23) 04/09/22 10:55 Creatinine 0.3 mg/dL (0.5-0.9) L 04/09/22 10:55 GFR Calculation 221.2 mL/min (90-130) H 04/09/22 10:55 Glucose 116 mg/dL (65-115) H 04/09/22 10:55 Calculated Osmolality 285 mOsm/kg (285-295) 04/09/22 10:55 Lactic Acid 1.2 mmol/L (0.5-2.2) 04/09/22 12:04 Calcium 9.5 mg/dL (8.5-10.5) 04/09/22 10:55 Total Bilirubin 0.8 mg/dL (0.15-1.2) 04/09/22 10:55 AST 17 U/L (0-32) 04/09/22 10:55 ALT 9 U/L (0-33) 04/09/22 10:55 Alkaline Phosphatase 73 IU/L (35-105) 04/09/22 10:55 Total Protein 6.9 g/dL (6.6-8.7) 04/09/22 10:55 Albumin 3.5 g/dL (3.5-5.2) 04/09/22 10:55 Globulin 3.4 g/dL (1.3-4.6) 04/09/22 10:55 Procalcitonin 0.16 ng/mL (0-0.5) 04/09/22 10:55 Discharge Plan Discharge Patient Disposition: Admitted As Inpatient Admit Provider: Lesley Morse Clinical Impression: Pneumonia, Pancreatic cancer metastasized to lung, Acute respiratory failure with hypoxia Condition: Stable Coding Level of Care Code ED Senior Patient Account Representative for Erick Pierre
--- NOTE | 2022-04-09 11:16 | ECG_ITS ---
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 Measurements Intervals [place] Rate: 133 P: 61 MI: 145 QRS: 34 QRSD: 92 T: 53 QT: 371 QTc: 552 Interpretive Statements SINUS TACHYCARDIA NONSPECIFIC T-WAVE ABNORMALITY No previous ECG available for comparison Electronically Signed On 04-10-2022 17:40:33 CDT by Nima Wmoack M.D. [email or web address]
[2022-04-09 11:33] LABS: Alanine Aminotransferase 9 U/L (0-33); Albumin Level 3.5 g/dL (3.5-5.2); Alkaline Phosphatase 73 IU/L (35-105); Anion Gap 14.1 (5-19); Aspartate Amino Transferase 17 U/L (0-32); Blood Urea Nitrogen 12 mg/dL (8-23); Calcium 9.5 mg/dL (8.5-10.5); Carbon Dioxide 31 mmol/L (22-29); Chloride 96 mmol/L (98-107); Globulin 3.4 g/dL (1.3-4.6); Glomerular Filtration Rate 221.2 mL/min (90-130); Glucose 116 mg/dL (65-115); Osmolality Calculated 285 mOsm/kg (285-295); Potassium 4.1 mmol/L (3.5-5.1); Sodium 137 mmol/L (136-145); Total Bilirubin 0.8 mg/dL (0.15-1.2); Total Protein 6.9 g/dL (6.6-8.7)
[2022-04-09] MEDS: levofloxacin-dextrose 5 % 750 MG/150 ML PREMIX 100 MG IV (12:26)
[2022-04-09] MEDS: SODIUM CHLORIDE 0.9% 1714.59 ML IV (12:27)
[2022-04-09 12:29] LABS: Lactic Sepsis W/Reflex 1.2 mmol/L (0.5-2.2)
--- NOTE | 2022-04-09 13:48 | P.HP_ITS ---
Providers/Chief Complaint Admitting Physician: Lesley Morse MD Primary Care Provider: DU Bustamante-Anh Chief Complaint: SOB History of Present Illness Charlotte Mukherjee is a 66 year old female who has been experiencing dry cough since December 2020 lateral left posterior chest wall pain, pancreatic cancer with mets to lungs, adenocarcinoma, he does have multiple lung nodules CT-guided biopsy of left lung last year showed adenocarcinoma with mucinoid features, recent PET scan consistent with metastatic disease, she has been experiencing recurrent nausea, vomiting epigastric pain she was referred to Dr. Ceballos For EGD colonoscopy however could not tolerate bowel prep, EGD was done which showed esophagitis, recent PET scan in November 19, 2021 did not show active findings of active primary pancreatic adenocarcinoma without metastatic disease findings there were scattered mesenteric lymph nodes she does have L5 vertebral body osseous metastatic disease with severe bilateral lung fibrosis and cyst formation. In the ER she is requiring 5 L of oxygen, she is tachycardic, patient is stating that she gets short of breath but just walking, she is also spent conversational dyspnea no recent fever, vomiting, diarrhea she is endorsing anorexia, muscle mass loss.. I requested CTA chest rule out PE Requested D-dimer I will change the admission order to CSU, patient is stating that in case of any further deterioration she would opt for palliative care DNR/DNI Review of Systems Const: Reports: chills and fatigue Eyes: Denies: change in vision ENMT: Denies: throat pain Card: Reports: palpitations, dyspnea on exertion and orthopnea; Denies: chest pain Resp: Reports: dyspnea and non-productive cough GI: Denies: abdominal pain : Denies: flank pain Musc: Denies: neck pain Skin/Breast: Denies: rash Neuro: Denies: headache(s) Psych: Denies: anxiety Endo: Denies: polyuria Kane/Lymph: Denies: easy bruising All/Imm: Denies: urticaria Medications/Allergies Home Medications Medication Instructions Recorded Confirmed Last Taken Type loratadine 10 mg tablet (Claritin) 10 mg PO DAILY 03/08/22 04/09/22 04/08/22 History pyridoxine (vitamin B6) 100 mg 50 mg PO DAILY 03/15/22 04/09/22 04/08/22 History tablet guaifenesin 600 mg tablet, 600 mg PO BID 04/05/22 04/09/22 04/08/22 History extended release 12 hr (Mucinex) ipratropium 20 mcg-albuterol 100 1 puff inhalation BID 04/05/22 04/09/22 04/08/22 History mcg/actuation mist for inhalation (Combivent Respimat) Allergies Allergy/AdvReac Type Severity Reaction Status Date / Time codeine Allergy Mild rash Verified 04/05/22 09:26 PFSH Acute PFSH: Medical History 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 Depression Gastritis GERD (gastroesophageal reflux disease) Lung cancer Non-productive cough Pancreatic cancer metastasized to lung Pancreatic mass Port-A-Cath in place Surgical History History of ovarian resection History of right knee surgery Family History Mother Diabetes Denies family history of CAD (coronary artery disease) Clotting disorder Dementia Hyperlipidemia Psychiatric illness Chronic kidney disease (CKD) Suicide Anesthesia complication Bleeding disorder Lung disease Cancer Hypertension Stroke Social History Smoking and tobacco status: former smoker Quit status (tobacco): has quit using tobacco Year quit tobacco: 1990 Former quit date comment: 0.5ppd x 10 years Alcohol intake: never Female Reproductive History: Date of last menstrual period: 11/18/20 Vitals/I&O/Wt Last Vital Signs Temp 98.9 F 04/09/22 10:52 Pulse 128 H 04/09/22 11:44 Resp 16 04/09/22 11:44 BP 133/74 04/09/22 11:44 Pulse Ox 93 04/09/22 11:44 O2 Del Method 04/09/22 11:44 O2 Flow Rate 5 04/09/22 10:57 Weight last 48 hrs Weight 57.153 kg Physical Exam Narrative: Cachectic malnourished female Currently on 5 L nasal cannula Has conversational dyspnea Using abdominal muscles No active chest pain Abdomen is soft No signs of edema Looks dehydrated Muscle mass loss S1, S2 sinus tachycardia Family at the bedside Nonfocal neuro exam Data : 04/09/22 10:55 04/09/22 10:55 Micro: Microbiology 04/09/22 12:04 Blood Culture - Preliminary Blood SPECIMEN COLLECTED 04/09/22 12:04 Blood Culture - Preliminary Blood SPECIMEN COLLECTED A&P Assessment and plan (1) Pulmonary emphysema with fibrosis of lung: Status: Acute (2) Pancreatic cancer metastasized to lung: Status: Acute (3) Cough: Status: Acute (4) Malnutrition: Status: Acute (5) Acute respiratory failure with hypoxia: Status: Acute Plan Interstitial lung fibrosis Acute on chronic hypoxia Sinus tachycardia Rule out PE Will get CTA chest Requested D-dimer Clinically looks dehydrated, malnourished Moderate protein calorie malnourishment Dietary consult Patient is endorsing anorexia, she did not respond to mirtazapine, Megace and THC Patient is stating that in case of any worsening she would opt for comfort care/palliative care, she is DNR/DNI Cardiac diet with supplements I would avoid Lasix for now Sepsis criteria met with tachypnea tachycardia leukocytosis, acute hypoxia, she received septic bolus, blood culture has been taken, start broad-spectrum antibiotics Further antibiotic decision will be made after CTA chest She has multiple cystic appearance of pulmonary imaging, interstitial lung disease, hard to differentiate whether she has consolidation, will wait for CT results I will start her on high-dose steroids, DuoNeb BiPAP to decrease work of breathing DNR/DNI Family at the bedside Admit to CSU Patient does not want chest compressions defibrillation or intubation in case of any worsening, patient and her family okay with BiPAP She does carry a guarded prognosis Attestations Medical Necessity Statement*: More than 2 midnights anticipated for management of acute on chronic hypoxic respiratory failure, pneumonia, sepsis Time Spent in Patient Care: 35mins Coding Level of Care Code Acute Director Religious Education for Chg Fwd Diagnoses Pulmonary emphysema with fibrosis of lung J43.9; J84.10 Pancreatic cancer metastasized to lung C25.9; C78.00 Cough R05.9 Malnutrition E46 Acute respiratory failure with hypoxia J96.01
--- NOTE | 2022-04-09 14:52 | CTR_ITS ---
PROCEDURE INFORMATION: Exam: CTA Chest With Contrast Exam date and time: 04/09/2022 8:07 PM Age: 66 years old Clinical indication: Shortness of breath; Prior surgery; Surgery type: Port; Patient HX: HX of pancreatic cancer; Additional info: Hypoxia TECHNIQUE: Imaging protocol: Computed tomographic angiography of the chest with contrast. 3D rendering (Not supervised by radiologist): MIP and/or 3D reconstructed images were created by the technologist. Radiation optimization: All CT scans at this facility use at least one of these dose optimization techniques: automated exposure control; mA and/or kV adjustment per patient size (includes targeted exams where dose is matched to clinical indication); or iterative reconstruction. Contrast material: OMNI 350; Contrast volume: 40 ml; Contrast route: INTRAVENOUS (IV); COMPARISON: CT angio chest PE protcl [id number] 05/05/2021 12:42 PM RADIATION DOSE METRICS: Total DLP (mGy-cm): 223.61 FINDINGS: Tubes, catheters and devices: Right Ojsxce-N-Oits with tip in the right atrium. Pulmonary arteries: Normal. No pulmonary emboli. Aorta: Unremarkable. No aortic aneurysm. No aortic dissection. Thyroid: Stable asymmetric enlargement of the left thyroid lobe. Lungs: Numerous cystic lesions have developed throughout both lungs. Numerous bilateral pulmonary nodules have decreased slightly in number and size. Consolidation within the lower lobes and peripheral lungs. Intermixed ground-glass opacities in both lungs. Pleural spaces: Unremarkable. No pneumothorax. No pleural effusion. Heart: The heart size is normal. Lymph nodes: Prominent mediastinal and hilar lymph nodes are most likely reactive. Calcified mediastinal and hilar lymph nodes. Spleen: Calcified granulomas in the spleen. Bones/joints: Mild degenerative changes of the spine. No fracture or aggressive bone lesion. Soft tissues: Unremarkable. CT/CT angio chest PE protcl [id number] IMPRESSION: 1. No evidence for pulmonary embolus. 2. Pulmonary metastatic disease appears improved from the prior study, consistent with some favorable response to therapy. 3. Patchy consolidations and ground-glass opacities in both lungs could represent superimposed pneumonia. 4. Numerous cystic lesions have developed in both lungs. This can be seen with certain infections such as histiocytosis, lymphoid interstitial pneumonia (LIP), or pneumocystis carinii pneumonia.
[2022-04-09 14:53] LABS: Procalcitonin 0.16 ng/mL (0-0.5)
[2022-04-09] MEDS: enoxaparin 40 mg/0.4 mL Syringe SUBCUT (15:48)
[2022-04-09] MEDS: sodium chloride 0.9% 1,000 ML 75 ML IV (15:49)
[2022-04-09] MEDS: vancomycin 750 MG in sodium chloride 0.9% 250 ML 250 MG IV (15:50)
[2022-04-09] MEDS: piperacillin-tazobactam 3.375 GM in sodium chloride 0.9% (plus) 50 ML IV (17:36)
--- NOTE | 2022-04-09 18:37 | PC.NURSE ---
Ultrasound IV obtained for CT. 20G in Left Upper arm. X3 attempts by nurse.
[2022-04-09] MEDS: iohexol 350 mg/mL 100 mL Btl IV (20:14)
[2022-04-10] VITALS (157 sets, daily range): BP systolic 102–164; BP diastolic 45–87; PULSE 72–145; RESP 18–53; TEMP 36.3–37.1; O2SAT 81–99
[2022-04-10] MEDS: vancomycin 750 MG in sodium chloride 0.9% 250 ML 250 MG IV ×3 (00:10→15:22)
[2022-04-10] MEDS: piperacillin-tazobactam 3.375 GM in sodium chloride 0.9% (plus) 50 ML IV ×3 (01:50→17:03)
[2022-04-10 04:36] LABS: Basophils % 0.1 %; Hematocrit 34.2 % (37.0-47.0); Hemoglobin 10.2 g/dL (11.5-15.3); Lymphocytes % 11.5 %; Mean Corpuscular HGB Conc 29.8 g/dL (30.0-36.0); Mean Corpuscular Hemoglobin 27.2 pg (28.0-34.0); Mean Corpuscular Volume 91.2 fl (81-99); Mean Platelet Volume 11.6 fL (7.4-10.4); Monocytes # 0.3 10^3/uL (0.2-0.9); Monocytes % 3.5 %; Neutrophils % 83.4 %; Nucleated Red Blood Cells % 0 %; Platelet Count 260 10^3/cmm (130-400); Red Blood Count 3.75 10^6/uL (4.1-5.3); White Blood Count 8.5 10^3/uL (4.0-10.0)
[2022-04-10 05:06] LABS: Alanine Aminotransferase < 5 U/L (0-33); Albumin Level 3.1 g/dL (3.5-5.2); Alkaline Phosphatase 60 IU/L (35-105); Anion Gap 14.6 (5-19); Aspartate Amino Transferase 14 U/L (0-32); Blood Urea Nitrogen 13 mg/dL (8-23); C Reactive Protein 95.6 mg/L (0.0-4.9); Carbon Dioxide 28 mmol/L (22-29); Chloride 105 mmol/L (98-107); Globulin 2.9 g/dL (1.3-4.6); Glomerular Filtration Rate 353.2 mL/min (90-130); Glucose 132 mg/dL (65-115); Magnesium 2.1 mg/dL (1.7-2.3); Osmolality Calculated 298 mOsm/kg (285-295); Potassium 4.6 mmol/L (3.5-5.1); Sodium 143 mmol/L (136-145); Total Bilirubin 0.3 mg/dL (0.15-1.2)
[2022-04-10] MEDS: ipratropium-albuterol 3 mL Neb INHALATION (08:00)
[2022-04-10] MEDS: sennosides-docusate Tablet 1 TAB PO (08:13)
[2022-04-10 09:12] LABS: Lactate Dehydrogenase 217 U/L (135-214)
[2022-04-10] MEDS: sodium chloride 0.9% 500 ML 999 ML IV (10:09)
[2022-04-10] MEDS: sodium chloride 0.9% 1,000 ML 75 ML IV (10:46)
--- NOTE | 2022-04-10 15:11 | P.PN_ITS ---
Subjective Subjective: I have discussed her case with Dr. Aleman who recommended starting p.o. Bactrim and get Fungitell Currently patient is on 5 L nasal cannula He is not on heated high flow Patient is endorsing feeling slightly better She was able to void using the bedside commode Vitals/I&O/Wt Last Vital Signs Temp 97.9 F 04/10/22 07:20 Pulse 88 04/10/22 14:20 Resp 45 H 04/10/22 12:00 BP 117/55 04/10/22 14:20 Pulse Ox 93 04/10/22 14:20 O2 Del Method 04/10/22 14:20 O2 Flow Rate 5 04/10/22 14:20 FiO2 50 04/09/22 16:38 04/10/22 04/10/22 04/10/22 06:59 14:59 22:59 Intake Total 1730 / 2030 1519.5 / 1519.5 Output Total 200 / 200 Balance 1730 / 1730 1319.5 / 1319.5 Weight last 48 hrs Weight 57.153 kg Weight 57.153 kg Physical Exam Narrative: Awake and alert Nonfocal neuro exam Currently on 5 L Excessive crepitation with crackles noted There are diffuse in nature Cachectic, malnourished No signs of edema Awake and alert nonfocal neuro exam No active distress Conversational dyspnea slightly better Data : 04/10/22 03:32 04/10/22 03:32 Micro: Microbiology 04/09/22 15:40 MRSA Culture - Final Nose 04/09/22 12:04 Blood Culture - Preliminary Blood NEGATIVE TO DATE 04/09/22 12:04 Blood Culture - Preliminary Blood NEGATIVE TO DATE A&P Assessment and plan (1) Pneumonia: Status: Acute (2) Acute respiratory failure with hypoxia: Status: Acute (3) Pulmonary emphysema with fibrosis of lung: Status: Acute (4) LRTI (lower respiratory tract infection): Status: Acute (5) Pancreatic cancer metastasized to lung: Status: Acute (6) Cough: Status: Acute (7) Malnutrition: Status: Acute Plan Appreciate dietary recommendations for her moderate protein calorie malnourishment Acute on chronic hypoxia Underlying interstitial lung fibrosis cta chest ruled out PE Cystic appearance of the lungs Start Bactrim She is currently on high-dose steroids Will send Fungitell Afebrile no leukocytosis We will try to send sputum analysis No acute worsening at this point, conversational dyspnea slightly better Clinically looks very dehydrated and malnourished Because of her hypotension I had to give her IV fluids which improved her MAP Discontinue IV fluids today Sepsis related to community-acquired pneumonia currently on broad-spectrum antibiotics, Bactrim added Monitor kidney function and sodium level She is at risk of pneumothorax due to cystic appearance of lungs In case of any worsening BiPAP should be used with settings that should not allow higher tidal volumes more than 600 mL DNR/DNI She can be transferred upstairs once we have a bed Attestations Medical Necessity Statement*: Continue medical management Time Spent in Patient Care: 30 Coding Level of Care Code Acute Clinical Analyst for Chg Fwd Diagnoses Pneumonia J18.9 Acute respiratory failure with hypoxia J96.01 Pulmonary emphysema with fibrosis of lung J43.9; J84.10 LRTI (lower respiratory tract infection) J22 Pancreatic cancer metastasized to lung C25.9; C78.00 Cough R05.9 Malnutrition E46
--- NOTE | 2022-04-10 15:18 | USCV_ITS ---
Charlotte Wynn Age: 66 Gender: F : 1955 Exam Date: 04/10/2022 12:01 Ordering Phys: Lesley Morse MD Technologist: Diaz Nesbitt Exam Location: [facility] – [place] Indication: Cancer BP: 125 / 75 HR: 107 Rhythm: Sinus Technical Quality: Adequate MEASUREMENTS (Male / Female) Normal Values 2D ECHO LV Diastolic Diameter PLAX 3.4 cm 4.2 - 5.9 / 3.9 - 5.3 cm LV Systolic Diameter PLAX 2.0 cm IVS Diastolic Thickness 0.8 cm 0.6 - 1.0 / 0.6 - 0.9 cm IVS Systolic Thickness 1.0 cm LVPW Diastolic Thickness 1.1 cm 0.6 - 1.0 / 0.6 - 0.9 cm LVPW Systolic Thickness 1.1 cm LVOT Diameter 2.0 cm LV Ejection Fraction 2D Teich 73.8 % LV Ejection Fraction MOD 2C 69.7 % LV Ejection Fraction 2C AL 70.3 % LA Diameter 2.8 cm LA Width 3.6 cm LA Height 3.5 cm RA Width 3.4 cm RA Height 3.5 cm Aorta at Sinotubular Diameter 2.3 cm IVC Diameter 1.2 cm M-MODE Aortic Annulus Diameter 2.2 cm LA Ao Ratio MM 1.4 MV E Point Septal Separation 0.5 cm DOPPLER AV Peak Velocity 201.0 cm/s LVOT Peak Velocity 88.0 cm/s AV Area Cont Eq vti 1.2 cm squared AV Area Cont Eq pk 1.3 cm squared MV Peak Velocity 111.0 cm/s MV Area PHT 4.5 cm squared Mitral E to A Ratio 0.9 MV E' Velocity 38.0 cm/s Mitral E to MV E' Ratio 7.0 Mitral E to LV E' Lateral Ratio 7.7 Mitral E to LV E' Septal Ratio 6.4 TR Peak Velocity 264.2 cm/s TR Peak Gradient 27.9 mmHg TR Mean Velocity 213.4 cm/s TR Mean Gradient 18.8 mmHg TR Velocity Time Integral 66.6 cm Right Atrial Pressure 3.0 mmHg Pulmonary Artery Systolic Pressu 30.9 mmHg RV Acceleration Time 0.1 s RV Ejection Time 0.3 s RV AcT/ET 0.3 FINDINGS Left Ventricle Normal left ventricular size, systolic function and wall thickness, with no regional wall motion abnormalities. Left ventricular ejection fraction is estimated at 65 %. Normal diastolic function. Right Ventricle Normal right ventricular size and systolic function. Right ventricular systolic pressure 29 mmHg. Right Atrium Normal right atrial size. Right atrial pressure estimated at 3 mmHg. Left Atrium Normal left atrial size. Mitral Valve Thickened mitral valve. No mitral valve stenosis. Trace mitral valve regurgitation. Aortic Valve Aortic valve not well visualized. No aortic valve stenosis. No aortic valve regurgitation. Tricuspid Valve Structurally normal tricuspid valve. No tricuspid valve stenosis. Trace tricuspid valve regurgitation. Pulmonic Valve Pulmonic valve not well visualized. No pulmonary valve stenosis. Pericardium No pericardial effusion. Aorta Normal size aortic root and proximal ascending aorta. IVC Normal IVC dimension with >50% respiratory change of the inferior vena cava. CONCLUSIONS 1. Normal left ventricular size, systolic function and wall thickness, with no regional wall motion abnormalities. Left ventricular ejection fraction is estimated at 65 %. Normal diastolic function. 2. Normal right ventricular size and systolic function. 3. Pulmonary artery pressure estimated at 29 mmHg. 4. No prior similar studies to compare. Kena Elliott MD (Electronically Signed) Final Date: 10 April 2022 17:04 S
[2022-04-10] MEDS: enoxaparin 40 mg/0.4 mL Syringe SUBCUT (15:20)
[2022-04-10] MEDS: levalbuterol 1.25 mg/3 mL Neb INHALATION ×2 (15:47→19:36)
[2022-04-10] MEDS: ipratropium 0.5 mg/2.5 mL Neb INHALATION ×2 (15:47→19:39)
[2022-04-10 15:57] LABS: Vancomycin Trough 10.1 ug/mL (10-15)
[2022-04-10] MEDS: sulfamethoxazole-trimeth DS 160-800 mg Tablet 1 TAB PO (17:03)
[2022-04-11] VITALS (50 sets, daily range): BP systolic 106–158; BP diastolic 51–83; PULSE 79–137; RESP 20–39; TEMP 36.3–36.8; O2SAT 85–98
[2022-04-11] MEDS: vancomycin 750 MG in sodium chloride 0.9% 250 ML 250 MG IV ×3 (00:11→15:30)
[2022-04-11] MEDS: piperacillin-tazobactam 3.375 GM in sodium chloride 0.9% (plus) 50 ML IV ×3 (01:18→17:08)
[2022-04-11 04:07] LABS: Basophils % 0.1 %; Hematocrit 29.4 % (37.0-47.0); Hemoglobin 8.8 g/dL (11.5-15.3); Lymphocytes # 0.8 10^3/uL (0.8-4.8); Mean Corpuscular HGB Conc 29.9 g/dL (30.0-36.0); Mean Corpuscular Hemoglobin 27.4 pg (28.0-34.0); Mean Corpuscular Volume 91.6 fl (81-99); Mean Platelet Volume 10.7 fL (7.4-10.4); Monocytes # 1.4 10^3/uL (0.2-0.9); Monocytes % 6.8 %; Neutrophils # 17.73 10^3/uL (1.8-7.7); Neutrophils % 88.2 %; Nucleated Red Blood Cells % 0 %; Platelet Count 234 10^3/cmm (130-400); Red Blood Count 3.21 10^6/uL (4.1-5.3); Red Cell Distribution Width 20.6 % (12.1-15.1); White Blood Count 20.1 10^3/uL (4.0-10.0)
[2022-04-11 04:36] LABS: Anion Gap 11.6 (5-19); Blood Urea Nitrogen 17 mg/dL (8-23); Calcium 8.2 mg/dL (8.5-10.5); Carbon Dioxide 30 mmol/L (22-29); Chloride 108 mmol/L (98-107); Glomerular Filtration Rate 221.2 mL/min (90-130); Glucose 194 mg/dL (65-115); Osmolality Calculated 309 mOsm/kg (285-295); Potassium 3.6 mmol/L (3.5-5.1); Sodium 146 mmol/L (136-145)
[2022-04-11] MEDS: ipratropium 0.5 mg/2.5 mL Neb INHALATION ×3 (07:48→21:29)
[2022-04-11] MEDS: levalbuterol 1.25 mg/3 mL Neb INHALATION ×3 (07:48→21:28)
[2022-04-11] MEDS: sennosides-docusate Tablet 1 TAB PO (08:33)
[2022-04-11] MEDS: sulfamethoxazole-trimeth DS 160-800 mg Tablet 1 TAB PO ×2 (08:33→18:41)
[2022-04-11] MEDS: dextrose 5%-sod chloride 0.45% 1,000 ML 75 ML IV (08:34)
--- NOTE | 2022-04-11 10:38 | PC.CHAP ---
Pastoral Care Encounter/Spiritual Assessment Type of Contact [] Declined network consultant visit [] Patient/Family/Request visit [] Outpatient visit [] Follow-up visit [] Physician referral [] Code/Alert [x] Routine visit [] Staff referral [] Actively dying [x] Patient sleeping [] Family support [] [] Out of room [] Palliative care [] [] Receiving care in room [] Pre-surgical visit [] Trauma [] Long length of stay [x] ICU visit [] Other: Relational/Emotional Strength [] Patient feels connected with others/family/visitors/staff [] Distress [] Loneliness/isolation [] Abandonment Spirituality of Patient [] Person of Holly [] Attends Amish of their Holly [] Believes in Prayer [] Reads Bible or Zoroastrian materials [] There are Spiritual issues to be addressed Automobile Mechanic Radiator Interventions [x]x Prayer [] Active listening [] Non-anxious presence [] Spiritual/emotional support [] Crisis/trauma care [] Spiritual counseling [] Bereavement support [] Provided bereavement packet [] Provided Bible/devotional materials [] Provided toy/stuffed animal, coloring book to patient or family member [] Provided Communion [] Anointing/[place] [] Salvation [x] Completed spiritual assessment [] Other: Impact on Illness or Injury [] Angry [] Fearful [] Anxious [] Often cries [] Exhaustion [] Unable to work [] Unable to attend religion [] Unable to walk/stand [] Unable to read [] Unable to drive [] Unable to eat/drink [] Unable to sleep [] Unable to be with family [] Patient intubated [] Other: Summary Time spent with patient
--- NOTE | 2022-04-11 13:26 | PM.PN ---
Subjective Subjective: Patient is in good spirits She is afebrile Leukocytosis noted Signs of dehydration with hypernatremia Patient is stating that she has started eating better she is also taking her protein shakes 3 times a day However slightest bit of movement would make her tachycardic and hypoxic Vitals/I&O/Wt Last Vital Signs Temp 98.0 F 04/11/22 07:55 Pulse 105 H 04/11/22 12:00 Resp 39 H 04/11/22 12:00 BP 133/78 04/11/22 12:00 Pulse Ox 94 04/11/22 12:00 O2 Del Method 04/11/22 07:55 O2 Flow Rate 4 04/11/22 07:55 FiO2 50 04/09/22 16:38 04/10/22 04/11/22 04/11/22 22:59 06:59 14:59 Intake Total 840 / 2359.5 300 / 2659.5 900 / 900 Output Total 350 / 550 450 / 1000 1000 / 1000 Balance 490 / 1809.5 -150 / 1659.5 -100 / -100 Weight last 48 hrs Weight 57.153 kg Physical Exam Narrative: Patient becomes hypoxic and tachycardic with minimal exertion There is mild component of conversational dyspnea Signs of dehydration still present Bilateral breath sounds slightly better as compared to yesterday however still has crepitation and crackles Awake and alert Nonfocal neuro exam in good spirits Currently on 4 L nasal cannula Data : 04/11/22 03:32 04/11/22 03:32 Micro: Microbiology 04/10/22 15:22 Gram Stain - Final Sputum - Expectorated Sputum Sputum Culture - Preliminary 04/09/22 15:40 MRSA Culture - Final Nose 04/09/22 12:04 Blood Culture - Preliminary Blood NEGATIVE TO DATE 04/09/22 12:04 Blood Culture - Preliminary Blood NEGATIVE TO DATE A&P Assessment and plan (1) Pneumonia: Status: Acute (2) Acute respiratory failure with hypoxia: Status: Acute (3) Pulmonary emphysema with fibrosis of lung: Status: Acute (4) Pancreatic cancer metastasized to lung: Status: Acute (5) Cough: Status: Acute (6) Malnutrition: Status: Acute Plan Acute on chronic hypoxia Metastatic cancer Patient easily get hypoxic also has conversational dyspnea Cystic appearance of the lungs which is diffuse Concern for PCP pneumonia Started on Bactrim Continue broad-spectrum antibiotics noted leukocytosis worsening however she is also on steroids, she is afebrile Fungitell sent Clinically looks dehydrated EF is preserved 65% Patient dietary recommendations for her moderate protein calorie malnourishment I will repeat her CBC and BMP tomorrow, currently she is hemodynamically stable ABG tomorrow I will start D5 half-normal for her hypernatremia: 0.5 L water deficit DNR/DNI No signs of PE, DVT prophylaxis with Lovenox Continue high-dose steroids Guarded prognosis Patient is in good spirits I will add escitalopram Attestations Medical Necessity Statement*: Continue medical management she can be transferred out of ICU Time Spent in Patient Care: 30 Coding Level of Care Code Acute Truck Washer for g Fwd Diagnoses Pneumonia J18.9 Acute respiratory failure with hypoxia J96.01 Pulmonary emphysema with fibrosis of lung J43.9; J84.10 Pancreatic cancer metastasized to lung C25.9; C78.00 Cough R05.9 Malnutrition E46
[2022-04-11] MEDS: escitalopram 10 mg Tablet 20 MG PO (13:45)
[2022-04-11] MEDS: enoxaparin 40 mg/0.4 mL Syringe SUBCUT (15:29)
[2022-04-11] MEDS: ondansetron 2 mg/ML SDV 2 mL 4 MG IVP (17:09)
[2022-04-12] VITALS (61 sets, daily range): BP systolic 124–162; BP diastolic 64–85; PULSE 72–128; RESP 16–42; TEMP 36.6–36.8; O2SAT 82–96
[2022-04-12] MEDS: piperacillin-tazobactam 3.375 GM in sodium chloride 0.9% (plus) 50 ML IV ×3 (00:45→17:35)
[2022-04-12] MEDS: vancomycin 750 MG in sodium chloride 0.9% 250 ML 250 MG IV ×3 (00:46→20:00)
[2022-04-12] MEDS: ipratropium 0.5 mg/2.5 mL Neb INHALATION ×4 (02:01→20:12)
[2022-04-12] MEDS: levalbuterol 1.25 mg/3 mL Neb INHALATION ×5 (02:01→20:12)
[2022-04-12 03:53] LABS: Basophils % 0.1 %; Hematocrit 31.8 % (37.0-47.0); Hemoglobin 9.6 g/dL (11.5-15.3); Lymphocytes # 1.3 10^3/uL (0.8-4.8); Lymphocytes % 5.8 %; Mean Corpuscular HGB Conc 30.2 g/dL (30.0-36.0); Mean Corpuscular Hemoglobin 27.4 pg (28.0-34.0); Mean Corpuscular Volume 90.6 fl (81-99); Mean Platelet Volume 11.9 fL (7.4-10.4); Monocytes # 1.6 10^3/uL (0.2-0.9); Monocytes % 7.3 %; Neutrophils # 18.32 10^3/uL (1.8-7.7); Neutrophils % 85.4 %; Nucleated Red Blood Cells % 0 %; Platelet Count 278 10^3/cmm (130-400); Red Blood Count 3.51 10^6/uL (4.1-5.3); Red Cell Distribution Width 20.5 % (12.1-15.1); White Blood Count 21.5 10^3/uL (4.0-10.0)
[2022-04-12 04:35] LABS: Anion Gap 10.3 (5-19); Blood Urea Nitrogen 13 mg/dL (8-23); Calcium 8.4 mg/dL (8.5-10.5); Carbon Dioxide 31 mmol/L (22-29); Chloride 106 mmol/L (98-107); Glomerular Filtration Rate 122.7 mL/min (90-130); Glucose 99 mg/dL (65-115); Osmolality Calculated 298 mOsm/kg (285-295); Potassium 3.3 mmol/L (3.5-5.1); Sodium 144 mmol/L (136-145)
[2022-04-12] MEDS: ondansetron 2 mg/ML SDV 2 mL 4 MG IVP ×3 (08:36→20:03)
--- NOTE | 2022-04-12 08:50 | PC.NURSE ---
Rounded with Dr. Morse. Reviewed vital signs and O2 requirements. Orders for metoporolol for elevated HR. Discussed plan of care to include discharge to [facility] home vs. LTAC. trust manager assistant to see patient. Reported increase nausea.
[2022-04-12] MEDS: metoprolol tartrate 25 mg Tablet PO ×2 (10:42→20:00)
[2022-04-12] MEDS: escitalopram 10 mg Tablet 20 MG PO (10:42)
[2022-04-12] MEDS: sulfamethoxazole-trimeth DS 160-800 mg Tablet 1 TAB PO ×2 (10:43→19:59)
--- NOTE | 2022-04-12 11:36 | PC.CHAP ---
Pastoral Care Encounter/Spiritual Assessment Type of Contact [] Declined provider contracting consultant visit [] Patient/Family/Request visit [] Outpatient visit [] Follow-up visit [] Physician referral [] Code/Alert [x] Routine visit [] Staff referral [] Actively dying [] Patient sleeping [] Family support [] [] Out of room [] Palliative care [] [x] Receiving care in room [] Pre-surgical visit [] Trauma [] Long length of stay [x] ICU visit [] Other: Relational/Emotional Strength [] Patient feels connected with others/family/visitors/staff [] Distress [] Loneliness/isolation [] Abandonment Spirituality of Patient [] Person of Holly [] Attends Zoroastrianism of their Holly [] Believes in Prayer [] Reads Bible or Yazidi materials [] There are Spiritual issues to be addressed Briar Wood Sorter Interventions [x] Prayer [] Active listening [] Non-anxious presence [] Spiritual/emotional support [] Crisis/trauma care [] Spiritual counseling [] Bereavement support [] Provided bereavement packet [] Provided Bible/devotional materials [] Provided toy/stuffed animal, coloring book to patient or family member [] Provided Communion [] Anointing/[place] [] Salvation [x] Completed spiritual assessment [] Other: Impact on Illness or Injury [] Angry [] Fearful [] Anxious [] Often cries [] Exhaustion [] Unable to work [] Unable to attend holiness [] Unable to walk/stand [] Unable to read [] Unable to drive [] Unable to eat/drink [] Unable to sleep [] Unable to be with family [] Patient intubated [] Other: Summary Time spent with patient
--- NOTE | 2022-04-12 12:51 | PC.NURSE ---
Reported patient c/o nausea and request for medication to Dr. Morse. Notified him that PRN Zofran is not due yet.
--- NOTE | 2022-04-12 12:53 | PM.PN ---
Subjective Subjective: This morning patient is stating that she is lethargic and fatigued I have added metoprolol for her tachyarrhythmia She remains dehydrated Po intake is improved Endorsing nausea Received Zofran multiple times last night The IV fluids her heart rate did improve as per the nursing staff Vitals/I&O/Wt Last Vital Signs Temp 98.1 F 04/12/22 08:00 Pulse 97 04/12/22 10:00 Resp 27 H 04/12/22 10:00 BP 158/82 04/12/22 10:00 Pulse Ox 95 04/12/22 10:00 O2 Del Method 04/12/22 08:00 O2 Flow Rate 4 04/12/22 08:00 FiO2 50 04/09/22 16:38 04/11/22 04/12/22 04/12/22 22:59 06:59 14:59 Intake Total 1543.75 / 2443.75 300 / 2743.75 350 / 350 Balance 1543.75 / 1443.75 300 / 1743.75 350 / 350 Physical Exam Narrative: Patient looks dehydrated Currently on 4 L nasal cannula No conversational dyspnea Crepitation noted Abdomen soft No signs of edema of legs Hemodynamically stable Awake and alert Data : 04/12/22 03:34 04/12/22 03:34 Micro: Microbiology 04/10/22 15:22 Gram Stain - Final Sputum - Expectorated Sputum Sputum Culture - Final A&P Assessment and plan (1) Pneumonia: Status: Acute (2) Acute respiratory failure with hypoxia: Status: Acute (3) Pulmonary emphysema with fibrosis of lung: Status: Acute (4) Pancreatic cancer metastasized to lung: Status: Acute (5) Malnutrition: Status: Acute Plan Acute on chronic hypoxia Related to multifocal pneumonia, PCP pneumonia she is getting p.o. Bactrim as per Dr. Aleman We are waiting for Fungitell results Avoiding IV Bactrim to avoid fluid overload Her p.o. intake is improved, currently on escitalopram for her depression I have added metoprolol as well for better blood pressure and heart rate control Echo shows diastolic dysfunction She quickly desaturates and becomes tachycardic on status. Movement Patient is agreeable to go to [facility] I did recommend LTAC manager continuous improvement updated Will get physical therapy today Decrease steroid dose to once daily instead of twice daily regimen because of worsening of leukocytosis DNR/DNI Guarded prognosis Appreciate dietary recommendations for moderate protein calorie malnourishment Attestations Medical Necessity Statement*: Continue medical management for now Critical Care Time: 30 Coding Level of Care Code Acute Leather Goods Assembler for Chg Fwd Diagnoses Pneumonia J18.9 Acute respiratory failure with hypoxia J96.01 Pulmonary emphysema with fibrosis of lung J43.9; J84.10 Pancreatic cancer metastasized to lung C25.9; C78.00 Malnutrition E46
[2022-04-12] MEDS: metoclopramide 5 mg/mL SDV 2 mL IVP (13:04)
[2022-04-12] MEDS: enoxaparin 40 mg/0.4 mL Syringe SUBCUT (14:22)
[2022-04-12 15:36] LABS: Vancomycin Trough 20.6 ug/mL (10-15)
[2022-04-13] VITALS (44 sets, daily range): BP systolic 113–157; BP diastolic 58–101; PULSE 73–118; RESP 12–45; TEMP 36.6–36.8; O2SAT 86–96
[2022-04-13] MEDS: piperacillin-tazobactam 3.375 GM in sodium chloride 0.9% (plus) 50 ML IV ×3 (00:42→16:37)
[2022-04-13] MEDS: metoclopramide 5 mg/mL SDV 2 mL IVP ×2 (00:42→07:09)
[2022-04-13 03:55] LABS: Basophils % 0.1 %; Eosinophils # 0.2 10^3/uL (0.0-0.8); Eosinophils % 1.4 %; Hematocrit 33.1 % (37.0-47.0); Lymphocytes # 1.4 10^3/uL (0.8-4.8); Mean Corpuscular HGB Conc 30.2 g/dL (30.0-36.0); Mean Corpuscular Hemoglobin 27.2 pg (28.0-34.0); Mean Corpuscular Volume 89.9 fl (81-99); Mean Platelet Volume 11.7 fL (7.4-10.4); Monocytes # 1.4 10^3/uL (0.2-0.9); Monocytes % 9.1 %; Neutrophils # 12.31 10^3/uL (1.8-7.7); Neutrophils % 79.2 %; Nucleated Red Blood Cells % 0 %; Platelet Count 288 10^3/cmm (130-400); Red Blood Count 3.68 10^6/uL (4.1-5.3); Red Cell Distribution Width 20.5 % (12.1-15.1); White Blood Count 15.5 10^3/uL (4.0-10.0)
[2022-04-13 04:31] LABS: Anion Gap 12.3 (5-19); Blood Urea Nitrogen 12 mg/dL (8-23); Calcium 8.4 mg/dL (8.5-10.5); Carbon Dioxide 35 mmol/L (22-29); Chloride 98 mmol/L (98-107); Glomerular Filtration Rate 122.7 mL/min (90-130); Glucose 71 mg/dL (65-115); Osmolality Calculated 292 mOsm/kg (285-295); Potassium 3.3 mmol/L (3.5-5.1); Sodium 142 mmol/L (136-145)
[2022-04-13] MEDS: vancomycin 750 MG in sodium chloride 0.9% 250 ML 250 MG IV (07:09)
[2022-04-13] MEDS: levalbuterol 1.25 mg/3 mL Neb INHALATION ×2 (08:03→23:19)
[2022-04-13] MEDS: ipratropium 0.5 mg/2.5 mL Neb INHALATION ×2 (08:03→13:34)
[2022-04-13] MEDS: escitalopram 10 mg Tablet 20 MG PO (09:57)
[2022-04-13] MEDS: sulfamethoxazole-trimeth DS 160-800 mg Tablet 1 TAB PO (09:58)
[2022-04-13] MEDS: metoprolol tartrate 25 mg Tablet PO ×2 (09:59→21:50)
--- NOTE | 2022-04-13 12:33 | P.PN_ITS ---
Subjective Subjective: Afebrile Culture negative Leukocytosis trending down Patient was requiring 10 L on ambulation and 5 L at rest this morning at rest she is requiring 10 L of high flow nasal cannula Patient does not want to go to LTAC, residential would not accept her at 10 L Patient is thinking about opting for palliative/hospice care, heel caser is aware She was desaturating on 10 L down to 87% with PT Had bowel movement yesterday P.o. intake is moderate Beta d glucan test pending Vitals/I&O/Wt Last Vital Signs Temp 98.2 F 04/12/22 20:00 Pulse 75 04/13/22 12:00 Resp 29 H 04/13/22 12:00 BP 157/66 04/13/22 12:00 Pulse Ox 95 04/13/22 12:00 O2 Del Method 04/13/22 08:17 O2 Flow Rate 10 04/13/22 08:17 FiO2 50 04/09/22 16:38 04/12/22 04/13/22 04/13/22 22:59 06:59 14:59 Intake Total 460 / 960 50 / 1010 450 / 450 Balance 460 / 960 50 / 1010 450 / 450 Physical Exam Narrative: Patient is awake and alert Currently on 10 L Conversational dyspnea Malnourished Dehydrated Abdomen soft Bilateral diffuse crepitations with crackles Awake and alert Nonfocal neuro exam Currently on 10 L high flow nasal cannula Data : 04/13/22 03:27 04/13/22 03:27 Micro: Microbiology 04/10/22 15:22 Gram Stain - Final Sputum - Expectorated Sputum Sputum Culture - Final A&P Assessment and plan (1) Pneumonia: Status: Acute (2) Acute respiratory failure with hypoxia: Status: Acute (3) Pulmonary emphysema with fibrosis of lung: Status: Acute (4) Pancreatic cancer metastasized to lung: Status: Acute (5) Malnutrition: Status: Acute (6) Cough: Status: Acute (7) Hypokalemia: Status: Acute Plan Patient is requiring 10 L of oxygen today Currently she is on Bactrim, broad-spectrum antibiotics Leukocytosis trending down On IV steroids Patient experiencing significant hypoxia on minimal exertion and with mild to moderate activities Patient does not want to go to LTAC, residential is not able to accept her anymore because of her 10 L of oxygen requirement, patient had decided to opt for palliative/hospice care She is DNR/DNI She can be transferred to [facility] Sinus tachycardia improved with use of beta-jose, no signs of PE, clinically she does have signs of dehydration, Moderate protein calorie malnourishment appreciate dietary recommendations she has been getting protein shakes I would start her on IV Bactrim 15 mg/kg Guarded prognosis Attestations Medical Necessity Statement*: Continue medical management Time Spent in Patient Care: 30 Coding Level of Care Code Acute Ed Transporter for g Fwd Diagnoses Pneumonia J18.9 Acute respiratory failure with hypoxia J96.01 Pulmonary emphysema with fibrosis of lung J43.9; J84.10 Pancreatic cancer metastasized to lung C25.9; C78.00 Malnutrition E46 Cough R05.9 Hypokalemia E87.6
[2022-04-13 13:15] LABS: ABG PCO2 54.5 mmHg (35-45); ABG PH Result 7.43 (7.35-7.45); Arterial Blood Gas Hematocrit 32.8 % (37-47); Base Excess ABG 10.2 mmol/L (-2.0-2.0); Blood Gas Allen Test Pos; Blood Gas Operator Identificat CAK; Blood Gas Sample Site Radial, left; Blood Gas Sample Type Arterial; HCO3 ABG 36.2 mmol/L (22-26); Oxygen Device NC; PO2 ABG 75.5 mmHg (80.0-100.0)
[2022-04-13] MEDS: potassium chloride ER 20 mEq Tablet 40 MEQ PO (13:58)
[2022-04-13] MEDS: sulfamethoxazole-trimeth inj 400 MG in dextrose 5 % 500 ML 500 MG IV (14:49)
[2022-04-13] MEDS: enoxaparin 40 mg/0.4 mL Syringe SUBCUT (14:51)
[2022-04-13 18:24] LABS: Fungitell 1-3-B Glucan Assay <31 pg/mL; Interpretation NEGATIVE
--- NOTE | 2022-04-13 19:14 | PC.NURSE ---
Transfer Patient transferred to [facility] bed 255-1 via bed with 2x nurse assist. All patient belongings placed bedside. Family in new patient room, receiving nurse aware.
[2022-04-14] VITALS (8 sets, daily range): BP systolic 116–147; BP diastolic 64–71; PULSE 78–100; RESP 14–20; TEMP 36.7–37.3; O2SAT 90–95
[2022-04-14] MEDS: sulfamethoxazole-trimeth inj 400 MG in dextrose 5 % 500 ML 500 MG IV (01:30)
[2022-04-14] MEDS: ondansetron 2 mg/ML SDV 2 mL 4 MG IVP ×3 (02:46→15:17)
[2022-04-14] MEDS: piperacillin-tazobactam 3.375 GM in sodium chloride 0.9% (plus) 50 ML IV ×3 (03:19→18:00)
[2022-04-14 04:48] LABS: Basophils % 0.1 %; Eosinophils # 0.2 10^3/uL (0.0-0.8); Eosinophils % 1.4 %; Hematocrit 32.5 % (37.0-47.0); Hemoglobin 9.9 g/dL (11.5-15.3); Lymphocytes # 1.1 10^3/uL (0.8-4.8); Lymphocytes % 6.6 %; Mean Corpuscular HGB Conc 30.5 g/dL (30.0-36.0); Mean Corpuscular Hemoglobin 26.8 pg (28.0-34.0); Mean Corpuscular Volume 88.1 fl (81-99); Mean Platelet Volume 12.9 fL (7.4-10.4); Monocytes # 1.4 10^3/uL (0.2-0.9); Monocytes % 8.6 %; Neutrophils # 13.14 10^3/uL (1.8-7.7); Neutrophils % 82.2 %; Nucleated Red Blood Cells % 0 %; Platelet Count 286 10^3/cmm (130-400); Red Blood Count 3.69 10^6/uL (4.1-5.3); Red Cell Distribution Width 19.9 % (12.1-15.1)
[2022-04-14 05:10] LABS: Anion Gap 11.8 (5-19); Blood Urea Nitrogen 8 mg/dL (8-23); Calcium 8.6 mg/dL (8.5-10.5); Carbon Dioxide 36 mmol/L (22-29); Chloride 93 mmol/L (98-107); Glomerular Filtration Rate 122.7 mL/min (90-130); Glucose 154 mg/dL (65-115); Osmolality Calculated 287 mOsm/kg (285-295); Sodium 138 mmol/L (136-145)
[2022-04-14 05:25] LABS: Potassium 2.8 mmol/L (3.5-5.1)
[2022-04-14] MEDS: lidocaine 1% 5 ML in potassium chloride premix 100 ML 25 ML IV (08:41)
[2022-04-14] MEDS: escitalopram 10 mg Tablet 20 MG PO (08:47)
[2022-04-14] MEDS: sennosides-docusate Tablet 1 TAB PO (08:47)
[2022-04-14] MEDS: metoprolol tartrate 25 mg Tablet PO ×2 (08:50→21:04)
--- NOTE | 2022-04-14 08:57 | PC.SOCIAL ---
IMM updated Copy of page 2 provided to pt at bedside. Patient verbalized understanding. Initialed, dated, & timed a copy & placed in chart
[2022-04-14] MEDS: metoclopramide 5 mg/mL SDV 2 mL IVP (12:33)
--- NOTE | 2022-04-14 12:38 | PM.PN ---
Subjective Subjective: Spoke with Dr. Luna who agreed with palliative care Dr. Aleman also spoke with the patient He recommended ox dependence is stating that it might be better if she goes to LTAC because at home she will need a lot of care and [facility] will only be there at home for about a few hours He is saying that he will try to convince her to go to LTAC Today she has been accepted by [facility] and [facility] case she changes her mind last moment Vitals/I&O/Wt Last Vital Signs Temp 98.0 F 04/14/22 11:39 Pulse 78 04/14/22 11:39 Resp 15 04/14/22 11:39 BP 123/68 04/14/22 11:39 Pulse Ox 92 04/14/22 11:39 O2 Del Method 04/14/22 11:39 O2 Flow Rate 10 04/13/22 23:21 FiO2 50 04/09/22 16:38 04/13/22 04/14/22 04/14/22 22:59 06:59 14:59 Intake Total 812 / 1412 675 / 2087 290 / 290 Output Total 401 / 401 Balance 812 / 1412 274 / 1686 290 / 290 Weight last 48 hrs Weight 55.928 kg Physical Exam Narrative: Currently on 10 L Mild conversational dyspnea At rest saturating well Significant diffuse crackles and crepitation Abdomen soft Signs of dehydration Tachycardia improved Awake and alert Nonfocal neuro exam Data : 04/14/22 03:53 04/14/22 03:53 Micro: Microbiology 04/09/22 12:04 Blood Culture - Final Blood NO GROWTH AFTER 5 DAYS 04/09/22 12:04 Blood Culture - Final Blood NO GROWTH AFTER 5 DAYS A&P Assessment and plan (1) Hypokalemia: Status: Acute (2) Pneumonia: Status: Acute (3) Acute respiratory failure with hypoxia: Status: Acute (4) Pulmonary emphysema with fibrosis of lung: Status: Acute (5) Cough: Status: Acute (6) Malnutrition: Status: Acute (7) Sepsis: Status: Acute Plan Sepsis related to community-acquired pneumonia immunocompromised state: Resolved I have discontinued her PCP pneumonia treatment PCP antigen negative Continue IV antibiotics Currently on 10 L Acute on chronic hypoxia Chemo related pulmonary toxicity She is not a candidate of chemo anymore I did speak with Dr. Luna today Dr. Aleman recommended oxaliplatin is requesting LTAC placement however is reluctant, they will let us know about the final decision later today we will send referral to LTAC, director of casework has been updated She has already been accepted at hospice [facility] and [facility] DNR/DNI Moderate protein calorie malnourishment, dietary consult, patient is endorsing enjoying her strawberry flavored protein shakes Guarded prognosis Attestations Medical Necessity Statement*: Discharge tomorrow Time Spent in Patient Care: 35 Coding Level of Care Code Acute Dye Reel Operator Helper for Chg Fwd Diagnoses Hypokalemia E87.6 Pneumonia J18.9 Acute respiratory failure with hypoxia J96.01 Pulmonary emphysema with fibrosis of lung J43.9; J84.10 Cough R05.9 Malnutrition E46 Sepsis A41.9
[2022-04-14] MEDS: enoxaparin 40 mg/0.4 mL Syringe SUBCUT (15:17)
[2022-04-15] VITALS (9 sets, daily range): BP systolic 129–171; BP diastolic 68–78; PULSE 71–111; RESP 12–19; TEMP 36.8–37.6; O2SAT 94–97
[2022-04-15] MEDS: piperacillin-tazobactam 3.375 GM in sodium chloride 0.9% (plus) 50 ML IV ×3 (00:58→18:23)
[2022-04-15] MEDS: ondansetron 2 mg/ML SDV 2 mL 4 MG IVP (08:37)
[2022-04-15] MEDS: escitalopram 10 mg Tablet 20 MG PO (08:37)
[2022-04-15] MEDS: levalbuterol 1.25 mg/3 mL Neb INHALATION (09:13)
--- NOTE | 2022-04-15 12:30 | P.PN_ITS ---
Subjective Subjective: Patient will be discharged on Sunday [facility] hospice service tomorrow morning . 10 L Overnight events Still endorsing nausea without emesis Vitals/I&O/Wt Last Vital Signs Temp 98.3 F 04/15/22 04:00 Pulse 82 04/15/22 09:17 Resp 17 04/15/22 09:13 BP 161/78 04/15/22 08:00 Pulse Ox 95 04/15/22 09:13 O2 Del Method 04/15/22 09:13 O2 Flow Rate 10 04/15/22 09:13 FiO2 50 04/09/22 16:38 04/14/22 04/15/22 04/15/22 22:59 06:59 14:59 Intake Total 410 / 1095 50 / 1145 120 / 120 Output Total 700 / 700 0 / 700 Balance -290 / 395 50 / 445 120 / 120 Weight last 48 hrs Weight 55.928 kg Physical Exam Narrative: 90 dehydration Currently on 10 L Heart rate and blood pressure stable Awake and alert Nonfocal neuro exam No audible stridor or wheezing Crepitation Muscle mass loss Awake and alert Nonfocal neuro Data : 04/14/22 03:53 04/14/22 03:53 Micro: Microbiology 04/09/22 12:04 Blood Culture - Final Blood NO GROWTH AFTER 5 DAYS 04/09/22 12:04 Blood Culture - Final Blood NO GROWTH AFTER 5 DAYS A&P Assessment and plan (1) Sepsis: Status: Acute (2) Hypokalemia: Status: Acute (3) Pneumonia: Status: Acute (4) Acute respiratory failure with hypoxia: Status: Acute (5) Pulmonary emphysema with fibrosis of lung: Status: Acute (6) Pancreatic cancer metastasized to lung: Status: Acute (7) Malnutrition: Status: Acute Plan Sepsis: Resolved Hypoxia acute on chronic related to underlying mets and pneumonia Currently on 10 L 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
[2022-04-15] MEDS: enoxaparin 40 mg/0.4 mL Syringe SUBCUT (16:02)
[2022-04-15] MEDS: metoprolol tartrate 25 mg Tablet PO (19:50)
[2022-04-16] VITALS (8 sets, daily range): BP systolic 160–168; BP diastolic 72–83; PULSE 70–102; RESP 12–18; TEMP 36.3–36.9; O2SAT 93–95
[2022-04-16] MEDS: piperacillin-tazobactam 3.375 GM in sodium chloride 0.9% (plus) 50 ML IV ×2 (00:21→10:02)
--- NOTE | 2022-04-16 09:16 | PC.SOCIAL ---
IMM Updated Updated pt on IMM. No questions voiced. Provided pt a copy. Initialed, dated, & timed copy in chart.
[2022-04-16] MEDS: sennosides-docusate Tablet 1 TAB PO (09:55)
[2022-04-16] MEDS: metoprolol tartrate 25 mg Tablet PO (10:02)
--- NOTE | 2022-04-16 12:44 | P.DS_ITS ---
Discharge Providers Date of Admission: 04/09/22 13:34 Date of Discharge: April 14, 2022 Attending Provider at Admission: Lesley Morse MD Attending Provider at Discharge: Lesley Morse MD Primary Care Provider: YUMIKO Bustamante Diagnoses at Discharge Discharge Diagnosis (1) Pneumonia: Status: Acute (2) Acute respiratory failure with hypoxia: Status: Acute (3) Pulmonary emphysema with fibrosis of lung: Status: Acute (4) Pancreatic cancer metastasized to lung: Status: Acute (5) Malnutrition: Status: Acute (6) Cough: Status: Acute (7) Hypokalemia: Status: Acute Reason for Visit Reason for Visit: SOB Hospital Course Hospital Course 66-year-old female who has history of pancreatic cancer with metastasis to lungs, uses 3 to 4 L of oxygen at baseline, presented to the hospital for worsening shortness of breath, she has extensive cystic disease of her lung parenchyma, follows up with Dr. Aleman, she was diagnosed with sepsis related to pneumonia, she was treated for PCP pneumonia with Bactrim, PCP antigen report is still pending, she remained afebrile, significant leukocytosis with concomitant use of IV steroids, she was kept on broad-spectrum antibiotics initially, nares MRSA PCR negative, her antibiotics were de-escalated to Zosyn only along with IV Bactrim. Patient does not want to go to LTAC she has been requiring 10 L of oxygen, local nursing homes want people to accept her because of high oxygen requirement, patient has opted for palliative/comfort care. Physical Exam Narrative: Currently on 10 L Heart rate and blood pressure stable Awake and alert Nonfocal neuro exam No audible stridor or wheezing Crepitation Muscle mass loss Awake and alert Nonfocal neuro Discharge Data Studies Completed and Pending Completed Studies During Hospitalization Category Date Time Status CTA PE [CT angio chest PE protcl [id number]] Stat Cat Scan 04/09/22 14:52 Completed XR chest 1V portable [id number] Stat Exams 04/09/22 10:46 Completed CV. echo complete* [id number] Routine Ultrasound 04/10/22 15:18 Completed Pending at discharge Category Date Time Status Arterial Blood Gas W/O Coox AM LABS Lab 04/10/22 04:00 Ordered Blood Culture Stat Lab 04/09/22 12:04 Results Radiology Impressions Chest X-Ray 04/09/22 10:46 IMPRESSION: 1. Diffuse bilateral pneumonia and chronic interstitial densities increased since prior. 2. Right central line is in the SVC Chest CTA 04/09/22 14:52 IMPRESSION: 1. No evidence for pulmonary embolus. 2. Pulmonary metastatic disease appears improved from the prior study, consistent with some favorable response to therapy. 3. Patchy consolidations and ground-glass opacities in both lungs could represent superimposed pneumonia. 4. Numerous cystic lesions have developed in both lungs. This can be seen with certain infections such as histiocytosis, lymphoid interstitial pneumonia (LIP), or pneumocystis carinii pneumonia. Laboratory Results WBC 16.0 10^3/uL (4.0-10.0) H 04/14/22 03:53 RBC 3.69 10^6/uL (4.1-5.3) L 04/14/22 03:53 Hgb 9.9 g/dL (11.5-15.3) L 04/14/22 03:53 Hct 32.5 % (37.0-47.0) L 04/14/22 03:53 MCV 88.1 fl (81-99) 04/14/22 03:53 MCH 26.8 pg (28.0-34.0) L 04/14/22 03:53 MCHC 30.5 g/dL (30.0-36.0) 04/14/22 03:53 RDW 19.9 % (12.1-15.1) H 04/14/22 03:53 Plt Count 286 10^3/cmm (130-400) 04/14/22 03:53 MPV 12.9 fL (7.4-10.4) H 04/14/22 03:53 Neut % (Auto) 82.2 % 04/14/22 03:53 Lymph % (Auto) 6.6 % 04/14/22 03:53 [place] % (Auto) 8.6 % 04/14/22 03:53 Eos % (Auto) 1.4 % 04/14/22 03:53 Baso % (Auto) 0.1 % 04/14/22 03:53 Neut # (Auto) 13.14 10^3/uL (1.8-7.7) H 04/14/22 03:53 Lymph # (Auto) 1.1 10^3/uL (0.8-4.8) 04/14/22 03:53 [place] # (Auto) 1.4 10^3/uL (0.2-0.9) H 04/14/22 03:53 Eos # (Auto) 0.2 10^3/uL (0.0-0.8) 04/14/22 03:53 Baso # (Auto) 0.0 10^3/uL (0.0-0.1) 04/14/22 03:53 Nucleated RBC % (auto) 0 % 04/14/22 03:53 Nucleated RBCs # 0.0 /100WBC 04/14/22 03:53 D-Dimer 3.10 ug/mIFEU (0-0.59) H 04/09/22 10:55 Specimen Type Arterial 04/13/22 13:04 Sample Site Radial, left 04/13/22 13:04 ABG pH 7.43 (7.35-7.45) 04/13/22 13:04 ABG pCO2 54.5 mmHg (35-45) H 04/13/22 13:04 ABG pO2 75.5 mmHg (80.0-100.0) L 04/13/22 13:04 ABG HCO3 36.2 mmol/L (22-26) H 04/13/22 13:04 ABG O2 Saturation 94.5 04/09/22 10:59 ABG Base Excess 10.2 mmol/L (-2.0-2.0) H 04/13/22 13:04 Cirilo Test Pos 04/13/22 13:04 A-a O2 Gradient 4.6 mmHg (5-10) L 04/09/22 10:59 Hematocrit 32.8 % (37-47) L 04/13/22 13:04 Hgb O2 Saturation 92.4 % (95-100) L 04/09/22 10:59 Carboxyhemoglobin 1.6 %THgb (0.4-20.1) 04/09/22 10:59 Methemoglobin 0.6 % (0.4-1.5) 04/09/22 10:59 Total Hemoglobin 11.8 g/dL (12-16) L 04/09/22 10:59 Sodium 138.0 mmol/L (131-143) 04/09/22 10:59 Potassium 3.9 mmol/L (3.5-5.0) 04/09/22 10:59 Glucose 115.0 mg/dL (70-115) 04/09/22 10:59 Ionized Calcium 1.2 mmol/L (1.1-1.4) 04/09/22 10:59 O2 Delivery Device Nc 04/13/22 13:04 O2 Liters/Min 10.0 % 04/13/22 13:04 [employer] Gas ID Cak 04/13/22 13:04 Sodium 138 mmol/L (136-145) 04/14/22 03:53 Potassium 2.8 mmol/L (3.5-5.1) L* 04/14/22 03:53 Chloride 93 mmol/L (98-107) L 04/14/22 03:53 Carbon Dioxide 36 mmol/L (22-29) H 04/14/22 03:53 Anion Gap 11.8 (5-19) 04/14/22 03:53 BUN 8 mg/dL (8-23) 04/14/22 03:53 Creatinine 0.5 mg/dL (0.5-0.9) 04/14/22 03:53 GFR Calculation 122.7 mL/min (90-130) 04/14/22 03:53 Glucose 154 mg/dL (65-115) H 04/14/22 03:53 Calculated Osmolality 287 mOsm/kg (285-295) 04/14/22 03:53 Lactic Acid 1.2 mmol/L (0.5-2.2) 04/09/22 12:04 Calcium 8.6 mg/dL (8.5-10.5) 04/14/22 03:53 Magnesium 2.0 mg/dL (1.7-2.3) 04/14/22 03:53 Total Bilirubin 0.3 mg/dL (0.15-1.2) 04/10/22 03:32 AST 14 U/L (0-32) 04/10/22 03:32 ALT < 5 U/L (0-33) 04/10/22 03:32 Alkaline Phosphatase 60 IU/L (35-105) 04/10/22 03:32 Lactate Dehydrogenase 217 U/L (135-214) H 04/10/22 03:32 C-Reactive Protein 95.6 mg/L (0.0-4.9) H 04/10/22 03:32 Total Protein 6.0 g/dL (6.6-8.7) L 04/10/22 03:32 Albumin 3.1 g/dL (3.5-5.2) L 04/10/22 03:32 Globulin 2.9 g/dL (1.3-4.6) 04/10/22 03:32 Procalcitonin 0.16 ng/mL (0-0.5) 04/09/22 10:55 Vancomycin Trough 20.6 ug/mL (10-15) H 04/12/22 14:50 Beta-(1,3)-D-Glucan <31 pg/mL 04/10/22 Unknown B-(1,3)-D-Glucan Intrp Negative 04/10/22 Unknown Vitals Last Vital Signs Temp 98.5 F 04/14/22 04:00 Pulse 89 04/14/22 04:00 Resp 18 04/14/22 04:00 BP 130/64 04/14/22 04:00 Pulse Ox 91 04/14/22 04:00 O2 Del Method 04/13/22 23:21 O2 Flow Rate 10 04/13/22 23:21 FiO2 50 04/09/22 16:38 Discharge Plan Discharge Patient Disposition: Hospice - Home Condition: Stable Prescriptions: New albuterol sulfate 90 mcg/actuation HFA aerosol inhaler 2 inh inhalation Q8H PRN (Reason: shortness of breath or wheezing) Qty: 8.5 3RF Combivent Respimat 20-100 mcg/actuation mist 1 puff inhalation Q6H Qty: 4 0RF Continued loratadine [Claritin] 10 mg tablet 10 mg PO DAILY pyridoxine (vitamin B6) 100 mg tablet 50 mg PO DAILY guaifenesin [Mucinex] 600 mg tablet extended release 12hr 600 mg PO BID Combivent Respimat 20-100 mcg/actuation mist 1 puff inhalation BID Discharge Orders: Discharge Order (Routine); Ordered 04/16/22 Ordered By: Lesley Morse Referrals: Shirlene Feldman FNP-C [Primary Care Provider] - 1 week (Please call primary care provider to set up follow up appointment within 1 week.) Patient Instructions: Albuterol (By breathing), Ipratropium/Albuterol (By breathing), Hypokalemia (GEN), Sepsis (GEN), Pneumonia (GEN) Discharge Attestations Time Spent in Discharge Care*: less than 30 min Quality Metrics Clinical Quality Measures [ No reported AMI, CVA or VTE this stay] Coding Level of Care Code Acute Chg FW DC note Diagnoses Pneumonia J18.9 Acute respiratory failure with hypoxia J96.01 Pulmonary emphysema with fibrosis of lung J43.9; J84.10 Pancreatic cancer metastasized to lung C25.9; C78.00 Malnutrition E46 Cough R05.9 Hypokalemia E87.6
[2022-04-16] MEDS: levalbuterol 1.25 mg/3 mL Neb INHALATION (13:14)
== END 2022-04-16 15:58 | disposition hospice, home (50) | DRG 871 ==
LOC: ER 13:40 → ICU 13:47 → MEDSURG 04-13 18:59
PROVIDERS: Admitting Provider Internal Medicine; Emergency Provider Family Medicine; PCP Nurse Practitioner Family; Visit Provider Internal Medicine
DX: A41.9 Sepsis, unspecified organism (principal); J18.9 Pneumonia, unspecified organism; J96.21 Acute and chronic respiratory failure with hypoxia; C25.9 Malignant neoplasm of pancreas, unspecified; C78.02 Secondary malignant neoplasm of left lung; C78.01 Secondary malignant neoplasm of right lung; C79.51 Secondary malignant neoplasm of bone; E44.0 Moderate protein-calorie malnutrition; Z68.1 Body mass index [BMI] 19.9 or less, adult; E87.0 Hyperosmolality and hypernatremia; E86.0 Dehydration; K21.9 Gastro-esophageal reflux disease without esophagitis; J43.9 Emphysema, unspecified; J84.10 Pulmonary fibrosis, unspecified; T45.1X5S Adverse effect of antineoplastic and immunosuppressive drugs, sequela; R00.0 Tachycardia, unspecified; R63.0 Anorexia; R11.0 Nausea; Z87.891 Personal history of nicotine dependence; Z66 Do not resuscitate; Z92.21 Personal history of antineoplastic chemotherapy; Z95.828 Presence of other vascular implants and grafts
CPT/HCPCS: 36415; 36600; 71045; 71275; 80048; 80051; 80053; 80202; 82330; 82803; 82805; 83605; 83615; 83735; 84145; 85025; 85378; 86140; 87040; 87070; 87205; 87449; 87641; 93005; 93306; 94640; 94660; 94760; 96365; 96372; 96375; 97162; 97530; 99285; J1650; J1956; J2405; J2543; J2765; J2920; J2930; J3370; J3480; J3490; J7030; J7040; J7050; J7614; J7644; J7799; Q9967

== ENCOUNTER 2022-04-26 09:00 | Oncology outpatient (recurring) (ONCR) | payer MEDICARE, SELFPAY ==
[2022-04-05 08:54] LABS: Basophils # 0.1 10^3/uL (0.0-0.1); Basophils % 0.9 %; Eosinophils # 0.4 10^3/uL (0.0-0.8); Eosinophils % 3.9 %; Hematocrit 37.7 % (37.0-47.0); Hemoglobin 11.4 g/dL (11.5-15.3); Lymphocytes % 18.2 %; Mean Corpuscular HGB Conc 30.2 g/dL (30.0-36.0); Mean Corpuscular Hemoglobin 27.6 pg (28.0-34.0); Mean Corpuscular Volume 91.3 fl (81-99); Mean Platelet Volume 10.4 fL (7.4-10.4); Monocytes # 1.1 10^3/uL (0.2-0.9); Monocytes % 9.6 %; Neutrophils # 7.23 10^3/uL (1.8-7.7); Neutrophils % 65.1 %; Nucleated Red Blood Cells % 0 %; Platelet Count 442 10^3/cmm (130-400); Red Blood Count 4.13 10^6/uL (4.1-5.3); Red Cell Distribution Width 21.1 % (12.1-15.1); White Blood Count 11.1 10^3/uL (4.0-10.0)
[2022-04-05 09:45] LABS: Alanine Aminotransferase 8 U/L (0-33); Albumin Level 3.6 g/dL (3.5-5.2); Alkaline Phosphatase 74 IU/L (35-105); Anion Gap 15.1 (5-19); Aspartate Amino Transferase 18 U/L (0-32); Blood Urea Nitrogen 11 mg/dL (8-23); Calcium 9.4 mg/dL (8.5-10.5); Carbon Dioxide 30 mmol/L (22-29); Chloride 100 mmol/L (98-107); Glomerular Filtration Rate 221.2 mL/min (90-130); Glucose 101 mg/dL (65-115); Osmolality Calculated 292 mOsm/kg (285-295); Potassium 4.1 mmol/L (3.5-5.1); Sodium 141 mmol/L (136-145); Total Bilirubin 0.5 mg/dL (0.15-1.2); Total Protein 6.6 g/dL (6.6-8.7)
[2022-04-05 10:42] LABS: Cancer Antigen 19 9 191.5 U/mL (0-35)
== END 2022-04-26 23:59 | disposition home or self-care (01) ==
PROVIDERS: PCP Nurse Practitioner Family; Visit Provider Nurse Practitioner Family
DX: C25.1 Malignant neoplasm of body of pancreas (principal)
CPT/HCPCS: 36591; 80053; 85025; 86301; 99214